=== PATIENT | female | born 1960 | race American Indian/Alaskan Native ===

== ENCOUNTER 2020-08-02 08:36 | Outpatient (REF) | payer OTHER, SELFPAY ==
[2020-08-02 09:37] LABS: MANUAL DIFF FLAG NO
[2020-08-02 09:45] LABS: Basophils Absolute Auto 0.1 X10*3/uL (0.0-0.2); Basophils Percent Auto 1.9 % (0-2); Eosinophils Absolute Auto 0.3 X10*3/uL (0.0-0.4); Eosinophils Percent Auto 4.9 % (0-4); Hematocrit 41.1 % (37-47); Hemoglobin 12.8 g/dl (12.0-16.0); Imm Gran Abs Auto 0.01 X10*3/uL (0.00-0.03); Imm Gran Pct Auto 0.2 % (0.0-0.4); Lymphocytes Absolute Auto 1.1 X10*3/uL (1.2-4.9); Lymphocytes Percent Auto 20.6 % (20-40); Mean Corpuscular HGB Conc 31.1 g/dl (31.0-35.0); Mean Corpuscular Volume 93.2 fL (80-98); Mean Platelet Volume 11.6 fL (9.4-12.3); Monocytes Absolute Auto 0.5 X10*3/uL (0.1-1.2); Monocytes Percent Auto 8.4 % (2-11); Neutrophils Absolute Auto 3.4 X10*3/uL (2.0-8.3); Platelet Count 248 X10*3/uL (160-400); Red Blood Count 4.41 X10*6/uL (4.20-5.50); Red Cell Distribution Width 12.5 % (11.0-16.0); White Blood Count 5.4 X10*3/uL (4.8-10.8)
[2020-08-02 10:13] LABS: Alanine Aminotransferase 10 U/L (0-31); Albumin Level 4.5 g/dL (3.5-5.0); Alkaline Phosphatase 83 U/L (39-117); Anion Gap 17 (12-20); Aspartate Amino Transferase 15 U/L (5-31); Bilirubin Total 0.4 mg/dL (0.0-1.0); Blood Urea Nitrogen 12 mg/dL (9-16); Calcium 10.1 mg/dL (8.4-10.2); Carbon Dioxide 27 mmol/L (22-29); Chloride 101 mmol/L (96-108); Cholesterol 203 mg/dL; Estimated Glomerular Filt Rate > 60; Glucose Fasting 94 mg/dL (60-99); HDL Cholesterol 70 mg/dL; LDL Cholesterol Calculated 119 mg/dl; Potassium 4.2 mmol/L (3.3-5.1); Sodium 141 mmol/L (135-145); Triglycerides 72 mg/dL
[2020-08-02 11:20] LABS: Folate > 20.0 ng/mL (> or = 4.0); Vitamin B12 773 pg/mL (200-900)
[2020-08-09 11:32] LABS: Vitamin D 25-OH, D2 <4 ng/mL; Vitamin D 25-OH, D3 21 ng/mL; Vitamin D 25-OH, Total 21 ng/mL (30-100)
== END 2020-08-02 08:37 | disposition home or self-care (01) ==
LOC: HO.LAB 08:36
PROVIDERS: PCP Internal Medicine; Visit Provider Internal Medicine
DX: D51.0 Vitamin B12 deficiency anemia due to intrinsic factor deficiency (principal); I10 Essential (primary) hypertension; E55.9 Vitamin D deficiency, unspecified; E78.5 Hyperlipidemia, unspecified
CPT/HCPCS: 36415; 80053; 80061; 82306; 82607; 82746; 85025

== ENCOUNTER 2020-10-25 08:38 | Outpatient (REF) | payer OTHER, SELFPAY ==
--- NOTE | ~2020-10-25 | MM_ITS ---
EXAMINATION: MM SCREENING DIGITAL BREAST TOMOSYNTHESIS, BILATERAL CLINICAL INFORMATION: Screening. Asymptomatic. The lifetime risk of breast cancer based on the Tyrer-Cuzick Model is 5%. COMPARISON: Mammography: 07/20/2019, 07/14/2018, 06/23/2017 TECHNIQUE: Digital breast tomosynthesis is performed in both the craniocaudal and mediolateral oblique views along with computer-aided detection (CAD). Synthesized 2D images are generated from the tomosynthesis. FINDINGS: There are scattered areas of fibroglandular density (ACR BI-RADS breast composition Category b). There are no significant masses, abnormal calcifications, or other abnormalities. Parenchymal pattern is similar to prior studies. No developing density. No significant changes. MM/MM tomosynthesis screening BI IMPRESSION: No mammographic evidence of malignancy. ASSESSMENT: BI-RADS 1: Negative RECOMMENDATION: Routine annual mammography screening. This patient's information was entered into a reminder system with a target due date for their next mammogram.
== END 2020-10-25 08:39 | disposition home or self-care (01) ==
LOC: HO.MAMMO 08:38
PROVIDERS: PCP Internal Medicine; Visit Provider Internal Medicine
DX: Z12.31 Encounter for screening mammogram for malignant neoplasm of breast (principal)
CPT/HCPCS: 77063; 77067

== ENCOUNTER 2020-12-14 10:27 | Outpatient (REF) | payer OTHER, SELFPAY ==
--- NOTE | ~2020-12-14 | XR_ITS ---
EXAMINATION: XR ABDOMEN KUB CLINICAL INDICATION: Abdominal pain. COMPARISON: None TECHNIQUE: AP view of the abdomen. FINDINGS: There is moderate stool seen in the colon without any significant distention. There is no radiopaque calculi. There is mild levoscoliosis dorsal spine. There is amorphous calcification pelvis likely uterine fibroid disease. There are small phlebolith in pelvis. No fracture seen. XR/XR KUB IMPRESSION: Mild constipation. Likely calcified uterine fibroid in the pelvis. Mild spondylosis.
== END 2020-12-14 10:28 | disposition home or self-care (01) ==
LOC: HO.XRAY 10:27
PROVIDERS: PCP Internal Medicine; Visit Provider Internal Medicine
DX: R10.9 Unspecified abdominal pain (principal)
CPT/HCPCS: 74018

== ENCOUNTER 2020-12-22 10:29 | Outpatient (REF) | payer OTHER, SELFPAY ==
[2020-12-22 11:52] LABS: Baso%MD 1.4 %; Eos%MD 2.8 %; Hematocrit 38.4 % (37-47); Hemoglobin 12.4 g/dl (12.0-16.0); IG%MD 0.5 %; Lymph%MD 23.1 %; Mean Corpuscular HGB Conc 32.3 g/dl (31.0-35.0); Mean Corpuscular Hemoglobin 29.3 pg (27.0-33.0); Mean Corpuscular Volume 90.8 fL (80-98); Mean Platelet Volume 9.9 fL (9.4-12.3); Mono%MD 8.8 %; Neut%MD 63.4 %; Platelet Count 311 X10*3/uL (160-400); Red Blood Count 4.23 X10*6/uL (4.20-5.50); White Blood Count 5.8 X10*3/uL (4.8-10.8)
[2020-12-22 12:06] LABS: Alanine Aminotransferase 17 U/L (0-31); Albumin Level 4.6 g/dL (3.5-5.0); Alkaline Phosphatase 90 U/L (39-117); Anion Gap 14 (12-20); Aspartate Amino Transferase 15 U/L (5-31); Bilirubin Total 0.5 mg/dL (0.0-1.0); Blood Urea Nitrogen 12 mg/dL (9-16); Calcium 10.2 mg/dL (8.4-10.2); Carbon Dioxide 26 mmol/L (22-29); Chloride 106 mmol/L (96-108); Cholesterol 200 mg/dL; Estimated Glomerular Filt Rate > 60; Glucose Fasting 102 mg/dL (60-99); HDL Cholesterol 65 mg/dL; LDL Cholesterol Calculated 124 mg/dl; Potassium 4.1 mmol/L (3.3-5.1); Sodium 142 mmol/L (135-145); Triglycerides 55 mg/dL
[2020-12-22 13:44] LABS: Band Neutrophils Percent 0 % (3-5); Basophils Abs Manual 0.1 X10*3/uL (0.0-0.3); Basophils Percent Manual 2 % (0-1); Eosinophils Absolute Manual 0.2 X10*3/UL (0.0-0.8); Eosinophils Percent Manual 4 % (0-4); Lymphocytes Absolute Manual 1.2 X10*3/uL (0.6-4.8); Lymphocytes Percent Manual 20 % (20-40); Monocytes Absolute Manual 0.5 X10*3/uL (0.0-1.2); Monocytes Percent Manual 8 % (2-11); Neutrophils Absolute Manual 3.8 X10*3/uL (2.2-7.9); Neutrophils Percent Manual 66 % (45-73)
[2020-12-22 13:45] LABS: Platelet Estimate NORMAL (NORMAL); Platelet Morphology Comment NORMAL
[2020-12-22 13:46] LABS: RBC Morphology NORMAL
[2020-12-23 15:52] LABS: Folate > 20.0 ng/mL (> or = 4.0); Vitamin B12 1004 pg/mL (200-900)
[2020-12-27 16:01] LABS: Vitamin D 25-OH, D2 <4 ng/mL; Vitamin D 25-OH, D3 31 ng/mL; Vitamin D 25-OH, Total 31 ng/mL (30-100)
== END 2020-12-22 10:30 | disposition home or self-care (01) ==
LOC: HO.LAB 10:29
PROVIDERS: PCP Internal Medicine; Visit Provider Internal Medicine
DX: D51.0 Vitamin B12 deficiency anemia due to intrinsic factor deficiency (principal); I10 Essential (primary) hypertension; E55.9 Vitamin D deficiency, unspecified
CPT/HCPCS: 36415; 80053; 80061; 82306; 82607; 82746; 85007; 85027

== ENCOUNTER 2021-05-03 09:54 | Outpatient (REF) | payer OTHER, SELFPAY ==
[2021-05-03 14:49] LABS: COVID-19 Test Negative (Negative)
== END 2021-05-03 09:55 | disposition home or self-care (01) ==
LOC: HO.LAB 09:54
PROVIDERS: Visit Provider Internal Medicine
DX: Z20.822 Contact with and (suspected) exposure to COVID-19 (principal)
CPT/HCPCS: 36415; 87635; C9803

== ENCOUNTER 2021-07-31 10:32 | Outpatient (REF) | payer OTHER, SELFPAY | END 2021-07-31 10:33 | disposition home or self-care (01) | LOC: HO.US 10:32 | PROVIDERS: PCP Internal Medicine; Visit Provider Internal Medicine | DX: Z13.89 Encounter for screening for other disorder (principal) ==

== ENCOUNTER 2021-08-06 09:55 | Outpatient (REF) | payer OTHER, SELFPAY ==
--- NOTE | ~2021-08-06 | US_ITS ---
EXAMINATION: US PELVIS, COMPLETE CLINICAL INFORMATION: Leiomyoma. COMPARISON: Ultrasound 10/29/2010. TECHNIQUE: Ultrasound of the pelvis is performed using both transabdominal and transvaginal transducers along with Doppler. Transvaginal imaging is performed due to inadequate visualization transabdominally. FINDINGS: UTERUS: The uterus is anteverted and measures 8.7 x 2.9 x 4.5 cm. The endometrium is not well visualized. The uterus is smooth in contour and has normal myometrial echogenicity. There are 2 hypoechoic lesions along the posterior body of uterus measuring 1.8 x 1.2 x 1.2 cm. Previously measured 1.2 x 1.2 x 1.5 cm and second larger lesion measuring 2.3 x 2.2 x 2.7 cm. Previously measured 2.2 x 2.1 x 1.7 cm. ADNEXA: There is a right adnexal solid lesion measuring 6.3 x 3.1 x 4.1 cm. Question solid ovarian mass or a paraovarian mass, pedunculated fibroid. Right ovary is not optimally visualized. Left ovary measures 2.1 x 1.6 x 1.4 and volume 2.5 mL. US/US pelvic complete IMPRESSION: Right adnexal solid mass, question ovary versus paraovarian mass/exophytic fibroid. Unremarkable left ovary. Two uterine fibroids.
== END 2021-08-06 09:56 | disposition home or self-care (01) ==
LOC: HO.US 09:55
PROVIDERS: PCP Internal Medicine; Visit Provider Internal Medicine
DX: D25.9 Leiomyoma of uterus, unspecified (principal)
CPT/HCPCS: 76856

== ENCOUNTER 2021-08-08 09:11 | Outpatient (REF) | payer OTHER, SELFPAY ==
[2021-08-08 10:39] LABS: Alanine Aminotransferase 18 U/L (0-31); Albumin Level 4.6 g/dL (3.5-5.0); Alkaline Phosphatase 73 U/L (39-117); Anion Gap 9 (12-20); Aspartate Amino Transferase 14 U/L (5-31); Bilirubin Total 0.4 mg/dL (0.0-1.0); Blood Urea Nitrogen 12 mg/dL (9-16); Calcium 10.5 mg/dL (8.4-10.2); Carbon Dioxide 31 mmol/L (22-29); Chloride 103 mmol/L (96-108); Cholesterol 210 mg/dL; Estimated Glomerular Filt Rate > 60; Glucose Fasting 102 mg/dL (60-99); HDL Cholesterol 69 mg/dL; LDL Cholesterol Calculated 126 mg/dl; Potassium 4.5 mmol/L (3.3-5.1); Sodium 138 mmol/L (135-145); Triglycerides 78 mg/dL
[2021-08-08 11:24] LABS: Folate 18.8 ng/mL (> or = 4.0); Vitamin B12 696 pg/mL (200-900)
[2021-08-12 13:41] LABS: Vitamin D 25-OH, D2 <4 ng/mL; Vitamin D 25-OH, D3 30 ng/mL; Vitamin D 25-OH, Total 30 ng/mL (30-100)
== END 2021-08-08 09:12 | disposition home or self-care (01) ==
LOC: HO.LAB 09:11
PROVIDERS: PCP Internal Medicine; Visit Provider Internal Medicine
DX: I10 Essential (primary) hypertension (principal); E55.9 Vitamin D deficiency, unspecified; D51.0 Vitamin B12 deficiency anemia due to intrinsic factor deficiency
CPT/HCPCS: 36415; 80053; 80061; 82306; 82607; 82746

== ENCOUNTER 2021-08-29 11:20 | Outpatient (REF) | payer OTHER, SELFPAY ==
[2021-08-31 23:42] LABS: HPV mRNA E6/E7 rflx Not Detected (Not Detected)
== END 2021-08-29 11:21 | disposition home or self-care (01) ==
LOC: HO.LAB 11:20
PROVIDERS: PCP Internal Medicine; Visit Provider Obstetrics & Gynecology
DX: Z12.4 Encounter for screening for malignant neoplasm of cervix (principal); Z11.51 Encounter for screening for human papillomavirus (HPV); D21.9 Benign neoplasm of connective and other soft tissue, unspecified; N90.89 Other specified noninflammatory disorders of vulva and perineum; N94.89 Other specified conditions associated with female genital organs and menstrual cycle
CPT/HCPCS: 87624; 88142; 99202

== ENCOUNTER 2021-09-20 08:34 | Outpatient (REF) | payer OTHER, SELFPAY | END 2021-09-20 08:35 | disposition home or self-care (01) | LOC: HO.LAB 08:34 | PROVIDERS: PCP Internal Medicine; Visit Provider Obstetrics & Gynecology | DX: N90.89 Other specified noninflammatory disorders of vulva and perineum (principal) | CPT/HCPCS: 56605; 88305 ==

== ENCOUNTER 2021-09-25 13:37 | Outpatient (REF) | payer OTHER, SELFPAY ==
--- NOTE | ~2021-09-25 | MR_ITS ---
EXAMINATION: MR PELVIS WITHOUT AND WITH CONTRAST CLINICAL INFORMATION: Evaluation of a right ovarian lesion noted on a prior ultrasound. COMPARISON: Pelvic ultrasound dated from 08/06/2021. CT abdomen dated from 02/10/2008. TECHNIQUE: Multiple routine MRI sequences through the pelvis were obtained before and after the uneventful administration of 8 mL Gadavist gadolinium-based IV contrast. FINDINGS: The uterus is anteverted and measures 7 cm cervix to fundus, 4 cm anteroposterior and 4.3 cm transverse. There are several T2 dark intramural fibroids, many of which are not significantly enhancing suggesting degeneration. Largest measuring 2 cm in the posterior uterus (3:14). The upper endometrium is thickened measuring up to 1.6 cm in thickness. The junctional zone is not entirely well delineated and difficult to evaluate. The cervix and vagina are within normal limits. The left ovary is identified on image 17 of series 7 with a 1.3 cm homogeneously T2 bright avascular dominant follicle for which no imaging follow up is required. The right ovary is not definitely identified. In the right adnexa, there is a large 9 x 4.7 x 8.2 cm mass demonstrating predominantly low T2 signal and mild hypoenhancement when compared to the myometrium. This lesion appears to be in direct connection with the uterus fundus (9:17) and in retrospect was present on a CT from 2007, which favors to represent a pedunculated fibroid. This fibroid is partially calcified (9:3) which is also evident on an abdominal radiograph from 12/14/2020. The sigmoid colon is in very close proximity to this fibroid, as visualized on coronal image 4 of series 8 of uncertain significance. The kidneys are normally positioned. No hydronephrosis. The urinary bladder is within normal limits. There is trace amount of free fluid layering in the pelvis. There is no lymphadenopathy by size criteria. Sigmoid diverticulosis but no evidence of acute diverticulitis. No aggressive osseous lesions are seen. MR/MR pelvis wo/w con IMPRESSION: Large pedunculated uterine fibroid in the region of the right adnexa. There are a few other smaller intramural uterine fibroids. The endometrium is thickened. [employer] consultation and tissue sampling is recommended to evaluate for neoplasia.
[2021-09-25 14:02] LABS: Blood Urea Nitrogen 15 mg/dL (9-16); Estimated Glomerular Filt Rate > 60
== END 2021-09-25 13:38 | disposition home or self-care (01) ==
LOC: HO.MRI 13:37
PROVIDERS: Visit Provider Obstetrics & Gynecology
DX: N83.299 Other ovarian cyst, unspecified side (principal); N94.89 Other specified conditions associated with female genital organs and menstrual cycle
CPT/HCPCS: 36415; 72197; 82565; 84520; A9585

== ENCOUNTER → 2021-10-04 08:25 | Outpatient (BNVA) | payer OTHER, SELFPAY | PROVIDERS: PCP Internal Medicine; Visit Provider Obstetrics & Gynecology | DX: N90.89 Other specified noninflammatory disorders of vulva and perineum (principal) | CPT/HCPCS: 99212 ==

== ENCOUNTER 2021-10-29 08:45 | Outpatient (REF) | payer OTHER, SELFPAY ==
--- NOTE | ~2021-10-29 | MM_ITS ---
EXAMINATION: MM SCREENING DIGITAL BREAST TOMOSYNTHESIS, BILATERAL CLINICAL INFORMATION: Screening. Asymptomatic. The lifetime risk of breast cancer based on the Tyrer-Cuzick Model is 5%. COMPARISON: Mammography: 10/25/2020, 07/20/2019, 07/14/2018 TECHNIQUE: Digital breast tomosynthesis is performed in both the craniocaudal and mediolateral oblique views along with computer-aided detection (CAD). Synthesized 2D images are generated from the tomosynthesis. FINDINGS: There are scattered areas of fibroglandular density (ACR BI-RADS breast composition Category b). There are no significant masses, abnormal calcifications, or other abnormalities. Parenchymal pattern is similar to prior studies. The axilla are unremarkable. The skin contours are smooth. There are some punctate densities overlying the skin bilateral axilla consistent with deodorant artifact. MM/MM tomosynthesis screening BI IMPRESSION: No mammographic evidence of malignancy. ASSESSMENT: BI-RADS 2: Benign RECOMMENDATION: Routine annual mammography screening. This patient's information was entered into a reminder system with a target due date for their next mammogram.
== END 2021-10-29 08:46 | disposition home or self-care (01) ==
LOC: HO.MAMMO 08:45
PROVIDERS: Visit Provider Internal Medicine
DX: Z12.31 Encounter for screening mammogram for malignant neoplasm of breast (principal)
CPT/HCPCS: 77063; 77067

== ENCOUNTER → 2021-11-07 13:12 | Outpatient (BNVA) | payer OTHER, SELFPAY | PROVIDERS: PCP Internal Medicine; Visit Provider Obstetrics & Gynecology | DX: D25.1 Intramural leiomyoma of uterus (principal); R93.89 Abnormal findings on diagnostic imaging of other specified body structures | CPT/HCPCS: 99212 ==

== ENCOUNTER 2022-04-17 08:55 | Outpatient (REF) | payer OTHER, SELFPAY ==
[2022-04-17 09:08] LABS: MANUAL DIFF FLAG NO
[2022-04-17 10:02] LABS: Basophils Absolute Auto 0.1 X10*3/uL (0.0-0.2); Basophils Percent Auto 1.1 % (0-2); Eosinophils Absolute Auto 0.4 X10*3/uL (0.0-0.4); Eosinophils Percent Auto 5.8 % (0-4); Hematocrit 38.5 % (37.0-47.0); Hemoglobin 12.2 g/dl (12.0-16.0); Imm Gran Abs Auto 0.01 X10*3/uL (0.00-0.03); Imm Gran Pct Auto 0.2 % (0.0-0.4); Lymphocytes Absolute Auto 1.2 X10*3/uL (1.2-4.9); Lymphocytes Percent Auto 17.7 % (20-40); Mean Corpuscular HGB Conc 31.7 g/dl (31.0-35.0); Mean Corpuscular Hemoglobin 28.7 pg (27.0-33.0); Mean Corpuscular Volume 90.6 fL (80.0-98.0); Mean Platelet Volume 10.5 fL (9.4-12.3); Monocytes Absolute Auto 0.5 X10*3/uL (0.1-1.2); Monocytes Percent Auto 7.8 % (2-11); Neutrophils Absolute Auto 4.4 x10*3/uL (2.0-8.3); Neutrophils Percent Auto 67.4 % (45-73); Platelet Count 318 X10*3/uL (160-400); Red Blood Count 4.25 X10*6/uL (4.20-5.50); Red Cell Distribution Width 12.8 % (11.0-16.0); White Blood Count 6.5 X10*3/uL (4.8-10.8)
[2022-04-17 10:38] LABS: Estimated Average Glucose 114 mg/dL; Hemoglobin A1c % 5.6 %
[2022-04-17 10:59] LABS: Alanine Aminotransferase 16 U/L (0-31); Albumin Level 4.4 g/dL (3.5-5.0); Alkaline Phosphatase 75 U/L (39-117); Anion Gap 12 (12-20); Aspartate Amino Transferase 16 U/L (5-31); Bilirubin Total 0.4 mg/dL (0.0-1.0); Blood Urea Nitrogen 11 mg/dL (9-16); Carbon Dioxide 28 mmol/L (22-29); Chloride 104 mmol/L (96-108); Cholesterol 199 mg/dL; Estimated Glomerular Filt Rate > 60; Glucose Random 92 mg/dL (60-115); HDL Cholesterol 61 mg/dL; LDL Cholesterol Calculated 119 mg/dl; Sodium 140 mmol/L (135-145); Thyroid Stimulating Hormone 1.05 uIU/mL (0.32-4.0); Total Protein 7.6 g/dL (6.5-8.0); Triglycerides 98 mg/dL
== END 2022-04-17 08:56 | disposition home or self-care (01) ==
LOC: HO.LAB 08:55
PROVIDERS: PCP Internal Medicine; Visit Provider Nurse Practitioner Psychiatric/Mental Health
DX: F41.1 Generalized anxiety disorder (principal)
CPT/HCPCS: 36415; 80053; 80061; 83036; 84443; 85025

== ENCOUNTER 2022-05-17 10:18 | Emergency (ER) | payer OTHER, SELFPAY ==
[2022-05-17 10:26] VITALS: BP 145/68; PULSE 62; RESP 20; TEMP 36.2; O2SAT 97; BMI 25.9
--- NOTE | 2022-05-17 12:10 | ED.EYEPROB ---
HPI - Eye Problem General Chief complaint: Eye Problems Stated complaint: eye issue Time Seen by Provider: 05/17/22 11:44 History of Present Illness HPI Narrative: patient complains of waking up this morning and noticing some redness in her eye, she does not recall any eye trauma or foreign body There is no vision loss there is no vision changes no vision blurriness there is no discharge from the eye there is no pain in the eye there is no sensitivity to light, there is no headache there is no fever Related Data Home Medications Medication Instructions Recorded Confirmed citalopram 40 mg tablet 40 mg PO DAILY 02/16/20 01/28/22 bupropion HCl 150 mg tablet,12 hr 150 mg PO DAILY 12/05/20 01/28/22 sustained-release Previous Rx's Medication Instructions Recorded Shower Chair #1 ea 03/14/21 folic acid 1 mg tablet 1 mg PO DAILY 90 days #90 tabs 05/30/21 calcium carbonate 600 mg-vitamin 1 tab PO DAILY 90 days #90 tabs 05/31/21 D3 10 mcg (400 unit) tablet cholecalciferol (vitamin D3) 50 50 mcg PO DAILY 90 days #90 caps 08/24/21 mcg (2,000 unit) capsule incontinence pad, liner, disp #30 ea 08/28/21 (Bladder Control Pads) lisinopril 10 mg tablet 10 mg PO DAILY 90 days #90 tabs 01/20/22 hydrochlorothiazide 25 mg tablet 25 mg PO QAM 90 days #90 tabs 01/28/22 amlodipine 10 mg tablet 10 mg PO DAILY #90 tabs 03/06/22 cyanocobalamin (vitamin B-12) 1,000 mcg PO .once a week 90 days 03/06/22 1,000 mcg tablet #12 tabs Allergies Allergy/AdvReac Type Severity Reaction Status Date / Time amoxicillin [AMOXICILLIN] Allergy Intermediate ? RASH Verified 01/28/22 09:02 clonazepam [From KLONOPIN] Allergy Intermediate ? RASH Verified 01/28/22 09:02 lorazepam [LORAZEPAM] Allergy Intermediate ? RASH Verified 01/28/22 09:02 mirtazapine [From REMERON] Allergy Intermediate RASH Verified 01/28/22 09:02 naproxen [From NAPROSYN] Allergy Intermediate ? RASH Verified 01/28/22 09:02 Sulfa (Sulfonamide Allergy Intermediate ? RASH Verified 01/28/22 09:02 Antibiotics) [SULFA(SULFONAMIDE ANTIBIOTICS)] fluoxetine [Prozac] Allergy Mild rash Verified 01/28/22 09:02 From TUSSIONEX PENNKINETIC ER Allergy Intermediate ? RASH Uncoded 01/28/22 09:02 [facility] Past Medical History Source: nursing notes reviewed Medical History Depression with anxiety Developmental delay, mild Essential hypertension STEPHAN (generalized anxiety disorder) Hypovitaminosis D Left flank pain Mild major depression, single episode Ovarian mass Pernicious anemia Skin lesion Urge urinary incontinence Uterine fibroid Surgical History H/O tubal ligation History of Family History Family History Father Heart attack Mother No problems noted. Other Mental and behavioral problem in adult Social History Social History Housing: Apartment Alcohol intake: never Patient Tobacco Use Status: Never used Tobacco e-Cigarette/Vaping Use: Never Used Second Hand Smoke Exposure: No Advance Directives: No service: No Current occupational status: disabled Cognitive needs: Yes Hearing needs: No Vision needs: No Physical Exam Vital Signs: Vital Signs: Last Vital Signs Temp 97.2 F 05/17/22 10:26 Pulse 62 05/17/22 10:26 Resp 20 05/17/22 10:26 BP 145/68 H 05/17/22 10:26 Pulse Ox 97 05/17/22 10:26 O2 Del Method 05/17/22 10:26 BMI result Body Mass Index 25.9 general appearance comfortable cooperative no acute distress Head is normocephalic atraumatic The eye exam pupils equal round reactive to light extraocular motions are intact The conjunctiva are normal there is no redness or discharge The sclera has an area of redness in the medial aspect of the right eye consistent with subconjunctival hemorrhage There is no photophobia The skin around the lids and orbit is normal there is no stye Visual acuity is 2025 bilateral The neck is supple No respiratory distress Extremities full range of motion x4 Skin no rashes Course Course Course Narrative: patient without any complaint except redness in the sclera consistent with subconjunctival hemorrhage, no vision changes no eye pain no discharge Patient is reassured and discharged Discharge Plan Discharge Clinical Impression: Subconjunctival hemorrhage of right eye, Subconjunctival hemorrhage Patient Disposition: Home, Self-Care Additional Instructions: a subconjunctival hemorrhage is simply a burst blood vessel in the white part of the eye and it resolves on its own in 1-2 weeks with the eye returning to its normal color Return any time for eye pain vision loss vision change discharge from eye any worse condition or any concerns Prescriptions: No Action (DME) Shower Chair Misc See Rx Instructions .Route Qty: 1 0RF Rx Instructions: As directed folic acid 1 mg tablet 1 mg PO DAILY 90 Days Qty: 90 3RF calcium carbonate-vitamin D3 600 mg-10 mcg (400 unit) tablet 1 tab PO DAILY 90 Days Qty: 90 3RF cholecalciferol (vitamin D3) 50 mcg (2,000 unit) capsule 50 mcg PO DAILY 90 Days Qty: 90 3RF lisinopril 10 mg tablet 10 mg PO DAILY 90 Days Qty: 90 1RF hydrochlorothiazide 25 mg tablet 25 mg PO QAM 90 Days Qty: 90 3RF amlodipine 10 mg tablet 10 mg PO DAILY Qty: 90 1RF cyanocobalamin (vitamin B-12) 1,000 mcg tablet 1,000 mcg PO .once a week 90 Days Qty: 12 3RF citalopram 40 mg tablet 40 mg PO DAILY bupropion HCl 150 mg tablet sustained-release 12 hr 150 mg PO DAILY (DME) Bladder Control Pads Pad See Rx Instructions .ROUTE .MEDSUPPLY Qty: 30 11RF Rx Instructions: Use 1 pad once a day prn
== END 2022-05-17 12:41 | disposition home or self-care (01) ==
PROVIDERS: Emergency Provider Emergency Medicine
DX: H11.31 Conjunctival hemorrhage, right eye (principal); Z79.899 Other long term (current) drug therapy
CPT/HCPCS: 99282

== ENCOUNTER 2022-08-22 13:19 | Outpatient (REF) | payer OTHER, SELFPAY ==
--- NOTE | ~2022-08-22 | US_ITS ---
EXAMINATION: US PELVIS CLINICAL INFORMATION: Thickened endometrium, fibroids and adnexal mass. COMPARISON: MR pelvis 09/25/2021 and pelvic ultrasound 08/06/2021. TECHNIQUE: Ultrasound of the pelvis is performed using both transabdominal and transvaginal transducers along with Doppler. Transvaginal imaging is performed due to inadequate visualization transabdominally. FINDINGS: UTERUS: The anteverted anteflexed uterus contains multiple fibroids and is enlarged measuring 7.4 x 3.5 x 3.6 cm. The endometrium appears markedly thickened measuring 3.1 cm. Multiple uterine fibroids are seen predominantly on the right with the largest pedunculated measuring 6.5 x 3.9 x 4.2 cm (previously 6.3 x 3.1 x 4.1 cm). Three other fibroids measured between 1.1 and 2.2 cm. ADNEXA: Both ovaries are visualized. There is normal color flow to the adnexa. There is no ovarian torsion. There is no pelvic ascites or fluid collection. Right ovary measures 1.9 x 1.0 x 1.3 cm for a volume 1.3 mL. Left ovary measures 2.4 x 1.6 x 2.1 cm for a volume of 4.2 mL, which includes a 1.4 x 1.5 x 1.7 cm cyst along with some calcifications. US/US pelvic and transvaginal IMPRESSION: 1. Multiple uterine fibroids one of which is large and pedunculated. 2. Markedly thickened endometrium measuring 3.1 cm. On the prior MRI the endometrium was thought to measure up to 1.6 cm in thickness. 3. Benign left ovarian cyst.
== END 2022-08-22 13:20 | disposition home or self-care (01) ==
LOC: HO.US 13:19
PROVIDERS: PCP Internal Medicine; Visit Provider Obstetrics & Gynecology
DX: D21.9 Benign neoplasm of connective and other soft tissue, unspecified (principal)
CPT/HCPCS: 76830; 76856

== ENCOUNTER → 2022-09-04 08:48 | Outpatient (BNVA) | payer OTHER, SELFPAY | PROVIDERS: PCP Internal Medicine; Visit Provider Obstetrics & Gynecology | DX: D21.9 Benign neoplasm of connective and other soft tissue, unspecified (principal) | CPT/HCPCS: 99212 ==

== ENCOUNTER → 2022-10-08 08:55 | Outpatient (BNVA) | payer OTHER, SELFPAY | PROVIDERS: PCP Internal Medicine; Visit Provider Obstetrics & Gynecology ==

== ENCOUNTER 2022-11-18 12:49 | Outpatient (REF) | payer OTHER, SELFPAY ==
--- NOTE | ~2022-11-18 | MM_ITS ---
EXAMINATION: MM SCREENING DIGITAL BREAST TOMOSYNTHESIS, BILATERAL CLINICAL INFORMATION: Screening. Asymptomatic. The lifetime risk of breast cancer based on the Tyrer-Cuzick Model is 5.2%. COMPARISON: Mammography: This study is compared with prior exams dating back to 2017. TECHNIQUE: Digital breast tomosynthesis is performed in both the craniocaudal and mediolateral oblique views along with computer-aided detection (CAD). Synthesized 2D images are generated from the tomosynthesis. FINDINGS: There are scattered areas of fibroglandular density (ACR BI-RADS breast composition Category b). There are no significant masses, abnormal calcifications, or other abnormalities. MM/MM tomosynthesis screening BI IMPRESSION: No mammographic evidence of malignancy. ASSESSMENT: BI-RADS BI-RADS 1 - Negative RECOMMENDATION: Routine annual mammography screening. 1 year F/U This examination should not preclude the clinical evaluation of a suspicious palpable abnormality. This patient's information was entered into a reminder system with a target due date for their next mammogram.
== END 2022-11-18 12:50 | disposition home or self-care (01) ==
LOC: HO.MAMMO 12:49
PROVIDERS: PCP Internal Medicine; Visit Provider Internal Medicine
DX: Z12.31 Encounter for screening mammogram for malignant neoplasm of breast (principal)
CPT/HCPCS: 77063; 77067

== ENCOUNTER → 2022-11-18 13:00 | Outpatient (BNV) | payer OTHER, SELFPAY | PROVIDERS: PCP Internal Medicine; Visit Provider Radiology Diagnostic Radiology | DX: Z12.31 Encounter for screening mammogram for malignant neoplasm of breast (principal) | CPT/HCPCS: 77063; 77067 ==

== ENCOUNTER 2022-12-01 13:51 | Emergency (ER) | payer OTHER, SELFPAY ==
--- NOTE | ~2022-12-01 | XR_ITS ---
EXAMINATION: XR CHEST CLINICAL INFORMATION: SOB. COMPARISON: None available. TECHNIQUE: Frontal view of the chest was obtained. FINDINGS: The lungs are well-expanded and clear of acute process. The heart size and pulmonary vascularity is normal. There is mild dextro scoliosis lower dorsal spine. Suspect small hiatal hernia. XR/XR chest 1V IMPRESSION: 1. No acute cardiopulmonary process seen. 2. Suspect small hiatal hernia. 3. Mild dextro scoliosis lower dorsal spine
--- NOTE | 2022-12-01 13:56 | ED_ITS ---
HPI - Eye Problem General Chief complaint: Eye Problems Stated complaint: Right eye problems Time Seen by Provider: 12/01/22 14:11 Related Data Home Medications Medication Instructions Recorded Confirmed citalopram 40 mg tablet 40 mg PO DAILY 02/16/20 01/28/22 bupropion HCl 150 mg tablet,12 hr 150 mg PO DAILY 12/05/20 01/28/22 sustained-release Previous Rx's Medication Instructions Recorded Shower Chair #1 ea 03/14/21 incontinence pad, liner, disp #30 ea 08/28/21 (Bladder Control Pads) hydrochlorothiazide 25 mg tablet 25 mg PO QAM 90 days #90 tabs 01/28/22 cyanocobalamin (vitamin B-12) 1,000 mcg PO .once a week 90 days 03/06/22 1,000 mcg tablet #12 tabs calcium carbonate 600 mg-vitamin 1 tab PO DAILY 90 days #90 tabs 06/10/22 D3 10 mcg (400 unit) tablet folic acid 1 mg tablet 1 mg PO DAILY 90 days #90 tabs 08/07/22 lisinopril 10 mg tablet 10 mg PO DAILY 90 days #90 tabs 08/07/22 cholecalciferol (vitamin D3) 50 50 mcg PO DAILY 90 days #90 caps 09/04/22 mcg (2,000 unit) capsule amlodipine 10 mg tablet 10 mg PO DAILY #90 tabs 10/08/22 Allergies Allergy/AdvReac Type Severity Reaction Status Date / Time amoxicillin [AMOXICILLIN] Allergy Intermediate ? RASH Verified 10/08/22 09:01 clonazepam [From KLONOPIN] Allergy Intermediate ? RASH Verified 10/08/22 09:01 lorazepam [LORAZEPAM] Allergy Intermediate ? RASH Verified 10/08/22 09:01 mirtazapine [From REMERON] Allergy Intermediate RASH Verified 10/08/22 09:01 naproxen [From NAPROSYN] Allergy Intermediate ? RASH Verified 10/08/22 09:01 Sulfa (Sulfonamide Allergy Intermediate ? RASH Verified 10/08/22 09:01 Antibiotics) [SULFA(SULFONAMIDE ANTIBIOTICS)] fluoxetine [Prozac] Allergy Mild rash Verified 10/08/22 09:01 From TUSSIONEX PENNKINETIC ER Allergy Intermediate ? RASH Uncoded 10/08/22 09:01 [facility] Past Medical History Medical History Depression with anxiety Developmental delay, mild Essential hypertension STEPHAN (generalized anxiety disorder) Hypovitaminosis D Left flank pain Mild major depression, single episode Ovarian mass Pernicious anemia Skin lesion Urge urinary incontinence Uterine fibroid Surgical History H/O tubal ligation History of Family History Family History Father Heart attack Mother No problems noted. Other Mental and behavioral problem in adult Social History Social History Housing: Apartment Alcohol intake: never Patient Tobacco Use Status: Never used Tobacco Smoked in Last 30 Days: No e-Cigarette/Vaping Use: Never Used Second Hand Smoke Exposure: No Use of substances other than those prescribed or required for medical reasons: No Advance Directives: No Advance Directives Information Provided: Yes service: No Current occupational status: disabled Cognitive needs: Yes Hearing needs: No Vision needs: No Physical Exam Vital Signs: Vital Signs: Last Vital Signs Temp 98.2 F 12/01/22 13:57 Pulse 62 12/01/22 14:23 Resp 10 L 12/01/22 14:23 BP 147/50 H 12/01/22 14:23 Pulse Ox 98 12/01/22 14:23 O2 Del Method Room Air 12/01/22 14:23 BMI result Body Mass Index 28.1 Course Course Course Narrative: This is an RME: Additional HPI, ROS, PE not included below will be deferred to primary provider. Patient is a 62-year-old female who presents emergency department for evaluation of bleeding to right eye, painless, atraumatic with associated blurred vision. Variable bradycardia during examination 30-50s. She is prescribed amlodipine, HCTZ, lisinopril, no reported BB. Denies chest pain, dizziness, lightheadedness, shortness of breath, difficulty breathing. Exam appears to have subconjunctival hemorrhage, no hyphema Plan: EKG, Medical Decision Making Lab Data 12/01/22 14:56 12/01/22 14:56 Labs: Lab Results 12/01/22 12/01/22 12/01/22 Range/Units 14:56 14:56 14:56 WBC 7.1 (4.8-10.8) X10*3/uL RBC 3.89 L (4.20-5.50) X10*6/uL Hgb 11.2 L (12.0-16.0) g/dl Hct 35.2 L (37.0-47.0) % MCV 90.5 (80.0-98.0) fL MCH 28.8 (27.0-33.0) pg MCHC 31.8 (31.0-35.0) g/dl RDW 13.2 (11.0-16.0) % Plt Count 308 (160-400) X10*3/uL MPV 9.5 (9.4-12.3) fL Immature Gran % (Auto) 0.4 (0.0-0.4) % Neut % (Auto) 65.9 (45-73) % Lymph % (Auto) 16.7 L (20-40) % [place] % (Auto) 10.9 (2-11) % Eos % (Auto) 4.7 H (0-4) % Baso % (Auto) 1.4 (0-2) % Lymph # (Auto) 1.2 (1.2-4.9) X10*3/uL [place] # (Auto) 0.8 (0.1-1.2) X10*3/uL Eos # (Auto) 0.3 (0.0-0.4) X10*3/uL Baso # (Auto) 0.1 (0.0-0.2) X10*3/uL Abs Immat Gran (auto) 0.03 (0.00-0.03) X10*3/uL Absolute Neuts (auto) 4.6 (2.0-8.3) x10*3/uL Absolute Nucleated RBC 0.000 (0.0-0.012) X10*3/uL Nucleated RBC % (auto) 0.0 (0.0-0.2) /100WBC Sodium 143 (135-145) mmol/L Potassium 4.3 (3.3-5.1) mmol/L Chloride 106 (96-108) mmol/L Carbon Dioxide 26 (22-29) mmol/L Anion Gap 15 (12-20) BUN 15 (9-16) mg/dL Creatinine 0.86 (0.5-1.4) mg/dL Estim Creat Clear Calc 62.0 Estimated GFR > 60 Random Glucose 101 (60-115) mg/dL Calcium 10.8 H D (8.4-10.2) mg/dL Magnesium 1.8 (1.6-2.6) mg/dL Troponin I High Sens 17.0 (<3.5-17.0) ng/L Discharge Plan Discharge Clinical Impression: Subconjunctival bleed Patient Disposition: Home, Self-Care Instructions: Subconjunctival Hemorrhage (ED) Prescriptions: No Action (DME) Shower Chair Misc See Rx Instructions .Route Qty: 1 0RF Rx Instructions: As directed hydrochlorothiazide 25 mg tablet 25 mg PO QAM 90 Days Qty: 90 3RF cyanocobalamin (vitamin B-12) 1,000 mcg tablet 1,000 mcg PO .once a week 90 Days Qty: 12 3RF calcium carbonate-vitamin D3 600 mg-10 mcg (400 unit) tablet 1 tab PO DAILY 90 Days Qty: 90 3RF folic acid 1 mg tablet 1 mg PO DAILY 90 Days Qty: 90 3RF lisinopril 10 mg tablet 10 mg PO DAILY 90 Days Qty: 90 1RF cholecalciferol (vitamin D3) 50 mcg (2,000 unit) capsule 50 mcg PO DAILY 90 Days Qty: 90 3RF amlodipine 10 mg tablet 10 mg PO DAILY Qty: 90 1RF citalopram 40 mg tablet 40 mg PO DAILY bupropion HCl 150 mg tablet sustained-release 12 hr 150 mg PO DAILY (DME) Bladder Control Pads Pad See Rx Instructions .ROUTE .MEDSUPPLY Qty: 30 11RF Rx Instructions: Use 1 pad once a day prn Referrals: Mikey Mora [Physician] - 12/03/22 Tr Barrett MD [Physician] - 12/03/22 Interventions: ED Discharge Assessment Last Done: 12/01/22 16:02 Discharge Date/Time: 12/01/22 16:03
[2022-12-01 13:57] VITALS: BP 129/53; PULSE 40; RESP 18; TEMP 36.8; O2SAT 98; BMI 28.1
--- NOTE | 2022-12-01 14:00 | ECG_ITS ---
Test Reason : BRADYCARDIA Blood Pressure : / mmHG Vent. Rate : 066 BPM Atrial Rate : 066 BPM P-R Int : 154 ms QRS Dur : 112 ms QT Int : 454 ms P-R-T Axes : 084 001 115 degrees QTc Int : 475 ms Sinus rhythm with frequent Premature ventricular complexes in a pattern of bigeminy Minimal voltage criteria for LVH, may be normal variant ( [place] product ) Anteroseptal infarct , age undetermined Abnormal ECG When compared with ECG of 21-MAR-2016 10:49, Premature ventricular complexes are now Present Premature atrial complexes are no longer Present QRS duration has increased Anteroseptal infarct is now Present Referred By: Jocelyne You Electronically Signed By:KY CHAMBERS MD
[2022-12-01 14:23] VITALS: BP 147/50; PULSE 62; RESP 10; O2SAT 98
--- NOTE | 2022-12-01 14:48 | ED.EYEPROB ---
HPI - Eye Problem General Chief complaint: Eye Problems Stated complaint: Right eye problems Time Seen by Provider: 12/01/22 14:11 History of Present Illness HPI Narrative: Patient is 62-year-old female presents today with having bloody right eye. Patient denies any specific trauma. Had noticed the bloody right eye for the last week. There is no chest pain or shortness breath no dizziness no nausea no vomiting. No systemic complaints. Patient from home. There has been no changes to patient's medications. Related Data Home Medications Medication Instructions Recorded Confirmed citalopram 40 mg tablet 40 mg PO DAILY 02/16/20 01/28/22 bupropion HCl 150 mg tablet,12 hr 150 mg PO DAILY 12/05/20 01/28/22 sustained-release Previous Rx's Medication Instructions Recorded Shower Chair #1 ea 03/14/21 incontinence pad, liner, disp #30 ea 08/28/21 (Bladder Control Pads) hydrochlorothiazide 25 mg tablet 25 mg PO QAM 90 days #90 tabs 01/28/22 cyanocobalamin (vitamin B-12) 1,000 mcg PO .once a week 90 days 03/06/22 1,000 mcg tablet #12 tabs calcium carbonate 600 mg-vitamin 1 tab PO DAILY 90 days #90 tabs 06/10/22 D3 10 mcg (400 unit) tablet folic acid 1 mg tablet 1 mg PO DAILY 90 days #90 tabs 08/07/22 lisinopril 10 mg tablet 10 mg PO DAILY 90 days #90 tabs 08/07/22 cholecalciferol (vitamin D3) 50 50 mcg PO DAILY 90 days #90 caps 09/04/22 mcg (2,000 unit) capsule amlodipine 10 mg tablet 10 mg PO DAILY #90 tabs 10/08/22 Allergies Allergy/AdvReac Type Severity Reaction Status Date / Time amoxicillin [AMOXICILLIN] Allergy Intermediate ? RASH Verified 10/08/22 09:01 clonazepam [From KLONOPIN] Allergy Intermediate ? RASH Verified 10/08/22 09:01 lorazepam [LORAZEPAM] Allergy Intermediate ? RASH Verified 10/08/22 09:01 mirtazapine [From REMERON] Allergy Intermediate RASH Verified 10/08/22 09:01 naproxen [From NAPROSYN] Allergy Intermediate ? RASH Verified 10/08/22 09:01 Sulfa (Sulfonamide Allergy Intermediate ? RASH Verified 10/08/22 09:01 Antibiotics) [SULFA(SULFONAMIDE ANTIBIOTICS)] fluoxetine [Prozac] Allergy Mild rash Verified 10/08/22 09:01 From TUSSIONEX PENNKINETIC ER Allergy Intermediate ? RASH Uncoded 10/08/22 09:01 Review of Systems Review of Systems: No fever no chills no chest pain or shortness of breath Yes all other systems are reviewed and are negative [facility] Past Medical History Attestation statement: The following information was validated with the patient. Medical History Depression with anxiety Developmental delay, mild Essential hypertension STEPHAN (generalized anxiety disorder) Hypovitaminosis D Left flank pain Mild major depression, single episode Ovarian mass Pernicious anemia Skin lesion Urge urinary incontinence Uterine fibroid Surgical History H/O tubal ligation History of Family History Family History Father Heart attack Mother No problems noted. Other Mental and behavioral problem in adult Social History Social History Housing: Apartment Alcohol intake: never Patient Tobacco Use Status: Never used Tobacco e-Cigarette/Vaping Use: Never Used Second Hand Smoke Exposure: No Advance Directives: No Advance Directives Information Provided: Yes service: No Current occupational status: disabled Cognitive needs: Yes Hearing needs: No Vision needs: No Physical Exam Vital Signs: Vital Signs: Last Vital Signs Temp 98.2 F 12/01/22 13:57 Pulse 62 12/01/22 14:23 Resp 10 L 12/01/22 14:23 BP 147/50 H 12/01/22 14:23 Pulse Ox 98 12/01/22 14:23 O2 Del Method Room Air 12/01/22 14:23 BMI result Body Mass Index 28.1 Appearance: Alert. Oriented X3. No acute distress. Eyes: Pupils equal, round and reactive to light. The right eye there is subchondral title hemorrhage covering the medial and inferior aspect of the eye. The anterior chambers intact. Pupils are equal reactive. Extraocular muscles intact. Gross finger counting is intact. Patient is intra-ocular pressure is 13 on the right, 14 on the left. No evidence for glaucoma. Patient unable to read eye chart well ENT: Pharynx normal. Neck: Normal inspection. Neck supple. No lymph nodes noted. No crepitus CVS: Normal heart rate and rhythm. Pulses normal. Normal S1 and S2 Respiratory: No respiratory distress. Breath sounds normal. No Wheezing. No rales Abdomen: Soft and nontender. No rigidity. No distention. good BS x4 Skin: Skin warm and dry. Normal skin color. Normal skin turgor. Extremities: No lower extremity edema. Neurovascular intact to all extremities. No Lacerations. No Rash Neuro: Oriented X 3. No motor deficit. No sensory deficit. Moving all extermities. No slurred speech Medical Decision Making Medical Decision Making MDM Narrative: Patient most likely have subconjunctival hemorrhage. Grossly vision is intact. Able to do finger count although patient cannot read minds. Claims visions is about the same. Patient pupils are equal reactive. There is no evidence for glaucoma as patient's intra-ocular pressure is normal. No fever no chills. Patient however had a slow heart rate. An EKG was done. My interpretation of that EKG showed a sinus pattern with bigeminy heart rate is approximately 60. There is no old EKG showing similar rhythm. However on reviewing patient's charts there is a report of bigeminy noted when patient was getting a hysterectomy at [facility] about a month ago. A cardiology consult was done at that time. Will try to obtain that EKG from [facility]. We will go ahead and get electrolytes recheck. Currently in stable condition. Patient not on blood thinners. Patient's EKG today showed a wide complex bigeminy this is new when compared to a previous EKG in 2016. However the patient is has a Cardiology consultation scanned into the computer system that shows she was in bigeminy at [facility]. Attempted to obtain the old record from [facility]. Cannot get an old EKG. The current EKG and the EKG from 2016 was discussed with the plant care worker on-call. Given patient has no symptoms no chest pain or shortness of breath she came in for an eye complaints. Most likely this is not related. Will have patient follow-up on an outpatient basis. Patient has subchondral title hemorrhage. Will have patient follow-up with eye doctor on an outpatient basis. In stable condition. Will discharge Differential Diagnosis Differential Diagnoses: The differential diagnosis associated with the presentation includes Subconjunctival hemorrhage Admission/Observation Consideration of admission/observation: Escalation of care including admission/observation considered Lab Data MDM Lab Attestation statement: I reviewed the patient's lab results. 12/01/22 14:56 12/01/22 14:56 Labs: Lab Results 12/01/22 12/01/22 12/01/22 Range/Units 14:56 14:56 14:56 WBC 7.1 (4.8-10.8) X10*3/uL RBC 3.89 L (4.20-5.50) X10*6/uL Hgb 11.2 L (12.0-16.0) g/dl Hct 35.2 L (37.0-47.0) % MCV 90.5 (80.0-98.0) fL MCH 28.8 (27.0-33.0) pg MCHC 31.8 (31.0-35.0) g/dl RDW 13.2 (11.0-16.0) % Plt Count 308 (160-400) X10*3/uL MPV 9.5 (9.4-12.3) fL Immature Gran % (Auto) 0.4 (0.0-0.4) % Neut % (Auto) 65.9 (45-73) % Lymph % (Auto) 16.7 L (20-40) % Williamson % (Auto) 10.9 (2-11) % Eos % (Auto) 4.7 H (0-4) % Baso % (Auto) 1.4 (0-2) % Lymph # (Auto) 1.2 (1.2-4.9) X10*3/uL Williamson # (Auto) 0.8 (0.1-1.2) X10*3/uL Eos # (Auto) 0.3 (0.0-0.4) X10*3/uL Baso # (Auto) 0.1 (0.0-0.2) X10*3/uL Abs Immat Gran (auto) 0.03 (0.00-0.03) X10*3/uL Absolute Neuts (auto) 4.6 (2.0-8.3) x10*3/uL Absolute Nucleated RBC 0.000 (0.0-0.012) X10*3/uL Nucleated RBC % (auto) 0.0 (0.0-0.2) /100WBC Sodium 143 (135-145) mmol/L Potassium 4.3 (3.3-5.1) mmol/L Chloride 106 (96-108) mmol/L Carbon Dioxide 26 (22-29) mmol/L Anion Gap 15 (12-20) BUN 15 (9-16) mg/dL Creatinine 0.86 (0.5-1.4) mg/dL Estim Creat Clear Calc 62.0 Estimated GFR > 60 Random Glucose 101 (60-115) mg/dL Calcium 10.8 H D (8.4-10.2) mg/dL Magnesium 1.8 (1.6-2.6) mg/dL Troponin I High Sens 17.0 (<3.5-17.0) ng/L Independent Interpretation I performed an independent interpretation of an: EKG Interpretation: Sinus bigeminy heart rate is 60 there is wide complex ventricular complex noted. Radiology Impression Discussion of test interpretation with radiology: I have reviewed the radiologist's reading. Radiologist Impression: Chest x-ray grossly negative External Record Review External record reviewed: Outpatient record From [facility] Discharge Plan Discharge Clinical Impression: Subconjunctival bleed Patient Disposition: Home, Self-Care Instructions: Subconjunctival Hemorrhage (ED) Prescriptions: No Action (DME) Shower Chair Misc See Rx Instructions .Route Qty: 1 0RF Rx Instructions: As directed hydrochlorothiazide 25 mg tablet 25 mg PO QAM 90 Days Qty: 90 3RF cyanocobalamin (vitamin B-12) 1,000 mcg tablet 1,000 mcg PO .once a week 90 Days Qty: 12 3RF calcium carbonate-vitamin D3 600 mg-10 mcg (400 unit) tablet 1 tab PO DAILY 90 Days Qty: 90 3RF folic acid 1 mg tablet 1 mg PO DAILY 90 Days Qty: 90 3RF lisinopril 10 mg tablet 10 mg PO DAILY 90 Days Qty: 90 1RF cholecalciferol (vitamin D3) 50 mcg (2,000 unit) capsule 50 mcg PO DAILY 90 Days Qty: 90 3RF amlodipine 10 mg tablet 10 mg PO DAILY Qty: 90 1RF citalopram 40 mg tablet 40 mg PO DAILY bupropion HCl 150 mg tablet sustained-release 12 hr 150 mg PO DAILY (DME) Bladder Control Pads Pad See Rx Instructions .ROUTE .MEDSUPPLY Qty: 30 11RF Rx Instructions: Use 1 pad once a day prn Referrals: Mikey Mora [Physician] - 12/03/22 Tr Barrett MD [Physician] - 12/03/22
[2022-12-01 15:00] LABS: MANUAL DIFF FLAG NO
[2022-12-01 15:03] LABS: Basophils Absolute Auto 0.1 X10*3/uL (0.0-0.2); Basophils Percent Auto 1.4 % (0-2); Eosinophils Absolute Auto 0.3 X10*3/uL (0.0-0.4); Eosinophils Percent Auto 4.7 % (0-4); Hematocrit 35.2 % (37.0-47.0); Hemoglobin 11.2 g/dl (12.0-16.0); Imm Gran Abs Auto 0.03 X10*3/uL (0.00-0.03); Imm Gran Pct Auto 0.4 % (0.0-0.4); Lymphocytes Absolute Auto 1.2 X10*3/uL (1.2-4.9); Lymphocytes Percent Auto 16.7 % (20-40); Mean Corpuscular HGB Conc 31.8 g/dl (31.0-35.0); Mean Corpuscular Hemoglobin 28.8 pg (27.0-33.0); Mean Corpuscular Volume 90.5 fL (80.0-98.0); Mean Platelet Volume 9.5 fL (9.4-12.3); Monocytes Absolute Auto 0.8 X10*3/uL (0.1-1.2); Monocytes Percent Auto 10.9 % (2-11); Neutrophils Absolute Auto 4.6 x10*3/uL (2.0-8.3); Neutrophils Percent Auto 65.9 % (45-73); Platelet Count 308 X10*3/uL (160-400); Red Blood Count 3.89 X10*6/uL (4.20-5.50); Red Cell Distribution Width 13.2 % (11.0-16.0); White Blood Count 7.1 X10*3/uL (4.8-10.8)
[2022-12-01 15:18] LABS: Anion Gap 15 (12-20); Blood Urea Nitrogen 15 mg/dL (9-16); Calcium 10.8 mg/dL (8.4-10.2); Carbon Dioxide 26 mmol/L (22-29); Chloride 106 mmol/L (96-108); Estimated Glomerular Filt Rate > 60; Glucose Random 101 mg/dL (60-115); Magnesium 1.8 mg/dL (1.6-2.6); Potassium 4.3 mmol/L (3.3-5.1); Sodium 143 mmol/L (135-145)
== END 2022-12-01 16:03 | disposition home or self-care (01) ==
PROVIDERS: Emergency Provider Emergency Medicine Emergency Medical Services; PCP Internal Medicine
DX: H11.31 Conjunctival hemorrhage, right eye (principal)
CPT/HCPCS: 36415; 71045; 80048; 83735; 84484; 85025; 93005; 99283; 99284

== ENCOUNTER → 2022-12-01 14:00 | Outpatient (BNV) | payer OTHER, SELFPAY | PROVIDERS: Emergency Provider Emergency Medicine Emergency Medical Services; PCP Internal Medicine; Visit Provider Internal Medicine Cardiovascular Disease | DX: R00.1 Bradycardia, unspecified (principal) | CPT/HCPCS: 93010 ==

== ENCOUNTER 2022-12-29 19:55 | Emergency (ER) | payer OTHER, SELFPAY ==
[2022-12-29 20:06] VITALS: BP 133/47; PULSE 61; RESP 18; TEMP 37.4; O2SAT 98; BMI 26.8
--- NOTE | 2022-12-29 22:01 | ED_ITS ---
HPI - Wound/Laceration General Chief Complaint: Wound/Laceration Stated Complaint: Laceration right pinky finger cut with can Time Seen by Provider: 12/29/22 21:07 Source: patient Mode of arrival: ambulatory Limitations: no limitations History of Present Illness HPI narrative: patient is a 62-year-old female who presents emergency department for evaluation of a laceration to the right 5th digit [employer]. Prior to arrival she was opening a can of soup when she accidentally sustained a laceration to the finger. She could not get the bleeding under control at home therefore she presented to the emergency department evaluation. She denies any use of anticoagulants are known coagulation disorders. She has full range of motions of the digit. Unaware of the date of last tetanus vaccination Related Data Home Medications Medication Instructions Recorded Confirmed citalopram 40 mg tablet 40 mg PO DAILY 02/16/20 01/28/22 bupropion HCl 150 mg tablet,12 hr 150 mg PO DAILY 12/05/20 01/28/22 sustained-release Previous Rx's Medication Instructions Recorded Shower Chair #1 ea 03/14/21 incontinence pad, liner, disp #30 ea 08/28/21 (Bladder Control Pads) hydrochlorothiazide 25 mg tablet 25 mg PO QAM 90 days #90 tabs 01/28/22 cyanocobalamin (vitamin B-12) 1,000 mcg PO .once a week 90 days 03/06/22 1,000 mcg tablet #12 tabs calcium carbonate 600 mg-vitamin 1 tab PO DAILY 90 days #90 tabs 06/10/22 D3 10 mcg (400 unit) tablet folic acid 1 mg tablet 1 mg PO DAILY 90 days #90 tabs 08/07/22 lisinopril 10 mg tablet 10 mg PO DAILY 90 days #90 tabs 08/07/22 cholecalciferol (vitamin D3) 50 50 mcg PO DAILY 90 days #90 caps 09/04/22 mcg (2,000 unit) capsule amlodipine 10 mg tablet 10 mg PO DAILY #90 tabs 10/08/22 Allergies Allergy/AdvReac Type Severity Reaction Status Date / Time amoxicillin [AMOXICILLIN] Allergy Intermediate ? RASH Verified 10/08/22 09:01 clonazepam [From KLONOPIN] Allergy Intermediate ? RASH Verified 10/08/22 09:01 lorazepam [LORAZEPAM] Allergy Intermediate ? RASH Verified 10/08/22 09:01 mirtazapine [From REMERON] Allergy Intermediate RASH Verified 10/08/22 09:01 naproxen [From NAPROSYN] Allergy Intermediate ? RASH Verified 10/08/22 09:01 Sulfa (Sulfonamide Allergy Intermediate ? RASH Verified 10/08/22 09:01 Antibiotics) [SULFA(SULFONAMIDE ANTIBIOTICS)] fluoxetine [Prozac] Allergy Mild rash Verified 10/08/22 09:01 From TUSSIONEX PENNKINETIC ER Allergy Intermediate ? RASH Uncoded 10/08/22 09:01 Review of Systems Review of Systems: Yes all other systems are reviewed and are negative [facility] Past Medical History Attestation statement: The following information was validated with the patient. Source: old records reviewed Medical History Depression with anxiety Developmental delay, mild Essential hypertension STEPHAN (generalized anxiety disorder) Hypovitaminosis D Left flank pain Mild major depression, single episode Ovarian mass Pernicious anemia Skin lesion Urge urinary incontinence Uterine fibroid Surgical History H/O tubal ligation History of Family History Family History Father Heart attack Mother No problems noted. Other Mental and behavioral problem in adult Social History Social History Housing: Apartment Alcohol intake: never Patient Tobacco Use Status: Never used Tobacco e-Cigarette/Vaping Use: Never Used Second Hand Smoke Exposure: No Advance Directives: No Advance Directives Information Provided: No service: No Current occupational status: disabled Cognitive needs: Yes Hearing needs: No Vision needs: No Physical Exam Vital Signs: Vital Signs: Last Vital Signs Temp 99.4 F 12/29/22 20:06 Pulse 61 12/29/22 20:06 Resp 18 12/29/22 20:06 BP 133/47 L 12/29/22 20:06 Pulse Ox 98 12/29/22 20:06 O2 Del Method Room Air 12/29/22 20:06 BMI result Body Mass Index 26.8 Appearance: Alert.?Oriented to person, place and time. No acute distress.?Normal affect. Neck: Normal inspection.? Neck supple.?? CVS: Heart sounds normal. Normal heart rate and rhythm.? Pulses normal.?? Respiratory: No respiratory distress.? Lung sounds clear to auscultation bilaterally?? Skin: Skin warm and dry.? Normal skin color.? 2 superficial linear laceration, 1 cm to the ulnar aspect of the 5th digit on the right hand. No active bleeding. Edges well-approximated. Extremities: full AROM to the right digit. Neuro: Moves all extremities spontaneously. Sensation intact bilaterally. Medical Decision Making Medical Decision Making MDM Narrative: Patient is a 62-year-old female presents emergency department for evaluation of a laceration to the right 5th digit that she sustained prior to arrival. Laceration is superficial in nature, not amenable to repair with suture, cleansed with normal saline and Betadine. Repair with skin glue. Discussed worrisome signs and symptoms that would warrant re-evaluation in the emergency department, including signs of infection. Advised outpatient follow-up with her primary care provider as needed. Tdap was updated today. Low suspicion for any osseous abnormality/ fracture given full AROM, would defer XR imaging at this time. Differential Diagnosis Differential Diagnoses: The differential diagnosis associated with the presentation includes ( laceration, fracture, tendon/ligament involvement, neurovascular compromise) External Record Review External record reviewed: Outpatient record Tests considered The following testing was considered but not selected: I considered XR imaging as noted above, deferred Prescription Management I considered prescription management with: Pain Medication ( acetaminophen/ ibuprofen are appropriate for management) Discharge Plan Discharge Clinical Impression: Laceration of finger Patient Disposition: Home, Self-Care Instructions: Laceration (ED), Finger Laceration (ED), Skin Adhesive Care (ED) Prescriptions: No Action (DME) Shower Chair Misc See Rx Instructions .Route Qty: 1 0RF Rx Instructions: As directed hydrochlorothiazide 25 mg tablet 25 mg PO QAM 90 Days Qty: 90 3RF cyanocobalamin (vitamin B-12) 1,000 mcg tablet 1,000 mcg PO .once a week 90 Days Qty: 12 3RF calcium carbonate-vitamin D3 600 mg-10 mcg (400 unit) tablet 1 tab PO DAILY 90 Days Qty: 90 3RF folic acid 1 mg tablet 1 mg PO DAILY 90 Days Qty: 90 3RF lisinopril 10 mg tablet 10 mg PO DAILY 90 Days Qty: 90 1RF cholecalciferol (vitamin D3) 50 mcg (2,000 unit) capsule 50 mcg PO DAILY 90 Days Qty: 90 3RF amlodipine 10 mg tablet 10 mg PO DAILY Qty: 90 1RF citalopram 40 mg tablet 40 mg PO DAILY bupropion HCl 150 mg tablet sustained-release 12 hr 150 mg PO DAILY (DME) Bladder Control Pads Pad See Rx Instructions .ROUTE .MEDSUPPLY Qty: 30 11RF Rx Instructions: Use 1 pad once a day prn
[2022-12-29 22:26] VITALS: BP 143/83; PULSE 56; RESP 17; TEMP 36.7; O2SAT 98
[2022-12-29] MEDS: Diphth,Pertus(ACell),Tet Adult 0.5 ML SYRINGE IM (22:50)
== END 2022-12-29 22:55 | disposition home or self-care (01) ==
PROVIDERS: Emergency Provider Internal Medicine; PCP Internal Medicine
DX: S61.216A Laceration without foreign body of right little finger without damage to nail, initial encounter (principal); S60.511A Abrasion of right hand, initial encounter; W26.8XXA Contact with other sharp object(s), not elsewhere classified, initial encounter; Y93.9 Activity, unspecified; Y92.9 Unspecified place or not applicable; Y99.9 Unspecified external cause status; Z79.899 Other long term (current) drug therapy; Z23 Encounter for immunization
CPT/HCPCS: 12001; 90471; 90715; 99284

== ENCOUNTER 2023-01-12 19:38 | Emergency (ER) | payer OTHER, SELFPAY ==
--- NOTE | 2023-01-12 | ECG_ITS ---
Test Reason : bradycardia Blood Pressure : / mmHG Vent. Rate : 063 BPM Atrial Rate : 063 BPM P-R Int : 170 ms QRS Dur : 132 ms QT Int : 462 ms P-R-T Axes : 089 006 095 degrees QTc Int : 472 ms Sinus rhythm with occasional Premature ventricular complexes Left bundle branch block Abnormal ECG When compared with ECG of 01-DEC-2022 14:07, Left bundle branch block is now Present Referred By: Generic ED Physician Electronically Signed By:MAIRA GÓMEZ
[2023-01-12 19:50] VITALS: BP 146/90; PULSE 34; RESP 16; TEMP 36.8; O2SAT 98; BMI 25.8
--- NOTE | 2023-01-12 20:01 | ED.GENADULT ---
HPI - General Adult General Chief complaint: General Medical Stated complaint: L foot infection? Time Seen by Provider: 01/12/23 20:01 Source: patient Mode of arrival: ambulatory Limitations: no limitations History of Present Illness HPI narrative: Patient with chronic eczema of left ankle as frequent PVCs was seen by armored car driver at [facility] last week and had a Holter monitor placed which was returned comes here for eczematous rash on left ankle triage nurse noticed pulse rate of 30 which was checked by pulse ox machine was not ever infect patient heart rate was 60s when she came to the ER Related Data Home Medications Medication Instructions Recorded Confirmed citalopram 40 mg tablet 40 mg PO DAILY 02/16/20 01/28/22 bupropion HCl 150 mg tablet,12 hr 150 mg PO DAILY 12/05/20 01/28/22 sustained-release Previous Rx's Medication Instructions Recorded Shower Chair #1 ea 03/14/21 incontinence pad, liner, disp #30 ea 08/28/21 (Bladder Control Pads) hydrochlorothiazide 25 mg tablet 25 mg PO QAM 90 days #90 tabs 01/28/22 cyanocobalamin (vitamin B-12) 1,000 mcg PO .once a week 90 days 03/06/22 1,000 mcg tablet #12 tabs calcium carbonate 600 mg-vitamin 1 tab PO DAILY 90 days #90 tabs 06/10/22 D3 10 mcg (400 unit) tablet folic acid 1 mg tablet 1 mg PO DAILY 90 days #90 tabs 08/07/22 lisinopril 10 mg tablet 10 mg PO DAILY 90 days #90 tabs 08/07/22 cholecalciferol (vitamin D3) 50 50 mcg PO DAILY 90 days #90 caps 09/04/22 mcg (2,000 unit) capsule amlodipine 10 mg tablet 10 mg PO DAILY #90 tabs 10/08/22 clobetasol 0.05 % topical ointment 1 appl topical BID #45 grams 01/12/23 (Temovate) Allergies Allergy/AdvReac Type Severity Reaction Status Date / Time amoxicillin [AMOXICILLIN] Allergy Intermediate ? RASH Verified 10/08/22 09:01 clonazepam [From KLONOPIN] Allergy Intermediate ? RASH Verified 10/08/22 09:01 lorazepam [LORAZEPAM] Allergy Intermediate ? RASH Verified 10/08/22 09:01 mirtazapine [From REMERON] Allergy Intermediate RASH Verified 10/08/22 09:01 naproxen [From NAPROSYN] Allergy Intermediate ? RASH Verified 10/08/22 09:01 Sulfa (Sulfonamide Allergy Intermediate ? RASH Verified 10/08/22 09:01 Antibiotics) [SULFA(SULFONAMIDE ANTIBIOTICS)] fluoxetine [Prozac] Allergy Mild rash Verified 10/08/22 09:01 From TUSSIONEX PENNKINETIC ER Allergy Intermediate ? RASH Uncoded 10/08/22 09:01 Review of Systems Review of Systems: Yes all other systems are reviewed and are negative [facility] Past Medical History Medical History Depression with anxiety Developmental delay, mild Essential hypertension STEPHAN (generalized anxiety disorder) Hypovitaminosis D Left flank pain Mild major depression, single episode Ovarian mass Pernicious anemia Skin lesion Urge urinary incontinence Uterine fibroid Surgical History H/O tubal ligation History of Family History Family History Father Heart attack Mother No problems noted. Other Mental and behavioral problem in adult Social History Social History Housing: Apartment Alcohol intake: never Patient Tobacco Use Status: Never used Tobacco Smoked in Last 30 Days: No e-Cigarette/Vaping Use: Never Used Second Hand Smoke Exposure: No Use of substances other than those prescribed or required for medical reasons: No Advance Directives: No Advance Directives Information Provided: No service: No Current occupational status: disabled Cognitive needs: Yes Hearing needs: No Vision needs: No Physical Exam ED Vital Signs: Vital Signs - 24 hr 01/12/23 19:50 01/12/23 20:36 Temperature 98.2 F 98.3 F Pulse Rate 34 L 59 Respiratory Rate 16 16 Blood Pressure 146/90 H 139/50 L Pulse Oximetry 98 97 Oxygen Delivery Method Room Air BMI result Body Mass Index 25.8 Appearance: Alert. Oriented X3. No acute distress. Eyes: PERRLA, No Nystagmus ENT: Pharynx normal. Oral Mucosa moist Neck: Normal inspection. Neck supple. CVS: Normal heart rate premature beats++ Pulses normal. Respiratory: No respiratory distress. Equal air entry bilateral, no wheezing/rales/rhonchi Abdomen: Soft and nontender. Bowel sounds are present, no mass palpable, no CVA tenderness Skin: Skin warm and dry. Chronic eczematous lesion left ankle area no open wound Extremities: No lower extremity edema. No calf tenderness Neuro: Oriented X 3. No motor deficit. No sensory deficit.No cerebellar signs , cranial nerves II-XII intact Medical Decision Making Medical Decision Making [facility] Narrative: Patient eczematous rash on the left ankle noticed to have multiple PVCs patient already been evaluated by armored car driver at [facility] and will be following next week. Patient asymptomatic otherwise discharged pressure home on steroid cream Differential Diagnosis Differential Diagnoses: The differential diagnosis associated with the presentation includes PVCs/PACs/cardiac arrhythmias Lab Data [facility] Lab Attestation statement: I reviewed the patient's lab results. 01/12/23 20:12 01/12/23 20:12 Labs: Lab Results 01/12/23 01/12/23 01/12/23 Range/Units 20:12 20:12 20:12 WBC 7.4 (4.8-10.8) X10*3/uL RBC 4.04 L (4.20-5.50) X10*6/uL Hgb 11.8 L (12.0-16.0) g/dl Hct 36.1 L (37.0-47.0) % MCV 89.4 (80.0-98.0) fL MCH 29.2 (27.0-33.0) pg MCHC 32.7 (31.0-35.0) g/dl RDW 12.7 (11.0-16.0) % Plt Count 311 (160-400) X10*3/uL MPV 9.7 (9.4-12.3) fL Immature Gran % (Auto) 0.3 (0.0-0.4) % Neut % (Auto) 61.5 (45-73) % Lymph % (Auto) 21.6 (20-40) % [place] % (Auto) 11.6 H (2-11) % Eos % (Auto) 3.5 (0-4) % Baso % (Auto) 1.5 (0-2) % Lymph # (Auto) 1.6 (1.2-4.9) X10*3/uL [place] # (Auto) 0.9 (0.1-1.2) X10*3/uL Eos # (Auto) 0.3 (0.0-0.4) X10*3/uL Baso # (Auto) 0.1 (0.0-0.2) X10*3/uL Abs Immat Gran (auto) 0.02 (0.00-0.03) X10*3/uL Absolute Neuts (auto) 4.6 (2.0-8.3) x10*3/uL Absolute Nucleated RBC 0.000 (0.0-0.012) X10*3/uL Nucleated RBC % (auto) 0.0 (0.0-0.2) /100WBC Sodium 140 (135-145) mmol/L Potassium 3.8 (3.3-5.1) mmol/L Chloride 106 (96-108) mmol/L Carbon Dioxide 25 (22-29) mmol/L Anion Gap 13 (12-20) BUN 16 (9-16) mg/dL Creatinine 0.86 (0.5-1.4) mg/dL Estim Creat Clear Calc 64.3 Estimated GFR > 60 Random Glucose 106 (60-115) mg/dL Calcium 10.5 H (8.4-10.2) mg/dL Magnesium 1.9 (1.6-2.6) mg/dL Total Bilirubin 0.3 (0.0-1.0) mg/dL AST 17 (5-31) U/L ALT 17 (0-31) U/L Alkaline Phosphatase 88 (39-117) U/L Troponin I High Sens 12.9 (<3.5-17.0) ng/L Total Protein 8.1 H (6.5-8.0) g/dL Albumin 4.4 (3.5-5.0) g/dL Independent Interpretation I performed an independent interpretation of an: EKG Interpretation: Sinus rhythm with premature ventricular complexes heart rate of 63 beats per minute blood blood branch block no acute ischemia Discharge Plan Discharge Clinical Impression: Eczema, Multiple premature ventricular complexes Patient Disposition: Home, Self-Care Instructions: Premature Ventricular Contractions (ED), Dermatitis (ED) Additional Instructions: Apply steroid cream twice daily as prescribed for rash at the ankle Follow-up with armored car driver next week regarding or Holter report for premature beats Report to ER if passing out episode Prescriptions: New clobetasol [Temovate] 0.05 % ointment 1 appl topical BID Qty: 45 0RF No Action (DME) Shower Chair Misc See Rx Instructions .Route Qty: 1 0RF Rx Instructions: As directed hydrochlorothiazide 25 mg tablet 25 mg PO QAM 90 Days Qty: 90 3RF cyanocobalamin (vitamin B-12) 1,000 mcg tablet 1,000 mcg PO .once a week 90 Days Qty: 12 3RF calcium carbonate-vitamin D3 600 mg-10 mcg (400 unit) tablet 1 tab PO DAILY 90 Days Qty: 90 3RF folic acid 1 mg tablet 1 mg PO DAILY 90 Days Qty: 90 3RF lisinopril 10 mg tablet 10 mg PO DAILY 90 Days Qty: 90 1RF cholecalciferol (vitamin D3) 50 mcg (2,000 unit) capsule 50 mcg PO DAILY 90 Days Qty: 90 3RF amlodipine 10 mg tablet 10 mg PO DAILY Qty: 90 1RF citalopram 40 mg tablet 40 mg PO DAILY bupropion HCl 150 mg tablet sustained-release 12 hr 150 mg PO DAILY (DME) Bladder Control Pads Pad See Rx Instructions .ROUTE .MEDSUPPLY Qty: 30 11RF Rx Instructions: Use 1 pad once a day prn
[2023-01-12 20:16] LABS: MANUAL DIFF FLAG NO
[2023-01-12 20:19] LABS: Basophils Absolute Auto 0.1 X10*3/uL (0.0-0.2); Basophils Percent Auto 1.5 % (0-2); Eosinophils Absolute Auto 0.3 X10*3/uL (0.0-0.4); Eosinophils Percent Auto 3.5 % (0-4); Hematocrit 36.1 % (37.0-47.0); Hemoglobin 11.8 g/dl (12.0-16.0); Imm Gran Abs Auto 0.02 X10*3/uL (0.00-0.03); Imm Gran Pct Auto 0.3 % (0.0-0.4); Lymphocytes Absolute Auto 1.6 X10*3/uL (1.2-4.9); Lymphocytes Percent Auto 21.6 % (20-40); Mean Corpuscular HGB Conc 32.7 g/dl (31.0-35.0); Mean Corpuscular Hemoglobin 29.2 pg (27.0-33.0); Mean Corpuscular Volume 89.4 fL (80.0-98.0); Mean Platelet Volume 9.7 fL (9.4-12.3); Monocytes Absolute Auto 0.9 X10*3/uL (0.1-1.2); Monocytes Percent Auto 11.6 % (2-11); Neutrophils Absolute Auto 4.6 x10*3/uL (2.0-8.3); Neutrophils Percent Auto 61.5 % (45-73); Platelet Count 311 X10*3/uL (160-400); Red Blood Count 4.04 X10*6/uL (4.20-5.50); Red Cell Distribution Width 12.7 % (11.0-16.0); White Blood Count 7.4 X10*3/uL (4.8-10.8)
--- NOTE | 2023-01-12 20:21 | PC.NURSE ---
Patient is alert and oriented to self, person, and place, patient could not state her date of or current date. Patient arrived to ED to be evaluated for left ankle infection. HR in 30's in triage. HR in 60's at ED, EKG completed, labs drawn and sent to lab for processing. lunchroom monitor in place. ED provider at bedside.
[2023-01-12 20:36] VITALS: BP 139/50; PULSE 59; RESP 16; TEMP 36.8; O2SAT 97
[2023-01-12 20:37] LABS: Alanine Aminotransferase 17 U/L (0-31); Albumin Level 4.4 g/dL (3.5-5.0); Alkaline Phosphatase 88 U/L (39-117); Anion Gap 13 (12-20); Aspartate Amino Transferase 17 U/L (5-31); Bilirubin Total 0.3 mg/dL (0.0-1.0); Blood Urea Nitrogen 16 mg/dL (9-16); Calcium 10.5 mg/dL (8.4-10.2); Carbon Dioxide 25 mmol/L (22-29); Chloride 106 mmol/L (96-108); Creatinine Clr Calc Pharmacy 64.3; Estimated Glomerular Filt Rate > 60; Glucose Random 106 mg/dL (60-115); Potassium 3.8 mmol/L (3.3-5.1); Sodium 140 mmol/L (135-145); Total Protein 8.1 g/dL (6.5-8.0)
[2023-01-12 20:47] LABS: Troponin-I High Sensitivity 12.9 ng/L (<3.5-17.0)
[2023-01-12 20:51] LABS: Magnesium 1.9 mg/dL (1.6-2.6)
== END 2023-01-12 22:27 | disposition home or self-care (01) ==
PROVIDERS: Emergency Provider Internal Medicine; PCP Internal Medicine
DX: L30.9 Dermatitis, unspecified (principal); R00.1 Bradycardia, unspecified; Z79.899 Other long term (current) drug therapy
CPT/HCPCS: 36415; 80053; 83735; 84484; 85025; 93005; 99284

== ENCOUNTER 2023-02-13 12:16 | Emergency (ER) | payer OTHER, SELFPAY ==
--- NOTE | 2023-02-13 12:18 | ED.GENADULT ---
HPI - General Adult General Chief complaint: Dizziness Stated complaint: fall at home back pain Time Seen by Provider: 02/13/23 20:38 Related Data Home Medications Medication Instructions Recorded Confirmed citalopram 40 mg tablet 40 mg PO DAILY 02/16/20 01/28/22 bupropion HCl 150 mg tablet,12 hr 150 mg PO DAILY 12/05/20 01/28/22 sustained-release Previous Rx's Medication Instructions Recorded Shower Chair #1 ea 03/14/21 incontinence pad, liner, disp #30 ea 08/28/21 (Bladder Control Pads) hydrochlorothiazide 25 mg tablet 25 mg PO QAM 90 days #90 tabs 01/28/22 cyanocobalamin (vitamin B-12) 1,000 mcg PO .once a week 90 days 03/06/22 1,000 mcg tablet #12 tabs calcium carbonate 600 mg-vitamin 1 tab PO DAILY 90 days #90 tabs 06/10/22 D3 10 mcg (400 unit) tablet folic acid 1 mg tablet 1 mg PO DAILY 90 days #90 tabs 08/07/22 lisinopril 10 mg tablet 10 mg PO DAILY 90 days #90 tabs 08/07/22 cholecalciferol (vitamin D3) 50 50 mcg PO DAILY 90 days #90 caps 09/04/22 mcg (2,000 unit) capsule amlodipine 10 mg tablet 10 mg PO DAILY #90 tabs 10/08/22 clobetasol 0.05 % topical ointment 1 appl topical BID #45 grams 01/12/23 (Temovate) cephalexin 500 mg capsule 500 mg PO TID 7 days #21 caps 02/13/23 Allergies Allergy/AdvReac Type Severity Reaction Status Date / Time amoxicillin [AMOXICILLIN] Allergy Intermediate ? RASH Verified 02/13/23 12:23 clonazepam [From KLONOPIN] Allergy Intermediate ? RASH Verified 02/13/23 12:23 lorazepam [LORAZEPAM] Allergy Intermediate ? RASH Verified 02/13/23 12:23 mirtazapine [From REMERON] Allergy Intermediate RASH Verified 02/13/23 12:23 naproxen [From NAPROSYN] Allergy Intermediate ? RASH Verified 02/13/23 12:23 Sulfa (Sulfonamide Allergy Intermediate ? RASH Verified 02/13/23 12:23 Antibiotics) [SULFA(SULFONAMIDE ANTIBIOTICS)] fluoxetine [Prozac] Allergy Mild rash Verified 02/13/23 12:23 From TUSSIONEX PENNKINETIC ER Allergy Intermediate ? RASH Uncoded 10/08/22 09:01 [facility] Past Medical History Medical History Ovarian mass Uterine fibroid Left flank pain Skin lesion Mild major depression, single episode Urge urinary incontinence STEPHAN (generalized anxiety disorder) Hypovitaminosis D Developmental delay, mild Depression with anxiety Essential hypertension Pernicious anemia Surgical History History of H/O tubal ligation Family History Family History Father Heart attack Mother No problems noted. Other Mental and behavioral problem in adult Social History Social History Housing: Apartment Alcohol intake: never Patient Tobacco Use Status: Never used Tobacco e-Cigarette/Vaping Use: Never Used Second Hand Smoke Exposure: No Advance Directives: No Advance Directives Information Provided: No service: No Current occupational status: disabled Cognitive needs: Yes Hearing needs: No Vision needs: No Physical Exam ED Vital Signs: BMI result Body Mass Index 31.9 Course Course Course Narrative: This is a rapid medical exam: Additional HPI, ROS, PE not included below will be deferred to primary provider. Patient is a 62-year-old female presenting to the emergency department with complaint of right flank pain radiating to lower abdomen after a fall from standing on Friday. Patient reports she was walking to get her medications when she became dizzy and fell backwards, landing on her back. She denies head strike or loss of consciousness, daughter was home at the time and saw patient immediately after fall. Patient has midline lumbar tenderness and well as right lower rib pain on exam. She denies any urinary symptoms. States she is still having intermittent dizziness. Plan: EKG, labs, UA, x-rays Medications Administered Discontinued Medications Generic Name Dose Route Start Last Admin Trade Name Freq PRN Reason Stop Dose Admin Cephalexin HCl 500 mg 02/13/23 21:07 02/13/23 21:39 Cephalexin 500 Mg Capsule PO 02/13/23 21:08 500 mg ONCE ONE Administration Medical Decision Making Lab Data 02/13/23 13:02 02/13/23 13:02 Labs: Lab Results 02/13/23 02/13/23 02/13/23 Range/Units 13:02 15:05 18:44 WBC 7.6 (4.8-10.8) X10*3/uL RBC 4.32 (4.20-5.50) X10*6/uL Hgb 12.5 (12.0-16.0) g/dl Hct 39.5 (37.0-47.0) % MCV 91.4 (80.0-98.0) fL MCH 28.9 (27.0-33.0) pg MCHC 31.6 (31.0-35.0) g/dl RDW 12.8 (11.0-16.0) % Plt Count 307 (160-400) X10*3/uL MPV 9.9 (9.4-12.3) fL Immature Gran % (Auto) 0.4 (0.0-0.4) % Neut % (Auto) 77.2 H (45-73) % Lymph % (Auto) 9.1 L (20-40) % [place] % (Auto) 9.7 (2-11) % Eos % (Auto) 2.4 (0-4) % Baso % (Auto) 1.2 (0-2) % Lymph # (Auto) 0.7 L (1.2-4.9) X10*3/uL [place] # (Auto) 0.7 (0.1-1.2) X10*3/uL Eos # (Auto) 0.2 (0.0-0.4) X10*3/uL Baso # (Auto) 0.1 (0.0-0.2) X10*3/uL Abs Immat Gran (auto) 0.03 (0.00-0.03) X10*3/uL Absolute Neuts (auto) 5.9 (2.0-8.3) x10*3/uL Absolute Nucleated RBC 0.000 (0.0-0.012) X10*3/uL Nucleated RBC % (auto) 0.0 (0.0-0.2) /100WBC Sodium 142 (135-145) mmol/L Potassium 3.1 L (3.3-5.1) mmol/L Chloride 101 (96-108) mmol/L Carbon Dioxide 26 (22-29) mmol/L Anion Gap 18 (12-20) BUN 25 H (9-16) mg/dL Creatinine 0.99 (0.5-1.4) mg/dL Estim Creat Clear Calc 59.6 Estimated GFR 57 Random Glucose 111 (60-115) mg/dL Calcium 10.6 H (8.4-10.2) mg/dL Total Bilirubin 0.5 (0.0-1.0) mg/dL AST 13 (5-31) U/L ALT 12 (0-31) U/L Alkaline Phosphatase 89 (39-117) U/L Troponin I High Sens 21.2 H D 23.9 H (<3.5-17.0) ng/L Total Protein 8.2 H (6.5-8.0) g/dL Albumin 4.4 (3.5-5.0) g/dL Urine Color Dark Yellow Urine Appearance Cloudy Urine pH 5.5 (5.0-9.0) Ur Specific [place] >= 1.030 H (1.005-1.025) Urine Protein Trace (Neg-Trace) mg/dL Urine Glucose (UA) Negative (Negative) mg/dL Urine Ketones Trace (Negative) mg/dL Urine Blood Negative (Negative) Urine Nitrite Negative (Negative) Ur Leukocyte Esterase Small (1+) H (Negative) Urine RBC 3-5 H (0-2) /HPF Urine WBC 21-50 H (0-5) /HPF Ur Squamous Epith Cells 11-20 (0-2) /HPF Urine Bacteria 4+ (None Seen) Hyaline Casts 0-2 (0-2) /LPF Discharge Plan Discharge Clinical Impression: Contusion, UTI (urinary tract infection) Patient Disposition: Home, Self-Care Instructions: Urinary Tract Infection in Women (DC) Prescriptions: New cephalexin 500 mg capsule 500 mg PO TID 7 Days Qty: 21 0RF No Action (DME) Shower Chair Misc See Rx Instructions .Route Qty: 1 0RF Rx Instructions: As directed hydrochlorothiazide 25 mg tablet 25 mg PO QAM 90 Days Qty: 90 3RF cyanocobalamin (vitamin B-12) 1,000 mcg tablet 1,000 mcg PO .once a week 90 Days Qty: 12 3RF calcium carbonate-vitamin D3 600 mg-10 mcg (400 unit) tablet 1 tab PO DAILY 90 Days Qty: 90 3RF folic acid 1 mg tablet 1 mg PO DAILY 90 Days Qty: 90 3RF lisinopril 10 mg tablet 10 mg PO DAILY 90 Days Qty: 90 1RF cholecalciferol (vitamin D3) 50 mcg (2,000 unit) capsule 50 mcg PO DAILY 90 Days Qty: 90 3RF amlodipine 10 mg tablet 10 mg PO DAILY Qty: 90 1RF clobetasol [Temovate] 0.05 % ointment 1 appl topical BID Qty: 45 0RF citalopram 40 mg tablet 40 mg PO DAILY bupropion HCl 150 mg tablet sustained-release 12 hr 150 mg PO DAILY (DME) Bladder Control Pads Pad See Rx Instructions .ROUTE .MEDSUPPLY Qty: 30 11RF Rx Instructions: Use 1 pad once a day prn Referrals: Marium Conley MD [Primary Care Provider] - 02/17/23 Interventions: ED Discharge Assessment Last Done: 02/13/23 21:40 Discharge Date/Time: 02/13/23 21:42
[2023-02-13 12:19] VITALS: BP 106/43; PULSE 50; RESP 18; TEMP 36.8; O2SAT 98; BMI 31.9
[2023-02-13 13:49] LABS: Troponin-I High Sensitivity 21.2 ng/L (<3.5-17.0)
[2023-02-13 18:39] VITALS: BP 119/60; PULSE 61; RESP 18; TEMP 37.1; O2SAT 97
--- NOTE | 2023-02-13 21:01 | ED.FALL ---
HPI - Fall General Chief Complaint: Dizziness Stated Complaint: fall at home back pain Time Seen by Provider: 02/13/23 20:38 History of Present Illness HPI Narrative: Patient was bending over on Friday trying to bulk picker something from the ground subsequently fell. Hit her right lower rib area. There is no chest pain no shortness of breath no diaphoresis. Denies any low loss of consciousness. No head injury. Has a history of hypertension. Baseline is on amlodipine. No history of being on any blood thinners. No focal weakness. No head injury. Patient from home. Related Data Home Medications Medication Instructions Recorded Confirmed citalopram 40 mg tablet 40 mg PO DAILY 02/16/20 01/28/22 bupropion HCl 150 mg tablet,12 hr 150 mg PO DAILY 12/05/20 01/28/22 sustained-release Previous Rx's Medication Instructions Recorded Shower Chair #1 ea 03/14/21 incontinence pad, liner, disp #30 ea 08/28/21 (Bladder Control Pads) hydrochlorothiazide 25 mg tablet 25 mg PO QAM 90 days #90 tabs 01/28/22 cyanocobalamin (vitamin B-12) 1,000 mcg PO .once a week 90 days 03/06/22 1,000 mcg tablet #12 tabs calcium carbonate 600 mg-vitamin 1 tab PO DAILY 90 days #90 tabs 06/10/22 D3 10 mcg (400 unit) tablet folic acid 1 mg tablet 1 mg PO DAILY 90 days #90 tabs 08/07/22 lisinopril 10 mg tablet 10 mg PO DAILY 90 days #90 tabs 08/07/22 cholecalciferol (vitamin D3) 50 50 mcg PO DAILY 90 days #90 caps 09/04/22 mcg (2,000 unit) capsule amlodipine 10 mg tablet 10 mg PO DAILY #90 tabs 10/08/22 clobetasol 0.05 % topical ointment 1 appl topical BID #45 grams 01/12/23 (Temovate) cephalexin 500 mg capsule 500 mg PO TID 7 days #21 caps 02/13/23 Allergies Allergy/AdvReac Type Severity Reaction Status Date / Time amoxicillin [AMOXICILLIN] Allergy Intermediate ? RASH Verified 02/13/23 12:23 clonazepam [From KLONOPIN] Allergy Intermediate ? RASH Verified 02/13/23 12:23 lorazepam [LORAZEPAM] Allergy Intermediate ? RASH Verified 02/13/23 12:23 mirtazapine [From REMERON] Allergy Intermediate RASH Verified 02/13/23 12:23 naproxen [From NAPROSYN] Allergy Intermediate ? RASH Verified 02/13/23 12:23 Sulfa (Sulfonamide Allergy Intermediate ? RASH Verified 02/13/23 12:23 Antibiotics) [SULFA(SULFONAMIDE ANTIBIOTICS)] fluoxetine [Prozac] Allergy Mild rash Verified 02/13/23 12:23 From TUSSIONEX PENNKINETIC ER Allergy Intermediate ? RASH Uncoded 10/08/22 09:01 Review of Systems Review of Systems: Positive fall hitting the right lower ribs Yes all other systems are reviewed and are negative [facility] Past Medical History Attestation statement: The following information was validated with the patient. Medical History Ovarian mass Uterine fibroid Left flank pain Skin lesion Mild major depression, single episode Urge urinary incontinence STEPHAN (generalized anxiety disorder) Hypovitaminosis D Developmental delay, mild Depression with anxiety Essential hypertension Pernicious anemia Surgical History History of H/O tubal ligation Family History Family History Father Heart attack Mother No problems noted. Other Mental and behavioral problem in adult Social History Social History Housing: Apartment Alcohol intake: never Patient Tobacco Use Status: Never used Tobacco e-Cigarette/Vaping Use: Never Used Second Hand Smoke Exposure: No Advance Directives: No Advance Directives Information Provided: No service: No Current occupational status: disabled Cognitive needs: Yes Hearing needs: No Vision needs: No Physical Exam Vital Signs: Vital Signs: Last Vital Signs Temp 98.3 F 02/13/23 21:38 Pulse 55 02/13/23 21:38 Resp 18 02/13/23 21:38 BP 128/43 L 02/13/23 21:38 Pulse Ox 97 02/13/23 21:38 O2 Del Method Room Air 02/13/23 21:38 BMI result Body Mass Index 31.9 Appearance: Alert. Oriented X3. No acute distress. Eyes: Pupils equal, round and reactive to light. ENT: Pharynx normal. Neck: Normal inspection. Neck supple. No lymph nodes noted. No crepitus CVS: Normal heart rate and rhythm. Pulses normal. Normal S1 and S2 Respiratory: No respiratory distress. Breath sounds normal. No Wheezing. No rales. No lower rib crepitus elicited on palpation. Abdomen: Soft and nontender. No rigidity. No distention. good BS x4 Skin: Skin warm and dry. Normal skin color. Normal skin turgor. Extremities: No lower extremity edema. Neurovascular intact to all extremities. No Lacerations. No Rash Neuro: Oriented X 3. No motor deficit. No sensory deficit. Moving all extermities. No slurred speech Medications Administered Discontinued Medications Generic Name Dose Route Start Last Admin Trade Name Freq PRN Reason Stop Dose Admin Cephalexin HCl 500 mg 02/13/23 21:07 02/13/23 21:39 Cephalexin 500 Mg Capsule PO 02/13/23 21:08 500 mg ONCE ONE Administration Medical Decision Making Medical Decision Making [facility] Narrative: Aware of with the triage note stated. Patient has stated to this provider that her fall was mechanical. My interpretation of patient's x-ray of the lumbar spine was grossly negative. My interpretation of patient's x-ray of the ribs were negative for any acute evidence of fracture my interpretation patient's EKG showed a sinus rhythm heart rate is 60 DC QRS QTC within normal ranges no acute ST segment elevation. Patient's troponin 2 sets approximately the same. There is no evidence for ACS. Patient's electrolytes unremarkable hemoglobin is 12.5 there is no evidence for anemia. Urine however showed a potential UTI. Will go ahead and give patient antibiotics. Close follow-up on an outpatient basis. Differential Diagnosis Differential Diagnoses: The differential diagnosis associated with the presentation includes Lab Data [facility] Lab Attestation statement: I reviewed the patient's lab results. 02/13/23 13:02 02/13/23 13:02 Labs: Lab Results 02/13/23 02/13/23 02/13/23 Range/Units 13:02 15:05 18:44 WBC 7.6 (4.8-10.8) X10*3/uL RBC 4.32 (4.20-5.50) X10*6/uL Hgb 12.5 (12.0-16.0) g/dl Hct 39.5 (37.0-47.0) % MCV 91.4 (80.0-98.0) fL MCH 28.9 (27.0-33.0) pg MCHC 31.6 (31.0-35.0) g/dl RDW 12.8 (11.0-16.0) % Plt Count 307 (160-400) X10*3/uL MPV 9.9 (9.4-12.3) fL Immature Gran % (Auto) 0.4 (0.0-0.4) % Neut % (Auto) 77.2 H (45-73) % Lymph % (Auto) 9.1 L (20-40) % Sampson % (Auto) 9.7 (2-11) % Eos % (Auto) 2.4 (0-4) % Baso % (Auto) 1.2 (0-2) % Lymph # (Auto) 0.7 L (1.2-4.9) X10*3/uL Sampson # (Auto) 0.7 (0.1-1.2) X10*3/uL Eos # (Auto) 0.2 (0.0-0.4) X10*3/uL Baso # (Auto) 0.1 (0.0-0.2) X10*3/uL Abs Immat Gran (auto) 0.03 (0.00-0.03) X10*3/uL Absolute Neuts (auto) 5.9 (2.0-8.3) x10*3/uL Absolute Nucleated RBC 0.000 (0.0-0.012) X10*3/uL Nucleated RBC % (auto) 0.0 (0.0-0.2) /100WBC Sodium 142 (135-145) mmol/L Potassium 3.1 L (3.3-5.1) mmol/L Chloride 101 (96-108) mmol/L Carbon Dioxide 26 (22-29) mmol/L Anion Gap 18 (12-20) BUN 25 H (9-16) mg/dL Creatinine 0.99 (0.5-1.4) mg/dL Estim Creat Clear Calc 59.6 Estimated GFR 57 Random Glucose 111 (60-115) mg/dL Calcium 10.6 H (8.4-10.2) mg/dL Total Bilirubin 0.5 (0.0-1.0) mg/dL AST 13 (5-31) U/L ALT 12 (0-31) U/L Alkaline Phosphatase 89 (39-117) U/L Troponin I High Sens 21.2 H D 23.9 H (<3.5-17.0) ng/L Total Protein 8.2 H (6.5-8.0) g/dL Albumin 4.4 (3.5-5.0) g/dL Urine Color Dark Yellow Urine Appearance Cloudy Urine pH 5.5 (5.0-9.0) Ur Specific Golden >= 1.030 H (1.005-1.025) Urine Protein Trace (Neg-Trace) mg/dL Urine Glucose (UA) Negative (Negative) mg/dL Urine Ketones Trace (Negative) mg/dL Urine Blood Negative (Negative) Urine Nitrite Negative (Negative) Ur Leukocyte Esterase Small (1+) H (Negative) Urine RBC 3-5 H (0-2) /HPF Urine WBC 21-50 H (0-5) /HPF Ur Squamous Epith Cells 11-20 (0-2) /HPF Urine Bacteria 4+ (None Seen) Hyaline Casts 0-2 (0-2) /LPF Independent Interpretation I performed an independent interpretation of an: EKG (Sinus heart rate is 60 DC QRS QTC within normal limits is no acute ST segment elevation) and Plain X-Ray (Of the ribs and lower back so all negative.) Radiology Impression Discussion of test interpretation with radiology: I have reviewed the radiologist's reading. Discharge Plan Discharge Clinical Impression: Contusion, UTI (urinary tract infection) Patient Disposition: Home, Self-Care Instructions: Urinary Tract Infection in Women (DC) Prescriptions: New cephalexin 500 mg capsule 500 mg PO TID 7 Days Qty: 21 0RF No Action (DME) Shower Chair Misc See Rx Instructions .Route Qty: 1 0RF Rx Instructions: As directed hydrochlorothiazide 25 mg tablet 25 mg PO QAM 90 Days Qty: 90 3RF cyanocobalamin (vitamin B-12) 1,000 mcg tablet 1,000 mcg PO .once a week 90 Days Qty: 12 3RF calcium carbonate-vitamin D3 600 mg-10 mcg (400 unit) tablet 1 tab PO DAILY 90 Days Qty: 90 3RF folic acid 1 mg tablet 1 mg PO DAILY 90 Days Qty: 90 3RF lisinopril 10 mg tablet 10 mg PO DAILY 90 Days Qty: 90 1RF cholecalciferol (vitamin D3) 50 mcg (2,000 unit) capsule 50 mcg PO DAILY 90 Days Qty: 90 3RF amlodipine 10 mg tablet 10 mg PO DAILY Qty: 90 1RF clobetasol [Temovate] 0.05 % ointment 1 appl topical BID Qty: 45 0RF citalopram 40 mg tablet 40 mg PO DAILY bupropion HCl 150 mg tablet sustained-release 12 hr 150 mg PO DAILY (DME) Bladder Control Pads Pad See Rx Instructions .ROUTE .MEDSUPPLY Qty: 30 11RF Rx Instructions: Use 1 pad once a day prn Referrals: Marium Conley MD [Primary Care Provider] - 02/17/23 Interventions: ED Discharge Assessment Last Done: 02/13/23 21:40 Discharge Date/Time: 02/13/23 21:42
--- NOTE | 2023-02-13 21:32 | PC.NURSE ---
This RN assumed care when patient was walked into room. Patient AOx4, able to make needs known.
[2023-02-13 21:38] VITALS: BP 128/43; PULSE 55; RESP 18; TEMP 36.8; O2SAT 97
== END 2023-02-13 21:42 | disposition home or self-care (01) ==
PROVIDERS: Registered Nurse Emergency; Emergency Provider Emergency Medicine Emergency Medical Services; PCP Internal Medicine
DX: S20.211A Contusion of right front wall of thorax, initial encounter (principal); W19.XXXA Unspecified fall, initial encounter; N39.0 Urinary tract infection, site not specified; Y93.9 Activity, unspecified; Y92.009 Unspecified place in unspecified non-institutional (private) residence as the place of occurrence of the external cause; Y99.9 Unspecified external cause status
CPT/HCPCS: 36415; 71101; 72100; 80053; 81001; 81003; 84484; 85025; 87086; 93005; 99283; 99284

== ENCOUNTER 2023-09-09 15:26 | Emergency (ER) | payer OTHER, SELFPAY ==
[2023-09-09 16:05] VITALS: BP 148/71; PULSE 61; RESP 18; TEMP 37.1; O2SAT 96; BMI 28.0
--- NOTE | 2023-09-09 16:08 | ED_ITS ---
HPI - Skin/Abscess/Foreign Bdy General Chief complaint: Extremity Problem Stated complaint: lft foot hurts to walk on it Time Seen by Provider: 09/09/23 22:35 Source: patient Mode of arrival: ambulatory Limitations: no limitations History of Present Illness HPI narrative: Patient comes to the emergency room complaining of erythema and pain to the dorsum of the left foot. Patient denies fever chills. Patient states that when she put her shoe on, it hurts. The patient's knowledge, she has not had any fever chills, no history of CHF or DVTs. Related Data Home Medications ?Medication ?Instructions ?Recorded ?Confirmed citalopram 40 mg tablet 40 mg PO DAILY 02/16/20 09/09/23 bupropion HCl 150 mg tablet,12 hr 150 mg PO DAILY 12/05/20 09/09/23 sustained-release Previous Rx's ?Medication ?Instructions ?Recorded Shower Chair #1 ea 03/14/21 amlodipine 10 mg tablet 10 mg PO DAILY #90 tabs 03/14/23 cyanocobalamin (vitamin B-12) 1,000 mcg PO .once a week 90 days 05/22/23 1,000 mcg tablet #12 tabs calcium carbonate 600 mg-vitamin 1 tab PO DAILY 90 days #90 tabs 06/16/23 D3 10 mcg (400 unit) tablet incontinence pad, liner, disp #30 ea 08/07/23 cholecalciferol (vitamin D3) 50 50 mcg PO DAILY 90 days #90 caps 08/24/23 mcg (2,000 unit) capsule folic acid 1 mg tablet 1 mg PO DAILY 90 days #90 tabs 08/24/23 cephalexin 500 mg capsule 500 mg PO BID #19 caps 09/09/23 doxycycline hyclate 100 mg tablet 100 mg PO BID #19 tabs 09/09/23 Allergies Allergy/AdvReac Type Severity Reaction Status Date / Time amoxicillin [AMOXICILLIN] Allergy Intermediate ? RASH Verified 09/09/23 16:10 clonazepam [From KLONOPIN] Allergy Intermediate ? RASH Verified 09/09/23 16:10 lorazepam [LORAZEPAM] Allergy Intermediate ? RASH Verified 09/09/23 16:10 mirtazapine [From REMERON] Allergy Intermediate RASH Verified 09/09/23 16:10 naproxen [From NAPROSYN] Allergy Intermediate ? RASH Verified 09/09/23 16:10 Sulfa (Sulfonamide Allergy Intermediate ? RASH Verified 09/09/23 16:10 Antibiotics) [SULFA(SULFONAMIDE ANTIBIOTICS)] fluoxetine [Prozac] Allergy Mild rash Verified 09/09/23 16:10 From TUSSIONEX PENNKINETIC ER Allergy Intermediate ? RASH Uncoded 10/08/22 09:01 Review of Systems 2 Review of Systems: Constitutional : No Weight loss, No Fever, No Chills, No Night Sweats, No Fatigue, No Malaise ENT/Mouth : No Hearing loss, No Ear Pain, No Nasal Congestion, No Sinus Pain, No Hoarseness, No sore throat, No Rhinorrhea, No Swallowing Difficulty Eyes: No Eye Pain, No Swelling, No Redness, No Foreign Body, No Discharge, No Vision Changes Cardiovascular : No Chest Pain, No SOB, No Dyspnea on Exertion, No Orthopnea, No Edema, No Palpitations Respiratory : No Cough, No Sputum, No Wheezing, No Smoke Exposure, No Dyspnea Gastrointestinal : No Nausea, No Vomiting, No Diarrhea, No Constipation, No abdominal Pain, No Hematochezia, No Melena Genitourinary : no irregular bleeding, No Dysuria, No Urinary Frequency, No Hematuria, No Urinary Incontinence, No Urgency, No Flank Pain, No Urinary Flow Changes, No Hesitancy Musculoskeletal : No joint pain, No Myalgias, No Joint Swelling Skin : Erythema on the dorsum of the foot with abrasions. Neuro : No Weakness, No Numbness, No Paresthesias, No Loss of Consciousness, No Dizziness, No Headache Psych : No Anxiety/Panic, No Depression, No SI/HI/AH/VH, No Social Issues, Heme/Lymph: No Bruising, No Bleeding,No Lymphadenopathy Endocrine : No Polyuria, No Polydipsia, No Temperature Intolerance PMFSH Past Medical History Medical History Ovarian mass Uterine fibroid Left flank pain Skin lesion Mild major depression, single episode Urge urinary incontinence STEPHAN (generalized anxiety disorder) Hypovitaminosis D Developmental delay, mild Depression with anxiety Essential hypertension Pernicious anemia Surgical History History of H/O tubal ligation Family History Family History Father Heart attack Mother No problems noted. Other Mental and behavioral problem in adult Social History Social History Housing: Apartment Alcohol intake: never Patient Tobacco Use Status: Never used Tobacco Smoked in Last 30 Days: No e-Cigarette/Vaping Use: Never Used Second Hand Smoke Exposure: No Advance Directives: No Advance Directives Information Provided: No Do you have a plan to hurt others: No Plan Patient : No service: No Current occupational status: disabled Cognitive needs: Yes Hearing needs: No Vision needs: No Physical Exam 2 Vital Signs: Vital Signs: Last Vital Signs Temp 98.2 F 09/09/23 21:20 Pulse 65 09/09/23 21:20 Resp 15 09/09/23 21:20 BP 118/66 09/09/23 21:20 Pulse Ox 98 09/09/23 21:20 O2 Del Method Room Air 09/09/23 21:20 BMI result Body Mass Index 28.0 Const: Other: Appearance: Alert. Oriented X3. No acute distress. Eyes: Pupils equal, round and reactive to light. ENT: Pharynx normal. Neck: Normal inspection. Neck supple. No lymph nodes noted. No crepitus CVS: Normal heart rate and rhythm. Pulses normal. Normal S1 and S2 Respiratory: No respiratory distress. Breath sounds normal. No Wheezing. No rales Abdomen: Soft and nontender. No rigidity. No distention. Skin: Skin warm and dry. Normal skin color. Normal skin turgor. Extremities: Patient has +1 pitting edema bilaterally. Patient has erythema on the dorsum of the foot with some abrasions from shoe wear Neuro: Oriented X 3. No motor deficit. No sensory deficit. Moving all extremities. No slurred speech. CN 2 through 12 grossly intact Psych: calm, cooperative, normal affect Course Course Course Narrative: This is a rapid medical exam completed by Elina VALVERDEN: Additional HPI, ROS, PE not included below will be deferred to primary provider. Concerns for redness and swelling or left foot with pain during ambulation for an unknown period of time. Pain since yesterday Medical Decision Making Medical Decision Making MDM Narrative: -my interpretation of labs: Normal hematology, no standing chemistry values. Patient was given a dose of cephalexin and doxycycline in the ED. Discussed with the patient to stored Lasix tomorrow morning, which will be prescribed for a few days. No signs of pulmonary edema Differential Diagnosis Differential Diagnoses: The differential diagnosis associated with the presentation includes (Cellulitis, abrasions) Lab Data 09/09/23 16:24 09/09/23 16:24 Labs: Lab Results 09/09/23 Range/Units 16:24 WBC 5.6 (4.8-10.8) X10*3/uL RBC 4.05 L (4.20-5.50) X10*6/uL Hgb 11.9 L (12.0-16.0) g/dl Hct 36.2 L (37.0-47.0) % MCV 89.4 (80.0-98.0) fL MCH 29.4 (27.0-33.0) pg MCHC 32.9 (31.0-35.0) g/dl RDW 13.4 (11.0-16.0) % Plt Count 301 (160-400) X10*3/uL MPV 10.0 (9.4-12.3) fL Immature Gran % (Auto) 0.2 (0.0-0.4) % Neut % (Auto) 60.4 (45-73) % Lymph % (Auto) 21.3 (20-40) % Blanco % (Auto) 10.6 (2-11) % Eos % (Auto) 6.1 H (0-4) % Baso % (Auto) 1.4 (0-2) % Lymph # (Auto) 1.2 (1.2-4.9) X10*3/uL Blanco # (Auto) 0.6 (0.1-1.2) X10*3/uL Eos # (Auto) 0.3 (0.0-0.4) X10*3/uL Baso # (Auto) 0.1 (0.0-0.2) X10*3/uL Abs Immat Gran (auto) 0.01 (0.00-0.03) X10*3/uL Absolute Neuts (auto) 3.4 (2.0-8.3) x10*3/uL Absolute Nucleated RBC 0.000 (0.0-0.012) X10*3/uL Nucleated RBC % (auto) 0.0 (0.0-0.2) /100WBC ESR 30 H (0-20) MM/HR Sodium 139 (135-145) mmol/L Potassium 3.8 (3.3-5.1) mmol/L Chloride 105 (96-108) mmol/L Carbon Dioxide 25 (22-29) mmol/L Anion Gap 13 (12-20) BUN 18 H (9-16) mg/dL Creatinine 0.77 (0.5-1.4) mg/dL Estim Creat Clear Calc 63.8 Estimated GFR > 60 Random Glucose 102 (60-115) mg/dL Calcium 10.2 (8.4-10.2) mg/dL Total Bilirubin 0.2 (0.0-1.0) mg/dL AST 14 (5-31) U/L ALT 13 (0-31) U/L Alkaline Phosphatase 97 (39-117) U/L C-Reactive Protein 0.16 (< or = 0.50) mg/dL Total Protein 7.9 (6.5-8.0) g/dL Albumin 4.2 (3.5-5.0) g/dL Discharge Plan Discharge Clinical Impression: Cellulitis, Bilateral edema of lower extremity Patient Disposition: Home, Self-Care Instructions: Cellulitis (ED), Leg Edema (ED) Additional Instructions: Please follow-up with your primary care physician tomorrow. If you have any worsening or new symptoms, please return to the emergency room or call 911 Prescriptions: New cephalexin 500 mg capsule 500 mg PO BID Qty: 19 0RF doxycycline hyclate 100 mg tablet 100 mg PO BID Qty: 19 0RF No Action (DME) Shower Chair Misc See Rx Instructions .Route Qty: 1 0RF Rx Instructions: As directed amlodipine 10 mg tablet 10 mg PO DAILY Qty: 90 1RF cyanocobalamin (vitamin B-12) 1,000 mcg tablet 1,000 mcg PO .once a week 90 Days Qty: 12 3RF calcium carbonate-vitamin D3 600 mg-10 mcg (400 unit) tablet 1 tab PO DAILY 90 Days Qty: 90 3RF (DME) Bladder Control Pads Pad See Rx Instructions .ROUTE .MEDSUPPLY Qty: 30 11RF Rx Instructions: Use 1 pad once a day prn folic acid 1 mg tablet 1 mg PO DAILY 90 Days Qty: 90 3RF cholecalciferol (vitamin D3) 50 mcg (2,000 unit) capsule 50 mcg PO DAILY 90 Days Qty: 90 3RF citalopram 40 mg tablet 40 mg PO DAILY bupropion HCl 150 mg tablet sustained-release 12 hr 150 mg PO DAILY Print Language: Irish
[2023-09-09 16:31] LABS: MANUAL DIFF FLAG NO
[2023-09-09 16:33] LABS: Basophils Absolute Auto 0.1 X10*3/uL (0.0-0.2); Basophils Percent Auto 1.4 % (0-2); Eosinophils Absolute Auto 0.3 X10*3/uL (0.0-0.4); Eosinophils Percent Auto 6.1 % (0-4); Hematocrit 36.2 % (37.0-47.0); Hemoglobin 11.9 g/dl (12.0-16.0); Imm Gran Abs Auto 0.01 X10*3/uL (0.00-0.03); Imm Gran Pct Auto 0.2 % (0.0-0.4); Lymphocytes Absolute Auto 1.2 X10*3/uL (1.2-4.9); Lymphocytes Percent Auto 21.3 % (20-40); Mean Corpuscular HGB Conc 32.9 g/dl (31.0-35.0); Mean Corpuscular Hemoglobin 29.4 pg (27.0-33.0); Mean Corpuscular Volume 89.4 fL (80.0-98.0); Monocytes Absolute Auto 0.6 X10*3/uL (0.1-1.2); Monocytes Percent Auto 10.6 % (2-11); Neutrophils Absolute Auto 3.4 x10*3/uL (2.0-8.3); Neutrophils Percent Auto 60.4 % (45-73); Platelet Count 301 X10*3/uL (160-400); Red Blood Count 4.05 X10*6/uL (4.20-5.50); Red Cell Distribution Width 13.4 % (11.0-16.0); White Blood Count 5.6 X10*3/uL (4.8-10.8)
[2023-09-09 16:48] LABS: Alanine Aminotransferase 13 U/L (0-31); Albumin Level 4.2 g/dL (3.5-5.0); Alkaline Phosphatase 97 U/L (39-117); Anion Gap 13 (12-20); Aspartate Amino Transferase 14 U/L (5-31); Bilirubin Total 0.2 mg/dL (0.0-1.0); Blood Urea Nitrogen 18 mg/dL (9-16); C Reactive Protein 0.16 mg/dL (< or = 0.50); Calcium 10.2 mg/dL (8.4-10.2); Carbon Dioxide 25 mmol/L (22-29); Chloride 105 mmol/L (96-108); Creatinine Clr Calc Pharmacy 63.8; Estimated Glomerular Filt Rate > 60; Glucose Random 102 mg/dL (60-115); Potassium 3.8 mmol/L (3.3-5.1); Sodium 139 mmol/L (135-145); Total Protein 7.9 g/dL (6.5-8.0)
[2023-09-09 17:15] LABS: Erythrocyte Sedimentation Rate 30 MM/HR (0-20)
[2023-09-09 21:20] VITALS: BP 118/66; PULSE 65; RESP 15; TEMP 36.8; O2SAT 98
--- NOTE | 2023-09-09 22:30 | PC.NURSE ---
pt presents from home with 2 days of left lower extremity swelling and pain. pt sts pain is 10/10 and burning in nature. sts that this pain has been keeping her up at night preventing her from sleeping. pt denies any injury/trauma to area. denies any new use of soaps/lotions/detergent. pt left ankle and foot appear edematous, with multiple small open areas along dorsum of foot. no active bleeding, no drainage. (+) pulse, motion and sensation in tact. denies N/V/D, fevers, recent illness. Pt awaiting provide eval, call [facility] within reach
[2023-09-09] MEDS: cephALEXin 500 MG CAPSULE PO (22:48)
[2023-09-09] MEDS: Doxycycline Monohydrate 100 MG CAPSULE PO (22:49)
[2023-09-09 22:56] VITALS: BP 118/66; PULSE 65; RESP 15; TEMP 36.9; O2SAT 98
== END 2023-09-09 23:01 | disposition home or self-care (01) ==
PROVIDERS: Nurse Practitioner Family; Emergency Provider Emergency Medicine; PCP Internal Medicine
DX: L03.116 Cellulitis of left lower limb (principal); R60.0 Localized edema; I10 Essential (primary) hypertension
CPT/HCPCS: 36415; 80053; 85025; 85652; 86140; 99283; 99284

== ENCOUNTER 2023-09-30 15:00 | Outpatient (AMB) | payer OTHER, SELFPAY ==
[2023-09-30 15:03] VITALS: BP 142/76; BMI 26.4
--- NOTE | 2023-09-30 15:03 | A.OFFPC_ITS ---
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 RASH clonazepam [From KLONOPIN] Allergy (Intermediate, Verified 09/30/23 15:17) ? RASH lorazepam [LORAZEPAM] Allergy (Intermediate, Verified 09/30/23 15:17) ? RASH mirtazapine [From REMERON] Allergy (Intermediate, Verified 09/30/23 15:17) RASH naproxen [From NAPROSYN] Allergy (Intermediate, Verified 09/30/23 15:17) ? RASH Sulfa (Sulfonamide Antibiotics) [SULFA(SULFONAMIDE ANTIBIOTICS)] Allergy (Intermediate, Verified 09/30/23 15:17) ? RASH fluoxetine [Prozac] Allergy (Mild, Verified 09/30/23 15:17) rash From TUSSIONEX PENNKINETIC ER Allergy (Intermediate, Uncoded 09/30/23 15:17) ? RASH Medication List - Last Reconciled 09/30/23 by Marium Rodriguez MD amlodipine 10 mg PO DAILY bupropion HCl SR 150 mg PO DAILY calcium carbonate-vitamin D3 600 mg-10 mcg (400 unit) 1 tab PO DAILY 90 days cholecalciferol (vitamin D3) 50 mcg PO DAILY 90 days citalopram 40 mg PO DAILY cyanocobalamin (vitamin B-12) 1,000 mcg PO .once a week 90 days folic acid 1 mg PO DAILY 90 days incontinence pad, liner, disp Use 1 pad once a day prn Shower Chair As directed Tobacco use date assessed: 09/30/23 Dental Screening Dental Screen Date: 09/30/23 Did you have a dental visit in the last 12 months?: Yes Did you have a dental problem in the last 6 months where you did not have access to dental care?: No Was dental information given to patient?: Patient has dentist HPI HPI Comments History of Present Illness Details This is a 63-year-old female with hypertension, mild major depression, anxiety and low vitamin-D that comes today for follow-up on her conditions. Blood pressure borderline normal to elevated and will be recheck in 3 weeks by nurse navigator. Depression and anxiety well control with medications. On vitamin-D supplements for her low vitamin-D. [facility] Medical History (Updated 09/30/23 @ 16:05 by Marium Rodriguez MD) Endometrioid adenocarcinoma of uterus Ovarian mass Uterine fibroid Left flank pain Skin lesion Mild major depression, single episode Urge urinary incontinence STEPHAN (generalized anxiety disorder) Hypovitaminosis D Developmental delay, mild Depression with anxiety Essential hypertension Pernicious anemia Surgical History (Updated 09/30/23 @ 15:08 by JAMIE Ahmadi) History of tooth extraction History of H/O tubal ligation Family History Father Heart attack Mother No problems noted. Other Mental and behavioral problem in adult Social History Housing: Apartment Alcohol intake: never Patient Tobacco Use Status: Never used Tobacco e-Cigarette/Vaping Use: Never Used Second Hand Smoke Exposure: No service: No Current occupational status: disabled Cognitive needs: Yes Hearing needs: No Vision needs: No Female Reproductive History Menstrual Age of Menarche: 14 Questionnaire PHQ-9 Over the last 2 weeks, how often have you been bothered by any of the following problems? 1. Little interest or pleasure in doing things: not at all 2. Feeling down, depressed, or hopeless: not at all 3. Trouble falling or staying asleep, or sleeping too much: not at all 4. Feeling tired or having little energy: not at all 5. Poor appetite or overeating: not at all 6. Feeling bad about yourself - or that you are a failure or have let yourself or your family down: not at all 7. Trouble concentrating on things, such as reading the newspaper or watching television: not at all 8. Moving or speaking so slowly that other people could have noticed. Or the opposite - being so fidgety or restless that you have been moving around a lot more than usual: several days 9. Thoughts that you would be better off or of hurting yourself in some way: not at all Total score: 1 Depression Screening Interpretation: Negative Depression Screening Done: Yes 65791 - PHQ-9 Billing: Yes Source: Developed by Drs. Boyd Mcguire, Carrie Dow, Blu Powell and colleagues, with an educational aretha from [employer]. Thrive Questionnaire Date Thrive assessed: 09/30/23 I am a: Patient What is your living situation today?: I have a steady place to live Within the past 12 months, did the food you bought not last and you didn't have the money to get more?: Never true Within the past 12 months, did you worry whether your food would run out before you got money to buy more?: Never true Do you have trouble paying for medicines?: No Do you have trouble getting transportation to medical appointments?: No Do you have trouble paying your heating and electricity bill?: No Do you have trouble taking care of your child, family member or friend?: No Do you have trouble with day-to-day activities such as bathing, preparing meals, shopping, managing finances, etc.?: Yes Are you currently unemployed and looking for a job?: No Are you interested in more education?: No Please select the resources that you would like help with: None Currently or been in a relationship where the following occur: no concerns reported THRIVE Score: 0 AUDIT C Alcohol Use Questionnaire (AUDIT-C) 1. How often do you have a drink containing alcohol?: Never Total Score: 0 Score Reviewed/Action Taken: No STEPHAN-7 AMB Questionnaire STEPHAN-7 Date STEPHAN - 7 assessed: 09/30/23 Feeling nervous, anxious, or on edge: 0 = Not at all Not being able to stop or control worryin = Not at all Worrying too much about different things: 0 = Not at all Trouble relaxin = Not at all Being so restless that it is hard to sit still: 0 = Not at all Becoming easily annoyed or irritable: 0 = Not at all Feeling afraid as if something awful might happen: 0 = Not at all Total SETPHAN-7 score (0-4 normal; 5-9 mild; 10-14 moderate; 15-21 severe): 0 Source: Developed by Drs. Boyd Mcguire, Blu Caldwell and colleagues, with an educational aretha from [employer]. STEPHAN-7 Assessment Billing STEPHAN-7 Assessment Tool: STEPHAN-7 Assessment 26136 Review of Systems Const All systems reviewed & are unremarkable except as noted in HPI and below Card Denies chest pain at rest, Denies chest pain with activity, Denies edema, Denies irregular heart rhythm, Denies claudication, Denies dyspnea, Denies dyspnea on exertion, Denies orthopnea, Denies paroxysmal nocturnal dyspnea and Denies slow heart rate Resp Denies cough, Denies dyspnea and Denies dyspnea on exertion Physical exam (Primary Care) Vital Signs: Last Vital Signs BP 142/76 H 09/30/23 15:03 BMI result Body Mass Index 26.4 Tobacco/Smoking Status: Tobacco use Status Tobacco use date assessed 09/30/23 09/30/23 15:12 Patient Tobacco Use Status Never used Tobacco 09/30/23 15:12 Tobacco use type 11/05/21 15:02 e-Cigarette/Vaping Use Never Used 09/30/23 15:12 PHQ-9: PHQ-9 Score PHQ-9: Total score 1 09/30/23 15:21 Depression Screening Interpretation: Negative Thrive Assessment: Date of Thrive Assessment Date Thrive assessed 09/30/23 09/30/23 15:12 Currently or been in a relationship where the following occur: no concerns reported Resp Effort & Inspection: normal respiratory effort Auscultation: clear to auscultation bilaterally Cardio Jugular venous distension: no JVD Rate: regular rate Rhythm: regular rhythm Heart sounds: S1 normal heart sound present and S2 normal heart sound present Extrem General: Yes full ROM Assessment and Plan Assessment & Plan (1) Mild major depression, single episode: Code(s): F32.0 - Major depressive disorder, single episode, mild Plan: Continue bupropion and citalopram. (2) STEPHAN (generalized anxiety disorder): Code(s): F41.1 - Generalized anxiety disorder Plan: Continue citalopram. (3) Essential hypertension: Code(s): I10 - Essential (primary) hypertension Plan: Continue amlodipine. Recheck blood pressure with nurse navigator in 3 weeks. Blood pressure goal is equal or less than 130/80. (4) Hypovitaminosis D: Code(s): E55.9 - Vitamin D deficiency, unspecified Plan: Continue vitamin-D supplements. Coding Level of Care Code Est Pt Level 4 (62595) Diagnoses Mild major depression, single episode F32.0 STEPHAN (generalized anxiety disorder) F41.1 Essential hypertension I10 Hypovitaminosis D E55.9 Additional Codes STEPHAN-7 Assessment Billing - STEPHAN-7 Assessment Tool: STEPHAN-7 Assessment 06178 ([id number]) Time Spent (min) 24
== END 2023-09-30 15:25 | disposition home or self-care (01) ==
PROVIDERS: PCP Internal Medicine; Visit Provider Internal Medicine
DX: I10 Essential (primary) hypertension (principal); E55.9 Vitamin D deficiency, unspecified; F33.0 Major depressive disorder, recurrent, mild; F41.1 Generalized anxiety disorder
CPT/HCPCS: 99214

== ENCOUNTER 2023-12-02 10:34 | Outpatient (REF) | payer OTHER, SELFPAY | END 2023-12-02 10:35 | disposition home or self-care (01) | LOC: HO.MAMMO 10:34 | PROVIDERS: PCP Internal Medicine; Visit Provider Internal Medicine | DX: Z12.31 Encounter for screening mammogram for malignant neoplasm of breast (principal) | CPT/HCPCS: 77063; 77067 ==

== ENCOUNTER → 2023-12-02 10:45 | Outpatient (BNV) | payer OTHER, SELFPAY | PROVIDERS: PCP Internal Medicine; Visit Provider Radiology Diagnostic Radiology | DX: Z12.31 Encounter for screening mammogram for malignant neoplasm of breast (principal) | CPT/HCPCS: 77063; 77067 ==

== ENCOUNTER 2023-12-06 17:36 | Emergency (ER) | payer OTHER, SELFPAY ==
--- NOTE | ~2023-12-06 | US_ITS ---
EXAMINATION: US VENOUS ULTRASOUND WITH DOPPLER LOWER EXTREMITY, LEFT CLINICAL INFORMATION: Swelling. Edema. Left lower extremity. COMPARISON: None available. TECHNIQUE: Ultrasound of the deep veins is performed from the hip to the calf with compression sonography and color and pulse Doppler assessment. Spectral analysis with color-flow imaging is performed. FINDINGS: There is normal venous compression and respiratory variation and augmented flow. The visualized common femoral vein, superficial femoral vein, profunda femoral vein, popliteal vein, and the trifurcation region shows no evidence of deep venous thrombosis. There is no significant popliteal fossa cyst. Subcutaneous edema is noted in the region of the popliteal fossa. Several prominent left inguinal lymph nodes are noted with maximum short axis diameters of up to 1.0 cm. Lymph nodes demonstrate normal hilar architecture. A 2.9 cm x 1.07 x 2.0 cm inguinal lymph node is noted. If the patient's symptoms persist, followup ultrasound in 5 days 7 days might be of value to exclude proximal propagation from a non-visualized calf vein. US/US venous duplex LE LT IMPRESSION: No DVT demonstrated in the left lower extremity. Partial visualization of subcutaneous edema within the popliteal fossa. Left inguinal lymph nodes at the upper limits of normal size which may represent reactive lymphadenopathy.
--- NOTE | ~2023-12-06 | XR_ITS ---
EXAMINATION: XR TIBIA AND FIBULA, LEFT CLINICAL INFORMATION: Pain COMPARISON: None available. TECHNIQUE: AP and lateral views of the left tibia and fibula were obtained. FINDINGS: No acute fractures or dislocations. No radiopaque foreign bodies. Soft tissue swelling. XR/XR tibia fibula LT 2V IMPRESSION: Normal left tibia and fibula. Soft tissue swelling.
[2023-12-06 18:20] VITALS: BP 175/85; PULSE 52; RESP 18; TEMP 36.9; O2SAT 96; BMI 27.2
--- NOTE | 2023-12-06 18:21 | ED_ITS ---
HPI - Extremity Injury (Lower) General Chief Complaint: Wound/Laceration Stated Complaint: left ft pain Time Seen by Provider: 12/06/23 19:24 Source: patient, RN notes reviewed and old records reviewed Mode of arrival: ambulatory Limitations: no limitations History of Present Illness ED Provider: Milli HPI Narrative: 63-year-old female presents for evaluation of left leg pain and swelling. Patient reports 4 days of increased pain, swelling and redness to the left lower extremity. She states that she tripped and struck her left leg against furniture 4 days ago prior to the onset of her symptoms. She denies having had any deep wounds but there is a scabbed area Denies any history of DVT or PE. She denies any fevers, chills She reports that she is not diabetic Related Data Home Medications ?Medication ?Instructions ?Recorded ?Confirmed citalopram 40 mg tablet 40 mg PO DAILY 02/16/20 09/30/23 bupropion HCl 150 mg tablet,12 hr 150 mg PO DAILY 12/05/20 09/30/23 sustained-release Previous Rx's ?Medication ?Instructions ?Recorded Shower Chair #1 ea 03/14/21 cyanocobalamin (vitamin B-12) 1,000 mcg PO .once a week 90 days 05/22/23 1,000 mcg tablet #12 tabs calcium carbonate 600 mg-vitamin 1 tab PO DAILY 90 days #90 tabs 06/16/23 D3 10 mcg (400 unit) tablet incontinence pad, liner, disp #30 ea 08/07/23 cholecalciferol (vitamin D3) 50 50 mcg PO DAILY 90 days #90 caps 08/24/23 mcg (2,000 unit) capsule folic acid 1 mg tablet 1 mg PO DAILY 90 days #90 tabs 08/24/23 blood pressure monitor #1 ea 10/20/23 amlodipine 10 mg tablet 10 mg PO DAILY #90 tabs 11/28/23 cefuroxime axetil 500 mg tablet 500 mg PO Q12H #14 tabs 12/06/23 furosemide 20 mg tablet (Lasix) 20 mg PO DAILY #3 tabs 12/06/23 Allergies Allergy/AdvReac Type Severity Reaction Status Date / Time amoxicillin [AMOXICILLIN] Allergy Intermediate ? RASH Verified 12/06/23 18:24 clonazepam [From KLONOPIN] Allergy Intermediate ? RASH Verified 12/06/23 18:24 lorazepam [LORAZEPAM] Allergy Intermediate ? RASH Verified 12/06/23 18:24 mirtazapine [From REMERON] Allergy Intermediate RASH Verified 12/06/23 18:24 naproxen [From NAPROSYN] Allergy Intermediate ? RASH Verified 12/06/23 18:24 Sulfa (Sulfonamide Allergy Intermediate ? RASH Verified 12/06/23 18:24 Antibiotics) [SULFA(SULFONAMIDE ANTIBIOTICS)] fluoxetine [Prozac] Allergy Mild rash Verified 12/06/23 18:24 From TUSSIONEX PENNKINETIC ER Allergy Intermediate ? RASH Uncoded 09/30/23 15:17 Review of Systems 2 Constitutional: Constitutional: Denies body ache(s), Denies chills, Denies fever(s) and Denies frequent falls ENT: Denies vertigo and Denies dizziness Cardiovascular: Cardiovascular: Denies chest pain and Denies dyspnea Respiratory: Respiratory: Denies cough and Denies dyspnea Gastrointestinal: Gastrointestinal: Denies abdominal pain, Denies nausea and Denies vomiting Musculoskeletal: Musculoskeletal: Denies back pain, Reports arthralgias and Reports joint swelling Integumentary/Breasts: Skin/Breast: Reports erythema and Reports wounds Neurologic: Denies vertigo, Denies dizziness and Denies frequent falls PMFSH Past Medical History Medical History (Updated 12/06/23 @ 22:45 by Shady Morley) Endometrioid adenocarcinoma of uterus Ovarian mass Uterine fibroid Left flank pain Skin lesion Mild major depression, single episode Urge urinary incontinence STEPHAN (generalized anxiety disorder) Hypovitaminosis D Developmental delay, mild Depression with anxiety Essential hypertension Pernicious anemia Surgical History (Updated 09/30/23 @ 15:08 by JAMIE Ahmadi) History of tooth extraction History of H/O tubal ligation Family History Family History Father Heart attack Mother No problems noted. Other Mental and behavioral problem in adult Social History Social History Housing: Apartment Alcohol intake: never Patient Tobacco Use Status: Never used Tobacco Smoked in Last 30 Days: No e-Cigarette/Vaping Use: Never Used Second Hand Smoke Exposure: No Use of substances other than those prescribed or required for medical reasons: No Advance Directives: No Advance Directives Information Provided: No Patient : No service: No Current occupational status: disabled Cognitive needs: Yes Hearing needs: No Vision needs: No Physical Exam 2 Vital Signs: Vital Signs: Last Vital Signs Temp 97.7 F 12/06/23 21:35 Pulse 55 12/06/23 21:35 Resp 18 12/06/23 21:35 BP 153/61 H 12/06/23 21:35 Pulse Ox 96 12/06/23 21:35 O2 Del Method Room Air 12/06/23 21:35 BMI result Body Mass Index 27.2 Const: General: healthy appearing, comfortable, no acute distress, alert and awake Nutritional Appearance: well nourished Orientation/consciousness: p atient oriented x3 HEENT: Head: Yes normocephalic and Yes atraumatic Eyes: Eyelids: Yes eyelids normal Conjunctivae: conjunctivae normal S clerae: sclerae normal Corneas: corneas normal Pupils: Equal, round and reactive pupils present EOM: EOMs intact bilaterally Neck: Neck: Yes full ROM Resp: Effort & Inspection: normal respiratory effort, able to speak in complete sentences and not labored Cardio: Rate: regular rate Rhythm: regular rhythm Skin: General skin exam: elasticity normal Neuro: General: patient oriented x3 Cranial nerves: Yes Equal, round and reactive pupils present and Yes Bilaterally intact EOM present Cognition (Neuro): normal cognition Extrem: Other: Patient has 1+ pitting edema to left lower extremity my about the mid calf down to the ankle. There are multiple superficial open wounds. There is a larger, 2 cm scabbed over area to the medial tibia region just above the ankle. There is scattered, blotchy erythema. The patient does have calf tenderness on the left. Course Course Course Narrative: This is a Rapid Medical Exam performed in triage by Anna Sharp PA-C. Full HPI, ROS and PE to be performed by primary ED provider. 63 year-old F w/ PMHx STEPHAN, HTN, Anemia, presenting to the ED c/o LLE pain, redness and swelling x yesterday. denies fever or injury PE: +LLE with erythema and wound, +pitting edema Plan: Labs Reevaluation(s) Reevaluation #1: Patient's ultrasound shows soft tissue edema with reactive lymphadenopathy, no DVT. X-ray shows no fracture. We will treat the patient with cefuroxime for cellulitis related to her wounds sustained from the fall. Will also give her a short course of Lasix given the significant swelling with elevated BNP Medical Decision Making Medical Decision Making [facility] Narrative: 63-year-old female presents for evaluation of left leg pain and swelling. She did have a wound from a fall 4 days ago. There was no acute wound requiring closure. This wound is closed, scabbed over and there is no drainage or bleeding. There is 2+ pitting edema. This is unilateral, due to this will get an ultrasound to evaluate for DVT. An x-ray was ordered as the patient's symptoms started after a fall. Patient did have some labs performed with no leukocytosis or left shift. The patient does have an elevated BNP to 393, no previous for comparison. She has no respiratory symptoms. She will likely require a few doses of furosemide Differential Diagnosis Differential Diagnoses: The differential diagnosis associated with the presentation includes Contusion Cellulitis Laceration DVT Fracture CHF Dependent edema Lab Data [facility] Lab Attestation statement: I reviewed the patient's lab results. No leukocytosis. The patient does have a chronic normocytic anemia consistent with a baseline. There was no left shift. Chemistries are significant for normal renal function, elevated BNP as documented above, 12/06/23 18:31 12/06/23 18:31 Labs: Lab Results 12/06/23 Range/Units 18:31 WBC 6.4 (4.8-10.8) X10*3/uL RBC 3.97 L (4.20-5.50) X10*6/uL Hgb 11.6 L (12.0-16.0) g/dl Hct 35.5 L (37.0-47.0) % MCV 89.4 (80.0-98.0) fL MCH 29.2 (27.0-33.0) pg MCHC 32.7 (31.0-35.0) g/dl RDW 12.9 (11.0-16.0) % Plt Count 300 (160-400) X10*3/uL MPV 9.9 (9.4-12.3) fL Immature Gran % (Auto) 0.2 (0.0-0.4) % Neut % (Auto) 60.2 (45-73) % Lymph % (Auto) 21.9 (20-40) % [place] % (Auto) 10.5 (2-11) % Eos % (Auto) 5.3 H (0-4) % Baso % (Auto) 1.9 (0-2) % Lymph # (Auto) 1.4 (1.2-4.9) X10*3/uL [place] # (Auto) 0.7 (0.1-1.2) X10*3/uL Eos # (Auto) 0.3 (0.0-0.4) X10*3/uL Baso # (Auto) 0.1 (0.0-0.2) X10*3/uL Abs Immat Gran (auto) 0.01 (0.00-0.03) X10*3/uL Absolute Neuts (auto) 3.9 (2.0-8.3) x10*3/uL Absolute Nucleated RBC 0.000 (0.0-0.012) X10*3/uL Nucleated RBC % (auto) 0.0 (0.0-0.2) /100WBC Sodium 140 (135-145) mmol/L Potassium 3.8 (3.3-5.1) mmol/L Chloride 106 (96-108) mmol/L Carbon Dioxide 23 (22-29) mmol/L Anion Gap 15 (12-20) BUN 17 H (9-16) mg/dL Creatinine 0.85 (0.5-1.4) mg/dL Estim Creat Clear Calc 58.5 Estimated GFR > 60 Random Glucose 101 (60-115) mg/dL Calcium 10.7 H (8.4-10.2) mg/dL Total Bilirubin 0.2 (0.0-1.0) mg/dL Direct Bilirubin < 0.2 (0.0-0.5) mg/dL AST 18 (5-31) U/L ALT 14 (0-31) U/L Alkaline Phosphatase 107 (39-117) U/L B-Natriuretic Peptide 393 H (<100) pg/mL Total Protein 8.2 H (6.5-8.0) g/dL Albumin 4.5 (3.5-5.0) g/dL Independent Interpretation I performed an independent interpretation of an: Plain X-Ray Interpretation: Agree with Radiology interpretation, no fracture of the left tib-fib Radiology Impression Discussion of test interpretation with radiology: I have reviewed the radiologist's reading. Radiologist Impression: XR/XR tibia fibula LT 2V IMPRESSION: Normal left tibia and fibula. Soft tissue swelling. US/US venous duplex LE LT IMPRESSION: No DVT demonstrated in the left lower extremity. Partial visualization of subcutaneous edema within the popliteal fossa. Left inguinal lymph nodes at the upper limits of normal size which may represent reactive lymphadenopathy. Discharge Plan Discharge Clinical Impression: Cellulitis of left leg Patient Disposition: Home, Self-Care Instructions: Cellulitis (ED) Additional Instructions: Take cefuroxime twice daily for the next 7 days but Take Lasix 20 mg daily for the next 3 days Follow-up your primary doctor Return for new or worsening symptoms Prescriptions: New cefuroxime axetil 500 mg tablet 500 mg PO Q12H Qty: 14 0RF furosemide [Lasix] 20 mg tablet 20 mg PO DAILY Qty: 3 0RF No Action (DME) Shower Chair Misc See Rx Instructions .Route Qty: 1 0RF Rx Instructions: As directed cyanocobalamin (vitamin B-12) 1,000 mcg tablet 1,000 mcg PO .once a week 90 Days Qty: 12 3RF calcium carbonate-vitamin D3 600 mg-10 mcg (400 unit) tablet 1 tab PO DAILY 90 Days Qty: 90 3RF (DME) Bladder Control Pads Pad See Rx Instructions .ROUTE .MEDSUPPLY Qty: 30 11RF Rx Instructions: Use 1 pad once a day prn folic acid 1 mg tablet 1 mg PO DAILY 90 Days Qty: 90 3RF cholecalciferol (vitamin D3) 50 mcg (2,000 unit) capsule 50 mcg PO DAILY 90 Days Qty: 90 3RF (DME) blood pressure monitor Kit See Rx Instructions .Route Qty: 1 0RF Rx Instructions: As directed amlodipine 10 mg tablet 10 mg PO DAILY Qty: 90 1RF citalopram 40 mg tablet 40 mg PO DAILY bupropion HCl 150 mg tablet sustained-release 12 hr 150 mg PO DAILY Print Language: Yakut
[2023-12-06 18:35] LABS: MANUAL DIFF FLAG NO
[2023-12-06 18:38] LABS: Basophils Absolute Auto 0.1 X10*3/uL (0.0-0.2); Basophils Percent Auto 1.9 % (0-2); Eosinophils Absolute Auto 0.3 X10*3/uL (0.0-0.4); Eosinophils Percent Auto 5.3 % (0-4); Hematocrit 35.5 % (37.0-47.0); Hemoglobin 11.6 g/dl (12.0-16.0); Imm Gran Abs Auto 0.01 X10*3/uL (0.00-0.03); Imm Gran Pct Auto 0.2 % (0.0-0.4); Lymphocytes Absolute Auto 1.4 X10*3/uL (1.2-4.9); Lymphocytes Percent Auto 21.9 % (20-40); Mean Corpuscular HGB Conc 32.7 g/dl (31.0-35.0); Mean Corpuscular Hemoglobin 29.2 pg (27.0-33.0); Mean Corpuscular Volume 89.4 fL (80.0-98.0); Mean Platelet Volume 9.9 fL (9.4-12.3); Monocytes Absolute Auto 0.7 X10*3/uL (0.1-1.2); Monocytes Percent Auto 10.5 % (2-11); Neutrophils Absolute Auto 3.9 x10*3/uL (2.0-8.3); Neutrophils Percent Auto 60.2 % (45-73); Platelet Count 300 X10*3/uL (160-400); Red Blood Count 3.97 X10*6/uL (4.20-5.50); Red Cell Distribution Width 12.9 % (11.0-16.0); White Blood Count 6.4 X10*3/uL (4.8-10.8)
[2023-12-06 18:50] LABS: Alanine Aminotransferase 14 U/L (0-31); Albumin Level 4.5 g/dL (3.5-5.0); Alkaline Phosphatase 107 U/L (39-117); Anion Gap 15 (12-20); Aspartate Amino Transferase 18 U/L (5-31); Bilirubin Direct < 0.2 mg/dL (0.0-0.5); Bilirubin Total 0.2 mg/dL (0.0-1.0); Blood Urea Nitrogen 17 mg/dL (9-16); Calcium 10.7 mg/dL (8.4-10.2); Carbon Dioxide 23 mmol/L (22-29); Chloride 106 mmol/L (96-108); Creatinine Clr Calc Pharmacy 58.5; Estimated Glomerular Filt Rate > 60; Glucose Random 101 mg/dL (60-115); Potassium 3.8 mmol/L (3.3-5.1); Sodium 140 mmol/L (135-145); Total Protein 8.2 g/dL (6.5-8.0)
[2023-12-06 18:59] LABS: B Type Natriuretic Peptide 393 pg/mL (<100)
[2023-12-06 21:35] VITALS: BP 153/61; PULSE 55; RESP 18; TEMP 36.5; O2SAT 96
[2023-12-06 23:00] VITALS: BP 132/64
[2023-12-06] MEDS: cefuroxime axetiL 500 MG TABLET PO (23:00)
[2023-12-06] MEDS: Furosemide 20 MG TABLET PO (23:00)
[2023-12-06 23:08] VITALS: BP 132/64; PULSE 59; RESP 16; TEMP 36.8; O2SAT 97
[2023-12-06 23:09] VITALS: BP 132/64; PULSE 59; RESP 16; TEMP 36.8; O2SAT 97
== END 2023-12-06 23:10 | disposition home or self-care (01) ==
PROVIDERS: Physician Assistant; Emergency Provider Emergency Medicine; PCP Internal Medicine
DX: L03.116 Cellulitis of left lower limb (principal); M79.605 Pain in left leg
CPT/HCPCS: 36415; 73590; 80048; 80076; 83880; 85025; 93971; 99284

== ENCOUNTER 2023-12-22 07:41 | Outpatient (AMB) | payer OTHER, SELFPAY ==
[2023-12-22 07:48] VITALS: BP 140/82; BMI 26.8
--- NOTE | 2023-12-22 07:48 | A.OFFPC_ITS ---
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 RASH clonazepam [From KLONOPIN] Allergy (Intermediate, Verified 12/22/23 08:06) ? RASH lorazepam [LORAZEPAM] Allergy (Intermediate, Verified 12/22/23 08:06) ? RASH mirtazapine [From REMERON] Allergy (Intermediate, Verified 12/22/23 08:06) RASH naproxen [From NAPROSYN] Allergy (Intermediate, Verified 12/22/23 08:06) ? RASH Sulfa (Sulfonamide Antibiotics) [SULFA(SULFONAMIDE ANTIBIOTICS)] Allergy (Intermediate, Verified 12/22/23 08:06) ? RASH fluoxetine [Prozac] Allergy (Mild, Verified 12/22/23 08:06) rash From TUSSIONEX PENNKINETIC ER Allergy (Intermediate, Uncoded 12/22/23 08:06) ? RASH Medication List - Last Reconciled 12/22/23 by Marium Rodriguez MD amlodipine 10 mg PO DAILY blood pressure monitor As directed bupropion HCl SR 150 mg PO DAILY calcium carbonate-vitamin D3 600 mg-10 mcg (400 unit) 1 tab PO DAILY 90 days cholecalciferol (vitamin D3) 50 mcg PO DAILY 90 days citalopram 40 mg PO DAILY cyanocobalamin (vitamin B-12) 1,000 mcg PO .once a week 90 days folic acid 1 mg PO DAILY 90 days furosemide (Lasix) 20 mg PO DAILY incontinence pad, liner, disp Use 1 pad once a day prn Shower Chair As directed Tobacco use date assessed: 09/30/23 Dental Screening Dental Screen Date: 09/30/23 HPI HPI Comments History of Present Illness Details This is a 63-year-old female with hypertension, mild major depression and anxiety that complains of pruritus that started few weeks ago in the left leg. X-ray was negative. Ultrasound negative for DVT. I will give her hydroxyzine for her pruritus. Patient is aware can cause her sleepiness. Blood pressure stable. Depression with anxiety well control with citalopram. Accompanied by staff member. PENDING SALE TO [facility] Medical History (Updated 12/22/23 @ 08:26 by Marium Rodriguez MD) Endometrioid adenocarcinoma of uterus Ovarian mass Uterine fibroid Left flank pain Skin lesion Mild major depression, single episode Urge urinary incontinence STEPHAN (generalized anxiety disorder) Hypovitaminosis D Developmental delay, mild Depression with anxiety Essential hypertension Pernicious anemia Surgical History History of tooth extraction History of H/O tubal ligation Family History Father Heart attack Mother No problems noted. Other Mental and behavioral problem in adult Social History Housing: Apartment Alcohol intake: never Patient Tobacco Use Status: Never used Tobacco e-Cigarette/Vaping Use: Never Used Second Hand Smoke Exposure: No service: No Current occupational status: disabled Cognitive needs: Yes Hearing needs: No Vision needs: No Female Reproductive History Menstrual Age of Menarche: 14 Questionnaire Thrive Questionnaire Date Thrive assessed: 09/30/23 STEPHAN-7 AMB Questionnaire STEPHAN-7 Date STEPHAN - 7 assessed: 09/30/23 Source: Developed by Drs. Boyd Mcguire, Carrie Dow, Blu Powell and colleagues, with an educational aretha from [employer]. Review of Systems Const All systems reviewed & are unremarkable except as noted in HPI and below Card Denies chest pain at rest, Denies chest pain with activity, Denies edema, Denies irregular heart rhythm, Denies claudication, Denies dyspnea, Denies dyspnea on exertion, Denies orthopnea, Denies paroxysmal nocturnal dyspnea and Denies slow heart rate Resp Denies cough, Denies dyspnea and Denies dyspnea on exertion Physical exam (Primary Care) Vital Signs: Last Vital Signs BP 140/82 H 12/22/23 07:48 BMI result Body Mass Index 26.8 Tobacco/Smoking Status: Tobacco use Status Tobacco use date assessed 09/30/23 12/22/23 07:54 Patient Tobacco Use Status Never used Tobacco 12/22/23 07:54 Tobacco use type 12/17/23 14:42 e-Cigarette/Vaping Use Never Used 12/22/23 07:54 Thrive Assessment: Date of Thrive Assessment Date Thrive assessed 09/30/23 12/22/23 07:54 Resp Effort & Inspection: normal respiratory effort Auscultation: clear to auscultation bilaterally Cardio Jugular venous distension: no JVD Rate: regular rate Rhythm: regular rhythm Heart sounds: S1 normal heart sound present and S2 normal heart sound present Extrem General: Yes full ROM Assessment and Plan Assessment & Plan (1) Essential hypertension: Code(s): I10 - Essential (primary) hypertension Plan: Continue clonidine. Blood pressure goal is equal or less than 130/80. (2) Mild major depression, single episode: Code(s): F32.0 - Major depressive disorder, single episode, mild Plan: Continue citalopram. (3) STEPHAN (generalized anxiety disorder): Code(s): F41.1 - Generalized anxiety disorder Plan: Continue citalopram. (4) Pruritus: Code(s): L29.9 - Pruritus, unspecified Plan: Continue hydroxyzine. Medications: New hydroxyzine HCl 25 mg PO BID PRN 60 tabs 0RF itching 30 days Coding Level of Care Code Est Pt Level 4 (67109) Complex EM visit Add On G2211 Diagnoses Essential hypertension I10 Mild major depression, single episode F32.0 STEPHAN (generalized anxiety disorder) F41.1 Pruritus L29.9 Time Spent (min) 22
[2023-12-22 08:27] VITALS: BP 138/80
== END 2023-12-22 08:16 | disposition home or self-care (01) ==
PROVIDERS: PCP Internal Medicine; Visit Provider Internal Medicine
DX: I10 Essential (primary) hypertension (principal); F32.0 Major depressive disorder, single episode, mild; F41.1 Generalized anxiety disorder; L29.9 Pruritus, unspecified
CPT/HCPCS: 99214; G2211

== ENCOUNTER 2024-01-27 18:47 | Emergency (ER) | payer OTHER, SELFPAY ==
--- NOTE | ~2024-01-27 | CT_ITS ---
EXAMINATION: CT ABDOMEN AND PELVIS WITHOUT CONTRAST CLINICAL INFORMATION: Left flank pain COMPARISON: CT scan of abdomen February 10, 2008. Lumbar spine February 13, 2023. TECHNIQUE: Multidetector volumetric imaging was performed from the superior aspect of the liver through the pubic symphysis. Sagittal and coronal reformatted images were obtained on the technologist's workstation. This CT examination was performed using dose optimization techniques as appropriate, variously including the following: *Automated exposure control *Adjustment of mA and/or kV according to patient size (this includes techniques or standardized protocols for targeted exams where dose is matched to indication/reason for exam; i.e. extremities or head) *Use of iterative reconstruction technique DLP: 401 mGy-cm FINDINGS: LUNG BASES: Lung bases normally aerated. Large hiatal hernia. Heart size enlarged. LIVER, GALLBLADDER, AND BILIARY TREE: The liver is normal in size, shape, and attenuation. No focal hepatic lesion or biliary ductal dilatation is present. The gallbladder is unremarkable with no evidence of radiopaque gallstones, gallbladder wall thickening, or obvious pericholecystic inflammatory changes. PANCREAS: Unremarkable. SPLEEN: Unremarkable. ADRENAL GLANDS: Unremarkable. KIDNEYS AND URETERS: The kidneys are normal in size, shape, and attenuation. No hydronephrosis, hydroureter, or calculi seen. No perinephric stranding. BLADDER: Unremarkable. GASTROINTESTINAL TRACT: There are a few scattered diverticula of the colon. There is no diverticulitis. There is no bowel wall thickening /edema. There is no bowel obstruction. There is a moderate volume of stool in the colon. The appendix is normal . The small bowel loops are unremarkable. The stomach is normal. There is no hiatal hernia. ABDOMINAL WALL: No significant hernia is appreciated. LYMPH NODES: Normal. VASCULAR: Scattered vascular calcifications of the abdomen and pelvis. There is no aneurysm of the aorta. PELVIC VISCERA: Unremarkable. OSSEOUS STRUCTURES: Multilevel degenerative spondylosis. Levoscoliosis of the thoracolumbar spine. Chronic compression deformity of L1 vertebra, 50% loss of height of the vertebral body. CT/CT abdomen pelvis wo IV con IMPRESSION: 1. No acute abnormality CT scan abdomen pelvis. 2. Large hiatal hernia. 3. Chronic compression deformity of L1 vertebra. Fleischner guidelines were followed. Electronically signed by: Giovanny Mijares MD 01/27/2024 09:40 PM EDT RP
[2024-01-27 19:52] VITALS: BP 142/84; PULSE 63; RESP 18; TEMP 36.9; O2SAT 96; BMI 27.6
--- NOTE | 2024-01-27 19:53 | ED.BACK ---
HPI - Back Pain/Injury General Chief Complaint: Back Pain/Injury Stated Complaint: Back pain Time Seen by Provider: 01/27/24 23:28 Source: patient Mode of arrival: ambulatory Limitations: no limitations History of Present Illness ED Provider: Dr. Lujan HPI Narrative: patient presents with left flank pain after walking [place] today. She denies trauma, fever, dysuria states that the pain goes away after she sits down. MD elicited complaint: back pain Onset (ago): hour(s) Timing: constant Severity: mild Related Data Home Medications ?Medication ?Instructions ?Recorded ?Confirmed citalopram 40 mg tablet 40 mg PO DAILY 02/16/20 12/22/23 bupropion HCl 150 mg tablet,12 hr 150 mg PO DAILY 12/05/20 12/22/23 sustained-release Previous Rx's ?Medication ?Instructions ?Recorded Shower Chair #1 ea 03/14/21 cyanocobalamin (vitamin B-12) 1,000 mcg PO .once a week 90 days 05/22/23 1,000 mcg tablet #12 tabs calcium carbonate 600 mg-vitamin 1 tab PO DAILY 90 days #90 tabs 06/16/23 D3 10 mcg (400 unit) tablet incontinence pad, liner, disp #30 ea 08/07/23 cholecalciferol (vitamin D3) 50 50 mcg PO DAILY 90 days #90 caps 08/24/23 mcg (2,000 unit) capsule folic acid 1 mg tablet 1 mg PO DAILY 90 days #90 tabs 08/24/23 blood pressure monitor #1 ea 10/20/23 amlodipine 10 mg tablet 10 mg PO DAILY #90 tabs 11/28/23 furosemide 20 mg tablet (Lasix) 20 mg PO DAILY #3 tabs 12/06/23 hydroxyzine HCl 25 mg tablet 25 mg PO BID PRN itching 30 days 12/22/23 #60 tabs acetaminophen 500 mg tablet 1,000 mg (2 x 500 mg) PO Q6H PRN 01/27/24 (Tylenol Extra Strength) pain #30 tabs Allergies Allergy/AdvReac Type Severity Reaction Status Date / Time amoxicillin [AMOXICILLIN] Allergy Intermediate ? RASH Verified 01/27/24 19:53 clonazepam [From KLONOPIN] Allergy Intermediate ? RASH Verified 01/27/24 19:53 lorazepam [LORAZEPAM] Allergy Intermediate ? RASH Verified 01/27/24 19:53 mirtazapine [From REMERON] Allergy Intermediate RASH Verified 01/27/24 19:53 naproxen [From NAPROSYN] Allergy Intermediate ? RASH Verified 01/27/24 19:53 Sulfa (Sulfonamide Allergy Intermediate ? RASH Verified 01/27/24 19:53 Antibiotics) [SULFA(SULFONAMIDE ANTIBIOTICS)] fluoxetine [Prozac] Allergy Mild rash Verified 01/27/24 19:53 From TUSSIONEX PENNKINETIC ER Allergy Intermediate ? RASH Uncoded 01/27/24 19:53 Review of Systems Review of Systems: Yes all other systems are reviewed and are negative Neurologic: Denies Sensory deficit (Neuro) [facility] Past Medical History Medical History Endometrioid adenocarcinoma of uterus Ovarian mass Uterine fibroid Left flank pain Skin lesion Mild major depression, single episode Urge urinary incontinence STEPHAN (generalized anxiety disorder) Hypovitaminosis D Developmental delay, mild Depression with anxiety Essential hypertension Pernicious anemia Surgical History History of tooth extraction History of H/O tubal ligation Family History Family History Father Heart attack Mother No problems noted. Other Mental and behavioral problem in adult Social History Social History Housing: Apartment Unable to assess alcohol history related to: Unknown Alcohol intake: never Patient Tobacco Use Status: Never used Tobacco e-Cigarette/Vaping Use: Never Used Second Hand Smoke Exposure: No Use of substances other than those prescribed or required for medical reasons: Unknown Advance Directives: No Advance Directives Information Provided: No Do you have a plan to hurt others: No Plan Patient : No service: No Current occupational status: disabled Cognitive needs: Yes Hearing needs: No Vision needs: No Physical Exam Vital Signs: Vital Signs: Last Vital Signs Temp 97.5 F 01/27/24 21:56 Pulse 74 01/27/24 21:56 Resp 16 01/27/24 21:56 BP 144/80 H 01/27/24 21:56 Pulse Ox 99 01/27/24 21:56 O2 Del Method Room Air 01/27/24 21:56 BMI result Body Mass Index 27.6 Const: Other: female looking older than stated age Nutritional Appearance: average body habitus Orientation/consciousness: oriented to person and patient oriented x3 Limitations: no limitations HEENT: Head: Yes normal to inspection Ears: external ears normal General nose exam: Normal external nose present Mouth: Normal oral and palatal mucosa present and oropharynx normal Throat: Yes posterior oropharynx normal Eyes: General: appearance normal, both eyes and all related structures Neck: Other: supple Neck: Yes normal visual inspection Chest: Chest palpation & inspection: normal inspection of the chest Resp: Auscultation: clear to auscultation bilaterally Cardio: Jugular venous distension: no JVD Rate: regular rate Rhythm: regular rhythm Heart sounds: S1 normal heart sound present and S2 normal heart sound present GI: Inspection: Yes normal to inspection Palpation (GI): Soft to palpation, nontender and No hepatosplenomegaly present Auscultation: normal bowel sounds : General: Yes no CVA tenderness Back/Spine/Pelvis: Back: no CVA tenderness Skin: General skin exam: no rashes or lesions noted Neuro: General: oriented to person and patient oriented x3 Cranial nerves: Yes CN's II-XII intact bilaterally Motor exam (neuro): 5/5 motor strength present throughout Sensory Exam: No Sensory deficit (Neuro) Extrem: General: Yes normal to inspection Psych: Appearance: grossly normal Course Course Course Narrative: This is a Rapid Medical Examination (RME) performed by Marizol Hernandez PA-C in triage. Full HPI, ROS, assessment and treatment plan per primary provider in the Main ED. 63-year-old female with a history developmental delay, anxiety, HTN, pernicious anemia, uterine fibroids who presents to the ER for evaluation of left-sided back pain, in the middle of the back that started today when [place] It is worse with ambulation and walking. She denies any urinary symptoms. On examination she has tenderness on the left flank, CVA tenderness is present. Plan: Urinalysis, lab workup Reevaluation(s) Reevaluation #1: Patient with normal labs, normal UA and CT that shows no renal stone or hydro. Will treat with NSAIDs for muscular back pain Time: 23:37 Medical Decision Making Differential Diagnosis Differential Diagnoses: The differential diagnosis associated with the presentation includes (renal colic, hydronephrosis, pyelonephritis, muscular back pain) Admission/Observation Consideration of admission/observation: Escalation of care including admission/observation considered (upon arrival patient was considered for admission) Lab Data 01/27/24 19:59 01/27/24 19:59 Labs: Lab Results 01/27/24 01/27/24 Range/Units 19:59 21:59 WBC 6.3 (4.8-10.8) X10*3/uL RBC 4.11 L (4.20-5.50) X10*6/uL Hgb 11.9 L (12.0-16.0) g/dl Hct 36.9 L (37.0-47.0) % MCV 89.8 (80.0-98.0) fL MCH 29.0 (27.0-33.0) pg MCHC 32.2 (31.0-35.0) g/dl RDW 13.2 (11.0-16.0) % Plt Count 360 (160-400) X10*3/uL MPV 9.4 (9.4-12.3) fL Immature Gran % (Auto) 0.3 (0.0-0.4) % Neut % (Auto) 69.2 (45-73) % Lymph % (Auto) 15.8 L (20-40) % [place] % (Auto) 9.6 (2-11) % Eos % (Auto) 3.5 (0-4) % Baso % (Auto) 1.6 (0-2) % Lymph # (Auto) 1.0 L (1.2-4.9) X10*3/uL [place] # (Auto) 0.6 (0.1-1.2) X10*3/uL Eos # (Auto) 0.2 (0.0-0.4) X10*3/uL Baso # (Auto) 0.1 (0.0-0.2) X10*3/uL Abs Immat Gran (auto) 0.02 (0.00-0.03) X10*3/uL Absolute Neuts (auto) 4.4 (2.0-8.3) x10*3/uL Absolute Nucleated RBC 0.000 (0.0-0.012) X10*3/uL Nucleated RBC % (auto) 0.0 (0.0-0.2) /100WBC Sodium 143 (135-145) mmol/L Potassium 4.3 (3.3-5.1) mmol/L Chloride 108 (96-108) mmol/L Carbon Dioxide 27 (22-29) mmol/L Anion Gap 12 (12-20) BUN 17 H (9-16) mg/dL Creatinine 0.95 (0.5-1.4) mg/dL Estim Creat Clear Calc 50.6 Estimated GFR 59 Random Glucose 101 (60-115) mg/dL Calcium 10.7 H (8.4-10.2) mg/dL Magnesium 1.9 (1.6-2.6) mg/dL Total Bilirubin 0.2 (0.0-1.0) mg/dL Direct Bilirubin < 0.2 (0.0-0.5) mg/dL AST 17 (5-31) U/L ALT 15 (0-31) U/L Alkaline Phosphatase 113 (39-117) U/L Total Protein 8.3 H (6.5-8.0) g/dL Albumin 4.3 (3.5-5.0) g/dL Urine Color Dark Yellow Urine Appearance Cloudy Urine pH 5.5 (5.0-9.0) Ur Specific [place] >= 1.030 H (1.005-1.025) Urine Protein Trace (Neg-Trace) mg/dL Urine Glucose (UA) Negative (Negative) mg/dL Urine Ketones Negative (Negative) mg/dL Urine Blood Negative (Negative) Urine Nitrite Negative (Negative) Ur Leukocyte Esterase Trace H (Negative) Urine RBC 3-5 H (0-2) /HPF Urine WBC 0-5 (0-5) /HPF Ur Squamous Epith Cells 6-10 (0-2) /HPF Calcium Oxalate Crystal Present Urine Bacteria None Seen (None Seen) Hyaline Casts 11-20 (0-2) /LPF Independent Interpretation I performed an independent interpretation of an: CT Scan (no stone or hydronephrosis) Radiology Impression Discussion of test interpretation with radiology: I have reviewed the radiologist's reading. Prescription Management I considered prescription management with: Antibiotic (no evidence of UTI will not give abx) Chronic Conditions Patient?s care impacted by: Other (psychiatric illness) Social Determinants Patient?s care significantly limited by Social Determinants of Health including: Low income Discharge Plan Discharge Clinical Impression: Strain of lumbar region Patient Disposition: Home, Self-Care Instructions: Acute Low Back Pain (ED) Prescriptions: New acetaminophen [Tylenol Extra Strength] 500 mg tablet 1,000 mg PO Q6H PRN (Reason: pain) Qty: 30 0RF No Action (DME) Shower Chair Misc See Rx Instructions .Route Qty: 1 0RF Rx Instructions: As directed cyanocobalamin (vitamin B-12) 1,000 mcg tablet 1,000 mcg PO .once a week 90 Days Qty: 12 3RF calcium carbonate-vitamin D3 600 mg-10 mcg (400 unit) tablet 1 tab PO DAILY 90 Days Qty: 90 3RF (DME) Bladder Control Pads Pad See Rx Instructions .ROUTE .MEDSUPPLY Qty: 30 11RF Rx Instructions: Use 1 pad once a day prn folic acid 1 mg tablet 1 mg PO DAILY 90 Days Qty: 90 3RF cholecalciferol (vitamin D3) 50 mcg (2,000 unit) capsule 50 mcg PO DAILY 90 Days Qty: 90 3RF (DME) blood pressure monitor Kit See Rx Instructions .Route Qty: 1 0RF Rx Instructions: As directed amlodipine 10 mg tablet 10 mg PO DAILY Qty: 90 1RF furosemide [Lasix] 20 mg tablet 20 mg PO DAILY Qty: 3 0RF citalopram 40 mg tablet 40 mg PO DAILY bupropion HCl 150 mg tablet sustained-release 12 hr 150 mg PO DAILY hydroxyzine HCl 25 mg tablet 25 mg PO BID PRN (Reason: itching) 30 Days Qty: 60 0RF Referrals: Marium Conley MD [Primary Care Provider] - 1 week Print Language: Gambian
[2024-01-27 20:03] LABS: MANUAL DIFF FLAG NO
[2024-01-27 20:08] LABS: Basophils Absolute Auto 0.1 X10*3/uL (0.0-0.2); Basophils Percent Auto 1.6 % (0-2); Eosinophils Absolute Auto 0.2 X10*3/uL (0.0-0.4); Eosinophils Percent Auto 3.5 % (0-4); Hematocrit 36.9 % (37.0-47.0); Hemoglobin 11.9 g/dl (12.0-16.0); Imm Gran Abs Auto 0.02 X10*3/uL (0.00-0.03); Imm Gran Pct Auto 0.3 % (0.0-0.4); Lymphocytes Percent Auto 15.8 % (20-40); Mean Corpuscular HGB Conc 32.2 g/dl (31.0-35.0); Mean Corpuscular Volume 89.8 fL (80.0-98.0); Mean Platelet Volume 9.4 fL (9.4-12.3); Monocytes Absolute Auto 0.6 X10*3/uL (0.1-1.2); Monocytes Percent Auto 9.6 % (2-11); Neutrophils Absolute Auto 4.4 x10*3/uL (2.0-8.3); Neutrophils Percent Auto 69.2 % (45-73); Platelet Count 360 X10*3/uL (160-400); Red Blood Count 4.11 X10*6/uL (4.20-5.50); Red Cell Distribution Width 13.2 % (11.0-16.0); White Blood Count 6.3 X10*3/uL (4.8-10.8)
[2024-01-27 20:19] LABS: Alanine Aminotransferase 15 U/L (0-31); Albumin Level 4.3 g/dL (3.5-5.0); Alkaline Phosphatase 113 U/L (39-117); Anion Gap 12 (12-20); Aspartate Amino Transferase 17 U/L (5-31); Bilirubin Direct < 0.2 mg/dL (0.0-0.5); Bilirubin Total 0.2 mg/dL (0.0-1.0); Blood Urea Nitrogen 17 mg/dL (9-16); Calcium 10.7 mg/dL (8.4-10.2); Carbon Dioxide 27 mmol/L (22-29); Chloride 108 mmol/L (96-108); Creatinine Clr Calc Pharmacy 50.6; Estimated Glomerular Filt Rate 59; Glucose Random 101 mg/dL (60-115); Magnesium 1.9 mg/dL (1.6-2.6); Potassium 4.3 mmol/L (3.3-5.1); Sodium 143 mmol/L (135-145); Total Protein 8.3 g/dL (6.5-8.0)
--- NOTE | 2024-01-27 21:53 | MHC.EDTECH ---
Patient did not want to change
[2024-01-27 21:56] VITALS: BP 144/80; PULSE 74; RESP 16; TEMP 36.4; O2SAT 99
[2024-01-27 22:09] LABS: Appearance Urine Cloudy; Color Urine Dark Yellow; Glucose Urine UA Negative (Negative); Leukocyte Esterase Urine Trace (Negative); Nitrite Urine Negative (Negative); PH 5.5 (5.0-9.0); Specific Gravity - Urine >= 1.030 (1.005-1.025); UMIC TRIGGER UACC YES; Urine Blood Negative (Negative); Urine Ketones Negative (Negative); Urine Protein Trace mg/dL (Neg-Trace)
[2024-01-27 22:41] LABS: Bacteria Urine None Seen (None Seen); Calcium Oxalate Crystals Urine Present; WBC Urine 0-5 /HPF (0-5)
[2024-01-27] MEDS: Acetaminophen 325 MG TABLET 975 MG PO (23:45)
[2024-01-27 23:49] VITALS: BP 144/80; PULSE 74; RESP 16; TEMP 36.4; O2SAT 99
== END 2024-01-27 23:57 | disposition home or self-care (01) ==
PROVIDERS: Physician Assistant; Emergency Provider Emergency Medicine; PCP Internal Medicine
DX: S39.012A Strain of muscle, fascia and tendon of lower back, initial encounter (principal); R10.2 Pelvic and perineal pain; X58.XXXA Exposure to other specified factors, initial encounter; Y93.89 Activity, other specified; Y92.89 Other specified places as the place of occurrence of the external cause; Y99.8 Other external cause status; Z79.899 Other long term (current) drug therapy
CPT/HCPCS: 36415; 74176; 80048; 80076; 81001; 83735; 85025; 99284

== ENCOUNTER 2024-02-12 08:59 | Outpatient (AMB) | payer OTHER, SELFPAY ==
[2024-02-12 09:00] VITALS: BP 120/78; BMI 27.6
--- NOTE | 2024-02-12 09:00 | MHC.OFFVIS ---
Vital Signs 02/12/24 09:00 Height 5 ft Weight 141 lb 1.533 oz BMI 27.6 BP 120/78 Intake Visit Reasons: ENG[employer]IGN annual exam Allergies amoxicillin [AMOXICILLIN] Allergy (Intermediate, Verified 01/27/24 19:53) ? RASH clonazepam [From KLONOPIN] Allergy (Intermediate, Verified 01/27/24 19:53) ? RASH lorazepam [LORAZEPAM] Allergy (Intermediate, Verified 01/27/24 19:53) ? RASH mirtazapine [From REMERON] Allergy (Intermediate, Verified 01/27/24 19:53) RASH naproxen [From NAPROSYN] Allergy (Intermediate, Verified 01/27/24 19:53) ? RASH Sulfa (Sulfonamide Antibiotics) [SULFA(SULFONAMIDE ANTIBIOTICS)] Allergy (Intermediate, Verified 01/27/24 19:53) ? RASH fluoxetine [Prozac] Allergy (Mild, Verified 01/27/24 19:53) rash From TUSSIONEX PENNKINETIC ER Allergy (Intermediate, Uncoded 01/27/24 19:53) ? RASH HPI Comments Details: Presenting for annual exam. No complaints. Last Pap/HPV was negative in 08/31, the patient is status post hysterectomy BSO for endometrial adenocarcinoma Last Mammogram was BI-RADS 1 in 12/02 Last Colonoscopy [facility] Medical History Endometrioid adenocarcinoma of uterus Ovarian mass Uterine fibroid Left flank pain Skin lesion Mild major depression, single episode Urge urinary incontinence STEPHAN (generalized anxiety disorder) Hypovitaminosis D Developmental delay, mild Depression with anxiety Essential hypertension Pernicious anemia Surgical History Status post total hysterectomy and bilateral salpingo-oophorectomy History of tooth extraction History of H/O tubal ligation Family History Father Heart attack Mother No problems noted. Other Mental and behavioral problem in adult Social History Housing: Apartment Unable to assess alcohol history related to: Unknown Alcohol intake: never Patient Tobacco Use Status: Never used Tobacco e-Cigarette/Vaping Use: Never Used Second Hand Smoke Exposure: No service: No Current occupational status: disabled Cognitive needs: Yes Hearing needs: No Vision needs: No Female Reproductive History Menstrual Age of Menarche: 14 control method: permanent sterilization Menopause type: natural Date of last pap smear: 08/30/21 Date of Mammogram: 12/02/23 Review of Systems Const All systems reviewed & are unremarkable except as noted in HPI and below Card Reports as per HPI and Reports no additional complaints Resp Reports as per HPI and Reports no additional complaints GI Reports as per HPI and Reports no additional complaints Reports as per HPI Physical Exam Vital Signs: Last Vital Signs BP 120/78 02/12/24 09:00 BMI result Body Mass Index 27.6 Const General: cooperative, healthy appearing and comfortable General: Yes bladder normal to palpation External Female Exam: No lesion Speculum Exam - Vagina: normal appearance of the vagina, normal vaginal discharge and not erythematous Speculum Exam - Cervix: Cervix absent Bimanual exam- vagina & uterus: bladder normal to palpation and uterus absent Bimanual Exam- Adnexa, other: Other (No masses detected) Assessment & Plan Assessment & Plan (1) Well woman exam: Code(s): Z01.419 - Encounter for gynecological examination (general) (routine) without abnormal findings Category: Medical Plan: Recommended to the patient her therapeutic case manager to follow-up with [facility] 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 Instructions given the patient to schedule next screening Mammogram in 12/03. The patient was referred to GI for screening colonoscopy . The patient was instructed to perform monthly self-breast exams and schedule annual exam in a year. All questions answered and the patient verbalized understanding. Orders: Referrals Gastroenterology Referral Z12.11 - Encounter for screening for malignant neoplasm of colon Coding Level of Care Code Est Pt Prev Care 40-64y(28841) Diagnoses Well woman exam Z01.419
== END 2024-02-12 10:05 | disposition home or self-care (01) ==
LOC: HO.HWS 08:59
PROVIDERS: PCP Internal Medicine; Visit Provider Obstetrics & Gynecology
DX: Z01.419 Encounter for gynecological examination (general) (routine) without abnormal findings (principal)
CPT/HCPCS: 99396

== ENCOUNTER → 2024-02-12 08:59 | Outpatient (BNVA) | payer OTHER, SELFPAY | PROVIDERS: PCP Internal Medicine; Visit Provider Obstetrics & Gynecology | DX: Z01.419 Encounter for gynecological examination (general) (routine) without abnormal findings (principal) | CPT/HCPCS: 99396 ==

== ENCOUNTER 2024-03-04 10:53 | Outpatient (AMB) | payer OTHER, SELFPAY ==
--- NOTE | 2024-03-04 10:56 | A.OFFPC_ITS ---
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 RASH clonazepam [From KLONOPIN] Allergy (Intermediate, Verified 03/04/24 11:07) ? RASH lorazepam [LORAZEPAM] Allergy (Intermediate, Verified 03/04/24 11:07) ? RASH mirtazapine [From REMERON] Allergy (Intermediate, Verified 03/04/24 11:07) RASH naproxen [From NAPROSYN] Allergy (Intermediate, Verified 03/04/24 11:07) ? RASH Sulfa (Sulfonamide Antibiotics) [SULFA(SULFONAMIDE ANTIBIOTICS)] Allergy (Intermediate, Verified 03/04/24 11:07) ? RASH fluoxetine [Prozac] Allergy (Mild, Verified 03/04/24 11:07) rash From TUSSIONEX PENNKINETIC ER Allergy (Intermediate, Uncoded 03/04/24 11:07) ? RASH Medication List - Last Reconciled 03/04/24 by Marium Rodriguez MD acetaminophen (Tylenol Extra Strength) 1,000 mg (2 x 500 mg) PO Q6H PRN amlodipine 10 mg PO DAILY blood pressure monitor As directed bupropion HCl SR 150 mg PO DAILY calcium carbonate-vitamin D3 600 mg-10 mcg (400 unit) 1 tab PO DAILY 90 days cholecalciferol (vitamin D3) 50 mcg PO DAILY 90 days citalopram 40 mg PO DAILY cyanocobalamin (vitamin B-12) 1,000 mcg PO .once a week 90 days folic acid 1 mg PO DAILY 90 days furosemide (Lasix) 20 mg PO DAILY hydroxyzine HCl 25 mg PO BID PRN 30 days incontinence pad, liner, disp Use 1 pad once a day prn Shower Chair As directed Tobacco use date assessed: 09/30/23 Dental Screening Dental Screen Date: 03/04/24 Did you have a dental visit in the last 12 months?: Yes Did you have a dental problem in the last 6 months where you did not have access to dental care?: No Was dental information given to patient?: Patient has dentist HPI HPI Comments History of Present Illness Details This is a 63-year-old female with mild major depression that comes for her physical exam. Depression is follow by Psychiatry and has been stable with medications. Mammogram done 2023 was normal. She had hysterectomy due to cancer and Pap smear are up-to-date with OBGYN. Will be refer through open access for colonoscopy. DEXA scan will be ordered. [facility] Medical History (Updated 03/04/24 @ 11:31 by Marium Rodriguez MD) Endometrioid adenocarcinoma of uterus Ovarian mass Uterine fibroid Left flank pain Skin lesion Mild major depression, single episode Urge urinary incontinence STEPHAN (generalized anxiety disorder) Hypovitaminosis D Developmental delay, mild Depression with anxiety Essential hypertension Pernicious anemia Surgical History Status post total hysterectomy and bilateral salpingo-oophorectomy History of tooth extraction History of H/O tubal ligation Family History (Updated 03/04/24 @ 11:14 by Marium Rodriguez MD) Father Heart attack Mother Dementia Other Mental and behavioral problem in adult Social History Housing: Apartment Unable to assess alcohol history related to: Unknown Alcohol intake: never Patient Tobacco Use Status: Never used Tobacco e-Cigarette/Vaping Use: Never Used Second Hand Smoke Exposure: No service: No Current occupational status: disabled Cognitive needs: Yes Hearing needs: No Vision needs: No Female Reproductive History Menstrual Age of Menarche: 14 Questionnaire PHQ-9 Over the last 2 weeks, how often have you been bothered by any of the following problems? 1. Little interest or pleasure in doing things: not at all 2. Feeling down, depressed, or hopeless: not at all 3. Trouble falling or staying asleep, or sleeping too much: not at all 4. Feeling tired or having little energy: not at all 5. Poor appetite or overeating: not at all 6. Feeling bad about yourself - or that you are a failure or have let yourself or your family down: not at all 7. Trouble concentrating on things, such as reading the newspaper or watching television: not at all 8. Moving or speaking so slowly that other people could have noticed. Or the opposite - being so fidgety or restless that you have been moving around a lot more than usual: not at all 9. Thoughts that you would be better off or of hurting yourself in some way: not at all Total score: 0 Depression Screening Interpretation: Negative Depression Screening Done: Yes 54724 - PHQ-9 Billing: Yes Source: Developed by Drs. Boyd Mcguire, Carrie Dow, Blu Powell and colleagues, with an educational aertha from [employer]. Thrive Questionnaire Date Thrive assessed: 03/04/24 I am a: Patient What is your living situation today?: I choose not to answer this question Within the past 12 months, did the food you bought not last and you didn't have the money to get more?: Never true Within the past 12 months, did you worry whether your food would run out before you got money to buy more?: Never true Do you have trouble paying for medicines?: No Do you have trouble getting transportation to medical appointments?: No Do you have trouble paying your heating and electricity bill?: No Do you have trouble taking care of your child, family member or friend?: No Do you have trouble with day-to-day activities such as bathing, preparing meals, shopping, managing finances, etc.?: No Are you currently unemployed and looking for a job?: No Are you interested in more education?: No Please select the resources that you would like help with: None Currently or been in a relationship where the following occur: No concerns reported THRIVE Score: 0 AUDIT C Alcohol Use Questionnaire (AUDIT-C) 1. How often do you have a drink containing alcohol?: Never Total Score: 0 Score Reviewed/Action Taken: No STEPHAN-7 AMB Questionnaire STEPHAN-7 Date STEPHAN - 7 assessed: 03/04/24 Feeling nervous, anxious, or on edge: 1 = Several days Not being able to stop or control worryin = Not at all Worrying too much about different things: 0 = Not at all Trouble relaxin = Not at all Being so restless that it is hard to sit still: 0 = Not at all Becoming easily annoyed or irritable: 0 = Not at all Feeling afraid as if something awful might happen: 0 = Not at all Total STEPHAN-7 score (0-4 normal; 5-9 mild; 10-14 moderate; 15-21 severe): 1 Source: Developed by Drs. Boyd Mcguire, Carrie Dow, Blu Powell and colleagues, with an educational aretha from [employer]. STEPHAN-7 Assessment Billing STEPHAN-7 Assessment Tool: STEPHAN-7 Assessment 37972 Review of Systems Const All systems reviewed & are unremarkable except as noted in HPI and below Eyes Reports no additional complaints, Denies change in vision and Denies other visual disturbances Card Denies chest pain at rest, Denies chest pain with activity, Denies edema, Denies irregular heart rhythm, Denies claudication, Denies dyspnea, Denies dyspnea on exertion, Denies orthopnea, Denies paroxysmal nocturnal dyspnea and Denies slow heart rate Resp Denies cough, Denies dyspnea and Denies dyspnea on exertion GI Denies abdominal pain, Denies change in bowel habits, Denies excessive flatus, Denies nausea and Denies vomiting Denies urinary incontinence, Denies urinary hesitancy and Denies urinary urgency Musc Denies abnormal gait, Denies atrophy, Denies deformity and Denies limited range of motion Skin/Breast Denies bleeding lesions, Denies changing lesions and Denies rash Neuro Denies abnormal gait, Denies behavioral changes and Denies lack of coordination Psych Denies behavioral changes Physical exam (Primary Care) Vital Signs: Last Vital Signs BP 120/72 03/04/24 10:58 BMI result Body Mass Index 28.1 Tobacco/Smoking Status: Tobacco use Status Tobacco use date assessed 09/30/23 03/04/24 11:01 Patient Tobacco Use Status Never used Tobacco 03/04/24 11:01 Tobacco use type 02/12/24 10:06 e-Cigarette/Vaping Use Never Used 03/04/24 11:01 PHQ-9: PHQ-9 Score PHQ-9: Total score 0 03/04/24 11:11 Depression Screening Interpretation: Negative Thrive Assessment: Date of Thrive Assessment Date Thrive assessed 03/04/24 03/04/24 11:01 Currently or been in a relationship where the following occur: No concerns reported [facility] Head: Yes normal to inspection, Yes normocephalic and Yes atraumatic Ears: external ears normal Eyes General: appearance normal, both eyes and all related structures Eyelids: Yes eyelids normal Conjunctivae: conjunctivae normal Neck Neck: Yes normal visual inspection and Yes supple Resp Effort & Inspection: normal respiratory effort Auscultation: clear to auscultation bilaterally Cardio Jugular venous distension: no JVD Rate: regular rate Rhythm: regular rhythm Heart sounds: S1 normal heart sound present and S2 normal heart sound present GI Inspection: Yes normal to inspection Palpation (GI): Soft to palpation and nontender Auscultation: normal bowel sounds Skin General skin exam: no rashes or lesions noted Neuro General: no focal motor deficits Extrem General: Yes full ROM Psych Appearance: grossly normal Office Procedures Flu Questionnaire Does the patient have a severe egg allergy?: No Does the patient have severe life threatening allergies?: No Does the patient have a fever or illness today?: No Has the patient ever had Guillain-[place] Syndrome?: No Has the patient ever had any past reaction to a flu shot?: No Immunizations Fluarix Triv [id number] (PF) 45 mcg (15 mcg x 3)/0.5 mL IM syringe Performing Provider: Marium Rodriguez MD [facility] [place] [facility] Administered by: JAMIE Ahmadi on 03/04/24 11:17 Dose Route Admin Location Dispensed Lot Number Expiration Date NDC Operational Meteorologist 0.5 mL IM Left Deltoid 0.5 mL [id number] 11/08/24 [id number] [employer] VIS Given Date VIS Provided VIS Publication Date 03/04/24 Single Vaccine 20 Eligibility Eligibility Date Funding Source Not [facility] Eligible 03/04/24 Private Coding Level of Care Code Est Pt Prev Care 40-64y(36227) Diagnoses Physical exam Z00.00 Mild major depression, single episode F32.0 Additional Codes STEPHAN-7 Assessment Billing - STEPHAN-7 Assessment Tool: STEPHAN-7 Assessment 83451 ([id number]) Time Spent (min) 30 Assessment & Plan Assessment & Plan (1) Physical exam: Code(s): Z00.00 - Encounter for general adult medical examination without abnormal findings Category: Medical Plan: Repeat in a year. (2) Mild major depression, single episode: Code(s): F32.0 - Major depressive disorder, single episode, mild Category: Medical Plan: Continue bupropion. Follow-up with psychiatry. Orders: Orders Influenza [id number] Immunization Today Z23 - Encounter for immunization Vitamin B12 and Folate Today E53.8 - Deficiency of other specified B group vitamins Vitamin D 25-OH Total Today E55.9 - Vitamin D deficiency, unspecified Comprehensive [place]. Panel Fast Today Z00.00 - Encounter for general adult medical examination without abnormal findings Parathyroid Hormone Intact Today E83.52 - Hypercalcemia XR DEXA axial skeleton Today Z78.0 - Asymptomatic menopausal state Lipid Panel Today E78.5 - Hyperlipidemia, unspecified Calcium, Ionized Today E83.52 - Hypercalcemia Referrals Open Access Screening Colonoscopy Referral Z12.12 - Encounter for screening for malignant neoplasm of rectum
[2024-03-04 10:58] VITALS: BP 120/72; BMI 28.1
== END 2024-03-04 11:22 | disposition home or self-care (01) ==
PROVIDERS: PCP Internal Medicine; Visit Provider Internal Medicine
DX: Z00.00 Encounter for general adult medical examination without abnormal findings (principal); F32.0 Major depressive disorder, single episode, mild; Z23 Encounter for immunization

== ENCOUNTER → 2024-03-04 10:53 | Outpatient (BNVA) | payer OTHER, SELFPAY | PROVIDERS: PCP Internal Medicine; Visit Provider Internal Medicine | DX: Z00.01 Encounter for general adult medical examination with abnormal findings (principal); Z23 Encounter for immunization; F32.9 Major depressive disorder, single episode, unspecified; E53.8 Deficiency of other specified B group vitamins; E55.9 Vitamin D deficiency, unspecified; E78.5 Hyperlipidemia, unspecified | CPT/HCPCS: 90471; 90656; 96127; 99396 ==

== ENCOUNTER 2024-03-11 09:08 | Outpatient (REF) | payer OTHER, SELFPAY ==
[2024-03-11 10:30] LABS: Parathyroid Hormone Intact 84.1 pg/mL (8.7-77.1)
[2024-03-11 10:54] LABS: Alanine Aminotransferase 18 U/L (0-31); Albumin Level 4.2 g/dL (3.5-5.0); Alkaline Phosphatase 93 U/L (39-117); Anion Gap 11 (12-20); Aspartate Amino Transferase 22 U/L (5-31); Bilirubin Total 0.4 mg/dL (0.0-1.0); Blood Urea Nitrogen 15 mg/dL (9-16); Calcium 10.1 mg/dL (8.4-10.2); Carbon Dioxide 28 mmol/L (22-29); Chloride 107 mmol/L (96-108); Cholesterol 180 mg/dL (<200); Estimated Glomerular Filt Rate > 60; Glucose Fasting 113 mg/dL (60-99); HDL Cholesterol 67 mg/dL (>40); LDL Cholesterol Calculated 104 mg/dL (<100); Sodium 142 mmol/L (135-145); Total Protein 7.5 g/dL (6.5-8.0); Triglycerides 49 mg/dL (<150); Vitamin D 25-OH Total 41.7 ng/mL (>30)
[2024-03-11 11:07] LABS: Folate 14.4 ng/mL (> or = 4.0); Vitamin B12 289 pg/mL (200-900)
[2024-03-12 13:23] LABS: Calcium, Ionized 5.4 mg/dL (4.7-5.5)
== END 2024-03-11 09:09 | disposition home or self-care (01) ==
LOC: HO.LAB 09:08
PROVIDERS: PCP Internal Medicine; Visit Provider Internal Medicine
DX: Z00.00 Encounter for general adult medical examination without abnormal findings (principal); E83.52 Hypercalcemia; E53.8 Deficiency of other specified B group vitamins; E78.5 Hyperlipidemia, unspecified
CPT/HCPCS: 36415; 80053; 80061; 82306; 82330; 82607; 82746; 83970

== ENCOUNTER 2024-04-01 07:54 | Outpatient (AMB) | payer OTHER, SELFPAY ==
[2024-04-01 07:55] VITALS: BP 148/84; PULSE 56; BMI 28.6
--- NOTE | 2024-04-01 07:55 | MHC.OFFVIS ---
Vital Signs 04/01/24 07:55 Height 5 ft Weight 146 lb 9.718 oz BMI 28.6 BP 148/84 H Blood Pressure Location Lt brachial Position Sitting Pulse 56 Pulse Source Pulse Oximeter Intake Visit Reasons: Hyperparathyroidism-confirmed Intake Note: New patient present today for Hyperparathyroidism, unspecified office visit. Brokerage Clerk Required: No Accompanied by: Other Relationship Allergies amoxicillin [AMOXICILLIN] Allergy (Intermediate, Verified 04/01/24 07:59) ? RASH clonazepam [From KLONOPIN] Allergy (Intermediate, Verified 04/01/24 07:59) ? RASH lorazepam [LORAZEPAM] Allergy (Intermediate, Verified 04/01/24 07:59) ? RASH mirtazapine [From REMERON] Allergy (Intermediate, Verified 04/01/24 07:59) RASH naproxen [From NAPROSYN] Allergy (Intermediate, Verified 04/01/24 07:59) ? RASH Sulfa (Sulfonamide Antibiotics) [SULFA(SULFONAMIDE ANTIBIOTICS)] Allergy (Intermediate, Verified 04/01/24 07:59) ? RASH fluoxetine [Prozac] Allergy (Mild, Verified 04/01/24 07:59) rash From TUSSIONEX PENNKINETIC ER Allergy (Intermediate, Uncoded 04/01/24 07:59) ? RASH Medication List - Last Reconciled 04/01/24 by Genie Holbrook MD acetaminophen (Tylenol Extra Strength) 1,000 mg (2 x 500 mg) PO Q6H PRN amlodipine 10 mg PO DAILY blood pressure monitor As directed bupropion HCl SR 150 mg PO DAILY calcium carbonate-vitamin D3 600 mg-10 mcg (400 unit) 1 tab PO DAILY 90 days cholecalciferol (vitamin D3) 50 mcg PO DAILY 90 days citalopram 40 mg PO DAILY cyanocobalamin (vitamin B-12) 1,000 mcg PO .once a week 90 days folic acid 1 mg PO DAILY 90 days furosemide (Lasix) 20 mg PO DAILY hydroxyzine HCl 25 mg PO BID PRN 30 days incontinence pad, liner, disp Use 1 pad once a day prn Shower Chair As directed HPI Comments Details: 63-year-old female here today for initial evaluation of hyperparathyroidism. 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 Chart shows borderline high calicium levels since 2020 ranging any where from 10.2 to 10.8 with higher albumin of 4.5, corrected calcium would be borderline high normal Most recently labs done 03/11/24 showed calcium of 10.1, albumin 4.1, ionized calcium 5.4, PTH 84.1 , vitamin D 41.4, GFR >60 No kidney stones No blood in urine No fractures, scheduled for DEXA today 04/01/24 No kidney stones or calcium problems in the family No abd pain, no nausea or vomiting. Reports polyuria No excessive thirst No constipation vitamin D 2000 units daily plus 400 units in calcium supplement Calcium 600 mg daily in supplement No milk , no yogurt Cheese rarely Green leafy vegetables sometimes Never smoker No drug use No alcohol use Review of systems Constitutional: no fevers, chills or weight loss HEENT: no changes in vision Cardiac: No chest pain, discomfort or palpitations. Pulmonary: No SOB GI:No abdominal pain, no nausea or vomiting, no anorexia, no blood in stool : no burning micturition, dysuria or increase in urinary frequency Physical exam General: sitting comfortably in no acute distress HEENT: normocephalic/atraumatic,moist oral mucosa Neck: supple, symmetrical, no thyromegaly , Cardiac: normal heart sounds Pulm: normal breath sounds B/L, no added breath sounds Abd: not distended, no tenderness Extremities: no edema, no signs of myxedema Neuro: AAO x3, Speech: normal, no facial droop, moving all 4 extremities Laboratory Tests 06/30/19 08/02/20 12/22/20 10:40 08:45 10:50 Creatinine Estimated GFR Calcium 9.9 10.1 10.2 Ionized Calcium Magnesium Albumin 4.5 4.5 4.6 25-OH Vitamin D Total 21.4 21 L 31 PTH Intact 08/08/21 04/17/22 12/01/22 09:43 09:05 14:56 Creatinine Estimated GFR Calcium 10.5 H 10.0 10.8 H D Ionized Calcium Magnesium Albumin 4.6 4.4 25-OH Vitamin D Total 30 PTH Intact 01/12/23 02/13/23 09/09/23 20:12 13:02 16:24 Creatinine Estimated GFR Calcium 10.5 H 10.6 H 10.2 Ionized Calcium Magnesium Albumin 4.4 4.4 4.2 25-OH Vitamin D Total PTH Intact 07/27/24 09/17/24 10/31/24 18:31 19:59 09:20 Creatinine 0.95 0.84 Estimated GFR > 60 59 > 60 Calcium 10.7 H 10.7 H 10.1 Ionized Calcium 5.4 Magnesium 1.9 Albumin 4.5 4.3 4.2 25-OH Vitamin D Total 41.[address] ABDOMEN AND PELVIS WITHOUT CONTRAST 01/27/24 CLINICAL INFORMATION: Left flank pain COMPARISON: CT scan of abdomen February 10, 2008. Lumbar spine February 13, 2023. TECHNIQUE: Multidetector volumetric imaging was performed from the superior aspect of the liver through the pubic symphysis. Sagittal and coronal reformatted images were obtained on the technologist's workstation. This CT examination was performed using dose optimization techniques as appropriate, variously including the following: *Automated exposure control *Adjustment of mA and/or kV according to patient size (this includes techniques or standardized protocols for targeted exams where dose is matched to indication/reason for exam; i.e. extremities or head) *Use of iterative reconstruction technique DLP: 401 mGy-cm FINDINGS: LUNG BASES: Lung bases normally aerated. Large hiatal hernia. Heart size enlarged. LIVER, GALLBLADDER, AND BILIARY TREE: The liver is normal in size, shape, and attenuation. No focal hepatic lesion or biliary ductal dilatation is present. The gallbladder is unremarkable with no evidence of radiopaque gallstones, gallbladder wall thickening, or obvious pericholecystic inflammatory changes. PANCREAS: Unremarkable. SPLEEN: Unremarkable. ADRENAL GLANDS: Unremarkable. KIDNEYS AND URETERS: The kidneys are normal in size, shape, and attenuation. No hydronephrosis, hydroureter, or calculi seen. No perinephric stranding. BLADDER: Unremarkable. GASTROINTESTINAL TRACT: There are a few scattered diverticula of the colon. There is no diverticulitis. There is no bowel wall thickening /edema. There is no bowel obstruction. There is a moderate volume of stool in the colon. The appendix is normal . The small bowel loops are unremarkable. The stomach is normal. There is no hiatal hernia. ABDOMINAL WALL: No significant hernia is appreciated. LYMPH NODES: Normal. VASCULAR: Scattered vascular calcifications of the abdomen and pelvis. There is no aneurysm of the aorta. PELVIC VISCERA: Unremarkable. OSSEOUS STRUCTURES: Multilevel degenerative spondylosis. Levoscoliosis of the thoracolumbar spine. Chronic compression deformity of L1 vertebra, 50% loss of height of the vertebral body. CT/CT abdomen pelvis wo IV con IMPRESSION: 1. No acute abnormality CT scan abdomen pelvis. 2. Large hiatal hernia. 3. Chronic compression deformity of L1 vertebra. [facility] Medical History Endometrioid adenocarcinoma of uterus Ovarian mass Uterine fibroid Left flank pain Skin lesion Mild major depression, single episode Urge urinary incontinence STEPHAN (generalized anxiety disorder) Hypovitaminosis D Developmental delay, mild Depression with anxiety Essential hypertension Pernicious anemia Surgical History Status post total hysterectomy and bilateral salpingo-oophorectomy History of tooth extraction History of H/O tubal ligation Family History Father Heart attack Mother Dementia Other Mental and behavioral problem in adult Social History Housing: Apartment Unable to assess alcohol history related to: Unknown Alcohol intake: never Patient Tobacco Use Status: Never used Tobacco e-Cigarette/Vaping Use: Never Used Second Hand Smoke Exposure: No service: No Current occupational status: disabled Cognitive needs: Yes Hearing needs: No Vision needs: No Female Reproductive History Menstrual Age of Menarche: 14 Physical Exam Vital Signs: Last Vital Signs Pulse 56 04/01/24 07:55 BP 148/84 H 04/01/24 07:55 BMI result Body Mass Index 28.6 Assessment & Plan Assessment & Plan (1) Hypercalcemia: Code(s): E83.52 - Hypercalcemia Category: Medical Plan: see below (2) Hyperparathyroidism: Code(s): E21.3 - Hyperparathyroidism, unspecified Category: Medical Plan: 63-year-old female with past medical history significant for hypertension, depression coming in today for initial evaluation of hyperparathyroidism. Labs reviewed which showed that she has had borderline high calcium levels at least since 2020. Had a normal calcium level in 2019 around 9.9. Most recent blood work from 03/11/24 showed calcium of 10.1, albumin 4.1, ionized calcium 5.4, PTH 84.1 , vitamin D 41.4, GFR >60. Vitamin-D sufficient, kidney function is normal hence this is likely primary hyperparathyroidism. Given that she has actually never had a truly elevated calcium in most of the emerge is borderline high normal, she could have normocalcemic hyperparathyrodiism , but 1st we need to evaluated 24 hour urine calcium level to rule out idiopathic hypercalciuria. Unlikely FH AH, given calcium levels have been normal in the past. Plus no family history that is significant. We will also check a bone density scan, she is scheduled for 1 today, I added the wrist to the order. Important to assess forearm and hyperparathyroidism as patients lose more cortical bone then trabecular bone. She is taking vitamin-D 2400 units daily, calcium intake through nutrition is minimal, however she is on a 600 mg supplement daily. We will do labs to further evaluate the reason for her hyperparathyroidism. Plan: -ordered 24 hour urine collection for calcium, creatinine, sodium -bone density axial and appendicular ordered -blood work to be done the same day that 24 hour urine collection is given in with serum calcium, albumin, phosphorus, magnesium, creatinine, ionized calcium and PTH -follow up in 5 weeks to discuss results Plan I spent 45 minutes in reviewing the record, seeing the patient and documenting in the medical record. Orders: Orders Albumin Level Today E21.3 - Hyperparathyroidism, unspecified, E83.52 - Hypercalcemia Calcium, Ionized Today E21.3 - Hyperparathyroidism, unspecified, E83.52 - Hypercalcemia Phosphorus Today E21.3 - Hyperparathyroidism, unspecified, E83.52 - Hypercalcemia Creatinine, 24 Hr Group Today E21.3 - Hyperparathyroidism, unspecified, E83.52 - Hypercalcemia XR DEXA appendicular skeleton Today E21.3 - Hyperparathyroidism, unspecified, E83.52 - Hypercalcemia Sodium, 24Hr Urine Group Today E21.3 - Hyperparathyroidism, unspecified, E83.52 - Hypercalcemia Calcium Today E21.3 - Hyperparathyroidism, unspecified, E83.52 - Hypercalcemia Calcium, 24 Hr Ur Today E21.3 - Hyperparathyroidism, unspecified, E83.52 - Hypercalcemia Parathyroid Hormone Intact Today E21.3 - Hyperparathyroidism, unspecified, E83.52 - Hypercalcemia Magnesium Today E21.3 - Hyperparathyroidism, unspecified, E83.52 - Hypercalcemia Basic Metabolic Panel Today E21.3 - Hyperparathyroidism, unspecified Patient Instructions: Do bone density, make sure they assess your wrist as well Do 24 hr urine collection plus blood work same day as you give in the urine 24 hr urine collection instructions You have been asked to collect your urine for 24 hours to assess for calcium excretion. You must choose a 24 hour period of time when you will be home. The morning of the first day, DISCARD the FIRST morning void and then note the time. You will collect every single void from then on for 24 hours. For example, if you wake up at 6am and urinate, flush down that void. You will then collect every drop of urine all day and all night through 6am the following day. You will urinate one last time at 6am for the collection. The jug of urine must be kept in the refrigerator until you bring it to the lab.You have been asked to collect your urine for 24 hours to assess for calcium excretion. You must choose a 24 hour period of time when you will be home. The morning of the first day, DISCARD the FIRST morning void and then note the time. You will collect every single void from then on for 24 hours. For example, if you wake up at 6am and urinate, flush down that void. You will then collect every drop of urine all day and all night through 6am the following day. You will urinate one last time at 6am for the collection. The jug of urine must be kept in the refrigerator until you bring it to the lab. I will see you back in 5 weeks to dicuss all the results in person Coding Level of Care Code New Pt Level 4 (50644) Diagnoses Hypercalcemia E83.52 Hyperparathyroidism E21.3 Time Spent (min) 45
== END 2024-04-01 08:30 | disposition home or self-care (01) ==
PROVIDERS: PCP Internal Medicine; Visit Provider Student in an Organized Health Care Education/Training Program
DX: E21.3 Hyperparathyroidism, unspecified (principal)
CPT/HCPCS: 99204

== ENCOUNTER 2024-04-01 09:11 | Outpatient (REF) | payer OTHER, SELFPAY ==
--- NOTE | ~2024-04-01 | MM_ITS ---
EXAMINATION: BONE DENSITOMETRY CLINICAL INDICATION: Hyperparathyroidism, unspecified.. COMPARISON: This is the patient's baseline examination. TECHNIQUE: Using a [employer] DXA System (software version: 13.1) manufactured by [employer], dual-energy x-ray absorptiometry was performed of the lumbar spine, left hip and left forearm radius 33%. The images are of good technical quality. Summary results are attached. FINDINGS: AP SPINE L1-L4: BMD 1.008 g/cm2, Z-score 0.0, T-score -1.4, osteopenia. LEFT FEMUR, NECK: BMD 0.770 g/cm2, Z-score -0.6, T-score -1.9, osteopenia. LEFT FEMUR, TOTAL: BMD 0.740 g/cm2, Z-score -1.0, T-score -2.1, osteopenia. LEFT FOREARM RADIUS 33%: BMD 0.830 g/cm2, Z-score 0.7, T-score -0.5, normal. IDENTIFIED RISK FACTORS: Hyperparathyroidism. Menopause. Left oophorectomy. HISTORY OF FRACTURE: None listed. MEDICATIONS: Calcium supplement and/or multivitamin. Vitamin D. MM/XR DEXA appendicular skeleton IMPRESSION: 1. DIAGNOSIS: Osteopenia based on the lowest T-score value of -2.1 in the total femur applying World Health Organization criteria. 2. 10-YEAR FRACTURE RISK PREDICTION, FRAX: Major osteoporotic fracture (clinical spine, forearm, hip or shoulder) 10.3%. Hip fracture 1.4%. 3. Treatment Recommendations: NOF guidelines recommend consideration for treatment in postmenopausal women and men age 50 and older presenting with the following: -A hip or vertebral (clinical or morphometric) fracture. -T-score less than or equal to -2.5 at the femoral neck or spine after appropriate evaluation to exclude secondary causes. -Low bone mass at the hip or spine and a 10-year fracture probability by FRAX of greater than or equal to 3% for hip fracture or greater than or equal to 20% for major osteoporotic fracture based on the [place] adapted WHO algorithm. 4. Other Recommendations: All treatment decisions require clinical judgment and consideration of individual patient factors, including patient preferences, comorbidities, previous drug use, risk factors not captured in the FRAX model (e.g. frailty, falls, vitamin D deficiency, increased bone turnover, interval significant decline in bone density) and possible under or overestimation of fracture risk by FRAX. Additional medical evaluation for secondary cause of low bone mineral density may be appropriate. 5. Levoscoliosis. FUTURE SCAN RECOMMENDATION: People with diagnosed cases of osteoporosis or at high risk for fracture should have regular bone mineral density tests. For patients eligible for Medicare, routine testing is allowed once every 2 years. The testing frequency can be increased to one year for patients who have rapidly progressing disease, those who are receiving or discontinuing medical therapy to restore bone mass, or have additional risk factors. Electronically signed by: Chao Randolph MD 04/01/2024 04:56 PM JOSUE HERNANDEZ
== END 2024-04-01 09:12 | disposition home or self-care (01) ==
LOC: HO.MAMMO 09:11
PROVIDERS: PCP Internal Medicine; Visit Provider Internal Medicine
DX: E21.3 Hyperparathyroidism, unspecified (principal); E83.52 Hypercalcemia; Z13.820 Encounter for screening for osteoporosis; Z78.0 Asymptomatic menopausal state; Z90.721 Acquired absence of ovaries, unilateral; M85.89 Other specified disorders of bone density and structure, multiple sites
CPT/HCPCS: 77081; 99202

== ENCOUNTER 2024-04-12 08:57 | Outpatient (REF) | payer OTHER, SELFPAY ==
[2024-04-12 11:23] LABS: Albumin Level 4.4 g/dL (3.5-5.0); Anion Gap 14 (12-20); Blood Urea Nitrogen 10 mg/dL (9-16); Calcium 9.9 mg/dL (8.4-10.2); Carbon Dioxide 26 mmol/L (22-29); Chloride 105 mmol/L (96-108); Estimated Glomerular Filt Rate > 60; Glucose Random 102 mg/dL (60-115); Magnesium 1.8 mg/dL (1.6-2.6); Phosphorus 3.5 mg/dL (2.7-4.5); Potassium 4.2 mmol/L (3.3-5.1); Sodium 141 mmol/L (135-145)
[2024-04-12 11:26] LABS: Parathyroid Hormone Intact 86.1 pg/mL (8.7-77.1)
[2024-04-12 13:17] LABS: Creatinine, mg/dL 53.63
[2024-04-12 13:51] LABS: Creatinine, 24Hr Urine 0.3 G/Day (1.0-2.0); Total Volume 24 Hour Urine 575 mL
[2024-04-13 12:39] LABS: Calcium, Ionized 5.3 mg/dL (4.7-5.5)
[2024-04-14 17:18] LABS: Calcium, 24 Hr Urine 52 mg/24 h; Calcium/Creatinine Ratio 184 mg/g creat (30-275); Creatinine 24Hr Urine 0.28 g/24 h (0.50-2.15)
== END 2024-04-12 08:58 | disposition home or self-care (01) ==
LOC: HO.LAB 08:57
PROVIDERS: PCP Internal Medicine; Visit Provider Student in an Organized Health Care Education/Training Program
DX: E21.3 Hyperparathyroidism, unspecified (principal)
CPT/HCPCS: 36415; 80048; 82040; 82330; 82340; 83735; 83970; 84100; 84300

== ENCOUNTER 2024-05-04 12:41 | Emergency (ER) | payer OTHER, SELFPAY ==
[2024-05-04 12:43] VITALS: BP 106/61; PULSE 87; RESP 18; TEMP 36.1; O2SAT 97; BMI 22.9
--- NOTE | 2024-05-04 12:45 | ED.GENADULT ---
HPI - General Adult General Chief complaint: Nausea/Vomiting/Diarrhea Stated complaint: R leg pain, vomiting Time Seen by Provider: 05/04/24 13:41 Source: patient Mode of arrival: ambulatory Limitations: no limitations History of Present Illness ED Provider: Marti Bethea PA-C HPI narrative: Patient is a 63 year old assigned female at with a history of HTN, STEPHAN, anemia, MDD, LBBB, CAD, bigeminy with high PVC burden, and hyperparathyroidism presenting to the emergency department today with nausea, vomiting, and right leg pain. Patient states that over the last few days she has had nausea and vomiting with right upper leg pain. Patient states that the pain goes from her lateral right hip to her lateral right knee. Patient denies any dizziness, lightheadedness, abdominal pain, fever, chills, blurry vision, double vision, loss of vision, chest pain, difficulty breathing, shortness of breath, back pain, night sweats, pain with urination, increased urinary frequency, increased urinary urgency, blood in her urine or stool, syncope or a near syncopal episode, recent trauma or falls, bowel incontinence, bladder incontinence, or any other complaints at this time. Relieving factors: none Exacerbating factors: none Associated symptoms: nausea/vomiting Treatments prior to arrival: none Related Data Home Medications ?Medication ?Instructions ?Recorded ?Confirmed citalopram 40 mg tablet 40 mg PO DAILY 02/16/20 04/01/24 bupropion HCl 150 mg tablet,12 hr 150 mg PO DAILY 12/05/20 04/01/24 sustained-release Previous Rx's ?Medication ?Instructions ?Recorded Shower Chair #1 ea 03/14/21 cyanocobalamin (vitamin B-12) 1,000 mcg PO .once a week 90 days 05/22/23 1,000 mcg tablet #12 tabs calcium 600 mg (as 1 tab PO DAILY 90 days #90 tabs 06/16/23 carbonate)-vitamin D3 10 mcg (400 unit) tablet incontinence pad, liner, disp #30 ea 08/07/23 cholecalciferol (vitamin D3) 50 50 mcg PO DAILY 90 days #90 caps 08/24/23 mcg (2,000 unit) capsule folic acid 1 mg tablet 1 mg PO DAILY 90 days #90 tabs 08/24/23 blood pressure monitor #1 ea 10/20/23 amlodipine 10 mg tablet 10 mg PO DAILY #90 tabs 11/28/23 furosemide 20 mg tablet (Lasix) 20 mg PO DAILY #3 tabs 12/06/23 acetaminophen 500 mg tablet 1,000 mg (2 x 500 mg) PO Q6H PRN 01/27/24 (Tylenol Extra Strength) pain #30 tabs hydroxyzine HCl 25 mg tablet 25 mg PO BID PRN itching 30 days 02/11/24 #60 tabs apixaban 5 mg tablet (Eliquis) 5 mg PO BID #60 tabs 05/04/24 ondansetron 4 mg disintegrating 4 mg PO Q8H 3 days #9 tabs 05/04/24 tablet Allergies Allergy/AdvReac Type Severity Reaction Status Date / Time amoxicillin [AMOXICILLIN] Allergy Intermediate ? RASH Verified 05/04/24 12:48 clonazepam [From KLONOPIN] Allergy Intermediate ? RASH Verified 05/04/24 12:48 lorazepam [LORAZEPAM] Allergy Intermediate ? RASH Verified 05/04/24 12:48 mirtazapine [From REMERON] Allergy Intermediate RASH Verified 05/04/24 12:48 naproxen [From NAPROSYN] Allergy Intermediate ? RASH Verified 05/04/24 12:48 Sulfa (Sulfonamide Allergy Intermediate ? RASH Verified 05/04/24 12:48 Antibiotics) [SULFA(SULFONAMIDE ANTIBIOTICS)] fluoxetine [Prozac] Allergy Mild rash Verified 05/04/24 12:48 From TUSSIONEX PENNKINETIC ER Allergy Intermediate ? RASH Uncoded 05/04/24 12:48 Review of Systems Constitutional: Constitutional: Reports no additional constitutional complaints, Denies chills, Denies fever(s) and Denies night sweats Eyes: Eyes: Reports no additional eye complaints, Denies blurry vision, Denies change in vision, Denies diplopia, Denies eye discharge, Denies loss of vision and Denies eye pain ENT: Denies dizziness Cardiovascular: Cardiovascular: Reports no additional cardiovascular complaints, Denies chest pain, Denies lightheadedness, Denies Loss of Consciousness and Denies dyspnea Respiratory: Respiratory: Reports no additional respiratory complaints and Denies dyspnea Gastrointestinal: Gastrointestinal: Reports no additional gastrointestinal complaints, Denies abdominal pain, Denies melena, Denies hematochezia, Denies change in bowel habits, Denies change in stool character and Reports nausea Genitourinary: Genitourinary: Denies hematuria, Denies urinary frequency, Denies dysuria, Denies urinary incontinence, Denies urinary hesitancy and Denies urinary urgency Musculoskeletal: Musculoskeletal: Reports no additional musculoskeletal complaints, Denies numbness and Denies tingling Comments: right leg pain Neurologic: Denies dizziness, Denies loss of vision, Denies numbness and Denies tingling Psychiatric: Psychiatric: Reports no additional psychiatric complaints Endocrine: Endocrine: Reports no additional endocrine complaints Hematologic/Lymphatic: Hematologic/Lymphatic: Reports no additional hematologic/lymphatic complaints Allergic/Immunologic: Allergic/Immunologic: Reports no additional allergic/immunologic complaints [facility] Past Medical History Attestation statement: The following information was validated with the patient. Source: old records reviewed and nursing notes reviewed Medical History Endometrioid adenocarcinoma of uterus Ovarian mass Uterine fibroid Left flank pain Skin lesion Mild major depression, single episode Urge urinary incontinence STEPHAN (generalized anxiety disorder) Hypovitaminosis D Developmental delay, mild Depression with anxiety Essential hypertension Pernicious anemia Surgical History Status post total hysterectomy and bilateral salpingo-oophorectomy History of tooth extraction History of H/O tubal ligation Family History Family History Father Heart attack Mother Dementia Other Mental and behavioral problem in adult Social History Social History Housing: Apartment Unable to assess alcohol history related to: Unknown Alcohol intake: never Patient Tobacco Use Status: Never used Tobacco e-Cigarette/Vaping Use: Never Used Second Hand Smoke Exposure: No Advance Directives: Yes Advance Directives Information Provided: Yes Advance Directives on File: No service: No Current occupational status: disabled Cognitive needs: Yes Hearing needs: No Vision needs: No Physical Exam ED Vital Signs: Vital Signs - 24 hr 05/04/24 12:43 05/04/24 14:00 05/04/24 14:32 Temperature 96.9 F 99.2 F 99.2 F Pulse Rate 87 74 74 Respiratory Rate 18 16 16 Blood Pressure 106/61 121/72 121/72 Pulse Oximetry 97 98 98 Oxygen Delivery Method Room Air Room Air Room Air BMI result Body Mass Index 22.9 Const General: cooperative, no acute distress, alert and awake Nutritional Appearance: well nourished Orientation/consciousness: patient oriented x3 Limitations: no limitations HENMT Head: Yes normal to inspection and Yes atraumatic Ears: hearing grossly normal bilaterally and external ears normal General nose exam: Normal external nose present, no nasal discharge noted and no epistaxis Face and sinus: Yes normal facial exam, No abrasion and No laceration Mouth: Normal oral and palatal mucosa present, no drooling and no muffled voice Eyes General: appearance normal, both eyes and all related structures Periorbital: periorbital findings normal Eyelids: Yes eyelids normal Conjunctivae: conjunctivae normal Pupils: Equal, round and reactive pupils present EOM: EOMs intact bilaterally Neck Neck: Yes normal visual inspection, Yes full ROM and Yes no lymphadenopathy Chest Chest palpation & inspection: normal inspection of the chest Resp Effort & Inspection: normal respiratory effort and able to speak in complete sentences GI Inspection: Yes normal to inspection Palpation (GI): Soft to palpation, not firm, nontender and no guarding Neuro General: patient oriented x3 and moves all extremities Cranial nerves: Yes Equal, round and reactive pupils present Cognition (Neuro): normal cognition Extrem General: Yes normal to inspection, Yes full ROM and Yes capillary refill normal Psych Appearance: grossly normal Mental Status: mental status grossly normal Affect: normal affect Attitude: cooperative Thought process: Normal thought process present Thought content: Normal thought content present Insight: Good insight present (Psych) Course Course Course Narrative: This is an RME: Additional HPI, ROS, PE not included below will be deferred to primary provider. RME assessment and note performed by: Mariia Otto PA-C This is a [id number], with a hx of HTN, anemia, STEPHAN, endometrioid adenocarcinoma of uterus with hysterectomy and bilateral salpingo-oophorectomy, who presents to the ER with complaints of left leg pain and vomiting. Reports that the symptoms started at the same time and has been constant x 3 days. Report epigastric pain. No diarrhea. No sick contacts. Plan: Labs, EKG, further ER eval needed Medications Administered Discontinued Medications Generic Name Dose Route Start Last Admin Trade Name Freq PRN Reason Stop Dose Admin Ketorolac Tromethamine 15 mg 05/04/24 14:15 05/04/24 14:23 Ketorolac Tromethamine 15 Mg/Ml Vial IM 05/04/24 14:16 15 mg ONCE ONE Administration Ondansetron HCl 4 mg 05/04/24 14:15 05/04/24 14:23 Ondansetron Odt 4 Mg Tab.Joie AGUILARINGU 05/04/24 14:16 4 mg ONCE ONE Administration Medical Decision Making Medical Decision Making MDM Narrative: Patient is a 63 year old assigned female at with a history of HTN, STEPHAN, anemia, MDD, and hyperparathyroidism presenting to the emergency department today with nausea, vomiting, and right leg pain. Patient's physical exam was unremarkable. Patient's blood work was unremarkable. Patient's EKG showed a new atrial fibrillation. I spoke to the planer operator / grader who recommended starting the patient on anti coagulation. Patient's clinical presentation is most consistent with nausea + vomiting, and acute right leg pain likely IT band. I explained my physical exam findings as well as all test results to the patient and the patient's daughter. I answered all questions asked by the patient. I stressed the importance of the patient taking her medication as directed (either prescribed or as the over the counter packaging recommends). I stressed the importance of the patient following up with her primary care provider. I stressed the importance of the patient returning to the emergency department immediately if her symptoms were to worsen or if she were to develop any dizziness, shortness of breath, difficulty breathing, chest pain, blurry vision, loss of vision, nausea, vomiting, abdominal pain, fever, chills, back pain, or any other complaints. Patient and the patient's daughter verbalized agreement and understanding with this treatment plan and discharge. Differential Diagnosis Differential Diagnoses: The differential diagnosis associated with the presentation includes Gastroenteritis Nausea Vomiting IT band syndrome Right upper leg pain Sciatica Admission/Observation Consideration of admission/observation: Escalation of care including admission/observation considered Patient would have been admitted to the hospital had her work up had any findings where hospital admission was appropriate and her clinical presentation warranted hospital admission. Consult Healthcare Provider Management of the patient was discussed with: Field Aide (spoke to the planer operator / grader as noted in the MDM Rationale portion of this note.) Lab Data [facility] Lab Attestation statement: I reviewed the patient's lab results. My interpretation of these results are in the MDM Rationale portion of this note. 05/04/24 12:56 05/04/24 12:56 Labs: Lab Results 05/04/24 Range/Units 12:56 WBC 8.0 (4.8-10.8) X10*3/uL RBC 4.94 D (4.20-5.50) X10*6/uL Hgb 14.1 (12.0-16.0) g/dl Hct 42.2 (37.0-47.0) % MCV 85.4 (80.0-98.0) fL MCH 28.5 (27.0-33.0) pg MCHC 33.4 (31.0-35.0) g/dl RDW 13.0 (11.0-16.0) % Plt Count 337 (160-400) X10*3/uL MPV 9.4 (9.4-12.3) fL Immature Gran % (Auto) 0.3 (0.0-0.4) % Neut % (Auto) 80.6 H (45-73) % Lymph % (Auto) 11.1 L (20-40) % [place] % (Auto) 6.9 (2-11) % Eos % (Auto) 0.1 (0-4) % Baso % (Auto) 1.0 (0-2) % Lymph # (Auto) 0.9 L (1.2-4.9) X10*3/uL [place] # (Auto) 0.6 (0.1-1.2) X10*3/uL Eos # (Auto) 0.0 (0.0-0.4) X10*3/uL Baso # (Auto) 0.1 (0.0-0.2) X10*3/uL Abs Immat Gran (auto) 0.02 (0.00-0.03) X10*3/uL Absolute Neuts (auto) 6.4 (2.0-8.3) x10*3/uL Absolute Nucleated RBC 0.000 (0.0-0.012) X10*3/uL Nucleated RBC % (auto) 0.0 (0.0-0.2) /100WBC Sodium 140 (135-145) mmol/L Potassium 3.3 D (3.3-5.1) mmol/L Chloride 103 (96-108) mmol/L Carbon Dioxide 27 (22-29) mmol/L Anion Gap 13 (12-20) BUN 13 (9-16) mg/dL Creatinine 1.03 (0.5-1.4) mg/dL Estim Creat Clear Calc 48.2 Estimated GFR 54 Random Glucose 142 H (60-115) mg/dL Calcium 10.3 H (8.4-10.2) mg/dL Magnesium 1.8 (1.6-2.6) mg/dL Total Bilirubin 0.5 (0.0-1.0) mg/dL Direct Bilirubin 0.2 (0.0-0.5) mg/dL AST 20 (5-31) U/L ALT 16 (0-31) U/L Alkaline Phosphatase 83 (39-117) U/L Troponin I High Sens 11.9 D (<3.5-17.0) ng/L Total Protein 8.6 H (6.5-8.0) g/dL Albumin 4.6 (3.5-5.0) g/dL Lipase 23 (8-78) U/L Influenza Type A (PCR) NEGATIVE (Negative) Influenza Type B (PCR) NEGATIVE (Negative) RSV RNA Qual (PCR) NEGATIVE (Negative) SARS-CoV-2 RNA (RT-PCR) NEGATIVE (Negative) Independent Interpretation I performed an independent interpretation of an: EKG Interpretation: Vent. Rate: 090 BPM Atrial Rate: 000 BPM P-R Int: 000 ms QRS Dur: 126 ms QT Int: 408 ms P-R-T Axes: 000 -03 132 degrees QTc Int: 499 ms Atrial fibrillation Left bundle branch block When compared with ECG of 13-FEB-2023 12:55, Atrial fibrillation has replaced Sinus rhythm Vent. rate has increased BY 37 BPM Left bundle branch block is now Present DD/ 1313 Radiology Impression Discussion of test interpretation with radiology: I have reviewed the radiologist's reading. Independent Historian Clinical information obtained from an independent historian. History obtained from or confirmed by: Other (patient's daughter provided additional history and confirmed the history provided by the patient.) Critical Care Time Critical Care Time Critical Care Time: Yes Total Critical Care Time: 38 Attestation: I spent 38 minutes of Critical Care Time with this patient. This does not include time spent on separately reported billable procedures. Discharge Plan Discharge Clinical Impression: Nausea & vomiting, Acute leg pain, Atrial fibrillation Patient Disposition: Home, Self-Care Instructions: A-fib (Atrial Fibrillation) (DC), Acute Nausea and Vomiting (ED), Leg Pain (ED) Additional Instructions: Your heart rhythm has changed to atrial fibrillation which is an irregular heart rhythm and requires anti coagulation to avoid stroke. Follow up with your primary care provider and your planer operator / grader. Return to the emergency department immediately if your symptoms worsen or if you develop any dizziness, shortness of breath, difficulty breathing, chest pain, blurry vision, loss of vision, nausea, vomiting, abdominal pain, fever, chills, back pain, or any other complaints. Prescriptions: New ondansetron 4 mg tablet,disintegrating 4 mg PO Q8H 3 Days Qty: 9 0RF Eliquis 5 mg tablet 5 mg PO BID Qty: 60 0RF No Action (DME) Shower Chair Misc See Rx Instructions .Route Qty: 1 0RF Rx Instructions: As directed cyanocobalamin (vitamin B-12) 1,000 mcg tablet 1,000 mcg PO .once a week 90 Days Qty: 12 3RF calcium carbonate-vitamin D3 600 mg-10 mcg (400 unit) tablet 1 tab PO DAILY 90 Days Qty: 90 3RF (DME) Bladder Control Pads Pad See Rx Instructions .ROUTE .MEDSUPPLY Qty: 30 11RF Rx Instructions: Use 1 pad once a day prn folic acid 1 mg tablet 1 mg PO DAILY 90 Days Qty: 90 3RF cholecalciferol (vitamin D3) 50 mcg (2,000 unit) capsule 50 mcg PO DAILY 90 Days Qty: 90 3RF (DME) blood pressure monitor Kit See Rx Instructions .Route Qty: 1 0RF Rx Instructions: As directed amlodipine 10 mg tablet 10 mg PO DAILY Qty: 90 1RF hydroxyzine HCl 25 mg tablet 25 mg PO BID PRN (Reason: itching) 30 Days Qty: 60 0RF furosemide [Lasix] 20 mg tablet 20 mg PO DAILY Qty: 3 0RF acetaminophen [Tylenol Extra Strength] 500 mg tablet 1,000 mg PO Q6H PRN (Reason: pain) Qty: 30 0RF citalopram 40 mg tablet 40 mg PO DAILY bupropion HCl 150 mg tablet sustained-release 12 hr 150 mg PO DAILY Referrals: Marium Conley MD [Primary Care Provider] - Interventions: ED Discharge Assessment Last Done: 05/04/24 14:32 Discharge Date/Time: 05/04/24 14:32 Print Language: [place]
--- NOTE | 2024-05-04 12:49 | ECG_ITS ---
Test Reason : abd pain Blood Pressure : / mmHG Vent. Rate : 090 BPM Atrial Rate : 000 BPM P-R Int : 000 ms QRS Dur : 126 ms QT Int : 408 ms P-R-T Axes : 000 -03 132 degrees QTc Int : 499 ms Atrial fibrillation Left bundle branch block Abnormal ECG When compared with ECG of 13-FEB-2023 12:55, Atrial fibrillation has replaced Sinus rhythm Vent. rate has increased BY 37 BPM Left bundle branch block is now Present Referred By: Mariia Otto Electronically Signed By:Ambrose Downing
[2024-05-04 13:02] LABS: MANUAL DIFF FLAG NO
[2024-05-04 13:08] LABS: Basophils Absolute Auto 0.1 X10*3/uL (0.0-0.2); Eosinophils Percent Auto 0.1 % (0-4); Hematocrit 42.2 % (37.0-47.0); Hemoglobin 14.1 g/dl (12.0-16.0); Imm Gran Abs Auto 0.02 X10*3/uL (0.00-0.03); Imm Gran Pct Auto 0.3 % (0.0-0.4); Lymphocytes Absolute Auto 0.9 X10*3/uL (1.2-4.9); Lymphocytes Percent Auto 11.1 % (20-40); Mean Corpuscular HGB Conc 33.4 g/dl (31.0-35.0); Mean Corpuscular Hemoglobin 28.5 pg (27.0-33.0); Mean Corpuscular Volume 85.4 fL (80.0-98.0); Mean Platelet Volume 9.4 fL (9.4-12.3); Monocytes Absolute Auto 0.6 X10*3/uL (0.1-1.2); Monocytes Percent Auto 6.9 % (2-11); Neutrophils Absolute Auto 6.4 x10*3/uL (2.0-8.3); Neutrophils Percent Auto 80.6 % (45-73); Platelet Count 337 X10*3/uL (160-400); Red Blood Count 4.94 X10*6/uL (4.20-5.50)
[2024-05-04 13:24] LABS: Alanine Aminotransferase 16 U/L (0-31); Albumin Level 4.6 g/dL (3.5-5.0); Alkaline Phosphatase 83 U/L (39-117); Anion Gap 13 (12-20); Aspartate Amino Transferase 20 U/L (5-31); Bilirubin Direct 0.2 mg/dL (0.0-0.5); Bilirubin Total 0.5 mg/dL (0.0-1.0); Blood Urea Nitrogen 13 mg/dL (9-16); Calcium 10.3 mg/dL (8.4-10.2); Carbon Dioxide 27 mmol/L (22-29); Chloride 103 mmol/L (96-108); Creatinine Clr Calc Pharmacy 48.2; Estimated Glomerular Filt Rate 54; Glucose Random 142 mg/dL (60-115); Lipase 23 U/L (8-78); Magnesium 1.8 mg/dL (1.6-2.6); Potassium 3.3 mmol/L (3.3-5.1); Sodium 140 mmol/L (135-145); Total Protein 8.6 g/dL (6.5-8.0)
[2024-05-04 13:43] LABS: Influenza A PCR NEGATIVE (Negative); Influenza B PCR NEGATIVE (Negative); Resp Syncy Virus RNA Qual PCR NEGATIVE (Negative); SARS COV2 PCR INHOUSE NEGATIVE (Negative)
[2024-05-04 13:47] LABS: Troponin-I High Sensitivity 11.9 ng/L (<3.5-17.0)
[2024-05-04 14:00] VITALS: BP 121/72; PULSE 74; RESP 16; TEMP 37.3; O2SAT 98
[2024-05-04] MEDS: Ondansetron ODT 4 MG TAB.RAPDIS TRANSLINGU (14:23)
[2024-05-04] MEDS: Ketorolac Tromethamine 15 MG/ML VIAL IM (14:23)
[2024-05-04 14:32] VITALS: BP 121/72; PULSE 74; RESP 16; TEMP 37.3; O2SAT 98
== END 2024-05-04 14:32 | disposition home or self-care (01) ==
PROVIDERS: Physician Assistant Medical; Emergency Provider Student in an Organized Health Care Education/Training Program; PCP Internal Medicine
DX: I48.91 Unspecified atrial fibrillation (principal); R11.2 Nausea with vomiting, unspecified; M79.604 Pain in right leg; R94.31 Abnormal electrocardiogram [ECG] [EKG]; Z79.899 Other long term (current) drug therapy; Z03.818 Encounter for observation for suspected exposure to other biological agents ruled out
CPT/HCPCS: 0241U; 36415; 80048; 80076; 83690; 83735; 84484; 85025; 93005; 96372; 99284; J1885

== ENCOUNTER → 2024-05-04 12:49 | Outpatient (BNV) | payer OTHER, SELFPAY | PROVIDERS: Emergency Provider Student in an Organized Health Care Education/Training Program; PCP Internal Medicine; Visit Provider Internal Medicine Cardiovascular Disease | DX: I48.91 Unspecified atrial fibrillation (principal) | CPT/HCPCS: 93010 ==

== ENCOUNTER 2024-05-10 14:26 | Outpatient (AMB) | payer OTHER, SELFPAY ==
--- NOTE | 2024-05-10 15:01 | MHC.PC.OV ---
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 RASH clonazepam [From KLONOPIN] Allergy (Intermediate, Verified 05/10/24 15:43) ? RASH lorazepam [LORAZEPAM] Allergy (Intermediate, Verified 05/10/24 15:43) ? RASH mirtazapine [From REMERON] Allergy (Intermediate, Verified 05/10/24 15:43) RASH naproxen [From NAPROSYN] Allergy (Intermediate, Verified 05/10/24 15:43) ? RASH Sulfa (Sulfonamide Antibiotics) [SULFA(SULFONAMIDE ANTIBIOTICS)] Allergy (Intermediate, Verified 05/10/24 15:43) ? RASH fluoxetine [Prozac] Allergy (Mild, Verified 05/10/24 15:43) rash From TUSSIONEX PENNKINETIC ER Allergy (Intermediate, Uncoded 05/10/24 15:43) ? RASH Medication List - Last Reconciled 05/10/24 by Paty Lee PA-C acetaminophen (Tylenol Extra Strength) 1,000 mg (2 x 500 mg) PO Q6H PRN amlodipine 10 mg PO DAILY apixaban (Eliquis) 5 mg PO BID blood pressure monitor As directed bupropion HCl SR 150 mg PO DAILY calcium carbonate-vitamin D3 600 mg-10 mcg (400 unit) 1 tab PO DAILY 90 days cholecalciferol (vitamin D3) 50 mcg PO DAILY 90 days citalopram 40 mg PO DAILY cyanocobalamin (vitamin B-12) 1,000 mcg PO .once a week 90 days folic acid 1 mg PO DAILY 90 days furosemide (Lasix) 20 mg PO DAILY hydroxyzine HCl 25 mg PO BID PRN 30 days incontinence pad, liner, disp Use 1 pad once a day prn lidocaine 5% (Lidoderm) 1 patch topical DAILY ondansetron 4 mg PO Q8H 3 days Shower Chair As directed Tobacco use date assessed: 05/10/24 Dental Screening Dental Screen Date: 03/04/24 [facility] Medical History Endometrioid adenocarcinoma of uterus Ovarian mass Uterine fibroid Left flank pain Skin lesion Mild major depression, single episode Urge urinary incontinence STEPHAN (generalized anxiety disorder) Hypovitaminosis D Developmental delay, mild Depression with anxiety Essential hypertension Pernicious anemia Surgical History Status post total hysterectomy and bilateral salpingo-oophorectomy History of tooth extraction History of H/O tubal ligation Family History Father Heart attack Mother Dementia Other Mental and behavioral problem in adult Social History Housing: Apartment Unable to assess alcohol history related to: Unknown Alcohol intake: never Patient Tobacco Use Status: Never used Tobacco e-Cigarette/Vaping Use: Never Used Second Hand Smoke Exposure: No service: No Current occupational status: disabled Cognitive needs: Yes Hearing needs: No Vision needs: No Female Reproductive History Menstrual Age of Menarche: 14 Questionnaire Thrive Questionnaire Date Thrive assessed: 03/04/24 I am a: Patient What is your living situation today?: I choose not to answer this question Within the past 12 months, did the food you bought not last and you didn't have the money to get more?: Never true Within the past 12 months, did you worry whether your food would run out before you got money to buy more?: Never true Do you have trouble paying for medicines?: No Do you have trouble getting transportation to medical appointments?: No Do you have trouble paying your heating and electricity bill?: No Do you have trouble taking care of your child, family member or friend?: No Do you have trouble with day-to-day activities such as bathing, preparing meals, shopping, managing finances, etc.?: No Are you currently unemployed and looking for a job?: No Are you interested in more education?: No Please select the resources that you would like help with: None Currently or been in a relationship where the following occur: No concerns reported THRIVE Score: 0 STEPHAN-7 AMB Questionnaire STEPHAN-7 Date STEPHAN - 7 assessed: 03/04/24 Source: Developed by Drs. Boyd Mcguire, Carrie Dow, Blu Powell and colleagues, with an educational aretha from [employer]. Physical exam (Primary Care) Vital Signs: Last Vital Signs Pulse 88 05/10/24 15:02 BP 130/70 05/10/24 15:02 Pulse Ox 95 05/10/24 15:02 Oxygen Delivery Method Room Air 05/10/24 15:02 BMI result Body Mass Index 25.1 Tobacco/Smoking Status: Tobacco use Status Tobacco use date assessed 05/10/24 05/10/24 15:04 Patient Tobacco Use Status Never used Tobacco 05/10/24 15:04 Tobacco use type 02/12/24 10:06 e-Cigarette/Vaping Use Never Used 05/10/24 15:04 Thrive Assessment: Date of Thrive Assessment Date Thrive assessed 03/04/24 05/10/24 15:04 Currently or been in a relationship where the following occur: No concerns reported Coding Level of Care Code Est Pt Level 4 (72292) Complex EM visit Add On G2211 Diagnoses Right leg pain M79.604 Atrial fibrillation I48.91 Assessment & Plan Assessment & Plan (1) Right leg pain: Code(s): M79.604 - Pain in right leg Category: Medical (2) Atrial fibrillation: Code(s): I48.91 - Unspecified atrial fibrillation Category: Medical Plan Plan - Consider initiating acetaminophen therapy for pain management. - Apply a lidocaine patch to numb affected leg area and manage localized pain. - Continue Eliquis apixaban) as prescribed for atrial fibrillation management. - continue amlodipine for rate control as prescribed - Confirm follow-up appointment with cardiology for further evaluation of heart condition. Orders: Referrals Cardiology Referral I48.91 - Unspecified atrial fibrillation Medications: New lidocaine 5% (Lidoderm) leave on most painful area for up to 12 hrs, then remove for 12 hours and replace after you have left off for 12 hours 1 patch topical DAILY 15 ea 0RF Patient Instructions: Patient Instructions - Take acetaminophen as needed for pain management. - Apply lidocaine patch to the affected area of the leg to alleviate pain. - Continue taking Eliquis as prescribed for atrial fibrillation. - Expect a call from the infrastructure architect for a follow-up appointment within two weeks. - Return for medical evaluation if pain worsens or any new symptoms develop. Scribe Plan - Not visible on output: History of Present Illness The patient is a 63-year-old female presenting with Right thigh leg pain. She initially visited the ER on 05/04/2024 due to pain in this area, which was assessed without imaging and thought to be IT band syndrome. The pain is described as burning and intense, particularly on the right side, and persists on the lateral aspect of the leg. Initially thought to be musculoskeletal, the pain has persisted since the hospital visit a week ago. The patient received Eliquis for atrial fibrillation for her heart condition but not specifically for the pain, which remains problematic at night. During her ER visit, the patient was also diagnosed with atrial fibrillation, and she was started on Eliquis (apixaban) to mitigate stroke and cardiac risks. She reports no chest pain or shortness of breath. Her current medications include amlodipine and additional antihypertensive agents to maintain cardiac function. Chronic leg swelling has been noted, primarily non-painful and possibly linked to chronic conditions, but it excludes noticeable rashes or acute dermatological issues. Social History - Functional Status: Experiences pain impacting nighttime rest. - Family: DDS caregiver at bedside Est[place]. Review of Systems - Cardiovascular: Denies chest pain, denies shortness of breath, calf tenderness, dyspnea on exertion, orthopnea. - Musculoskeletal: Reports right leg hip pain, describes burning sensation in leg. - Dermatologic: Denies rash. Physical Exam Appearance: Alert. Oriented X3. No acute distress. Head: Normal external exam. Normocephalic. Atraumatic. Eyes: Pupils are equal, round, and reactive to light. Extraocular movements intact. Conjunctiva and sclera normal. Eyelids normal. Ears: External auditory canal normal. Tympanic membranes normal. Throat: Pharynx normal. Uvula midline. Moist mucous membranes. Neck: Normal inspection. Neck supple. Full range of motion. No meningeal signs. No neck mass noted. Cardiovascular: Heart rate off rhythm. Heart sound normal. No murmurs noted. Pulses normal throughout. Respiratory: No respiratory distress. Painless inspiration. Breath sounds normal. No wheezes/rales/rhonchi noted. Chest nontender. No accessory muscle usage noted or decreased air movement noted. Back: Full range of motion noted. Skin: Skin warm and dry. Normal skin color. Normal skin turgor. No rashes/lesions/lacerations noted. Extremities: Right lateral thigh TTP although there are no fluctuance, induration, rashes, signs of infection or abnormalities noted. She does have mild +1 pitting edema to bilateral lower extremities. There is no calf tenderness noted bilaterally. Otherwise all other extremities exhibit normal range of motion nontender. Neuro: Oriented X 3. No motor deficit. No sensory deficit. Reflexes normal. Results - Tests and Diagnostics: Diagnosis of atrial fibrillation confirmed during ER visit. Discussion Notes During the visit, we thoroughly discussed the management of the patient's atrial fibrillation, emphasizing the necessity of continued anticoagulation therapy with Eliquis to prevent strokes. I explained that the patient's atrial fibrillation involves uncoordinated heart electrical activity, which poses a stroke risk due to potential clot formation. We also reviewed pain management options for her leg pain, recommending a combination of acetaminophen and lidocaine patches, which are compatible with her current medication regime. Follow-up with cardiology is anticipated to evaluate her current cardiac care plan and adjust management as needed. The patient consented to this approach understanding the benefits and necessity of each component. Patient was informed and verbally consented to the use of an ambient scribe for clinic note documentation during this visit.
[2024-05-10 15:02] VITALS: BP 130/70; PULSE 88; O2SAT 95; BMI 25.1
== END 2024-05-10 15:55 | disposition home or self-care (01) ==
PROVIDERS: PCP Internal Medicine; Visit Provider Internal Medicine
DX: M79.604 Pain in right leg (principal); I48.91 Unspecified atrial fibrillation

== ENCOUNTER → 2024-05-10 14:26 | Outpatient (BNVA) | payer OTHER, SELFPAY | PROVIDERS: PCP Internal Medicine; Visit Provider Internal Medicine | DX: M79.604 Pain in right leg (principal); I48.91 Unspecified atrial fibrillation | CPT/HCPCS: 99212 ==

== ENCOUNTER → 2024-06-18 09:23 | Outpatient (AMB) | END | disposition home or self-care (01) ==

== ENCOUNTER → 2024-06-18 09:23 | Outpatient (BNVA) | DX: M79.651 Pain in right thigh (principal) | CPT/HCPCS: 99212 ==

== ENCOUNTER 2024-06-21 08:11 | Inpatient (IN) | payer OTHER, SELFPAY ==
--- NOTE | 2024-06-21 | ECG_ITS ---
Test Reason : cp/diff breathing Blood Pressure : */* mmHG Vent. Rate : 92 BPM Atrial Rate : * BPM P-R Int : * ms QRS Dur : 126 ms QT Int : 394 ms P-R-T Axes : * 4 144 degrees QTcB Int : 487 ms Poor data quality Atrial fibrillation Left bundle branch block Abnormal ECG When compared with ECG of 04-May-2024 13:13, No significant change was found Referred By: Generic ED Physician Electronically Signed By: KY CHAMBERS MD
--- NOTE | ~2024-06-21 | CT_ITS ---
EXAMINATION: CT CHEST WITHOUT IV CONTRAST INDICATION: right sided chest pain, MULLIGAN COMPARISON: Correlation is made with the lateral views of the chest performed earlier in the day. TECHNIQUE: Helical CT scan of the chest was performed without intravenous contrast. Coronal and sagittal reformatted images were generated and reviewed. This CT exam was performed with one or more of the following dose reduction techniques: automated exposure control, adjustment of the mA and/or kV according to patient size, use of iterative reconstruction technique. DLP: 220 mGy-cm CHEST: THYROID: The thyroid is unremarkable. LUNGS: There is mild respiratory motion artifact. There are no focal airspace opacities. MEDIASTINUM: There is no mediastinal lymphadenopathy. JOSE: Evaluation of the hilar regions is limited by lack of intravenous contrast material. CARDIOVASCULATURE: The heart is markedly enlarged. There is no pericardial effusion. The thoracic aorta is normal in caliber. DEGREE OF CORONARY CALCIFICATION: none PLEURA: There are moderate bilateral pleural effusions. No pneumothorax. MAIN AIRWAYS: The mainstem bronchi and proximal branches are patent. AXILLA: There is no axillary lymphadenopathy. BONES AND SOFT TISSUES: There is a large hiatal hernia. UPPER ABDOMEN: The visualized portions of the liver, spleen, and adrenals have an unremarkable unenhanced appearance. CT/CT chest wo IV con IMPRESSION: Cardiomegaly and moderate bilateral pleural effusions. Large hiatal hernia. Electronically signed by: Boyd Barton MD 06/21/2024 12:28 PM [facility]
--- NOTE | ~2024-06-21 | XR_ITS ---
EXAMINATION: XR CHEST CLINICAL INFORMATION: SOB COMPARISON: February 13, 2023. TECHNIQUE: 2 views of the chest were obtained. FINDINGS: Opacities with meniscal shaped in both lower hemithoraces more conspicuous on the left side. Prominence of the interstitial lung markings with indistinct margins in the pulmonary hilum and cardiomediastinal silhouette. No pneumothorax. S-shaped curvature of the thoracolumbar spine. Multilevel lumbar spondylosis. Vertebral plana, probable L1 versus T12. XR/XR chest 2V IMPRESSION: Pulmonary edema and bilateral pleural effusions, (right with cardiomegaly versus pericardial effusion. Scoliosis, thoracolumbar spine and multilevel spondylosis. Old compression fracture deformity probable L1 versus T12 vertebra. Electronically signed by: Antoni Cobb MD 06/21/2024 09:28 AM [facility]
[2024-06-21 08:14] VITALS: BP 161/87; PULSE 93; RESP 18; TEMP 36.3; O2SAT 95; BMI 29.9
[2024-06-21 09:06] LABS: MANUAL DIFF FLAG NO
[2024-06-21 09:07] LABS: Basophils Absolute Auto 0.1 X10*3/uL (0.0-0.2); Basophils Percent Auto 1.4 % (0-2); Eosinophils Absolute Auto 0.1 X10*3/uL (0.0-0.4); Eosinophils Percent Auto 1.1 % (0-4); Hematocrit 36.7 % (37.0-47.0); Hemoglobin 11.7 g/dl (12.0-16.0); Imm Gran Abs Auto 0.03 X10*3/uL (0.00-0.03); Imm Gran Pct Auto 0.4 % (0.0-0.4); Lymphocytes Absolute Auto 0.5 X10*3/uL (1.2-4.9); Lymphocytes Percent Auto 7.5 % (20-40); Mean Corpuscular HGB Conc 31.9 g/dl (31.0-35.0); Mean Corpuscular Hemoglobin 28.5 pg (27.0-33.0); Mean Corpuscular Volume 89.5 fL (80.0-98.0); Mean Platelet Volume 9.8 fL (9.4-12.3); Monocytes Absolute Auto 0.3 X10*3/uL (0.1-1.2); Monocytes Percent Auto 4.7 % (2-11); Neutrophils Percent Auto 84.9 % (45-73); Platelet Count 312 X10*3/uL (160-400); Red Cell Distribution Width 13.6 % (11.0-16.0); White Blood Count 7.1 X10*3/uL (4.8-10.8)
[2024-06-21 09:13] LABS: INTERNATIONAL NORM RATIO 1.2 (0.9-1.1); Prothrombin Time 13.5 SEC (10.9-12.4)
[2024-06-21 09:19] LABS: Anion Gap 13 (12-20); Blood Urea Nitrogen 11 mg/dL (9-16); Calcium 9.3 mg/dL (8.4-10.2); Carbon Dioxide 24 mmol/L (22-29); Chloride 111 mmol/L (96-108); Estimated Glomerular Filt Rate > 60; Glucose Random 130 mg/dL (60-115); Potassium 3.7 mmol/L (3.3-5.1); Sodium 144 mmol/L (135-145)
--- OUTSIDE RECORDS SUMMARY | 2024-06-21 09:25 | XMS_ITS | Clinical Summary ---
Author Organization [facility] ity Address [address] [place] [address] Care Team Providers Care Roll Clamp Operator Name Role Phone Janeth Ferguson MD Primary Care Provider [phone] Social History Tobacco Use Types Packs/Day Years Used Date Smoking Tobacco: Never Assessed Comments Unknown Sex and Gender Information Value Date Recorded Sex Assigned at Not on file Legal Sex Female 3:43 AM EST Gender Identity Not on file Sexual Orientation Not on file Plan of Treatment Health Maintenance Due Date Last Done Comments Breast Cancer Screening 1960 DTaP,Tdap,and Td Vaccines (1 - Tdap) 09/14/1967 Cervical Cancer Screening: P ap Smear 1981 Pneumococcal Vaccine: 50+ Ye ars (1 of 1 - PCV) 2010 Zoster Vaccines (1 of 2) 2010 COVID-19 Vaccine ( - 2023-2 5 season) 2024 Influenza Vaccine (#1) 2024 RSV Immunization Patients 60 + Years Old (1 - 1-dose 75+ series) 09/14/2035 HIB Vaccines Aged Out No longer eligi ble based on patient's age to complete this topic HPV Vaccines Aged Out No longer eligi ble based on patient's age to complete this topic Hepatitis A Vaccines Aged Out No long er eligible based on patient's age to complete this topic Hepatitis B Vaccines Aged Out No long er eligible based on patient's age to complete this topic IPV Vaccines Aged Out No longer eligi ble based on patient's age to complete this topic MMR Vaccines Aged Out No longer eligi ble based on patient's age to complete this topic Meningococcal ACWY Vaccine Aged Out N o longer eligible based on patient's age to complete this topic Meningococcal B Vacine Aged Out No lo nger eligible based on patient's age to complete this topic Pneumococcal Vaccine: Pediat rics (0 to 5 Years) and At-Risk Patients (6 to 64 Years) Aged Out No longer eligible b ased on patient's age to complete this topic RSV Immunization Patients Un kely 20 months Aged Out No longer eligible b ased on patient's age to complete this topic Varicella Vaccines Aged Out No longer eligible based on patient's age to complete this topic Care Teams Roll Clamp Operator Relationship Specialty Start Date End Date Janeth Ferguson MD [address] [place] [address] Dr [address] [facility] [place] [address] PCP - General Internal Medicine 03/31/17
[2024-06-21 09:28] LABS: Troponin-I High Sensitivity 13.4 ng/L (<3.5-17.0)
[2024-06-21 10:00] LABS: Influenza A PCR NEGATIVE (Negative); Influenza B PCR NEGATIVE (Negative); Resp Syncy Virus RNA Qual PCR NEGATIVE (Negative); SARS COV2 PCR INHOUSE NEGATIVE (Negative)
--- NOTE | 2024-06-21 11:22 | ED_ITS ---
HPI - Chest Pain General Chief Complaint: Chest Pain Stated Complaint: Diff Breathing Time Seen by Provider: 06/21/24 11:00 Source: patient Mode of arrival: ambulatory Limitations: no limitations History of Present Illness ED Provider: YESENIA EATON PA-C HPI narrative: 63 year old female with pmhx significant for HTN, CAD, LBBB, atrial fibrillation on eliquis, anemia, STEPHAN, developmental delay presents to the ED today for evaluation of chest pain and dyspnea on exertion since last night. Chest pain is localized to right lower chest and does not radiate. Sharp in character. Denies palpitations. She also endorses dyspnea on exertion since yesterday. States she had to ambulate to the bus stop today and had to stop multiple times prior to reaching the bus stop to catch her breath. She does not feel short of breath of while at rest, including at present while seated in bed. Denies any increase in chest pain on exertion. Admits to intermittent dry cough over the last few days. No sputum production. Denies fever, chills, wheezing, palpitations, LE pain/swelling. No other concerns at this time. On chart review, patient was recently diagnosed with new onset rate controlled afib on 05/04/24. After consultation with Cardiology, she was started on Eliquis b.i.d. with plan for outpatient cardiology. She has since seen her PCP who advised her to continue eliquis however her prescription was never refilled. She has also not followed up with cardiology. On questioning patient, she states that she was unaware of diagnosis. She does recall picking up a prescription with her daughter after her visit and believes she has completed this prescription. Related Data Home Medications ?Medication ?Instructions ?Recorded ?Confirmed citalopram 40 mg tablet 40 mg PO DAILY 02/16/20 05/10/24 bupropion HCl 150 mg tablet,12 hr 150 mg PO DAILY 12/05/20 05/10/24 sustained-release aspirin 81 mg chewable tablet 1 tab PO DAILY 06/21/24 carvedilol 6.25 mg tablet 6.25 mg PO BID 06/21/24 lisinopril 10 mg tablet 10 mg PO DAILY 06/21/24 Previous Rx's ?Medication ?Instructions ?Recorded Shower Chair #1 ea 03/14/21 calcium 600 mg (as 1 tab PO DAILY 90 days #90 tabs 06/16/23 carbonate)-vitamin D3 10 mcg (400 unit) tablet incontinence pad, liner, disp #30 ea 08/07/23 cholecalciferol (vitamin D3) 50 50 mcg PO DAILY 90 days #90 caps 08/24/23 mcg (2,000 unit) capsule folic acid 1 mg tablet 1 mg PO DAILY 90 days #90 tabs 08/24/23 blood pressure monitor #1 ea 10/20/23 furosemide 20 mg tablet (Lasix) 20 mg PO DAILY #3 tabs 12/06/23 acetaminophen 500 mg tablet 1,000 mg (2 x 500 mg) PO Q6H PRN 01/27/24 (Tylenol Extra Strength) pain #30 tabs hydroxyzine HCl 25 mg tablet 25 mg PO BID PRN itching 30 days 02/11/24 #60 tabs apixaban 5 mg tablet (Eliquis) 5 mg PO BID #60 tabs 05/04/24 ondansetron 4 mg disintegrating 4 mg PO Q8H 3 days #9 tabs 05/04/24 tablet cyanocobalamin (vitamin B-12) 1,000 mcg PO .once a week 90 days 05/08/24 1,000 mcg tablet #12 tabs lidocaine 5 % topical patch 1 patch topical DAILY #15 ea 05/10/24 (Lidoderm) amlodipine 10 mg tablet 10 mg PO DAILY #90 tabs 05/26/24 Allergies Allergy/AdvReac Type Severity Reaction Status Date / Time amoxicillin [AMOXICILLIN] Allergy Intermediate ? RASH Verified 06/21/24 08:28 clonazepam [From KLONOPIN] Allergy Intermediate ? RASH Verified 06/21/24 08:28 lorazepam [LORAZEPAM] Allergy Intermediate ? RASH Verified 06/21/24 08:28 mirtazapine [From REMERON] Allergy Intermediate RASH Verified 06/21/24 08:28 naproxen [From NAPROSYN] Allergy Intermediate ? RASH Verified 06/21/24 08:28 Sulfa (Sulfonamide Allergy Intermediate ? RASH Verified 06/21/24 08:28 Antibiotics) [SULFA(SULFONAMIDE ANTIBIOTICS)] fluoxetine [Prozac] Allergy Mild rash Verified 06/21/24 08:28 From TUSSIONEX PENNKINETIC ER Allergy Intermediate ? RASH Uncoded 06/21/24 08:28 Review of Systems 2 Review of Systems: Constitutional: No fever, chills, fatigue, night sweats, weight changes ENT/Mouth: No ear pain, hearing loss, nasal congestion, sinus pain, rhinorrhea, sore throat Eyes: No eye pain, swelling, redness, vision changes, discharge Cardio: No palpitations, orthopnea, peripheral edema, +chest pain, +MULLIGAN Pulm: No SOB, cough, sputum, wheezing, dyspnea, hemoptysis GI: No nausea, vomiting, hematemesis, abdominal pain, diarrhea, constipation, hematochezia, melena : No irregular bleeding, dysuria, frequency, urgency, hesitancy, hematuria, flank pain, urinary flow changes, urinary incontinence or retention MSK: No back pain, neck pain, joint pain, myalgias Skin: No lesions, rashes Neuro: No weakness, numbness, paresthesias, LOC, dizziness, headache Psych: No anxiety/panic, depression, SI/HI, AH/VH All other systems reviewed and are negative. FOR[facility]LY [facility] Past Medical History Attestation statement: The following information was validated with the patient. Source: old records reviewed and nursing notes reviewed Medical History Endometrioid adenocarcinoma of uterus Ovarian mass Uterine fibroid Left flank pain Skin lesion Mild major depression, single episode Urge urinary incontinence STEPHAN (generalized anxiety disorder) Hypovitaminosis D Developmental delay, mild Depression with anxiety Essential hypertension Pernicious anemia Surgical History Status post total hysterectomy and bilateral salpingo-oophorectomy History of tooth extraction History of H/O tubal ligation Family History Family History Father Heart attack Mother Dementia Other Mental and behavioral problem in adult Social History Social History Housing: Apartment Unable to assess alcohol history related to: Unknown Alcohol intake: never Patient Tobacco Use Status: Never used Tobacco e-Cigarette/Vaping Use: Never Used Second Hand Smoke Exposure: No Advance Directives: No Advance Directives Information Provided: Yes service: No Current occupational status: disabled Cognitive needs: Yes Hearing needs: No Vision needs: No Physical Exam 2 Vital Signs: Vital Signs: Last Vital Signs Temp 97.3 F 06/21/24 08:14 Pulse 93 06/21/24 08:14 Resp 18 06/21/24 08:14 BP 161/87 H 06/21/24 08:14 Pulse Ox 95 06/21/24 08:14 O2 Del Method Room Air 06/21/24 08:14 BMI result Body Mass Index 29.9 hypertensive General: Well appearing, in no acute distress. Skin: Warm, dry, intact. No rashes or lesions. Head: Normocephalic, atraumatic. EENT: Hearing is intact b/l. Conjunctiva clear. PERRLA. EOM intact. Moist mucous membranes.? Neck: Supple without LAD Cardiac: Irregularly irregular rate and rhythm. No JVD. Lungs: No increased effort of breathing. No tripoding. No audible wheezes. Lungs diminished at bases, no adventitious breath sounds. Abdomen: Soft, non-tender, non-distended. No rebound tenderness or guarding Ext: Upper and lower extremities atraumatic, without tenderness, deformity, swelling or erythema. no pitting edema. Neuro: AOx3. Normal speech. Ambulating with steady gait. Psych: Appropriate mood and affect. Responds appropriately to questions. Course Course Course Narrative: 1227 -- No concern for infection. > CBC without leukocytosis or left shift. Chronic normocytic anemia, H&H stable and above transfusion threshold. chemistry without acute electrolyte abnormality requiring intervention. Initial troponin 13.4, likely demand. Delta troponin pending. Negative for COVID, flu, RSV. BNP 1034. Previous BNP in the 300s. Chest x-ray showing pulmonary edema and bilateral pleural effusions (right with cardiomegaly versus pericardial effusion. CT chest ordered to further characterize findings. Read is pending however I did have my attending Dr. Hussein review imaging. Appreciates small pericardial effusion. Peroformed bedside US which confirms. Concern for acute exacerbation of CHF in the setting of atrial fibrillation. 40 mg IV Lasix ordered. 5 mg Eliquis ordered. I reached out to general utility worker, Dr. Barragan, he was in agreement with management. Agrees for admission for echo. Will reach out to hospitalist. 1251 -- delta troponin 15. CT chest showing cardiomegaly and moderate bilateral pleural effusions without notable pericardial effusion. Dr. alvarez has accepted admission to medicine. Medical Decision Making Medical Decision Making [facility] Narrative: 63 year old female with pmhx significant for HTN, CAD, LBBB, atrial fibrillation on eliquis, anemia, STEPHAN, developmental delay presents to the ED today for evaluation of chest pain and dyspnea on exertion since last night. vital signs notable for hypertension. satting 95% on RA while lying on exam bed. Plan to obtain ambulatory pulse ox. she is overal well appearing and in NAD. on exam, there is no increased effort of breathing. No tripoding. No audible wheezes. Lungs diminished at bases, no adventitious breath sounds. no pitting or peripheral edema. no JVD. cardiac exam showing irregularly irregular rate and rhythm. Differential diagnosis includes ACS, arrhythmia, CHF, atrial fibrilation, pleural effusion, pericardial effusion Presentation not consistent with acute PE, pneumothorax, thoracic aortic dissection, cardiac tamponade. Plan: labs, troponin, viral swabs, EKG, CXR, reassessment Differential Diagnosis Differential Diagnoses: The differential diagnosis associated with the presentation includes As above Admission/Observation Consideration of admission/observation: Escalation of care including admission/observation considered Patient to be admitted for acute exacerbation of congestive heart failure in the setting of atrial fibrillation Consult Healthcare Provider Management of the patient was discussed with: Hospitalist (Dr. Alvarez) and Manager Technical Services (Dr. Barragan) Lab Data [facility] Lab Attestation statement: I reviewed the patient's lab results. As above. 06/21/24 09:00 06/21/24 09:00 Labs: Lab Results 06/21/24 06/21/24 Range/Units 09:00 12:07 WBC 7.1 (4.8-10.8) X10*3/uL RBC 4.10 L (4.20-5.50) X10*6/uL Hgb 11.7 L (12.0-16.0) g/dl Hct 36.7 L (37.0-47.0) % MCV 89.5 (80.0-98.0) fL MCH 28.5 (27.0-33.0) pg MCHC 31.9 (31.0-35.0) g/dl RDW 13.6 (11.0-16.0) % Plt Count 312 (160-400) X10*3/uL MPV 9.8 (9.4-12.3) fL Immature Gran % (Auto) 0.4 (0.0-0.4) % Neut % (Auto) 84.9 H (45-73) % Lymph % (Auto) 7.5 L (20-40) % [place] % (Auto) 4.7 (2-11) % Eos % (Auto) 1.1 (0-4) % Baso % (Auto) 1.4 (0-2) % Lymph # (Auto) 0.5 L (1.2-4.9) X10*3/uL [place] # (Auto) 0.3 (0.1-1.2) X10*3/uL Eos # (Auto) 0.1 (0.0-0.4) X10*3/uL Baso # (Auto) 0.1 (0.0-0.2) X10*3/uL Abs Immat Gran (auto) 0.03 (0.00-0.03) X10*3/uL Absolute Neuts (auto) 6.0 (2.0-8.3) x10*3/uL Absolute Nucleated RBC 0.000 (0.0-0.012) X10*3/uL Nucleated RBC % (auto) 0.0 (0.0-0.2) /100WBC PT 13.5 H (10.9-12.4) SEC INR 1.2 H (0.9-1.1) Sodium 144 (135-145) mmol/L Potassium 3.7 (3.3-5.1) mmol/L Chloride 111 H (96-108) mmol/L Carbon Dioxide 24 (22-29) mmol/L Anion Gap 13 (12-20) BUN 11 (9-16) mg/dL Creatinine 0.82 (0.5-1.4) mg/dL Estim Creat Clear Calc 56.0 Estimated GFR > 60 Random Glucose 130 H (60-115) mg/dL Calcium 9.3 D (8.4-10.2) mg/dL Troponin I High Sens 13.4 15.0 (<3.5-17.0) ng/L B-Natriuretic Peptide 1034 H (<100) pg/mL Influenza Type A (PCR) NEGATIVE (Negative) Influenza Type B (PCR) NEGATIVE (Negative) RSV RNA Qual (PCR) NEGATIVE (Negative) SARS-CoV-2 RNA (RT-PCR) NEGATIVE (Negative) Independent Interpretation I performed an independent interpretation of an: EKG, Plain X-Ray and CT Scan Interpretation: CXR with b/l pleural effusions CT chest showing b/l pleural effusions EKG showing atrial fibrillation with a rate of 92 beats per minute, QT 394, QTC 487, no acute ischemic changes or ST elevations. Radiology Impression Discussion of test interpretation with radiology: I have reviewed the radiologist's reading. Radiologist Impression: Procedure(s): XR chest 2V Accession Number(s): [id number] cc: Violeta Hussein MD; Physician,Unknown ~ EXAMINATION: XR CHEST CLINICAL INFORMATION: SOB COMPARISON: February 13, 2023. TECHNIQUE: 2 views of the chest were obtained. FINDINGS: Opacities with meniscal shaped in both lower hemithoraces more conspicuous on the left side. Prominence of the interstitial lung markings with indistinct margins in the pulmonary hilum and cardiomediastinal silhouette. No pneumothorax. S-shaped curvature of the thoracolumbar spine. Multilevel lumbar spondylosis. Vertebral plana, probable L1 versus T12. XR/XR chest 2V IMPRESSION: Pulmonary edema and bilateral pleural effusions, (right with cardiomegaly versus pericardial effusion. Scoliosis, thoracolumbar spine and multilevel spondylosis. Old compression fracture deformity probable L1 versus T12 vertebra. Electronically signed by: Antoni Cobb MD 06/21/2024 09:28 AM [facility] Procedure(s): CT chest wo IV con Accession Number(s): [id number] cc: Physician,Unknown ; Yesenia Eaton~ Report Number: [id number]: Total DLP = 220.00 mGy-cm EXAMINATION: CT CHEST WITHOUT IV CONTRAST INDICATION: right sided chest pain, MULLIGAN COMPARISON: Correlation is made with the lateral views of the chest performed earlier in the day. TECHNIQUE: Helical CT scan of the chest was performed without intravenous contrast. Coronal and sagittal reformatted images were generated and reviewed. This CT exam was performed with one or more of the following dose reduction techniques: automated exposure control, adjustment of the mA and/or kV according to patient size, use of iterative reconstruction technique. DLP: 220 mGy-cm CHEST: THYROID: The thyroid is unremarkable. LUNGS: There is mild respiratory motion artifact. There are no focal airspace opacities. MEDIASTINUM: There is no mediastinal lymphadenopathy. JOSE: Evaluation of the hilar regions is limited by lack of intravenous contrast material. CARDIOVASCULATURE: The heart is markedly enlarged. There is no pericardial effusion. The thoracic aorta is normal in caliber. DEGREE OF CORONARY CALCIFICATION: none PLEURA: There are moderate bilateral pleural effusions. No pneumothorax. MAIN AIRWAYS: The mainstem bronchi and proximal branches are patent. AXILLA: There is no axillary lymphadenopathy. BONES AND SOFT TISSUES: There is a large hiatal hernia. UPPER ABDOMEN: The visualized portions of the liver, spleen, and adrenals have an unremarkable unenhanced appearance. CT/CT chest wo IV con IMPRESSION: Cardiomegaly and moderate bilateral pleural effusions. Large hiatal hernia. Electronically signed by: Boyd Barton MD 06/21/2024 12:28 PM [facility] External Record Review External record reviewed: Inpatient record Prescription Management I considered prescription management with: Other (lasix, eliquis) Chronic Conditions Patient?s care impacted by: Hypertension and Other (CAD, afib) Social Determinants Patient?s care significantly limited by Social Determinants of Health including: Other Social Determinant of Health Critical Care Time Critical Care Time Critical Care Time: Yes Total Critical Care Time: 35 Attestation: Critical care time in the amount of 35 minutes has been provided to the patient in terms of direct patient care, frequent reevaluation, consultation with hospitalist and Cardiology, review and interpretation of medical data and results, and management of potentially life-threatening conditions. This is all outside of any medical procedures. Discharge Plan Discharge Clinical Impression: Atrial fibrillation, CHF (congestive heart failure) Patient Disposition: Admitted As Inpatient Print Language: Citizen Of [place]
[2024-06-21 11:47] LABS: B Type Natriuretic Peptide 1034 pg/mL (<100)
--- NOTE | 2024-06-21 13:35 | P.HPHOSP_ITS ---
History of Present Illness Date of Service: 06/21/24 Chief Complaint: chest pain and shortness of breath A 63-year-old female with a history of hypertension, suspected coronary artery disease (CAD) based on echocardiogram and EKG findings (transient ST depressions post-surgery and inferolateral wall akinesis on echo dated 10/22/2022), left bundle branch block (LBBB), and a recent diagnosis of atrial fibrillation (05/04/2024), presents to the ED with chest pain and shortness of breath. She was started on Eliquis for atrial fibrillation, which she has been taking for one month, and has a scheduled cardiology follow-up. The patient reports intermittent chest pain and shortness of breath. On the day of presentation, she experienced significant breathlessness while trying to catch a bus, requiring frequent pauses to catch her breath. She describes the chest pain as right-sided and denies associated symptoms such as nausea, vomiting, or diaphoresis. She also reports paroxysmal nocturnal dyspnea (PND) and orthopnea. In the ED, her ECG showed atrial fibrillation with a controlled ventricular rate. Troponin I was normal, BNP was elevated at 1034, and chest imaging (CXR and CT) revealed pulmonary edema. She was treated with 40 mg of IV Lasix. Review of Systems 2 Review of Systems: Gen: no fever Resp: + sob, no cough CV: + chest, + MULLIGAN, no leg edema GI: No n/v, no abd pain Neuro: No confusion Yes all other systems are reviewed and are negative [facility] Medical History Endometrioid adenocarcinoma of uterus Ovarian mass Uterine fibroid Left flank pain Skin lesion Mild major depression, single episode Urge urinary incontinence STEPHAN (generalized anxiety disorder) Hypovitaminosis D Developmental delay, mild Depression with anxiety Essential hypertension Pernicious anemia Family History Father Heart attack Mother Dementia Other Mental and behavioral problem in adult Surgical History Status post total hysterectomy and bilateral salpingo-oophorectomy History of tooth extraction History of H/O tubal ligation Social History Household Members: Children Housing: House Do you presently have visiting nurse or other home services: 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 If so, by whom?: No Do you feel safe in your current relationship?: Yes Is there a partner from a previous relationship who is making you feel unsafe now?: No Are you made to feel afraid or neglected: No Advance Directives: No Advance Directives Information Provided: Yes Do you have a plan to hurt others: No Plan Recently lost weight without trying: No Nutrition Risks: No Nutritional Risk Patient : No : No Poor oral hygiene: No service: No Current occupational status: disabled Cognitive needs: Yes Hearing needs: No Vision needs: No Meds Allergies Allergy/AdvReac Type Severity Reaction Status Date / Time amoxicillin [AMOXICILLIN] Allergy Intermediate ? RASH Verified 06/21/24 08:28 clonazepam [From KLONOPIN] Allergy Intermediate ? RASH Verified 06/21/24 08:28 lorazepam [LORAZEPAM] Allergy Intermediate ? RASH Verified 06/21/24 08:28 mirtazapine [From REMERON] Allergy Intermediate RASH Verified 06/21/24 08:28 naproxen [From NAPROSYN] Allergy Intermediate ? RASH Verified 06/21/24 08:28 Sulfa (Sulfonamide Allergy Intermediate ? RASH Verified 06/21/24 08:28 Antibiotics) [SULFA(SULFONAMIDE ANTIBIOTICS)] fluoxetine [Prozac] Allergy Mild rash Verified 06/21/24 08:28 From TUSSIONEX PENNKINETIC ER Allergy Intermediate ? RASH Uncoded 06/21/24 08:28 Home Medications ?Medication ?Instructions ?Recorded ?Confirmed ?Last Taken ?Type citalopram 40 mg tablet 40 mg PO DAILY 02/16/20 06/21/24 06/21/24 History bupropion HCl 150 mg tablet,12 hr 150 mg PO DAILY 12/05/20 06/21/24 06/21/24 History sustained-release aspirin 81 mg chewable tablet 1 tab PO DAILY 06/21/24 06/21/24 06/21/24 History carvedilol 6.25 mg tablet 6.25 mg PO BID 06/21/24 06/21/24 06/21/24 History cyanocobalamin (vitamin B-12) 1,000 mcg PO DAILY 06/21/24 06/21/24 06/21/24 History 1,000 mcg tablet lisinopril 10 mg tablet 10 mg PO DAILY 06/21/24 06/21/24 06/21/24 History Physical Exam 2 Vital Signs and Narrative: Vital Signs: Last Vital Signs Temp 97.3 F 06/21/24 08:14 Pulse 93 06/21/24 08:14 Resp 18 06/21/24 08:14 BP 161/87 H 06/21/24 08:14 Pulse Ox 95 06/21/24 08:14 O2 Del Method Room Air 06/21/24 08:14 BMI result Body Mass Index 29.9 Const: Other: General: AO X 3, no acute distress HEENT; normal sclera and normal eye movement Resp: CTA bilateral CVS: S1,S2, iregular iregular, systolic murmr, no JVD, trace pedal edema GI: +BS, NT, no distention Skin: No rash Neuro: motor grossly intact Psych: appropriate affect Results Labs 06/21/24 09:00 06/22/24 05:26 Labs: Laboratory Results - last 24 hr 06/21/24 06/21/24 09:00 12:07 MCV 89.5 MCH 28.5 MCHC 31.9 RDW 13.6 Plt Count 312 MPV 9.8 Immature Gran % (Auto) 0.4 Neut % (Auto) 84.9 H Lymph % (Auto) 7.5 L [place] % (Auto) 4.7 Eos % (Auto) 1.1 Baso % (Auto) 1.4 Lymph # (Auto) 0.5 L [place] # (Auto) 0.3 Eos # (Auto) 0.1 Baso # (Auto) 0.1 Abs Immat Gran (auto) 0.03 Absolute Neuts (auto) 6.0 Absolute Nucleated RBC 0.000 Nucleated RBC % (auto) 0.0 PT 13.5 H INR 1.2 H Anion Gap 13 Estim Creat Clear Calc 56.0 Estimated GFR > 60 Random Glucose 130 H Calcium 9.3 D Troponin I High Sens 13.4 15.0 B-Natriuretic Peptide 1034 H Influenza Type A (PCR) NEGATIVE Influenza Type B (PCR) NEGATIVE RSV RNA Qual (PCR) NEGATIVE SARS-CoV-2 RNA (RT-PCR) NEGATIVE Imaging Radiologist's Impressions: Impressions Chest X-Ray 06/21/24 08:25 IMPRESSION: Pulmonary edema and bilateral pleural effusions, (right with cardiomegaly versus pericardial effusion. Scoliosis, thoracolumbar spine and multilevel spondylosis. Old compression fracture deformity probable L1 versus T12 vertebra. Electronically signed by: Antoni Cobb MD 06/21/2024 09:28 AM EST RP Chest CT 06/21/24 11:55 IMPRESSION: Cardiomegaly and moderate bilateral pleural effusions. Large hiatal hernia. Electronically signed by: Boyd Barton MD 06/21/2024 12:28 PM EST RP Assessment and Plan (1) Acute heart failure: Status: Acute (2) Chronic a-fib: Status: Acute Plan 63 year old female with CAD, HTN, chronic afib here with chest pain and CHF exacerbation, suspce HFpEF Acute, EF unspecified at this time IV Lasix 40 bid echocardiogram tomorrow cardiology consult low sodium diet monitor I/o, daily weight monitor electrolytes chronic AFIB, rate controlled restart rate control agents (coreg) restart Eliquis HTN restart meds once med rec completed mood disorder, continue home meds dvt prophylaxis--Eliquis, Full code regular diet at least 2 midnights admit for new heart failure, needing iv diuretics and close monitoring of electrolytes, expert consultation Quality Stroke Does the patient have a stroke diagnosis?: No VTE Prior VTE?: No VTE Risk Level:: Medical - moderate - high VTE Device Contraindication: Treatment Not Indicated VTE Drug Contraindication: N/A - Med Ordered
[2024-06-21 14:50] VITALS: BP 138/86; PULSE 71; RESP 26; TEMP 36.7; O2SAT 95
[2024-06-21] MEDS: Apixaban 5 MG TABLET PO ×2 (14:52→22:00)
[2024-06-21] MEDS: Furosemide 40 MG/4 ML VIAL IVPUSH ×2 (14:52→18:30)
--- NOTE | 2024-06-21 16:23 | PHA.MEDREC ---
Addendum entered by Natividad Alicea RPh 06/21/24 17:39: [facility] REVIEWED Original Note: Pharmacy Consult ? Medication Reconciliation Pharmacy has completed the medication reconciliation. Spoke with patient and she had a list on hand that she was able to confirm with me. She states she is not taking the Eliquis 5mg anymore and has not in at least a month. She states she is taking the Vitamin B-12 tablet daily even tho it is written that she takes it once a week but doesn't remember taking a medication once a week. She states she still has Amlodipine 10mg and Citalopram 40mg tablets at home and is still taking them once daily. She states she took her morning medications this morning.
--- NOTE | 2024-06-21 17:00 | CA_ITS ---
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 Severely reduced LV ejection fraction of 25-30% with restrictive filling pattern 2. At least moderately dilated left atrium 3. Moderate eccentric mitral regurgitation with moderate mitral annular calcification 4. Mildly to moderately elevated right ventricular systolic pressure was significantly elevated right atrial pressures 5. Upper limits of normal ascending aortic size 6. No gross pericardial effusion Findings Left Ventricle Normal left ventricular cavity size. There is normal left ventricular wall thickness. The left ventricular systolic function is severely decreased. The visually estimated ejection fraction is between 25-30%. There is severe global hypokinesis. Spectral Doppler is indicative of a restrictive filling pattern. Right Ventricle Normal right ventricular cavity size and systolic function. Atria The left atrium is moderately dilated. There is no evidence of interatrial shunt. The right atrium is mildly dilated. Aortic Valve Normal aortic valve structure and function. There is no aortic valve stenosis. There is no aortic valve regurgitation. Mitral Valve There is mild anterior and moderate posterior mitral leaflet thickening. There is moderate mitral annular calcification. There is moderate mitral valve regurgitation. There is no mitral valve stenosis. Pulmonic Valve The pulmonic valve is likely normal. Tricuspid Valve Likely normal tricuspid valve structure and function. There is mild tricuspid valve regurgitation. Significantly elevated right atrial pressure. Mild to moderate pulmonary hypertension is present. Great Vessels All visible segments of the aorta are normal in size. The pulmonary artery was not well visualized. There is no dilatation of the ascending aorta measuring 3.50 cm. Venous The inferior vena cava is moderately dilated and does not collapse with inspiration. Pericardium/Pleural There is no evidence of pericardial effusion. Prior Study Comparison no previous study in the last 5 years for comparison Measurements 2D Linear Measurements IVSd: 1.01 0.6-0.9/0.6-1.0 cm LVIDd: 5.32 3.9-5.3/4.2-5.9 cm LVIDd Index: 3.37 2.4-3.2/2.2-3.1 cm/m2 LVIDs: 4.70 2.0-3.6 cm LVPWd: 1.06 0.7-1.1 cm LA Diam: 4.80 2.7-3.8/3.0-4.0 cm LAIDs Index: 3.04 1.5-2.3 cm/m2 LV Mass: 255.35 67-162/88-224 g LV Mass Index: 161.61 43-95/49-115 g/m2 LVOT Diam: 2.00 3.0+(-)1.3 cm 2D Systolic Function EF 4C: 27.80 >55% EF 2C: 28.60 >55% EF BiP: 27.50 >55% Mitral Valve MV Pk E: 1.24 Aortic Valve AoV Pk Juan Manuel: 1.07 AoV Pk Grad: 5.00 KARINA: 2.79 LVOT LVOT Pk Juan Manuel: 0.95 LVOT Mn Juan Manuel: 0.73 LVOT VTI: 0.16 LVOT Pk Grad: 4.00 LVOT Mn Grad: 3.00 LVOT Diam: 2.00 LVOT Area: 3.14 Diastolic Function MV Pk E: 1.24 Right Ventricle TAPSE (mm): 15.50 TVS' Juan Manuel: 9.80 Tricuspid Valve TR Pk Juan Manuel: 2.88 TR Pk Grad: 33.00 RA Press: 15.00 RVSP: 48.00 Great Vessels Aorta Sinus of Valsalva: 3.00 2.0-3.5 cm Ao Asc: 3.50 2.1-3.4 cm Pulmonary Valve PV Pk Juan Manuel: 0.95 Peak PV Grad: 4.00 Updated in Other Vendor System with Status of Final Stephen Barragan MD electronically signed on 06/21/2024 3:56:43 PM with status of Final
[2024-06-21 18:30] VITALS: BP 138/77; PULSE 87; RESP 20; TEMP 36.6; O2SAT 93
--- NOTE | 2024-06-21 19:23 | PC.NURSE ---
assumed care of pt at 191 report received from Juliette GARCIA
[2024-06-21 19:51] VITALS: BP 133/89; PULSE 82; RESP 18; TEMP 36.6; O2SAT 95
--- NOTE | 2024-06-21 19:53 | PC.NURSE ---
pt resting comfortably on stretcher in no apparent distress, on cardiac sonographer, no rapid AFIB, vital signs updated, call [facility] within reach. pt denies pain, only reporting discomfort when coughing. noted. MD following up on pending admission status. plan of care continues
[2024-06-21 22:05] VITALS: BP 160/80; PULSE 81; RESP 16; TEMP 36.8; O2SAT 93
--- NOTE | 2024-06-21 22:07 | PC.NURSE ---
pt gets self to and from bathroom without issues. steady on feet. given eliquis po per jul. offers no current complaints, call [facility] within reach
[2024-06-21 23:57] VITALS: BP 146/85; PULSE 76; RESP 16; O2SAT 96
[2024-06-22] VITALS (9 sets, daily range): BP systolic 131–157; BP diastolic 77–98; PULSE 71–91; RESP 15–18; TEMP 36.2–37; O2SAT 93–96; BMI 29.3
[2024-06-22 06:23] LABS: Anion Gap 14 (12-20); Blood Urea Nitrogen 13 mg/dL (9-16); Calcium 9.9 mg/dL (8.4-10.2); Carbon Dioxide 28 mmol/L (22-29); Chloride 104 mmol/L (96-108); Creatinine Clr Calc Pharmacy 56.7; Estimated Glomerular Filt Rate > 60; Glucose Random 110 mg/dL (60-115); Potassium 3.3 mmol/L (3.3-5.1); Sodium 143 mmol/L (135-145)
[2024-06-22 06:24] LABS: B Type Natriuretic Peptide 1252 pg/mL (<100)
[2024-06-22] MEDS: Acetaminophen 325 MG TABLET 650 MG PO (06:24)
[2024-06-22] MEDS: Apixaban 5 MG TABLET PO ×2 (08:11→20:41)
--- NOTE | 2024-06-22 08:25 | PC.NURSE ---
vss and up to date. pt remains in afib on the radiation monitor - HR between 70s-80sbpm. medication administered per provider order. no sob/wob noted. respirations even/unlabored. report given to [employer]. pt pending transfer to floor at this time. plan of care ongoing. call [facility] placed within reach.
--- NOTE | 2024-06-22 09:38 | MHC.CM.PN ---
CM ATTEMPTED TO MEET W/PT HOWEVER PT W/CARDIOLOGY, CM TO REVISIT.
--- NOTE | 2024-06-22 10:46 | MHC.CM.PN ---
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 PT VERIFIES PCP ON FILE IS CORRECT, PT EDUCATED ON AND DECLINES TO COMPLETE A HCP AT THIS TIME, PT AWARE SHE CAN ASK FOR CM IF SHE CHANGES HER MIND.
--- NOTE | 2024-06-22 11:44 | P.CONCA_ITS ---
History of Present Illness History of Present Illness Date of Service: 06/22/24 [facility] reason: atrial fibrillation and congestive heart failure Chief complaint: CHF Narrative: I was consulted to see Gloria in cardiology consultation today for new onset congestive heart failure and atrial fibrillation. She is a 63-year-old female, poor historian and does not know much about her past medical history. 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 It seems from the chart that she was diagnose with atrial fibrillation April and she was started on oral anticoagulation but took it only for a month and then stopped taking Eliquis, thought that she was only supposed to take it for a month. She had a follow-up set up and has been being worked up by Cardiology at [facility] although detailed information is not available. She was no history of heart failure. Who with the recent past she says she has been getting some short of breath. Yesterday she was trying to catch her [place] trying to persaud she got severely short of breath and was having chest pressure. She then made it to the bus who dropped her off near the hospital she came to the emergency room. In the emergency room she was noted to be in atrial fibrillation with controlled ventricular response with elevated BNP in the 1000 range with chest x-ray consistent with pulmonary edema with underlying left bundle-branch block. She was therefore admitted for new onset congestive heart failure. She is not able to provide further history. She does not complain of significant leg edema or abdominal distension. She says she has never had any prior cardiac issues as per her. Echocardiogram done yesterday shows severely reduced LV ejection fraction of 25-30% with at least moderately dilated left atrium with moderate eccentric mitral regurgitation with significantly elevated right atrial pressures and [id number] elevated right ventricular systolic pressure. She came to the floor this morning and there was no intake and output chart recorded. Blood pressure is elevated. She says she is breathing better although and has no complains of chest pain. Troponins are flat and negative. BNP yesterday was 1034 this morning is 1252 Review of Systems 2 Constitutional: Constitutional: Reports no additional constitutional complaints Eyes: Eyes: Reports no additional eye complaints Cardiovascular: Cardiovascular: Reports chest pain, Denies lightheadedness, Denies Loss of Consciousness, Denies palpitations, Reports dyspnea on exertion and Reports orthopnea Respiratory: Respiratory: Reports no additional respiratory complaints and Reports dyspnea on exertion Gastrointestinal: Gastrointestinal: Reports no additional gastrointestinal complaints Musculoskeletal: Musculoskeletal: Reports no additional musculoskeletal complaints Neurologic: Reports system reviewed and no additional complaints, except as documented Psychiatric: Psychiatric: Reports no additional psychiatric complaints Endocrine: Endocrine: Reports no additional endocrine complaints and Denies palpitations PMFSH Past Medical History Medical History Endometrioid adenocarcinoma of uterus Ovarian mass Uterine fibroid Left flank pain Skin lesion Mild major depression, single episode Urge urinary incontinence STEPHAN (generalized anxiety disorder) Hypovitaminosis D Developmental delay, mild Depression with anxiety Essential hypertension Pernicious anemia Family History Family History Father Heart attack Mother Dementia Other Mental and behavioral problem in adult Surgical History Surgical History Status post total hysterectomy and bilateral salpingo-oophorectomy History of tooth extraction History of H/O tubal ligation Social History Social History Household Members: Children Housing: House Do you presently have visiting nurse or other home services: No (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 If so, by whom?: No Do you feel safe in your current relationship?: Yes Is there a partner from a previous relationship who is making you feel unsafe now?: No Are you made to feel afraid or neglected: No Advance Directives: No Advance Directives Information Provided: Yes Do you have a plan to hurt others: No Plan Recently lost weight without trying: No Nutrition Risks: No Nutritional Risk Patient : No : No Poor oral hygiene: No service: No Current occupational status: disabled Cognitive needs: Yes Hearing needs: No Vision needs: No Meds Allergies Allergy/AdvReac Type Severity Reaction Status Date / Time amoxicillin [AMOXICILLIN] Allergy Intermediate ? RASH Verified 06/21/24 08:28 clonazepam [From KLONOPIN] Allergy Intermediate ? RASH Verified 06/21/24 08:28 lorazepam [LORAZEPAM] Allergy Intermediate ? RASH Verified 06/21/24 08:28 mirtazapine [From REMERON] Allergy Intermediate RASH Verified 06/21/24 08:28 naproxen [From NAPROSYN] Allergy Intermediate ? RASH Verified 06/21/24 08:28 Sulfa (Sulfonamide Allergy Intermediate ? RASH Verified 06/21/24 08:28 Antibiotics) [SULFA(SULFONAMIDE ANTIBIOTICS)] fluoxetine [Prozac] Allergy Mild rash Verified 06/21/24 08:28 From TUSSIONEX PENNKINETIC ER Allergy Intermediate ? RASH Uncoded 06/21/24 08:28 Active Medications: Current Medications Acetaminophen (Acetaminophen 325 Mg Tablet) 650 mg PO Q6H PRN PRN Reason: Pain, Mild (Pain Scale 1-3) Last Admin: 06/22/24 06:24 Dose: 650 mg Apixaban (Apixaban 5 Mg Tablet) 5 mg PO BID [facility] Last Admin: 06/22/24 08:11 Dose: 5 mg Furosemide (Furosemide 40 Mg/4 Ml Vial) 40 mg IVPUSH BIDWM [facility]; Protocol Last Admin: 06/22/24 08:11 Dose: 40 mg Home Medications ?Medication ?Instructions ?Recorded ?Confirmed ?Last Taken ?Type citalopram 40 mg tablet 40 mg PO DAILY 02/16/20 06/21/24 06/21/24 History bupropion HCl 150 mg tablet,12 hr 150 mg PO DAILY 12/05/20 06/21/24 06/21/24 History sustained-release aspirin 81 mg chewable tablet 1 tab PO DAILY 06/21/24 06/21/24 06/21/24 History carvedilol 6.25 mg tablet 6.25 mg PO BID 06/21/24 06/21/24 06/21/24 History cyanocobalamin (vitamin B-12) 1,000 mcg PO DAILY 06/21/24 06/21/24 06/21/24 History 1,000 mcg tablet lisinopril 10 mg tablet 10 mg PO DAILY 06/21/24 06/21/24 06/21/24 History Physical Exam 2 Vital Signs: Vital Signs: Last Vital Signs Temp 98.0 F 06/22/24 11:09 Pulse 80 06/22/24 11:09 Resp 18 06/22/24 11:09 BP 157/96 H 06/22/24 11:09 Pulse Ox 95 06/22/24 11:09 O2 Del Method Room Air 06/22/24 11:09 BMI result Body Mass Index 29.3 Const: General: cooperative, comfortable, alert and awake Nutritional Appearance: average body habitus Orientation/consciousness: patient oriented x3 HEENT: Head: Yes normocephalic and Yes atraumatic Neck: Neck: Yes trachea midline, Yes supple and Yes JVD Resp: Effort & Inspection: normal respiratory effort Auscultation: crackles bilateral Cardio: Rhythm: abnormal rhythm irregularly irregular Heart sounds: S1 normal heart sound present, S2 normal heart sound present, no click, no gallops and no murmurs GI: Auscultation: normal bowel sounds Skin: General skin exam: no rashes or lesions noted Neuro: General: patient oriented x3 and no focal motor deficits Extrem: General: No clubbing, No cyanosis and Yes edema Psych: Appearance: grossly normal Objective Labs and Meds 06/21/24 09:00 06/22/24 05:26 Lab results: Laboratory Results - last 24 hr 06/21/24 06/21/24 06/22/24 09:00 12:07 05:26 Sodium 143 Potassium 3.3 Chloride 104 Carbon Dioxide 28 Anion Gap 14 BUN 13 Creatinine 0.81 Estim Creat Clear Calc 56.7 Estimated GFR > 60 Random Glucose 110 Calcium 9.9 D Troponin I High Sens 15.0 B-Natriuretic Peptide 1034 H 1252 H Imaging Radiologist's impression: Impressions Chest CT 06/21/24 11:55 IMPRESSION: Cardiomegaly and moderate bilateral pleural effusions. Large hiatal hernia. Electronically signed by: Boyd Barton MD 06/21/2024 12:28 PM [facility] Assessment and Plan (1) Acute heart failure: Status: Acute Acute systolic congestive heart failure with decompensation of unclear etiology. Echocardiogram shows severe LV systolic dysfunction question ischemic. Will need further workup. Clinically appears to be in heart failure at this point time. Continue IV diuresis with Lasix 40 mg b.i.d.. Strict intake and output chart needs to be pursued. Start neurohormonal modulation with Entresto 24/26 mg b.i.d.. She is on carvedilol therapy as outpatient and that can be continued if she has been getting it otherwise hold it till she is more euvolemic prior to starting it again. Will need further additional therapy as we go along. Strict intake output chart needs to be pursued. Follow renal function as well as electrolytes. Please trend BNP tomorrow. Will continue to monitor and follow-up. (2) Atrial fibrillation: Status: Acute Atrial fibrillation appears to be recent onset since April of 2024. Rate is controlled. If continued on carvedilol as outpatient should continue for now. Agree with oral anticoagulation with Eliquis for now and will eventually consider rhythm control approach. Overall management is difficult due to patient's lack of understanding of overall her clinical condition. CHF education to be provided. Will follow Procedures Date of Service Date of Service: 06/22/24
--- NOTE | 2024-06-22 13:12 | P.PNIM_ITS ---
Subjective Subjective Date of Service: 06/22/24 Interval History: Follow-up on acute heart failure exacerbation. Patient is feeling better following diuresis. She no longer has chest pain and reporting no shortness of breath Physical Exam 2 Vital Signs: Vital Signs: Last Vital Signs Temp 98.0 F 06/22/24 11:09 Pulse 80 06/22/24 11:09 Resp 18 06/22/24 11:09 BP 157/96 H 06/22/24 11:09 Pulse Ox 95 06/22/24 11:09 O2 Del Method Room Air 06/22/24 11:09 BMI result Body Mass Index 29.3 Const: Other: General: AO X 3, no acute distress HEENT; normal sclera and normal eye movement Resp: CTA bilateral CVS: S1,S2, iregular iregular, systolic murmr, no JVD, trace pedal edema GI: +BS, NT, no distention Skin: No rash Neuro: motor grossly intact Psych: appropriate affect General: cooperative, comfortable, alert and awake Nutritional Appearance: average body habitus Orientation/consciousness: patient oriented x3 HEENT: Head: Yes normocephalic and Yes atraumatic Neck: Neck: Yes trachea midline, Yes supple and Yes JVD Resp: Effort & Inspection: normal respiratory effort Auscultation: crackles bilateral Cardio: Rhythm: abnormal rhythm irregularly irregular Heart sounds: S1 normal heart sound present, S2 normal heart sound present, no click, no gallops and no murmurs GI: Auscultation: normal bowel sounds Skin: General skin exam: no rashes or lesions noted Neuro: General: patient oriented x3 and no focal motor deficits Extrem: General: No clubbing, No cyanosis and Yes edema Psych: Appearance: grossly normal Objective Data Active Medications Acetaminophen (Acetaminophen 325 Mg Tablet) 650 mg PO Q6H PRN PRN Reason: Pain, Mild (Pain Scale 1-3) Last Admin: 06/22/24 06:24 Dose: 650 mg Documented By: ANANTH Apixaban (Apixaban 5 Mg Tablet) 5 mg PO BID [facility] Last Admin: 06/22/24 08:11 Dose: 5 mg Documented By: SHAINA Aspirin (Aspirin 81 Mg Tab.Chew) 81 mg PO DAILY [facility] Bupropion HCl (Bupropion Hcl Xl 150 Mg Tab.Er.24h) 150 mg PO DAILY [facility] Carvedilol (Carvedilol 6.25 Mg Tablet) 6.25 mg PO BID [facility]; Protocol Cyanocobalamin (Cyanocobalamin (Vitamin B-12) 1,000 Mcg Tablet) 1,000 mcg PO DAILY [facility] Folic Acid (Folic Acid 1 Mg Tablet) 1 mg PO DAILY [facility] Furosemide (Furosemide 40 Mg/4 Ml Vial) 40 mg IVPUSH BIDWM [facility]; Protocol Last Admin: 06/22/24 08:11 Dose: 40 mg Documented By: SHAINA Non-Formulary Medication (Citalopram) 40 mg PO DAILY [facility] Sacubitril/Valsartan (Sacubitril/Valsartan 1 Tab Tablet) 1 tab PO BID [facility]; Protocol Vitamin D (Cholecalciferol (Vitamin D3) 25 Mcg Tablet) 50 mcg PO DAILY [facility] Labs 06/21/24 09:00 06/22/24 05:26 Labs: Laboratory Results - last 24 hr 06/22/24 05:26 Anion Gap 14 Estim Creat Clear Calc 56.7 Estimated GFR > 60 Random Glucose 110 Calcium 9.9 D B-Natriuretic Peptide 1252 H Assessment and Plan (1) Chronic a-fib: Status: Acute (2) CHF (congestive heart failure): Status: Acute (3) Essential hypertension: Status: Acute Plan 63 year old female with CAD, HTN, chronic afib here with chest pain and CHF exacerbation, suspce HFpEF Acute HFrEF, EF 25-30%, clinically better continue IV Lasix 40 bid cardiology recommends entresto continue Coreg, may need aldactone later low sodium diet monitor I/o, daily weight monitor electrolytes chronic AFIB, rate controlled restarting coreg restart Eliquis HTN coreg as above stop mood disorder, continue home meds dvt prophylaxis--Eliquis, Full code regular diet at least 2 midnights admit for new heart failure, needing iv diuretics and close monitoring of electrolytes, expert consultation Quality Stroke Does the patient have a stroke diagnosis?: No VTE Prior VTE?: No VTE Risk Level:: Medical - moderate - high VTE Device Contraindication: Treatment Not Indicated VTE Drug Contraindication: N/A - Med Ordered
[2024-06-22] MEDS: Furosemide 40 MG/4 ML VIAL IVPUSH ×2 (14:06→20:41)
[2024-06-22] MEDS: Folic Acid 1 MG TABLET PO (14:09)
[2024-06-22] MEDS: Cholecalciferol (Vitamin D3) 25 MCG TABLET 50 MCG PO (14:09)
[2024-06-22] MEDS: buPROPion HCl XL 150 MG TAB.ER.24H PO (14:09)
[2024-06-22] MEDS: Aspirin 81 MG TAB.CHEW PO (14:10)
[2024-06-22] MEDS: Cyanocobalamin (Vitamin B-12) 1,000 MCG TABLET 1000 MCG PO (14:10)
[2024-06-22] MEDS: Escitalopram Oxalate 20 MG TABLET PO (14:10)
[2024-06-22] MEDS: carvediloL 6.25 MG TABLET PO ×2 (14:10→20:41)
[2024-06-22] MEDS: Sacubitril/Valsartan 24/26 1 TAB TABLET PO (20:41)
[2024-06-23 04:00] VITALS: BP 104/67; PULSE 62; RESP 16; TEMP 36.2; O2SAT 94
[2024-06-23 06:41] LABS: Anion Gap 12 (12-20); Blood Urea Nitrogen 14 mg/dL (9-16); Calcium 9.7 mg/dL (8.4-10.2); Carbon Dioxide 32 mmol/L (22-29); Chloride 100 mmol/L (96-108); Creatinine Clr Calc Pharmacy 59.7; Estimated Glomerular Filt Rate > 60; Glucose Random 119 mg/dL (60-115); Potassium 3.1 mmol/L (3.3-5.1); Sodium 141 mmol/L (135-145)
[2024-06-23 06:47] LABS: B Type Natriuretic Peptide 850 pg/mL (<100)
[2024-06-23 07:10] VITALS: BP 150/79; PULSE 78; RESP 18; TEMP 36; O2SAT 94
[2024-06-23] MEDS: carvediloL 6.25 MG TABLET PO ×2 (09:05→20:24)
[2024-06-23] MEDS: Folic Acid 1 MG TABLET PO (09:05)
[2024-06-23] MEDS: Potassium Chloride Packet 20 MEQ PACKET 40 MEQ PO (09:05)
[2024-06-23] MEDS: Furosemide 40 MG/4 ML VIAL IVPUSH ×2 (09:05→18:11)
[2024-06-23] MEDS: buPROPion HCl XL 150 MG TAB.ER.24H PO (09:05)
[2024-06-23] MEDS: Apixaban 5 MG TABLET PO ×2 (09:06→20:24)
[2024-06-23] MEDS: Cholecalciferol (Vitamin D3) 25 MCG TABLET 50 MCG PO (09:06)
[2024-06-23] MEDS: Sacubitril/Valsartan 24/26 1 TAB TABLET PO (09:07)
[2024-06-23] MEDS: Aspirin 81 MG TAB.CHEW PO (09:07)
[2024-06-23] MEDS: Escitalopram Oxalate 20 MG TABLET PO (09:07)
[2024-06-23] MEDS: Cyanocobalamin (Vitamin B-12) 1,000 MCG TABLET 1000 MCG PO (09:07)
--- NOTE | 2024-06-23 10:29 | PM.PNCARD ---
Subjective Subjective Date of Service: 06/23/24 Principal diagnosis: CHF, atrial fibrillation. Interval history: Patient says she is breathing better although no output has been recorded for unclear reasons. She is on IV Lasix. She was received Entresto yesterday and tolerated well. Kidney functions are stable. BNP is downtrending. She denies any palpitations. No lightheadedness, syncope. Review of Systems Constitutional: Reports no additional constitutional complaints Cardiovascular: Denies chest pain, Denies lightheadedness, Denies Loss of Consciousness, Denies palpitations and Reports dyspnea on exertion Respiratory: Reports dyspnea on exertion Gastrointestinal: Reports no additional gastrointestinal complaints Musculoskeletal: Reports no additional musculoskeletal complaints Reports system reviewed and no additional complaints, except as documented Endocrine: Denies palpitations Physical Exam Vital Signs: Last Vital Signs Temp 96.8 F 06/23/24 07:10 Pulse 78 06/23/24 07:10 Resp 18 06/23/24 07:10 BP 150/79 H 06/23/24 07:10 Pulse Ox 94 06/23/24 07:10 O2 Del Method Room Air 06/23/24 07:10 BMI result Body Mass Index 29.3 Const General: cooperative, comfortable, alert and awake Nutritional Appearance: average body habitus Orientation/consciousness: patient oriented x3 HEENT Head: Yes normocephalic and Yes atraumatic Neck Neck: Yes trachea midline, Yes supple and Yes JVD Resp Effort & Inspection: normal respiratory effort Auscultation: crackles bilateral Cardio Rhythm: abnormal rhythm irregularly irregular Heart sounds: S1 normal heart sound present, S2 normal heart sound present, no click, no gallops and no murmurs GI Auscultation: normal bowel sounds Skin General skin exam: no rashes or lesions noted Neuro General: patient oriented x3 and no focal motor deficits Extrem General: No clubbing, No cyanosis and Yes edema Psych Appearance: grossly normal Objective Labs and Meds 06/21/24 09:00 06/23/24 05:52 Lab results: Laboratory Results - last 24 hr 06/23/24 05:52 Sodium 141 Potassium 3.1 L Chloride 100 Carbon Dioxide 32 H Anion Gap 12 BUN 14 Creatinine 0.76 Estim Creat Clear Calc 59.7 Estimated GFR > 60 Random Glucose 119 H Calcium 9.7 B-Natriuretic Peptide 850 H Progress Note: A&P Assessment and plan (1) Acute heart failure: Status: Acute Assessment and Plan: Acute systolic heart failure improving although difficult to assess clinically as her output chart is not been well recorded. Discussed with nursing staff about pursuing more accurate output chart. Continue maximize Entresto to 49-51 mg b.i.d. and add spironolactone 12.5 mg to regimen. Continue IV diuresis. Continue monitor renal function electrolytes and check BNP tomorrow. Continue carvedilol therapy which has been present from before. Patient will need an ischemic workup. Out of bed to chair and ambulate as tolerated. (2) Atrial fibrillation: Status: Acute Assessment and Plan: Atrial fibrillation with adequate rate control, persistent since April. Continue carvedilol for rate control. Continue full oral anticoagulation with apixaban. Will follow with you Time Spent With Patient Time: Total time managing care of this patient today ____ minutes. Progress Note: Quality Stroke Does the patient have a stroke diagnosis?: No Procedures Date of Service Date of Service: 06/23/24
[2024-06-23 11:12] VITALS: BP 130/95; PULSE 86; RESP 18; TEMP 36.6; O2SAT 95
--- NOTE | 2024-06-23 12:05 | MHC.CM.PN ---
Addendum entered by Maggie Hendricks RN 06/23/24 12:14: CLARIFICATION PT WILL REMAIN INPT FOR IV DIURETICS, PT CURRENTLY ON IV LASIX BID. Original Note: EMR REVIEWED, PER HOSPITALIST PT WILL REMAIN ONE MORE NIGHT FOR CONTINUED IV ABX, CM WILL CONT TO FOLLOW DC NEEDS.
[2024-06-23] MEDS: Spironolactone 25 MG TABLET 12.5 MG PO (12:27)
--- NOTE | 2024-06-23 14:23 | P.PNIM_ITS ---
Subjective Subjective Date of Service: 06/23/24 Interval History: Follow-up on acute heart failure exacerbation. responding to treatment, no sob Physical Exam 2 Vital Signs: Vital Signs: vitals reviewed and stable. Const: Other: General: AO X 3, no acute distress Resp: CTA bilateral CVS: S1,S2, iregular iregular GI: +BS, NT, no distention Skin: No rash Neuro: motor grossly intact Psych: appropriate affect Objective Data Active Medications Acetaminophen (Acetaminophen 325 Mg Tablet) 650 mg PO Q6H PRN PRN Reason: Pain, Mild (Pain Scale 1-3) Last Admin: 06/22/24 06:24 Dose: 650 mg Documented By: ANANTH Apixaban (Apixaban 5 Mg Tablet) 5 mg PO BID [facility] Last Admin: 06/24/24 09:14 Dose: 5 mg Documented By: MALISSA Bupropion HCl (Bupropion Hcl Xl 150 Mg Tab.Er.24h) 150 mg PO DAILY [facility] Last Admin: 06/24/24 09:14 Dose: 150 mg Documented By: MALISSA Carvedilol (Carvedilol 6.25 Mg Tablet) 6.25 mg PO BID [facility]; Protocol Last Admin: 06/24/24 09:14 Dose: 6.25 mg Documented By: MALISSA Cyanocobalamin (Cyanocobalamin (Vitamin B-12) 1,000 Mcg Tablet) 1,000 mcg PO DAILY [facility] Last Admin: 06/24/24 09:15 Dose: 1,000 mcg Documented By: MALISSA Escitalopram Oxalate (Escitalopram Oxalate 20 Mg Tablet) 20 mg PO DAILY [facility] Last Admin: 06/24/24 09:14 Dose: 20 mg Documented By: MALISSA Folic Acid (Folic Acid 1 Mg Tablet) 1 mg PO DAILY [facility] Last Admin: 06/24/24 09:14 Dose: 1 mg Documented By: MALISSA Furosemide (Furosemide 40 Mg Tablet) 40 mg PO DAILY [facility]; Protocol Last Admin: 06/24/24 09:15 Dose: 40 mg Documented By: MALISSA Sacubitril/Valsartan (Sacubitril/Valsartan 49/51 1 Tab Tablet) 1 tab PO BID [facility]; Protocol Last Admin: 06/24/24 09:14 Dose: 1 tab Documented By: MALISSA Spironolactone (Spironolactone 25 Mg Tablet) 12.5 mg PO DAILY [facility]; Protocol Last Admin: 06/24/24 09:14 Dose: 12.5 mg Documented By: MALISSA Vitamin D (Cholecalciferol (Vitamin D3) 25 Mcg Tablet) 50 mcg PO DAILY [facility] Last Admin: 06/24/24 09:14 Dose: 50 mcg Documented By: MALISSA Labs 06/21/24 09:00 06/24/24 06:54 Labs: Laboratory Results - last 24 hr 06/24/24 06:54 Anion Gap 12 Estim Creat Clear Calc 61.3 Estimated GFR > 60 Random Glucose 116 H Calcium 9.6 B-Natriuretic Peptide 331 H Assessment and Plan (1) Chronic a-fib: Status: Acute (2) CHF (congestive heart failure): Status: Acute (3) Essential hypertension: Status: Acute Plan 63 year old female with CAD, HTN, chronic afib here with chest pain and CHF exacerbation, suspce HFpEF Acute HFrEF, EF 25-30%, improving, BNP down continue IV Lasix 40 bid, change to Po tomorrow cardiology recommends increasing entresto continue Coreg,adding aldactone low sodium diet monitor I/o, daily weight monitor electrolytes chronic AFIB, rate controlled restarting coreg continue Eliquis HTN coreg as above mood disorder, continue home meds dvt prophylaxis--Eliquis, Full code regular diet need for inpt: IV Lasix for heart failure late entry for 06/23 Quality Stroke Does the patient have a stroke diagnosis?: No VTE Prior VTE?: No VTE Risk Level:: Medical - moderate - high VTE Device Contraindication: Treatment Not Indicated VTE Drug Contraindication: N/A - Med Ordered
[2024-06-23 15:44] VITALS: BP 140/81; PULSE 77; RESP 18; TEMP 36.7; O2SAT 95
[2024-06-23 20:00] VITALS: BP 147/93; PULSE 80; TEMP 36; O2SAT 96
[2024-06-23] MEDS: Sacubitril/Valsartan 49/51 1 TAB TABLET PO (20:24)
[2024-06-23 23:49] VITALS: BP 111/70; PULSE 65; RESP 16; TEMP 36; O2SAT 96
[2024-06-24] VITALS (7 sets, daily range): BP systolic 91–126; BP diastolic 62–79; PULSE 53–88; RESP 16–19; TEMP 36.1–36.5; O2SAT 93–96
[2024-06-24 07:27] LABS: Anion Gap 12 (12-20); Blood Urea Nitrogen 18 mg/dL (9-16); Calcium 9.6 mg/dL (8.4-10.2); Carbon Dioxide 28 mmol/L (22-29); Chloride 102 mmol/L (96-108); Creatinine Clr Calc Pharmacy 61.3; Estimated Glomerular Filt Rate > 60; Glucose Random 116 mg/dL (60-115); Potassium 3.3 mmol/L (3.3-5.1); Sodium 139 mmol/L (135-145)
[2024-06-24 07:33] LABS: B Type Natriuretic Peptide 331 pg/mL (<100)
[2024-06-24] MEDS: Folic Acid 1 MG TABLET PO (09:14)
[2024-06-24] MEDS: Apixaban 5 MG TABLET PO ×2 (09:14→22:25)
[2024-06-24] MEDS: carvediloL 6.25 MG TABLET PO (09:14)
[2024-06-24] MEDS: Aspirin 81 MG TAB.CHEW PO (09:14)
[2024-06-24] MEDS: buPROPion HCl XL 150 MG TAB.ER.24H PO (09:14)
[2024-06-24] MEDS: Cholecalciferol (Vitamin D3) 25 MCG TABLET 50 MCG PO (09:14)
[2024-06-24] MEDS: Spironolactone 25 MG TABLET 12.5 MG PO (09:14)
[2024-06-24] MEDS: Sacubitril/Valsartan 49/51 1 TAB TABLET PO ×2 (09:14→22:26)
[2024-06-24] MEDS: Escitalopram Oxalate 20 MG TABLET PO (09:14)
[2024-06-24] MEDS: Cyanocobalamin (Vitamin B-12) 1,000 MCG TABLET 1000 MCG PO (09:15)
[2024-06-24] MEDS: Furosemide 40 MG TABLET PO (09:15)
--- NOTE | 2024-06-24 11:38 | P.PNCA_ITS ---
Subjective Subjective Date of Service: 06/24/24 Principal diagnosis: CHF, atrial fibrillation. Interval history: Patient is feeling better although she says she wants to stay another day in the hospital. Remains in atrial fibrillation controlled rate. Blood pressure is better controlled. Tolerating medications. 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 BNP is down trended substantially Review of Systems Constitutional: Reports no additional constitutional complaints Eyes: Reports no additional eye complaints Cardiovascular: Denies chest pain, Denies lightheadedness, Denies palpitations and Denies orthopnea Respiratory: Reports no additional respiratory complaints Gastrointestinal: Reports no additional gastrointestinal complaints Reports system reviewed and no additional complaints, except as documented Psychiatric: Reports no additional psychiatric complaints Endocrine: Denies palpitations Hematologic/Lymphatic: Reports no additional hematologic/lymphatic complaints Physical Exam Vital Signs: Last Vital Signs Temp 97.7 F 06/24/24 08:00 Pulse 79 06/24/24 09:14 Resp 19 06/24/24 08:00 BP 116/78 06/24/24 09:15 Pulse Ox 95 06/24/24 08:00 O2 Del Method Room Air 06/24/24 08:00 BMI result Body Mass Index 29.3 Const General: cooperative, comfortable, alert and awake Nutritional Appearance: average body habitus Orientation/consciousness: patient oriented x3 HEENT Head: Yes normocephalic and Yes atraumatic Neck Neck: Yes trachea midline, Yes supple and Yes no JVD Resp Effort & Inspection: normal respiratory effort Auscultation: clear to auscultation bilaterally Cardio Jugular venous distension: no JVD Rhythm: abnormal rhythm irregularly irregular Heart sounds: S1 normal heart sound present, S2 normal heart sound present, no click, no gallops and no murmurs GI Auscultation: normal bowel sounds Skin General skin exam: no rashes or lesions noted Neuro General: patient oriented x3 and no focal motor deficits Extrem General: No clubbing, No cyanosis and Yes edema Psych Appearance: grossly normal Objective Labs and Meds 06/21/24 09:00 06/24/24 06:54 Lab results: Laboratory Results - last 24 hr 06/24/24 06:54 Sodium 139 Potassium 3.3 Chloride 102 Carbon Dioxide 28 Anion Gap 12 BUN 18 H Creatinine 0.74 Estim Creat Clear Calc 61.3 Estimated GFR > 60 Random Glucose 116 H Calcium 9.6 B-Natriuretic Peptide 331 H Progress Note: A&P Assessment and plan (1) Acute heart failure: Status: Acute Assessment and Plan: Acute decompensated congestive heart failure systolic dysfunction of unclear etiology. Will need ischemic workup. Continue current neurohormonal modulation with Entresto, spironolactone, carvedilol. Switch to oral Lasix. Heart failure management discussed. Please provide her with education. Add Jardiance 10 mg to her regimen. Will set up for outpatient testing and follow-up. (2) Atrial fibrillation: Status: Acute Assessment and Plan: Atrial fibrillation persistent for the last 2 months. Not sure if this is causing heart failure or cardiomyopathy as her rate has been very well controlled at this point time. Continue carvedilol therapy. Continue full oral anticoagulation with Eliquis. Will follow up in the clinic in 2 weeks time, sooner p.r.n.. Thank you for allowing me to partake in his care Time Spent With Patient Time: Total time managing care of this patient today ____ minutes. Progress Note: Quality Stroke Does the patient have a stroke diagnosis?: No Procedures Date of Service Date of Service: 06/24/24
--- NOTE | 2024-06-24 14:30 | HO.PM.IMPN ---
Subjective Subjective Date of Service: 06/24/24 Interval History: Doing well, no sob Physical Exam Vital Signs: Vital Signs: Last Vital Signs Temp 96.9 F 06/24/24 11:38 Pulse 88 06/24/24 11:38 Resp 18 06/24/24 11:38 BP 126/71 06/24/24 11:38 Pulse Ox 96 06/24/24 11:38 O2 Del Method Room Air 06/24/24 11:38 BMI result Body Mass Index 29.3 Const: Other: General: AO X 3, no acute distress Resp: CTA bilateral CVS: S1,S2, iregular iregular GI: +BS, NT, no distention Skin: No rash Neuro: motor grossly intact Psych: appropriate affect Objective Data Active Medications Acetaminophen (Acetaminophen 325 Mg Tablet) 650 mg PO Q6H PRN PRN Reason: Pain, Mild (Pain Scale 1-3) Last Admin: 06/22/24 06:24 Dose: 650 mg Documented By: ANANTH Apixaban (Apixaban 5 Mg Tablet) 5 mg PO BID [facility] Last Admin: 06/24/24 09:14 Dose: 5 mg Documented By: MALISSA Bupropion HCl (Bupropion Hcl Xl 150 Mg Tab.Er.24h) 150 mg PO DAILY [facility] Last Admin: 06/24/24 09:14 Dose: 150 mg Documented By: MALISSA Carvedilol (Carvedilol 6.25 Mg Tablet) 6.25 mg PO BID [facility]; Protocol Last Admin: 06/24/24 09:14 Dose: 6.25 mg Documented By: MALISSA Cyanocobalamin (Cyanocobalamin (Vitamin B-12) 1,000 Mcg Tablet) 1,000 mcg PO DAILY [facility] Last Admin: 06/24/24 09:15 Dose: 1,000 mcg Documented By: MALISSA Escitalopram Oxalate (Escitalopram Oxalate 20 Mg Tablet) 20 mg PO DAILY [facility] Last Admin: 06/24/24 09:14 Dose: 20 mg Documented By: MALISSA Folic Acid (Folic Acid 1 Mg Tablet) 1 mg PO DAILY [facility] Last Admin: 06/24/24 09:14 Dose: 1 mg Documented By: MALISSA Furosemide (Furosemide 40 Mg Tablet) 40 mg PO DAILY [facility]; Protocol Last Admin: 06/24/24 09:15 Dose: 40 mg Documented By: MALISSA Sacubitril/Valsartan (Sacubitril/Valsartan 49/51 1 Tab Tablet) 1 tab PO BID [facility]; Protocol Last Admin: 06/24/24 09:14 Dose: 1 tab Documented By: MALISSA Spironolactone (Spironolactone 25 Mg Tablet) 12.5 mg PO DAILY [facility]; Protocol Last Admin: 06/24/24 09:14 Dose: 12.5 mg Documented By: MALISSA Vitamin D (Cholecalciferol (Vitamin D3) 25 Mcg Tablet) 50 mcg PO DAILY [facility] Last Admin: 06/24/24 09:14 Dose: 50 mcg Documented By: MALISSA Labs 06/21/24 09:00 06/24/24 06:54 Labs: Laboratory Results - last 24 hr 06/24/24 06:54 Anion Gap 12 Estim Creat Clear Calc 61.3 Estimated GFR > 60 Random Glucose 116 H Calcium 9.6 B-Natriuretic Peptide 331 H Assessment and Plan (1) Chronic a-fib: Status: Acute (2) CHF (congestive heart failure): Status: Acute (3) Essential hypertension: Status: Acute Plan 63 year old female with CAD, HTN, chronic afib here with chest pain and CHF exacerbation, suspce HFpEF Acute HFrEF, EF 25-30%, much improved, BNP signficantly down [place] to PO lasix today continue entresto, aldactone, coreg add Jardiance low sodium diet monitor I/o, daily weight monitor electrolytes chronic AFIB, rate controlled continue coreg continue Eliquis HTN coreg as above mood disorder, continue home meds dvt prophylaxis--Eliquis, Full code regular diet need for inpt: IV Lasix for heart failure Quality Stroke Does the patient have a stroke diagnosis?: No VTE Prior VTE?: No VTE Risk Level:: Medical - moderate - high VTE Device Contraindication: Treatment Not Indicated VTE Drug Contraindication: N/A - Med Ordered
[2024-06-24] MEDS: Empagliflozin 10 MG TABLET PO (17:02)
[2024-06-25] VITALS: BP 128/74; PULSE 71; RESP 16; TEMP 36.3; O2SAT 98
[2024-06-25 04:00] VITALS: BP 134/84; PULSE 85; RESP 16; TEMP 36.8; O2SAT 95
[2024-06-25] MEDS: Milk of Magnesia 30 ML ORAL.SUSP PO (06:09)
[2024-06-25 07:25] VITALS: BP 114/66; PULSE 83; RESP 20; TEMP 36.4; O2SAT 96
[2024-06-25] MEDS: buPROPion HCl XL 150 MG TAB.ER.24H PO (08:28)
[2024-06-25] MEDS: Apixaban 5 MG TABLET PO (08:29)
[2024-06-25] MEDS: Cyanocobalamin (Vitamin B-12) 1,000 MCG TABLET 1000 MCG PO (08:29)
[2024-06-25] MEDS: Spironolactone 25 MG TABLET 12.5 MG PO ×2 (08:29→12:40)
[2024-06-25] MEDS: Empagliflozin 10 MG TABLET PO (08:29)
[2024-06-25] MEDS: Escitalopram Oxalate 20 MG TABLET PO (08:29)
[2024-06-25] MEDS: Cholecalciferol (Vitamin D3) 25 MCG TABLET 50 MCG PO (08:29)
[2024-06-25] MEDS: Sacubitril/Valsartan 49/51 1 TAB TABLET PO (08:29)
[2024-06-25] MEDS: Folic Acid 1 MG TABLET PO (08:29)
[2024-06-25] MEDS: carvediloL 6.25 MG TABLET PO (08:29)
[2024-06-25] MEDS: Furosemide 40 MG TABLET PO (08:35)
[2024-06-25 11:06] VITALS: BP 109/68; PULSE 75; RESP 20; TEMP 36.2; O2SAT 97
--- NOTE | 2024-06-25 11:49 | PM.DS ---
DS: Providers Provider Date of Service: 06/25/24 Date of admission: 06/21/24 19:58 Date of discharge: 06/25/24 Primary care physician: Marium Rodriguez MD Consults: 06/21/24 13:32 Consult to Cardiology Routine Consulting Provider: [facility] [place] [facility] Reason for consultation: acute heart failure Has provider been notified: Yes DS: Diagnosis Discharge Diagnosis (1) Chronic a-fib: Status: Acute (2) CHF (congestive heart failure): Status: Inactive (3) Essential hypertension: Status: Inactive DS: Summary Hospital Course Hospital Course: admission hpi Chief Complaint: chest pain and shortness of breath A 63-year-old female with a history of hypertension, suspected coronary artery disease (CAD) based on echocardiogram and EKG findings (transient ST depressions post-surgery and inferolateral wall akinesis on echo dated 10/22/2022), left bundle branch block (LBBB), and a recent diagnosis of atrial fibrillation (05/04/2024), presents to the ED with chest pain and shortness of breath. She was started on Eliquis for atrial fibrillation, which she has been taking for one month, and has a scheduled cardiology follow-up. The patient reports intermittent chest pain and shortness of breath. On the day of presentation, she experienced significant breathlessness while trying to catch a bus, requiring frequent pauses to catch her breath. She describes the chest pain as right-sided and denies associated symptoms such as nausea, vomiting, or diaphoresis. She also reports paroxysmal nocturnal dyspnea (PND) and orthopnea. In the ED, her ECG showed atrial fibrillation with a controlled ventricular rate. Troponin I was normal, BNP was elevated at 1034, and chest imaging (CXR and CT) revealed pulmonary edema. She was treated with 40 mg of IV Lasix. hospital course: Patient with known history of coronary artery disease and previously preserved ejection fraction she presented with chest pain and shortness, orthopnea and PND. Checks x-ray show evidence of pulmonary edema, BNP level was 1034, troponin I level was normal, EKG showed chronic atrial fibrillation. Patient was given intravenous Lasix in the emergency room and subsequently admitted, an echocardiogram was obtained and showed ejection fraction of 25-30%. In cardiology will consultation was requested patient was continued on IV diuretic and showed a clinical sign of improvement on a daily basis, and BNP level coming down to 331 from a peak level of 1252. Her symptoms have significantly improved. Her medication management including continuation of a home Coreg, lisinopril was changed to Entresto, Aldactone has been added and titrated up to 25 mg daily. Jardiance 10 mg daily has also been added. She is also initiated on Eliquis for chronic atrial fibrillation, she was previously prescribed a 1 month supply but never followed up. Her electrolyte have been unremarkable thus far. She will be discharged home to follow up with Cardiology and also will have visiting nurse FOR HEART FAILURE EDUCATION. chronic AFIB, rate controlled continue coreg continue Eliquis HTN coreg as above. Lisinopril and Norvasc stopp. Entresto and Aldactone added mood disorder, continue home meds (Lexaproand Bupropion) home with VNA Time Attestation Discharge Coordination Time (in mins): 40 Quality: Safe Use of Opioids Does Pt have an Active Cancer Diagnosis on the Problem List?: No Quality: Stroke Does the patient have a stroke diagnosis?: No Physical Exam Vital Signs: Vital Signs: Last Vital Signs Temp 97.2 F 06/25/24 11:06 Pulse 75 06/25/24 11:06 Resp 20 06/25/24 11:06 BP 109/68 06/25/24 11:06 Pulse Ox 97 06/25/24 11:06 O2 Del Method Room Air 06/25/24 11:06 BMI result Body Mass Index 29.3 Const: Other: General: AO X 3, no acute distress Resp: CTA bilateral CVS: S1,S2, iregular iregular GI: +BS, NT, no distention Skin: No rash Neuro: motor grossly intact Psych: appropriate affect Discharge Plan Discharge Anticipated Discharge Date/Time: 06/25/24 11:41 Patient Disposition: Home Health Service Discharge Diagnosis: Acute heart failure Referrals: Marium Conley MD [Primary Care Provider] - 1 Week Discharge Medications: New Eliquis 5 mg Tablet 5 mg PO BID Qty: 180 0RF sacubitril-valsartan [Entresto] 49-51 mg Tablet 1 tab PO BID Qty: 180 0RF Protocol: Hold for SBP< HOLD for SBP < : 90 furosemide 40 mg Tablet 40 mg PO DAILY Qty: 90 0RF Protocol: Hold for SBP< HOLD for SBP < : 90 Jardiance 10 mg Tablet 10 mg PO DAILY Qty: 90 0RF spironolactone [Aldactone] 25 mg tablet 25 mg PO DAILY Qty: 90 0RF Continued (DME) Shower Chair Misc See Rx Instructions .Route Qty: 1 0RF Rx Instructions: As directed calcium carbonate-vitamin D3 600 mg-10 mcg (400 unit) tablet 1 tab PO DAILY 90 Days Qty: 90 3RF (DME) incontinence pad, liner, disp Pad See Rx Instructions .ROUTE .MEDSUPPLY Qty: 30 11RF Rx Instructions: Use 1 pad once a day prn folic acid 1 mg tablet 1 mg PO DAILY 90 Days Qty: 90 3RF cholecalciferol (vitamin D3) 50 mcg (2,000 unit) capsule 50 mcg PO DAILY 90 Days Qty: 90 3RF (DME) blood pressure monitor Kit See Rx Instructions .Route Qty: 1 0RF Rx Instructions: As directed acetaminophen [Tylenol Extra Strength] 500 mg tablet 1,000 mg PO Q6H PRN (Reason: pain) Qty: 30 0RF carvedilol 6.25 mg tablet 6.25 mg PO BID aspirin 81 mg tablet,chewable 1 tab PO DAILY cyanocobalamin (vitamin B-12) 1,000 mcg tablet 1,000 mcg PO DAILY citalopram 40 mg tablet 40 mg PO DAILY bupropion HCl 150 mg tablet sustained-release 12 hr 150 mg PO DAILY Discontinued amlodipine 10 mg tablet 10 mg PO DAILY Qty: 90 1RF lisinopril 10 mg tablet 10 mg PO DAILY Discharge Orders: Discharge Order (Routine); Ordered 06/25/24 Ordered By: Panfilo Galo Diet: Advance to usual diet Activity on Discharge: As tolerated Stand Alone Forms: Patient Portal Discharge page Print Language: Slovak Care Plan Goals: recovery from decompensated heart failure Health Concerns: Acute systolic heart failure Chronic atrial fibrillation Cardiomyopathy Plan of Treatment: Take Lasix 40 mg daily for heart failure Take Entresto, Jardiance, Aldactone, and Coreg as recommended for heart failure Take Eliquis (apixaban) for blood thinning to prevent stroke Follow-up with the heart doctor Dr. Barragan Please note that Norvasc and lisinopril have been discontinued Assessment: see above Discharge Date/Time: 06/25/24 16:12
--- NOTE | 2024-06-25 12:01 | P.F2F_ITS ---
Service Date Service Date: 06/25/24 Encounter Date of encounter: 06/25/24 Reasons for Services Signs and symptoms assessed: Shortness of breath with minimal effort and at rest Reason for halfway: medication management, medication treatment and teach disease management Homebound: Leaving the home is medically contraindicated at this time without the asist of a device and/or another person due th the listed conditions above and below. Reason homebound: shortness of breath with minimal effort and weakness related to hospital stay Homebound supporting statement: Homebound due to heart failure causes shortness of breath with minimal effort and arrest, cognitive impairment and therefore need the assistance of another person Certification: Based on the above findings, I certify that this patient is confined to the home and needs intermittent halfway care, physical therapy and/or speech therapy, or continues to need occupational therapy. The patient is under my care, and I have initiated the establishment of the plan of care. The patient will be followed by a physician who will periodically review the plan of care. Time Spent With Patient Time: Total time managing care of this patient today ____ minutes.
--- NOTE | 2024-06-25 12:14 | MHC.CM.PN ---
Second IMM 06/25/24, Pt has been medically cleared for DC, she will go home via family transport and have home health services from [facility].
[2024-06-25 12:40] VITALS: BP 110/68
[2024-06-25 12:55] LABS: Anion Gap 13 (12-20); Blood Urea Nitrogen 18 mg/dL (9-16); Calcium 9.7 mg/dL (8.4-10.2); Carbon Dioxide 30 mmol/L (22-29); Chloride 100 mmol/L (96-108); Creatinine Clr Calc Pharmacy 49.8; Estimated Glomerular Filt Rate > 60; Glucose Random 94 mg/dL (60-115); Potassium 3.9 mmol/L (3.3-5.1); Sodium 139 mmol/L (135-145)
--- NOTE | 2024-06-25 13:10 | PM.PNCARD ---
Subjective Subjective Date of Service: 06/25/24 Principal diagnosis: CHF, atrial fibrillation. Interval history: Patient doing a lot better. Denies any symptoms of chest pain or shortness of breath. No palpitations. Heart rate has remained stable. Blood pressure is better controlled. Review of Systems Review of Systems Yes all other systems are reviewed and are negative Physical Exam Vital Signs: Last Vital Signs Temp 97.2 F 06/25/24 11:06 Pulse 75 06/25/24 11:06 Resp 20 06/25/24 11:06 BP 110/68 06/25/24 12:40 Pulse Ox 97 06/25/24 11:06 O2 Del Method Room Air 06/25/24 11:06 BMI result Body Mass Index 29.3 Const General: cooperative, comfortable, alert and awake Nutritional Appearance: average body habitus Orientation/consciousness: patient oriented x3 HEENT Head: Yes normocephalic and Yes atraumatic Neck Neck: Yes trachea midline, Yes supple and Yes no JVD Resp Effort & Inspection: normal respiratory effort Auscultation: clear to auscultation bilaterally Cardio Jugular venous distension: no JVD Rhythm: abnormal rhythm irregularly irregular Heart sounds: S1 normal heart sound present, S2 normal heart sound present, no click, no gallops and no murmurs GI Auscultation: normal bowel sounds Skin General skin exam: no rashes or lesions noted Neuro General: patient oriented x3 and no focal motor deficits Extrem General: No clubbing, No cyanosis and Yes edema Psych Appearance: grossly normal Objective Labs and Meds 06/21/24 09:00 06/25/24 12:19 Lab results: Laboratory Results - last 24 hr 06/25/24 12:19 Sodium 139 Potassium 3.9 Chloride 100 Carbon Dioxide 30 H Anion Gap 13 BUN 18 H Creatinine 0.91 Estim Creat Clear Calc 49.8 Estimated GFR > 60 Random Glucose 94 Calcium 9.7 Progress Note: A&P Assessment and plan (1) Acute heart failure: Status: Acute Assessment and Plan: Acute heart failure significantly improved with severe LV systolic dysfunction of unclear etiology. Will need ischemic workup as outpatient. Continue current therapy with carvedilol, Entresto, Jardiance as well as spironolactone for neurohormonal modulation. Continue current diuretic regimen. Heart failure management was discussed with her and including her daughter. Please provide her with CHF education. Daily weight monitoring avoidance salt loading was discussed. Will set up for follow-up in 2 weeks in the office. (2) Atrial fibrillation: Status: Acute Assessment and Plan: Atrial fibrillation rate controlled on carvedilol therapy. Continue the same. Will most likely require rhythm control approach as an outpatient. Continue full oral anticoagulation with Eliquis. Importance of compliance with medication was discussed. Patient may be discharged from cardiac perspective. Time Spent With Patient Time: Total time managing care of this patient today ____ minutes. Progress Note: Quality Stroke Does the patient have a stroke diagnosis?: No Procedures Date of Service Date of Service: 06/25/24
[2024-06-25 15:24] VITALS: BP 109/80; PULSE 83; RESP 16; TEMP 36; O2SAT 99
--- NOTE | 2024-06-26 10:24 | P.CDIM_ITS ---
PROVIDER RESPONSE TEXT: To clarify, the appropriate diagnosis supported by the clinical indicators: Hypokalemia: resolved QUERY TEXT: PHYSICIAN'S DOCUMENTATION REQUEST Date of Query: 06/25/2024 07:40 AM EST Patient Name: Gloria Garrett Admit Date: 06/22/2024 Dear Panfilo Galo MD, A review of the medical record indicates additional documentation may be needed. Please review below and update the documentation accordingly. Clinical Indicators: LABS: potassium 3.1 3.3 Klor-Con Based on the above, is there a diagnosis that correlates with these lab findings: Hypokalemia resolved, possible, suspected etc. Labs indicate a diagnosis of (please specify) Other (explain) Clinically unable to determine (explain) Thank you, Gardenia Preciado, CCS, CDIS Use of terms such as suspected, likely, concern for, or probable (associated with a specific diagnosi s that is being evaluated, monitored, or treated as if it exists) are acceptable and can be coded in the inpatient se tting, when documented at the time of discharge. Please use your independent medical judgment in providing your response. THIS QUERY IS PART OF THE PERMANENT MEDICAL RECORD
--- NOTE | 2024-06-26 10:24 | P.CDIM_ITS ---
PROVIDER RESPONSE TEXT: To clarify, the appropriate diagnosis supported by the clinical indicators: Paroxysmal atrial fibrillation QUERY TEXT: PHYSICIAN'S DOCUMENTATION REQUEST Date of Query: 06/24/2024 09:46 AM EST Patient Name: Gloria Garrett Admit Date: 06/22/2024 Dear Panfilo Galo MD, A review of the medical record indicates additional documentation may be needed. Please review below and update the documentation accordingly. Clinical Indicators: Progress notes 06/22 - Chronic AFIB Rate controlled Restarting Coreg Restart Eliquis If possible, please provide further specificity regarding atrial fibrillation, such as: Paroxysmal atrial fibrillation Persistent atrial fibrillation Long lasting persistent atrial fibrillation Permanent atrial fibrillation Other (explain) Clinically unable to determine (explain) Thank you, Gardenia Preciado, CCS, CDIS Use of terms such as suspected, likely, concern for, or probable (associated with a specific diagnosi s that is being evaluated, monitored, or treated as if it exists) are acceptable and can be coded in the inpatient se tting, when documented at the time of discharge. Please use your independent medical judgment in providing your response. THIS QUERY IS PART OF THE PERMANENT MEDICAL RECORD
== END 2024-06-25 16:12 | disposition home health service (06) | DRG 291 ==
LOC: HO.ED 15:32 → HO.EDOVER 20:00 → HO.IMC 06-22 07:41
PROVIDERS: Physician Assistant Medical; Admitting Provider Student in an Organized Health Care Education/Training Program; Emergency Provider Emergency Medicine; PCP Internal Medicine; Visit Provider Internal Medicine
DX: I11.0 Hypertensive heart disease with heart failure (principal); I50.21 Acute systolic (congestive) heart failure; I48.0 Paroxysmal atrial fibrillation; I25.10 Atherosclerotic heart disease of native coronary artery without angina pectoris; F39 Unspecified mood [affective] disorder; E87.6 Hypokalemia; Z20.822 Contact with and (suspected) exposure to COVID-19; Z79.82 Long term (current) use of aspirin; Z79.899 Other long term (current) drug therapy
CPT/HCPCS: 0241U; 36415; 71046; 71250; 80048; 83880; 84484; 85025; 85610; 93005; 93306; 99285; J1940; Q9957

== ENCOUNTER → 2024-06-21 08:21 | Outpatient (BNV) | payer OTHER, SELFPAY | PROVIDERS: Emergency Provider Emergency Medicine; Visit Provider Internal Medicine Cardiovascular Disease | DX: I50.20 Unspecified systolic (congestive) heart failure (principal); I34.81 Nonrheumatic mitral (valve) annulus calcification; I27.20 Pulmonary hypertension, unspecified; I34.0 Nonrheumatic mitral (valve) insufficiency; I44.7 Left bundle-branch block, unspecified; I48.91 Unspecified atrial fibrillation | CPT/HCPCS: 93010; 93306 ==

== ENCOUNTER → 2024-06-21 08:25 | Outpatient (BNV) | payer OTHER, SELFPAY | PROVIDERS: Visit Provider Radiology Diagnostic Radiology | DX: J90 Pleural effusion, not elsewhere classified (principal); J81.0 Acute pulmonary edema; I51.7 Cardiomegaly | CPT/HCPCS: 71046; 71250 ==

== ENCOUNTER → 2024-06-21 19:58 | Outpatient (BNV) | payer OTHER, SELFPAY | PROVIDERS: Admitting Provider Student in an Organized Health Care Education/Training Program; Emergency Provider Emergency Medicine; PCP Internal Medicine; Visit Provider Internal Medicine Cardiovascular Disease | DX: I50.9 Heart failure, unspecified (principal); I48.91 Unspecified atrial fibrillation | CPT/HCPCS: 99222 ==

== ENCOUNTER → 2024-06-21 19:58 | Outpatient (BNV) | payer OTHER, SELFPAY | PROVIDERS: Admitting Provider Student in an Organized Health Care Education/Training Program; Emergency Provider Emergency Medicine; PCP Internal Medicine; Visit Provider Internal Medicine | DX: I48.20 Chronic atrial fibrillation, unspecified (principal); I50.9 Heart failure, unspecified; I10 Essential (primary) hypertension | CPT/HCPCS: 99223; 99232; 99233; 99239; G0180 ==

== ENCOUNTER 2024-07-02 12:54 | Outpatient (AMB) | payer OTHER, SELFPAY ==
--- NOTE | 2024-07-02 13:00 | A.OFFPC_ITS ---
Vital Signs 07/02/24 13:02 Height 4 ft 10 in Weight 140 lb 2 oz BMI 29.3 BP 132/84 Blood Pressure Location Lt brachial Position Sitting Pulse 84 Pulse Source Pulse Oximeter Pulse Oximetry (%) 98 Oxygen Delivery Method Room Air Intake Visit Reasons: TCM 06/29 CHF Transportation Consultant Required: No Accompanied by: Self / Same As Patient Allergies amoxicillin [AMOXICILLIN] Allergy (Intermediate, Verified 07/02/24 13:03) ? RASH clonazepam [From KLONOPIN] Allergy (Intermediate, Verified 07/02/24 13:03) ? RASH lorazepam [LORAZEPAM] Allergy (Intermediate, Verified 07/02/24 13:03) ? RASH mirtazapine [From REMERON] Allergy (Intermediate, Verified 07/02/24 13:03) RASH naproxen [From NAPROSYN] Allergy (Intermediate, Verified 07/02/24 13:03) ? RASH Sulfa (Sulfonamide Antibiotics) [SULFA(SULFONAMIDE ANTIBIOTICS)] Allergy (Intermediate, Verified 07/02/24 13:03) ? RASH fluoxetine [Prozac] Allergy (Mild, Verified 07/02/24 13:03) rash From TUSSIONEX PENNKINETIC ER Allergy (Intermediate, Uncoded 07/02/24 13:03) ? RASH Tobacco use date assessed: 07/02/24 Dental Screening Dental Screen Date: 07/02/24 Did you have a dental visit in the last 12 months?: Yes Did you have a dental problem in the last 6 months where you did not have access to dental care?: No Was dental information given to patient?: Patient has dentist HPI TCM TCM Information Date of Discharge 06/25/24 Discharged From [facility] Interactive Contact Date (Reference documentation from this date) 06/29/24 HPI Comments History of Present Illness Details 63 y/o female patient who presents to [facility] for TCM. Pmhx significant for hypertension, suspected coronary artery disease (CAD) based on echocardiogram and EKG findings (transient ST depressions post-surgery and inferolateral wall akinesis on echo dated 10/22/2022), left bundle branch block (LBBB), and a recent diagnosis of atrial fibrillation (05/04/2024),presented to the [facility] with chest pain and shortness of breath. She was admitted on 06/21/24 and discharged home on 06/25/24 due to Acute Heartfailure. Medications discontinued in the hospital: Amlodipine 10 mg tablet and Lisinopril 10 mg. New medications Added: Eliquis 5 mg Tablet, sacubitril-valsartan [Entresto] 49- 51 mg Tablet, furosemide 40 mg Tablet, Jardiance 10 mg Tablet and Spironolactone [Aldactone] 25 mg tablet. [facility] Medical History Endometrioid adenocarcinoma of uterus Ovarian mass Uterine fibroid Left flank pain Skin lesion Mild major depression, single episode Urge urinary incontinence STEPHAN (generalized anxiety disorder) Hypovitaminosis D Developmental delay, mild Depression with anxiety Essential hypertension Pernicious anemia Surgical History Status post total hysterectomy and bilateral salpingo-oophorectomy History of tooth extraction History of H/O tubal ligation Family History Father Heart attack Mother Dementia Other Mental and behavioral problem in adult Social History Household Members: Children Housing: House Do you presently have visiting nurse or other home services: No (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 1. Little interest or pleasure in doing things: not at all 2. Feeling down, depressed, or hopeless: not at all 3. Trouble falling or staying asleep, or sleeping too much: not at all 4. Feeling tired or having little energy: not at all 5. Poor appetite or overeating: not at all 6. Feeling bad about yourself - or that you are a failure or have let yourself or your family down: not at all 7. Trouble concentrating on things, such as reading the newspaper or watching television: not at all 8. Moving or speaking so slowly that other people could have noticed. Or the opposite - being so fidgety or restless that you have been moving around a lot more than usual: not at all 9. Thoughts that you would be better off or of hurting yourself in some way: not at all Total score: 0 Depression Screening Interpretation: Negative Depression Screening Done: Yes 47282 - PHQ-9 Billing: Yes Source: Developed by Drs. Boyd Mcguire, Carrie Dow, Blu Powell and colleagues, with an educational aretha from [email or web address]. Thrive Questionnaire Date Thrive assessed: 07/02/24 I am a: Patient What is your living situation today?: I have a steady place to live Within the past 12 months, did the food you bought not last and you didn't have the money to get more?: Never true Within the past 12 months, did you worry whether your food would run out before you got money to buy more?: Never true Do you have trouble paying for medicines?: No Do you have trouble getting transportation to medical appointments?: No Do you have trouble paying your heating and electricity bill?: No Do you have trouble taking care of your child, family member or friend?: No Do you have trouble with day-to-day activities such as bathing, preparing meals, shopping, managing finances, etc.?: No Are you currently unemployed and looking for a job?: No Are you interested in more education?: No Please select the resources that you would like help with: None Currently or been in a relationship where the following occur: No concerns reported THRIVE Score: 0 AUDIT C Alcohol Use Questionnaire (AUDIT-C) 1. How often do you have a drink containing alcohol?: Never Total Score: 0 Score Reviewed/Action Taken: No STEPHAN-7 AMB Questionnaire STEPHAN-7 Date STEPHAN - 7 assessed: 07/02/24 Feeling nervous, anxious, or on edge: 0 = Not at all Not being able to stop or control worryin = Not at all Worrying too much about different things: 0 = Not at all Trouble relaxin = Not at all Being so restless that it is hard to sit still: 0 = Not at all Becoming easily annoyed or irritable: 0 = Not at all Feeling afraid as if something awful might happen: 0 = Not at all Total STEPHAN-7 score (0-4 normal; 5-9 mild; 10-14 moderate; 15-21 severe): 0 Source: Developed by Drs. Boyd Mcguire, Carrie Dow, Blu Powell and colleagues, with an educational aretha from [email or web address]. Review of Systems Const All systems reviewed & are unremarkable except as noted in HPI and below Physical exam (Primary Care) Vital Signs: Last Vital Signs Pulse 84 07/02/24 13:02 BP 132/84 07/02/24 13:02 Pulse Ox 98 07/02/24 13:02 Oxygen Delivery Method Room Air 07/02/24 13:02 BMI result Body Mass Index 29.3 Tobacco/Smoking Status: Tobacco use Status Tobacco use date assessed 07/02/24 07/02/24 13:12 Patient Tobacco Use Status Never used Tobacco 07/02/24 13:03 Tobacco use type 02/12/24 10:06 e-Cigarette/Vaping Use Never Used 07/02/24 13:03 PHQ-9: PHQ-9 Score PHQ-9: Total score 0 07/02/24 13:14 Depression Screening Interpretation: Negative Thrive Assessment: Date of Thrive Assessment Date Thrive assessed 07/02/24 07/02/24 13:03 Currently or been in a relationship where the following occur: No concerns reported Const General: cooperative and no acute distress Orientation/consciousness: patient oriented x3 Resp Effort & Inspection: normal respiratory effort and able to speak in complete sentences Cardio Rhythm: abnormal rhythm irregularly irregular Heart sounds: S1 normal heart sound present and S2 normal heart sound present Neuro General: patient oriented x3 Coding Level of Care Code TCM Mod MDM <= 14 Days Diagnoses Chronic a-fib I48.20 Additional Codes PHQ-9 - 30667 - PHQ-9 Billing: Yes ([id number]) Time Spent (min) 20 Assessment & Plan Assessment & Plan (1) Chronic a-fib: Code(s): I48.20 - Chronic atrial fibrillation, unspecified Category: Medical Plan: Managed by Cardiology.
[2024-07-02 13:02] VITALS: BP 132/84; PULSE 84; O2SAT 98; BMI 29.3
--- OUTSIDE RECORDS SUMMARY | 2024-07-02 13:23 | XMS_ITS | Clinical Summary ---
Author Organization [facility] ity Address [address] [place] [address] Care Team Providers Care Plate Hanger Name Role Phone Janeth Ferguson MD Primary Care Provider [phone] Social History Tobacco Use Types Packs/Day Years [...] 1960 DTaP,Tdap,and Td Vaccines (1 - Tdap) 09/14/1979 Cervical Cancer Screening: P ap Smear 1981 [...] age to complete this topic Care Teams Plate Hanger Relationship Specialty Start Date End Date Janeth Ferguson MD [address] [place] [address] [address] [facility] [place] [address] PCP - General Internal Medicine 03/31/17
== END 2024-07-02 16:53 | disposition home or self-care (01) ==
PROVIDERS: PCP Internal Medicine; Visit Provider Nurse Practitioner Family
DX: I48.20 Chronic atrial fibrillation, unspecified (principal)

== ENCOUNTER → 2024-07-02 12:54 | Outpatient (BNVA) | payer OTHER, SELFPAY | PROVIDERS: PCP Internal Medicine; Visit Provider Nurse Practitioner Family | DX: I48.20 Chronic atrial fibrillation, unspecified (principal) | CPT/HCPCS: 96127; 99212 ==

== ENCOUNTER → 2024-07-07 09:49 | Outpatient (REF) | payer OTHER, SELFPAY ==
--- NOTE | 2024-07-07 09:53 | CA_ITS ---
Acquisition Time: 2024-07-07 10:00:42 Total Exercise Time: 00:02:00 Test Indications: CHF, CP, SOB Medications: SEE H&P Protocol: LEXISCAN Max HR: 100 BPM 63% of Pred: 157 BPM Max BP: 116/64 mmHG Max Work Load: 1.0 METS Pharmacological stress test with Lexiscan while pt kicks her legs sitting in chair, with reports of SOB, without any arrythmias, with normotensive response to injection. Nondiagnostic EKG for ischemia. In recovery, pt treated with IVP Aminophylline 75 mg to reverse Lexiscan, after which pt feeling back to baseline. Nuclear images pending. Test reviewed with Dr. Downing. Referred By: Stephen Barragan Electronically Signed By: Roni Blanton
--- OUTSIDE RECORDS SUMMARY | 2024-07-07 11:34 | XMS_ITS | Clinical Summary ---
Author Organization [facility] ity Address [address] [place] [address] Care Team Providers Care Thread Spinner Name Role Phone Janeth Ferguson MD Primary Care Provider [phone] Social History Tobacco Use Types Packs/Day Years [...] age to complete this topic Care Teams Thread Spinner Relationship Specialty Start Date End Date Janeth Ferguson MD [address] [place] [address] [address] [facility] [place] [address] PCP - General Internal Medicine 03/31/17
== END ==
LOC: HO.CARD 09:49
PROVIDERS: PCP Internal Medicine; Visit Provider Internal Medicine Cardiovascular Disease
DX: I50.9 Heart failure, unspecified (principal); I48.20 Chronic atrial fibrillation, unspecified
CPT/HCPCS: 93017; J0280; J2785

== ENCOUNTER → 2024-07-07 09:53 | Outpatient (BNV) | payer OTHER, SELFPAY | PROVIDERS: PCP Internal Medicine | DX: R06.02 Shortness of breath (principal) | CPT/HCPCS: 78452; 93016; 93018 ==

== ENCOUNTER 2024-07-22 09:24 | Outpatient (AMB) | payer OTHER, SELFPAY ==
--- NOTE | 2024-07-22 09:28 | A.OFFVIS_ITS ---
Vital Signs 07/22/24 09:30 Height 4 ft 10 in Weight 142 lb 6.698 oz BMI 29.8 BP 146/76 H Blood Pressure Location Rt brachial Position Sitting Pulse 86 Pulse Source Pulse Oximeter Pulse Oximetry (%) 99 Oxygen Delivery Method Room Air Intake Visit Reasons: Colonoscopy Screening Intake Note: NEW PATIENT for Colonoscopy screening, 2nd lifetime colo, last [address] Guillen. Chief Complaint; Pt denies any GI concerns at this time. Phone call was made during appt to get information from family member at home for medications. Assistant Accounting Manager Required: No Accompanied by: Self / Same As Patient Allergies amoxicillin [AMOXICILLIN] Allergy (Intermediate, Verified 07/22/24 09:30) ? RASH chlorpheniramine [From Tussionex] Allergy (Intermediate, Verified 07/22/24 09:30) Rash clonazepam [From KLONOPIN] Allergy (Intermediate, Verified 07/22/24 09:30) ? RASH hydrocodone [From Tussionex] Allergy (Intermediate, Verified 07/22/24 09:30) Rash lorazepam [LORAZEPAM] Allergy (Intermediate, Verified 07/22/24 09:30) ? RASH mirtazapine [From REMERON] Allergy (Intermediate, Verified 07/22/24 09:30) RASH naproxen [From NAPROSYN] Allergy (Intermediate, Verified 07/22/24 09:30) ? RASH Sulfa (Sulfonamide Antibiotics) [SULFA(SULFONAMIDE ANTIBIOTICS)] Allergy (I ntermediate, Verified 07/22/24 09:30) ? RASH fluoxetine [Prozac] Allergy (Mild, Verified 07/22/24 09:30) rash HPI HPI Colonoscopy Screening: Details: 63 year old? female with past medical history of hyperparathyroidism, AFib, on Eliquis, hypercalcemia, myoma, depression, GERD, mild developmental delay, Co ngestive heart failure, diabetes, pernicious anemia is here today for pre colonoscopy screening.? Patient was sent to us by her PCP.? last colonoscopy in [address] Guillen. Patient is here with her SOCIAL WELFARE RESEARCH WORKER. Patient denies any gastrointestinal symptoms in the past or at present.? Denies any personal or family history of gastrointestinal disease, colon polyps, or CRC.? Denies history of difficulty with sedation or anesthesia in the past.? patient reports occasional shortness of breath at night time. Patient is wearing Holter monitor that is returning tomorrow to her star route mail driver's office. Patient does not remember for her star route mail driver is. SOCIAL WELFARE RESEARCH WORKER will call us with the name of provider who can we contacts to clear patient before procedure. Patient was admitted in June with heart failure. Had stress test that did not show any cardiac ischemia, gated LV EF was 32%Negative for history of sleep apnea.? Denies any history of renal, pulmonary, or hepatic disease.?? No history of infectious? diseases like hepatitis A, B, C, HIV or tuberculosis.? [facility] Medical History Chronic a-fib CHF (congestive heart failure) Endometrioid adenocarcinoma of uterus Ovarian mass Uterine fibroid Left flank pain Skin lesion Mild major depression, single episode Urge urinary incontinence STEPHAN (generalized anxiety disorder) Hypovitaminosis D Developmental delay, mild Depression with anxiety Essential hypertension Pernicious anemia Surgical History Status post total hysterectomy and bilateral salpingo-oophorectomy History of tooth extraction History of H/O tubal ligation Family History Father Heart attack Mother Dementia Other Mental and behavioral problem in adult Social History Household Members: Children Housing: House Do you presently have visiting nurse or other home services: No (intake nurse per pt) Unable to assess alcohol history related to: Unknown Alcohol intake: never Patient Tobacco Use Status: Never used Tobacco e-Cigarette/Vaping Use: Never Used Second Hand Smoke Exposure: No service: No Current occupational status: disabled Cognitive needs: Yes Hearing needs: No Vision needs: No Female Reproductive History Menstrual Age of Menarche: 14 Review of Systems Const Denies weight gain and Denies weight loss ENT Reports no additional complaints, Denies dysphagia and Denies odynophagia Card Reports no additional complaints Resp Reports no additional complaints GI Denies abdominal pain, Denies belching, Denies melena, Denies bloating, Denies change in bowel habits, Denies dysphagia, Denies excessive flatus, Denies dyspep flynn, Denies heartburn, Denies diarrhea, Denies loose stools, Denies nausea, Denies odynophagia and Denies vomiting Musc Reports no additional complaints Neuro Reports no additional complaints Psych Reports no additional complaints Endo Reports no additional complaints Physical Exam Const General: healthy appearing, no acute distress and well developed Nutritional Appearance: well nourished Orientation/consciousness: patient oriented x3 Resp Effort & Inspection: normal respiratory effort, able to speak in complete sentences, no tracheal deviation and symmetric chest movement Auscultation: clear to auscultation bilaterally Cardio Rate: regular rate GI Inspection: Yes normal to inspection and No distended Palpation (GI): Soft to palpation, not firm, nontender and No hepatosplenomegaly present Auscultation: normal bowel sounds General: Yes no CVA tenderness Back/Spine/Pelvis Back: no CVA tenderness Skin General skin exam: elasticity normal, turgor normal and dry skin Neuro General: patient oriented x3 Psych Appearance: grossly normal Mental Status: mental status grossly normal Assessment & Plan Assessment & Plan (1) Screen for colon cancer: Code(s): Z12.11 - Encounter for screening for malignant neoplasm of colon Plan Patient denies any GI symptoms. Patient admits to occasional shortness of breath and chest pain. As mentioned above in HPI patient was admitted with Congestive heart failure, stress test completed, no ischemia noted, gated LV EF was 32%. Patient has SOCIAL WELFARE RESEARCH WORKER will call us with the name of the star route mail driver. Please call Cardiology to cleared patient before going for procedure. Denies any issues with anesthesia in the past.? Denies any history of sleep apnea.? No history infectious diseases in the past or present.? Not on any anticoagulation therapy.? No family or personal history of colon cancer or polyps.? Patient denies melena, hematochezia, unintentional weight loss or ribbon like stools.? Discussed at length the pre-procedure,? prep, diet & medications as well as what to expect prior, during and after the procedure.?? Stressed the importance of good bowel prep.? Recommended the use of Vaseline or Calmoseptine OTC & baby wipes with bowel movements to promote comfort.? ?Patient verbalizes understanding and agrees to plan of care.? She was given the opportunity to ask questions and all questions answered.? We will see her after the procedure.? Medications: New polyethylene glycol 3350 (Miralax) As directed by gastroenterology department at [facility] 238 grams PO ONCE 238 grams 0RF Z12.11 - Encounter for screening for malignant neoplasm of colon bisacodyl (Dulcolax (bisacodyl)) take 4 tabs at noon the day before your colonoscopy 20 mg (4 x 5 mg) PO ONCE 1 day 4 tabs 0RF Z12.11 - Encounter for screening for malignant neoplasm of colon Coding Level of Care Code New Pt Level 3 (83242) Diagnoses Screen for colon cancer Z12.11 Time Spent (min) 40 Comment 30 minutes spent with patient and additional 10 minutes spent reviewing her records
[2024-07-22 09:30] VITALS: BP 146/76; PULSE 86; O2SAT 99; BMI 29.8
--- OUTSIDE RECORDS SUMMARY | 2024-07-22 10:59 | XMS_ITS | Clinical Summary ---
Author Organization [facility] ity Address [address] [place] [address] Care Team Providers Care Pens And Pencils Dipper Name Role Phone Janeth Ferguson MD Primary Care Provider [phone] Social History Tobacco Use Types Packs/Day Years [...] age to complete this topic Care Teams Pens And Pencils Dipper Relationship Specialty Start Date End Date Janeth Ferguson MD [address] [place] [address] Dr [address] [facility] [place] [address] PCP - General Internal Medicine 03/31/17
== END 2024-07-22 09:56 | disposition home or self-care (01) ==
LOC: HO.HGI 09:25
PROVIDERS: PCP Internal Medicine; Visit Provider Nurse Practitioner Family
DX: Z01.818 Encounter for other preprocedural examination (principal); Z12.11 Encounter for screening for malignant neoplasm of colon
CPT/HCPCS: 99024

== ENCOUNTER → 2024-07-22 09:24 | Outpatient (BNVA) | payer OTHER, SELFPAY | PROVIDERS: PCP Internal Medicine; Visit Provider Nurse Practitioner Family | DX: Z01.818 Encounter for other preprocedural examination (principal); K21.9 Gastro-esophageal reflux disease without esophagitis | CPT/HCPCS: 99212 ==

== ENCOUNTER 2024-09-02 09:37 | Outpatient (REF) | payer OTHER, SELFPAY ==
--- NOTE | ~2024-09-02 | XR_ITS ---
EXAMINATION: XR CHEST 2 VIEWS HISTORY: I50.20 - Unspecified systolic (congestive) heart failure COMPARISON: Comparison is made with the prior examination dated 06/21/2024. FINDINGS: PA and lateral views of the chest are submitted. The lungs are expanded and clear. There is no pleural effusion, pneumothorax, or pulmonary vascular congestion. The heart is normal in size. There is a large hiatal hernia. There is dextroscoliosis and degenerative disc disease of the spine. XR/XR chest 2V IMPRESSION: Large hiatal hernia. No acute cardiopulmonary abnormality. Electronically signed by: Boyd Barton MD 09/03/2024 02:58 PM EDT
--- OUTSIDE RECORDS SUMMARY | 2024-09-02 12:02 | XMS_ITS | Clinical Summary ---
Author Organization [facility] ity Address [address] [place] [address] Care Team Providers Care Atmospheric Technician Name Role Phone Janeth Fergsuon MD Primary Care Provider Social History Tobacco Use Types Packs/Day Years [...] age to complete this topic Care Teams Atmospheric Technician Relationship Specialty Start Date End Date Janeth Ferguson MD [address] [place] [address] [address] [facility] [place] [address] PCP - General Internal Medicine 03/31/17
[2024-09-02 12:24] LABS: B Type Natriuretic Peptide 410 pg/mL (<100)
[2024-09-02 12:30] LABS: Alanine Aminotransferase 15 U/L (0-31); Albumin Level 4.4 g/dL (3.5-5.0); Alkaline Phosphatase 81 U/L (39-117); Anion Gap 9 (12-20); Aspartate Amino Transferase 21 U/L (5-31); Bilirubin Direct 0.2 mg/dL (0.0-0.5); Bilirubin Total 0.5 mg/dL (0.0-1.0); Blood Urea Nitrogen 15 mg/dL (9-16); Calcium 9.7 mg/dL (8.4-10.2); Carbon Dioxide 27 mmol/L (22-29); Chloride 107 mmol/L (96-108); Estimated Glomerular Filt Rate > 60; Glucose Random 109 mg/dL (60-115); Potassium 4.2 mmol/L (3.3-5.1); Sodium 139 mmol/L (135-145); Total Protein 7.8 g/dL (6.5-8.0)
[2024-09-02 12:48] LABS: TSH reflex Free T4 0.59 uIU/mL (0.32-4.0)
== END 2024-09-02 09:38 | disposition home or self-care (01) ==
LOC: HO.XRAY 09:37
PROVIDERS: PCP Internal Medicine; Visit Provider Internal Medicine Cardiovascular Disease
DX: I50.20 Unspecified systolic (congestive) heart failure (principal); I50.9 Heart failure, unspecified; I48.91 Unspecified atrial fibrillation; Z79.01 Long term (current) use of anticoagulants
CPT/HCPCS: 36415; 71046; 80048; 80076; 83880; 84443; 93005; 99212

== ENCOUNTER 2024-09-02 09:37 | Outpatient (AMB) | payer OTHER, SELFPAY ==
--- NOTE | 2024-09-02 09:44 | A.OFFVIS_ITS ---
Vital Signs 09/02/24 09:45 Height 4 ft 10 in Weight 143 lb 4.807 oz BMI 29.9 BP 116/72 Blood Pressure Location Lt brachial Position Sitting Pulse 83 Intake Visit Reasons: C-dc Follow up Intake Note: Follow-up [facility] [place] feeling ok Supervisor Clam Bed Required: No Helicopter Dispatcher: Helicopter Dispatcher Present Accompanied by: WATER MAIN INSTALLER HELPER Allergies amoxicillin [AMOXICILLIN] Allergy (Intermediate, Verified 07/22/24 09:30) ? RASH chlorpheniramine [From Tussionex] Allergy (Intermediate, Verified 07/22/24 09:30) Rash clonazepam [From KLONOPIN] Allergy (Intermediate, Verified 07/22/24 09:30) ? RASH hydrocodone [From Tussionex] Allergy (Intermediate, Verified 07/22/24 09:30) Rash lorazepam [LORAZEPAM] Allergy (Intermediate, Verified 07/22/24 09:30) ? RASH mirtazapine [From REMERON] Allergy (Intermediate, Verified 07/22/24 09:30) RASH naproxen [From NAPROSYN] Allergy (Intermediate, Verified 07/22/24 09:30) ? RASH Sulfa (Sulfonamide Antibiotics) [SULFA(SULFONAMIDE ANTIBIOTICS)] Allergy (Intermediate, Verified 07/22/24 09:30) ? RASH fluoxetine [Prozac] Allergy (Mild, Verified 07/22/24 09:30) rash Medication List - Last Reviewed 09/02/24 by JAMIE Sharma apixaban (Eliquis) 5 mg PO BID aspirin 1 tab PO DAILY bisacodyl (Dulcolax (bisacodyl)) 20 mg (4 x 5 mg) PO ONCE 1 day blood pressure monitor As directed bupropion HCl SR 150 mg PO DAILY calcium carbonate-vitamin D3 600 mg-10 mcg (400 unit) 1 tab PO DAILY 90 days carvedilol 6.25 mg PO BID cholecalciferol (vitamin D3) 50 mcg PO DAILY 90 days citalopram 40 mg PO DAILY cyanocobalamin (vitamin B-12) 1,000 mcg PO DAILY folic acid 1 mg PO DAILY 90 days incontinence pad, liner, disp Use 1 pad once a day prn [life alert As directed] polyethylene glycol 3350 (Miralax) 238 grams PO ONCE polyethylene glycol 3350 (Gavilax) 17 grams PO DAILY PRN 30 days sacubitril-valsartan 49-51 mg (Entresto) 1 tab See Protocol PO BID Shower Chair As directed spironolactone (Aldactone) 25 mg PO DAILY triamcinolone acetonide 0.1% appl topical HPI Comments Details: Gloria comes for follow-up after delayed time as she was trying to reestablish with her 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 She underwent a myocardial perfusion imaging which showed no evidence of myocardial ischemia and suggestive of nonischemic cardiomyopathy reduced LV ejection fraction. She comes for follow-up. Unfortunately she comes with the licensed master social worker but she does not have any clue of her medical regimen at this point time. This is difficult to assess. Not sure if she is even on furosemide therapy which she subsequently confirmed with the pharmacy that she is taking. Not sure about other medications including carvedilol. She is taking Entresto and spironolactone as confirmed by the pharmacy although he was not able to get confirmation of other medications. Not sure even if she is taking Eliquis therapy at this point time. She comes for follow up and noted to be still in atrial fibrillation. Clinically she says she has been doing well she does get short of breath with exertion when she walks sudden distance NYHA class 2. Although she denies any leg edema, orthopnea, PND. No lightheadedness, syncope. No prolonged palpitation irregular heartbeat. [facility] Medical History Left bundle branch block Persistent atrial fibrillation Heart failure with reduced ejection fraction Chronic a-fib CHF (congestive heart failure) Endometrioid adenocarcinoma of uterus Ovarian mass Uterine fibroid Left flank pain Skin lesion Mild major depression, single episode Urge urinary incontinence STEPHAN (generalized anxiety disorder) Hypovitaminosis D Developmental delay, mild Depression with anxiety Essential hypertension Pernicious anemia Surgical History Status post total hysterectomy and bilateral salpingo-oophorectomy History of tooth extraction History of H/O tubal ligation Family History Father Heart attack Mother Dementia Other Mental and behavioral problem in adult Social History Household Members: Children Housing: House Do you presently have visiting nurse or other home services: No (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) Unable to assess alcohol history related to: Unknown Alcohol intake: never Patient Tobacco Use Status: Never used Tobacco e-Cigarette/Vaping Use: Never Used Second Hand Smoke Exposure: No service: No Current occupational status: disabled Cognitive needs: Yes Hearing needs: No Vision needs: No Female Reproductive History Menstrual Age of Menarche: 14 Review of Systems Const Denies chills, Denies fatigue, Denies fever(s), Denies frequent falls, Denies weakness, Denies weight gain and Denies weight loss ENT Denies dizziness Card Denies chest pain, Denies leg edema, Denies lightheadedness, Denies palpitations, Denies dyspnea, Denies dyspnea on exertion, Denies orthopnea and Denies other (loss of consciousness) Resp Denies cough, Denies dyspnea and Denies dyspnea on exertion GI Denies hematochezia and Denies change in stool character Musc Denies abnormal gait, Denies muscle weakness, Denies numbness, Denies radiating pain into limb and Denies tingling Neuro Denies abnormal gait, Denies dizziness, Denies frequent falls, Denies numbness, Denies tingling and Denies weakness Endo Denies fatigue and Denies palpitations Physical Exam Vital Signs: Last Vital Signs Pulse 83 09/02/24 09:45 BP 116/72 09/02/24 09:45 BMI result Body Mass Index 29.9 Const General: cooperative, comfortable, no acute distress, alert and awake Nutritional Appearance: overweight Orientation/consciousness: patient oriented x3 Limitations: no limitations Neck Neck: Yes trachea midline, Yes supple and Yes no JVD Resp Effort & Inspection: normal respiratory effort Auscultation: clear to auscultation bilaterally Cardio Jugular venous distension: no JVD Palpation: abnormal PMI displaced PMI Rhythm: abnormal rhythm irregularly irregular Heart sounds: S1 normal heart sound present, S2 normal heart sound present, no click, no gallops and no murmurs GI Auscultation: normal bowel sounds Skin General skin exam: no rashes or lesions noted Neuro General: patient oriented x3 and no focal motor deficits Extrem General: Yes no clubbing, cyanosis or edema Psych Appearance: grossly normal Office Procedures EKG Details: EKG shows atrial fibrillation with left bundle-branch block [id number], Complete Assessment & Plan Assessment & Plan (1) Heart failure with reduced ejection fraction: Code(s): I50.20 - Unspecified systolic (congestive) heart failure Category: Medical Plan: Heart failure with reduced ejection fraction with on admission severe cardiomyopathy process for severe LV systolic dysfunction with normal myocardial perfusion imaging suggestive of nonischemic cardiomyopathy. Clinically she appears to be euvolemic and well compensated. Unfortunately we are not sure of her medical regimen at this point in time. Not sure as to what medicines she was taking. We were not able to confirm this with the pharmacy either. We have asked the patient and patient's licensed master social worker to present with her bottles of medicines at home. Importance of knowing her medications compliance with medication was discussed. She should be on spironolactone, Entresto as well as carvedilol therapy. Continue current diuretic regimen. Importance of daily weight monitoring avoidance salt loading was discussed. Will pursue synchronized cardioversion see below to achieve rhythm control approach and she was symptoms improve and if her LV ejection fraction improves. Will follow-up limited echocardiogram in 4 weeks time. (2) Persistent atrial fibrillation: Code(s): I48.19 - Other persistent atrial fibrillation Category: Medical Plan: Persistent atrial fibrillation, rate controlled. Currently on carvedilol therapy. Given her symptoms as well as severe LV systolic dysfunction more recent onset persistent atrial fibrillation I think we can pursue rhythm control approach. She does have at least moderate left atrial enlargement. She will need antiarrhythmic drug support at this point time. Advised to start on amiodarone loading at 400 mg b.i.d. followed by 200 mg daily followed by synchronized cardioversion. We discussed in details about risks, benefits, alternatives to synchronized cardioversion. Benefits of pursuing rhythm control approach to improve her symptoms was discussed. This may also lead to improvement in overall heart failure hospitalizations as well as improvement in LV ejection fraction. This was discussed with her. Continue full oral anticoagulation with Eliquis, she is currently taking it religiously. I have advised her to discontinue aspirin therapy as there is currently no significant role for aspirin therapy. Follow-up after Holter monitor in 6 weeks time. (3) Left bundle branch block: Code(s): I44.7 - Left bundle-branch block, unspecified Category: Medical Plan: Left bundle-branch block Mibi reason for cardiomyopathy process. At this point time will continue monitor clinically no interventions required unless she has persistent severe LV systolic dysfunction then may benefit from cardiac resynchronization therapy. Will follow up in the clinic in 6 weeks time, sooner p.r.n.. Greater than 40 minutes was spent in managing her care Orders: Orders Liver Panel Today I50.20 - Unspecified systolic (congestive) heart failure TSH reflex Free T4 Today I50.20 - Unspecified systolic (congestive) heart failure XR chest 2V Today I50.20 - Unspecified systolic (congestive) heart failure Cardioversion 2 Weeks I48.19 - Other persistent atrial fibrillation B Type Natriuretic Peptide Today I50.20 - Unspecified systolic (congestive) heart failure Basic Metabolic Panel Today I50.20 - Unspecified systolic (congestive) heart failure Medications: New furosemide 40 mg PO DAILY 30 tabs 2RF Coding Level of Care Code Est Pt Level 5 (18029) Complex EM visit Add On G2211 Diagnoses Heart failure with reduced ejection fraction I50.20 Persistent atrial fibrillation I48.19 Left bundle branch block I44.7 CPT Codes EKG - CPT: 56107-[id number], Complete ([id number])
[2024-09-02 09:45] VITALS: BP 116/72; PULSE 83; BMI 29.9
--- OUTSIDE RECORDS SUMMARY | 2024-09-02 10:39 | XMS_ITS | Clinical Summary ---
Author Organization [facility] ity Address [address] [place] [address] Care Team Providers Care Advanced Practice Provider Name Role Phone Janeth Ferguson MD Primary Care Provider [phone] Social History Tobacco Use Types Packs/Day Years [...] - 2023-2 5 season) 2024 Influenza Vaccine (Season Ended) 2025 RSV Immunization Adult Patie nts (1 - 1-dose 75+ series) 09/14/2035 HIB [...] age to complete this topic Meningococcal B Vaccine Aged Out No l onger eligible based on patient's age to complete [...] age to complete this topic Care Teams Advanced Practice Provider Relationship Specialty Start Date End Date Janeth Ferguson MD [address] [place] [address] Dr [address] [facility] [place] [address] PCP - General Internal Medicine 03/31/17
== END 2024-09-02 10:17 | disposition home or self-care (01) ==
LOC: HO.HCS 09:38
PROVIDERS: PCP Internal Medicine; Visit Provider Internal Medicine Cardiovascular Disease
DX: I50.20 Unspecified systolic (congestive) heart failure (principal); I48.19 Other persistent atrial fibrillation; I44.7 Left bundle-branch block, unspecified
CPT/HCPCS: 93010; 99214; G2211

== ENCOUNTER → 2024-09-02 10:40 | Outpatient (BNV) | payer OTHER, SELFPAY | PROVIDERS: PCP Internal Medicine; Visit Provider Radiology Diagnostic Radiology | DX: K44.9 Diaphragmatic hernia without obstruction or gangrene (principal) | CPT/HCPCS: 71046 ==

== ENCOUNTER 2024-09-06 09:58 | Outpatient (AMB) | payer OTHER, SELFPAY ==
--- NOTE | 2024-09-06 10:01 | A.OFFPC_ITS ---
Vital Signs 09/06/24 10:03 Height 4 ft 10 in Weight 139 lb BMI 29.0 BP 118/76 Blood Pressure Location Lt brachial Position Sitting Intake Visit Reasons: bp Intake Note: Patient here for a follow up BP Microarray Operations Vice President Required: No Accompanied by: ACQUISITION COST ESTIMATOR Allergies amoxicillin [AMOXICILLIN] Allergy (Intermediate, Verified 09/06/24 10:25) ? RASH chlorpheniramine [From Tussionex] Allergy (Intermediate, Verified 09/06/24 10:25) Rash clonazepam [From KLONOPIN] Allergy (Intermediate, Verified 09/06/24 10:25) ? RASH hydrocodone [From Tussionex] Allergy (Intermediate, Verified 09/06/24 10:25) Rash lorazepam [LORAZEPAM] Allergy (Intermediate, Verified 09/06/24 10:25) ? RASH mirtazapine [From REMERON] Allergy (Intermediate, Verified 09/06/24 10:25) RASH naproxen [From NAPROSYN] Allergy (Intermediate, Verified 09/06/24 10:25) ? RASH Sulfa (Sulfonamide Antibiotics) [SULFA(SULFONAMIDE ANTIBIOTICS)] Allergy (Intermediate, Verified 09/06/24 10:25) ? RASH fluoxetine [Prozac] Allergy (Mild, Verified 09/06/24 10:25) rash Medication List - Last Reconciled 09/06/24 by Marium Rodriguez MD amiodarone 400 mg PO BID apixaban (Eliquis) 5 mg PO BID bisacodyl (Dulcolax (bisacodyl)) 20 mg (4 x 5 mg) PO ONCE 1 day blood pressure monitor As directed bupropion HCl SR 150 mg PO DAILY calcium carbonate-vitamin D3 600 mg-10 mcg (400 unit) 1 tab PO DAILY 90 days carvedilol 6.25 mg PO BID cholecalciferol (vitamin D3) 50 mcg PO DAILY 90 days citalopram 40 mg PO DAILY cyanocobalamin (vitamin B-12) 1,000 mcg PO DAILY folic acid 1 mg PO DAILY 90 days furosemide 40 mg PO DAILY incontinence pad, liner, disp Use 1 pad once a day prn [life alert As directed] polyethylene glycol 3350 (Miralax) 238 grams PO ONCE polyethylene glycol 3350 (Gavilax) 17 grams PO DAILY PRN 30 days sacubitril-valsartan 49-51 mg (Entresto) 1 tab See Protocol PO BID Shower Chair As directed spironolactone (Aldactone) 25 mg PO DAILY triamcinolone acetonide 0.1% appl topical Tobacco use date assessed: 07/02/24 Dental Screening Dental Screen Date: 07/02/24 HPI HPI Comments History of Present Illness Details The patient is a 63-year-old female presenting for follow-up of her chronic conditions, notably essential hypertension, atrial fibrillation, and congestive heart failure. She has a previous echocardiogram from June showing an ejection fraction of 25 to 30%, indicative of cardiac dysfunction, although her blood pressure is well controlled. Recent evaluations indicate that her congestive heart failure is compensated. She denies current symptoms of chest pain or shortness of breath. A stress test was negative for ischemia. She mentioned a weight decrease and ambulation hindered by shortness of breath. Her medication plan was recently adjusted, discontinuing aspirin based on recent consultations. The patient is under the care of her daughter for regular health monitoring. Anticipated future procedures will address her cardiac condition. Upcoming lab work has been scheduled to monitor her health status. She also has hyperparathyroidism most likely associated with low vitamin-D that will be monitor. Mild major depression stable with medications. [facility] Medical History (Updated 09/06/24 @ 11:26 by Marium Rodrigeuz MD) Essential hypertension Left bundle branch block Persistent atrial fibrillation Heart failure with reduced ejection fraction Chronic a-fib CHF (congestive heart failure) Endometrioid adenocarcinoma of uterus Ovarian mass Uterine fibroid Left flank pain Skin lesion Mild major depression, single episode Urge urinary incontinence STEPHAN (generalized anxiety disorder) Hypovitaminosis D Developmental delay, mild Depression with anxiety Pernicious anemia Surgical History Status post total hysterectomy and bilateral salpingo-oophorectomy History of tooth extraction History of H/O tubal ligation Family History Father Heart attack Mother Dementia Other Mental and behavioral problem in adult Social History Household Members: Children Housing: House Do you presently have visiting nurse or other home services: 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 1. Little interest or pleasure in doing things: not at all 2. Feeling down, depressed, or hopeless: not at all 3. Trouble falling or staying asleep, or sleeping too much: not at all 4. Feeling tired or having little energy: not at all 5. Poor appetite or overeating: not at all 6. Feeling bad about yourself - or that you are a failure or have let yourself or your family down: not at all 7. Trouble concentrating on things, such as reading the newspaper or watching television: not at all 8. Moving or speaking so slowly that other people could have noticed. Or the opposite - being so fidgety or restless that you have been moving around a lot more than usual: not at all 9. Thoughts that you would be better off or of hurting yourself in some w ay: not at all Total score: 0 Depression Screening Interpretation: Negative Depression Screening Done: Yes 41240 - PHQ-9 Billing: Yes Source: Developed by Drs. Boyd Mcguire, Carrie Dow, Blu Powell and colleagues, with an educational aretha from [employer]. Thrive Questionnaire Date Thrive assessed: 07/02/24 I am a: Patient What is your living situation today?: I have a steady place to live Within the past 12 months, did the food you bought not last and you didn't have the money to get more?: Never true Within the past 12 months, did you worry whether your food would run out before you got money to buy more?: Never true Do you have trouble paying for medicines?: No Do you have trouble getting transportation to medical appointments?: No Do you have trouble paying your heating and electricity bill?: No Do you have trouble taking care of your child, family member or friend?: No Do you have trouble with day-to-day activities such as bathing, preparing meals, shopping, managing finances, etc.?: No Are you currently unemployed and looking for a job?: No Are you interested in more education?: No Please select the resources that you would like help with: None Currently or been in a relationship where the following occur: No concerns reported THRIVE Score: 0 AUDIT C Alcohol Use Questionnaire (AUDIT-C) 1. How often do you have a drink containing alcohol?: Never Total Score: 0 Score Reviewed/Action Taken: No STEPHAN-7 AMB Questionnaire STEPHAN-7 Date STEPHAN - 7 assessed: 07/02/24 Feeling nervous, anxious, or on edge: 0 = Not at all Not being able to stop or control worryin = Not at all Worrying too much about different things: 0 = Not at all Trouble relaxin = Not at all Being so restless that it is hard to sit still: 0 = Not at all Becoming easily annoyed or irritable: 0 = Not at all Feeling afraid as if something awful might happen: 0 = Not at all Total STEPHAN-7 score (0-4 normal; 5-9 mild; 10-14 moderate; 15-21 severe): 0 Source: Developed by Drs. Boyd Mcguire, Carrie Dow, Blu Powell and colleagues, with an educational aretha from [employer]. STEPHAN-7 Assessment Billing STEPHAN-7 Assessment Tool: STEPHAN-7 Assessment 24986 Review of Systems Const All systems reviewed & are unremarkable except as noted in HPI and below Card Denies chest pain at rest, Denies chest pain with activity, Denies edema, Denies irregular heart rhythm, Denies claudication, Denies dyspnea, Denies dyspnea on exertion, Denies orthopnea, Denies paroxysmal nocturnal dyspnea and Denies slow heart rate Resp Denies cough, Denies dyspnea and Denies dyspnea on exertion GI Denies abdominal pain, Denies change in bowel habits, Denies excessive flatus, Denies nausea and Denies vomiting Physical exam (Primary Care) Vital Signs: Last Vital Signs BP 118/76 09/06/24 10:03 BMI result Body Mass Index 29.0 Tobacco/Smoking Status: Tobacco use Status Tobacco use date assessed 07/02/24 09/06/24 10:08 Patient Tobacco Use Status Never used Tobacco 09/06/24 10:08 Tobacco use type 02/12/24 10:06 e-Cigarette/Vaping Use Never Used 09/06/24 10:08 PHQ-9: PHQ-9 Score PHQ-9: Total score 0 09/06/24 10:26 Depression Screening Interpretation: Negative Thrive Assessment: Date of Thrive Assessment Date Thrive assessed 07/02/24 09/06/24 10:08 Currently or been in a relationship where the following occur: No concerns reported Resp Effort & Inspection: normal respiratory effort Auscultation: clear to auscultation bilaterally Cardio Jugular venous distension: no JVD Rate: regular rate Rhythm: regular rhythm Heart sounds: S1 normal heart sound present and S2 normal heart sound present Extrem General: Yes full ROM Coding Level of Care Code Est Pt Level 4 (18161) Complex EM visit Add On G2211 Diagnoses Persistent atrial fibrillation I48.19 Heart failure with reduced ejection fraction I50.20 Mild major depression, single episode F32.0 Hyperparathyroidism E21.3 Essential hypertension I10 Additional Codes STEPHAN-7 Assessment Billing - STEPHAN-7 Assessment Tool: STEPHAN-7 Assessment 57569 ([id number]) PHQ-9 - 16301 - PHQ-9 Billing: Yes ([id number]) Time Spent (min) 22 Assessment & Plan Assessment & Plan (1) Persistent atrial fibrillation: Code(s): I48.19 - Other persistent atrial fibrillation Category: Medical (2) Heart failure with reduced ejection fraction: Code(s): I50.20 - Unspecified systolic (congestive) heart failure Category: Medical (3) Mild major depression, single episode: Code(s): F32.0 - Major depressive disorder, single episode, mild Category: Medical (4) Hyperparathyroidism: Code(s): E21.3 - Hyperparathyroidism, unspecified Category: Medical (5) Essential hypertension: Code(s): I10 - Essential (primary) hypertension Category: Medical Plan The patient will continue her management for essential hypertension and atrial fibrillation using a regimen that includes amiodarone and Eliquis for anticoagulation. Her congestive heart failure remains compensated, as supported by her recent BNP results, and current medications, including carvedilol and furosemide, will remain as prescribed. The benefits of her current therapy and recent aspirin discontinuation, for reduced bleeding risk, were reviewed. A future cardiac procedure may be necessary for stabilization, and ongoing collaboration with cardiology is planned. The importance of weight monitoring and lifestyle compliance to prevent fluid overload was discussed, with regular blood work to monitor her ongoing health. Patient was informed and verbally consented to the use of an ambient scribe for clinic note documentation during this visit. I discussed with the patient the current status of her chronic conditions, primarily her compensated heart failure and the need for continued medication adherence. The risks and benefits of her medication regimen were reiterated, highlighting the need for ongoing anticoagulation therapy with Yoselin. Aspirin discontinuation was addressed given recent cardiologic advice, focusing on reducing her bleeding risk. Future cardiac procedures were contemplated, and the patient was advised to stay in regular contact with her account development specialist. Monitoring her weight and continuing a healthy lifestyle to prevent exacerbation of heart failure symptoms were stressed. Follow-up in four months was advised to reassess her condition, with interim blood work scheduled to monitor her health status. Orders: Orders IRON PROFILE 4 Months D64.9 - Anemia, unspecified Vitamin D 25-OH Total 4 Months E55.9 - Vitamin D deficiency, unspecified Comprehensive [place]. Panel Fast 4 Months I48.19 - Other persistent atrial fibrillation NT-proBNP 4 Months I50.20 - Unspecified systolic (congestive) heart failure Phosphorus 4 Months E21.3 - Hyperparathyroidism, unspecified Complete Blood Count Auto Diff 4 Months D64.9 - Anemia, unspecified Lipid Panel 4 Months E78.5 - Hyperlipidemia, unspecified Vitamin B12 and Folate 4 Months E53.8 - Deficiency of other specified B group vitamins Parathyroid Hormone Intact 4 Months E21.3 - Hyperparathyroidism, unspecified Patient Instructions: - Continue taking medications as prescribed. - Monitor weight regularly and report an increase of 5 pounds per week. - Continue regular walking exercises as tolerated but stop if too breathless. - Attend scheduled follow-up appointments. - Schedule and complete all recommended blood work. - Report new or worsening symptoms, such as chest pain or increased shortness of breath, immediately.
[2024-09-06 10:03] VITALS: BP 118/76; BMI 29.0
--- OUTSIDE RECORDS SUMMARY | 2024-09-06 11:28 | XMS_ITS | Clinical Summary ---
Author Organization [facility] ity Address [address] [place] [address] Care Team Providers Care Sugar Laboratory Assistant Name Role Phone Janeth Ferguson MD Primary Care Provider [phone] Social History Tobacco Use Types Packs/Day Years [...] age to complete this topic Care Teams Sugar Laboratory Assistant Relationship Specialty Start Date End Date Janeth Ferguson MD [address] [place] [address] Dr [address] [facility] [place] [address] PCP - General Internal Medicine 03/31/17
== END 2024-09-06 10:38 | disposition home or self-care (01) ==
LOC: HO.HMCH 09:59
PROVIDERS: PCP Internal Medicine; Visit Provider Internal Medicine
DX: I48.19 Other persistent atrial fibrillation (principal); I50.20 Unspecified systolic (congestive) heart failure; F32.0 Major depressive disorder, single episode, mild; E21.3 Hyperparathyroidism, unspecified; I10 Essential (primary) hypertension

== ENCOUNTER → 2024-09-06 09:58 | Outpatient (BNVA) | payer OTHER, SELFPAY | PROVIDERS: PCP Internal Medicine; Visit Provider Internal Medicine | DX: I48.19 Other persistent atrial fibrillation (principal); I11.0 Hypertensive heart disease with heart failure; I50.20 Unspecified systolic (congestive) heart failure; F32.0 Major depressive disorder, single episode, mild; E21.3 Hyperparathyroidism, unspecified; Z79.01 Long term (current) use of anticoagulants; Z79.899 Other long term (current) drug therapy | CPT/HCPCS: 96127; 99212 ==

== ENCOUNTER → 2024-10-06 09:54 | Outpatient (REF) | payer OTHER, SELFPAY ==
--- NOTE | 2024-10-06 09:58 | CA_ITS ---
Transthoracic Echocardiogram Patient (Last, First, Middle): Gloria Garrett M Gender: Female Date of : 1960 Age: 64 Procedure Date: 10/06/2024 Procedure Type: Transthoracic Echocardiogram Location: OP Height: 147.32 cm Weight: 64.86 kg BSA: 1.58 m2 Heart Rate: bpm BP: 127 / 85 mmHg Sales Promotion Director: TO/RC Referring MD: Stephen Barragan MD Weaving Machine Operator: Stephen Barragan MD Symptoms: I42.9 - Cardiomyopathy, unspecified Study Quality: Adequate w contrast ECG Rhythm: Atrial Fibrillation Conclusions: - Severely reduced LV ejection fraction 25-30% with restrictive filling pattern Findings Procedure Information Contrast agent, definity, is being given per protocol without apparent complications. Left Ventricle Normal left ventricular cavity size. There is normal left ventricular wall thickness. The left ventricular systolic function is severely decreased. The visually estimated ejection fraction is between 25-30%. There is severe global hypokinesis. Spectral Doppler is indicative of a restrictive filling pattern. Tricuspid Valve Significantly elevated right atrial pressure. Pericardium/Pleural There is no evidence of pericardial effusion. Prior Study Comparison No significant change compared to prior study dated: 06/21/2024. Measurements 2D Linear Measurements IVSd: 0.75 0.6-0.9/0.6-1.0 cm LVIDd: 5.31 3.9-5.3/4.2-5.9 cm LVIDd Index: 3.36 2.4-3.2/2.2-3.1 cm/m2 LVIDs: 4.79 2.0-3.6 cm LVPWd: 0.65 0.7-1.1 cm LA Diam: 4.80 2.7-3.8/3.0-4.0 cm LAIDs Index: 3.04 1.5-2.3 cm/m2 LV Mass: 158.49 67-162/88-224 g LV Mass Index: 100.31 43-95/49-115 g/m2 LVOT Diam: 2.00 3.0+(-)1.3 cm 2D Systolic Function EF 4C: 28.60 >55% EF 2C: 23.00 >55% EF BiP: 26.50 >55% Mitral Valve MV Pk E: 1.14 MV PK A: 0.33 MV Decel Time: 127.00 E/A: 3.40 E'Lateral: 10.90 E'Medial: 4.13 E/E' Med: 27.60 E/E' Lat: 10.50 PHT: 37.00 MVA PHT: 5.95 Decel [place]: 8.95 LVOT LVOT Pk Juan Manuel: 1.02 LVOT Mn Juan Manuel: 0.65 LVOT VTI: 0.17 LVOT Pk Grad: 4.00 LVOT Mn Grad: 2.00 LVOT Diam: 2.00 LVOT Area: 3.14 Diastolic Function MV Pk E: 1.14 MV Pk A: 0.33 E/A: 3.40 E'Medial: 4.13 E/E' Med: 27.60 E' Laterial: 10.90 E/E' Lat: 10.50 Tricuspid Valve RA Press: 15.00 Updated in Other Vendor System with Status of Final Stephen Barragan MD electronically signed on 10/07/2024 11:57:52 AM with status of Final
--- OUTSIDE RECORDS SUMMARY | 2024-10-06 10:42 | XMS_ITS | Clinical Summary ---
Author Organization [facility] ity Address [address] [place] [address] Care Team Providers Care Moss Picker Name Role Phone Janeth Ferguson MD Primary Care Provider [phone] Social History Tobacco Use Types Packs/Day Years [...] age to complete this topic Care Teams Moss Picker Relationship Specialty Start Date End Date Janeth Ferguson MD [address] [place] [address] [address] [facility] [place] [address] PCP - General Internal Medicine 03/31/17
== END ==
LOC: HO.CARD 09:54
PROVIDERS: PCP Internal Medicine; Visit Provider Internal Medicine Cardiovascular Disease
DX: I48.19 Other persistent atrial fibrillation (principal); I42.9 Cardiomyopathy, unspecified; I50.20 Unspecified systolic (congestive) heart failure
CPT/HCPCS: 93242; 93308; Q9957

== ENCOUNTER → 2024-10-06 09:58 | Outpatient (BNV) | payer OTHER, SELFPAY | PROVIDERS: PCP Internal Medicine; Visit Provider Internal Medicine Cardiovascular Disease | DX: I50.20 Unspecified systolic (congestive) heart failure (principal) | CPT/HCPCS: 93308; 93321 ==

== ENCOUNTER → 2024-10-20 08:50 | Day surgery (SDC) | payer OTHER, SELFPAY ==
--- OUTSIDE RECORDS SUMMARY | 2024-10-11 08:36 | XMS_ITS | Clinical Summary ---
Author Organization [facility] ity Address [address] [place] [address] Care Team Providers Care Industrial Automation Engineer Name Role Phone Janeth Ferguson MD Primary Care Provider [phone] Social History Tobacco Use Types Packs/Day Years [...] age to complete this topic Care Teams Industrial Automation Engineer Relationship Specialty Start Date End Date Janeth Ferguson MD [address] [place] [address] [address] [facility] [place] [address] PCP - General Internal Medicine 03/31/17
--- NOTE | 2024-10-18 12:24 | P.CONAN_ITS ---
HPI - Anesthesia Eval Consult details Narrative: 64yo F for Cardioversion Eliquis for afib PMFSH Active Problems Active Problems: All Active Problems Essential hypertension (Acute) Left bundle branch block (Acute) Persistent atrial fibrillation (Acute) Heart failure with reduced ejection fraction (Acute) Unsteady gait (Acute) Right leg pain (Acute) Hyperparathyroidism (Acute) Hypercalcemia (Acute) Physical exam (Acute) Pruritus (Acute) Well woman exam (Acute) Thickened endometrium (Acute) Labial lesion (Acute) Adnexal mass (Acute) Myoma (Acute) Ovarian mass (Acute) Uterine fibroid (Acute) Left flank pain (Acute) Skin lesion (Acute) Mild major depression, single episode (Acute) Urge urinary incontinence (Acute) STEPHAN (generalized anxiety disorder) (Acute) Hypovitaminosis D (Acute) Developmental delay, mild (Acute) Pernicious anemia (Acute) Past Medical History Medical History (Updated 09/06/24 @ 11:26 by Marium Rodriguez MD) Essential hypertension Left bundle branch block Persistent atrial fibrillation Heart failure with reduced ejection fraction Chronic a-fib CHF (congestive heart failure) Endometrioid adenocarcinoma of uterus Ovarian mass Uterine fibroid Left flank pain Skin lesion Mild major depression, single episode Urge urinary incontinence STEPHAN (generalized anxiety disorder) Hypovitaminosis D Developmental delay, mild Depression with anxiety Pernicious anemia Family History Family History Father Heart attack Mother Dementia Other Mental and behavioral problem in adult Surgical History Surgical History Status post total hysterectomy and bilateral salpingo-oophorectomy History of tooth extraction History of H/O tubal ligation Social History Social History Household Members: Children Housing: House Do you presently have visiting nurse or other home services: 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 RASH Verified 09/06/24 10:25 chlorpheniramine Allergy Intermediate Rash Verified 09/06/24 10:25 [From Tussionex] clonazepam [From KLONOPIN] Allergy Intermediate ? RASH Verified 09/06/24 10:25 hydrocodone [From Tussionex] Allergy Intermediate Rash Verified 09/06/24 10:25 lorazepam [LORAZEPAM] Allergy Intermediate ? RASH Verified 09/06/24 10:25 mirtazapine [From REMERON] Allergy Intermediate RASH Verified 09/06/24 10:25 naproxen [From NAPROSYN] Allergy Intermediate ? RASH Verified 09/06/24 10:25 Sulfa (Sulfonamide Allergy Intermediate ? RASH Verified 09/06/24 10:25 Antibiotics) [SULFA(SULFONAMIDE ANTIBIOTICS)] fluoxetine [Prozac] Allergy Mild rash Verified 09/06/24 10:25 Home Medications ?Medication ?Instructions ?Recorded ?Confirmed ?Last Taken ?Type citalopram 40 mg tablet 40 mg PO DAILY 02/16/20 09/06/24 06/21/24 History bupropion HCl 150 mg tablet,12 hr 150 mg PO DAILY 12/05/20 09/06/24 06/21/24 History sustained-release carvedilol 6.25 mg tablet 6.25 mg PO BID 06/21/24 09/06/24 06/21/24 History cyanocobalamin (vitamin B-12) 1,000 mcg PO DAILY 06/21/24 09/06/24 06/21/24 History 1,000 mcg tablet triamcinolone acetonide 0.1 % appl topical 07/22/24 09/06/24 Unknown History topical cream Exam Pertinent Lab Results Pertinent Lab Results: Laboratory Tests 06/21/24 09/02/24 09:00 10:37 WBC 7.1 Hgb 11.7 L Hct 36.7 L Plt Count 312 Sodium 139 Potassium 4.2 Chloride 107 Carbon Dioxide 27 BUN 15 Creatinine 0.81 Narrative Narrative: ECHO 09/2024 Conclusions: - Severely reduced LV ejection fraction 25-30% with restrictive filling pattern Findings Procedure Information Contrast agent, definity, is being given per protocol without apparent complications. Left Ventricle Normal left ventricular cavity size. There is normal left ventricular wall thickness. The left ventricular systolic function is severely decreased. The visually estimated ejection fraction is between 25-30%. There is severe global hypokinesis. Spectral Doppler is indicative of a restrictive filling pattern. Tricuspid Valve Significantly elevated right atrial pressure. Pericardium/Pleural There is no evidence of pericardial effusion. Prior Study Comparison No significant change compared to prior study dated: 06/21/2024. CO cardiolite stress test 08/2024 Impression: 1. Myocardial perfusion imaging study shows no clear evidence of myocardial ischemia 2. Gated LVEF is 32% 3. Transient ischemic dilatation not present but LV cavity is dilated Nondiagnostic changes on EKG. Assessment and Plan Assessment Anesthesia Assessment: Chart Reviewed
--- NOTE | 2024-10-20 09:01 | MHC.SHP ---
Pre-Procedural Eval Section A - 24 Hr Update-Section A only Date of Service: 10/20/24 The patient is an INPATIENT: No Changes since office visit: Yes Patient answered all questions; No Cold of Flu in the past 2 weeks, No New Medical Problems and No Changes in Medication The patient has been examined within 24 hours of the surgical procedure. The History & Physical has been completed within 30 days and I have reviewed it.: Yes Section B - Complete if H&P > 30 days Chief Complaint: Other persistent atrial fibrillation Allergies: Allergies Allergy/AdvReac Type Severity Reaction Status Date / Time amoxicillin [AMOXICILLIN] Allergy Intermediate ? RASH Verified 09/06/24 10:25 chlorpheniramine Allergy Intermediate Rash Verified 09/06/24 10:25 [From Tussionex] clonazepam [From KLONOPIN] Allergy Intermediate ? RASH Verified 09/06/24 10:25 hydrocodone [From Tussionex] Allergy Intermediate Rash Verified 09/06/24 10:25 lorazepam [LORAZEPAM] Allergy Intermediate ? RASH Verified 09/06/24 10:25 mirtazapine [From REMERON] Allergy Intermediate RASH Verified 09/06/24 10:25 naproxen [From NAPROSYN] Allergy Intermediate ? RASH Verified 09/06/24 10:25 Sulfa (Sulfonamide Allergy Intermediate ? RASH Verified 09/06/24 10:25 Antibiotics) [SULFA(SULFONAMIDE ANTIBIOTICS)] fluoxetine [Prozac] Allergy Mild rash Verified 09/06/24 10:25 Plan I have reviewed the history and physical and performed a pertinent physical examination on my patient. No changes have occurred unless specified. Time Spent With Patient Time: Total time managing care of this patient today ____ minutes.
[2024-10-20 09:34] VITALS: BP 162/86; PULSE 76; RESP 16; TEMP 36.8; O2SAT 96
== END ==
LOC: HO.SSS 08:52
PROVIDERS: PCP Internal Medicine; Visit Provider Internal Medicine Cardiovascular Disease
DX: I48.19 Other persistent atrial fibrillation (principal); Z53.8 Procedure and treatment not carried out for other reasons

== ENCOUNTER → 2024-10-26 16:23 | Outpatient (BNV) | payer OTHER, SELFPAY | PROVIDERS: PCP Internal Medicine; Visit Provider Radiology Diagnostic Radiology | DX: I51.7 Cardiomegaly (principal) | CPT/HCPCS: 71046 ==

== ENCOUNTER 2024-10-26 16:40 | Inpatient (IN) | payer OTHER, SELFPAY ==
--- NOTE | ~2024-10-26 | XR_ITS ---
EXAMINATION: XR CHEST CLINICAL INFORMATION: follow on chf COMPARISON: October 26, 2024 TECHNIQUE: Frontal view of the chest was obtained. FINDINGS: Indistinct margins in the perihilar regions and cardiomediastinal silhouette with haziness in the mid to lower hemithoraces. Cardiomediastinal silhouette is enlarged. No pneumothorax. Poor inspiration. Blunting of the contrast went angles, right greater than the left side. S-shaped curvature of the thoracolumbar spine. XR/XR chest 1V IMPRESSION: Probable decreased pleural effusions. Persistent pulmonary edema and bilateral pleural effusions with cardiomegaly versus pericardial effusion. Scoliosis, thoracolumbar spine. Electronically signed by: Antoni Cobb MD 10/29/2024 10:29 AM EDT
--- NOTE | ~2024-10-26 | XR_ITS ---
CLINICAL HISTORY: cp sob Two views of the chest. COMPARISON: XR chest dated 09/02/24 at 10:44 EDT FINDINGS: Cardiomegaly. Tmftdbeo-et-ophvz hiatal hernia. Blunting of the bilateral costophrenic angles. No pneumothorax. Hazy airspace opacities within the mid to lower lungs bilaterally. No acute fracture. IMPRESSION: 1. Small bilateral pleural effusions, hcgti-gzdnpik-efwt-left. 2. Hazy basilar predominant pulmonary opacities may represent pulmonary edema or multifocal pneumonia. 3. Xtfpdhwl-aq-inldd hiatal hernia. This document has been electronically signed by: Nikolai Arora MD on 10/26/2024 17:40:38
--- NOTE | 2024-10-26 16:41 | ECG_ITS ---
Test Reason : CHEST PAIN Blood Pressure : */* mmHG Vent. Rate : 90 BPM Atrial Rate : * BPM P-R Int : * ms QRS Dur : 142 ms QT Int : 412 ms P-R-T Axes : * 17 182 degrees QTcB Int : 504 ms Atrial fibrillation Left bundle branch block Abnormal ECG When compared with ECG of 21-Jun-2024 08:21, No significant change was found Referred By: Generic ED Physician Electronically Signed By: Ambrose Downing
[2024-10-26 17:03] VITALS: BP 158/99; PULSE 78; RESP 16; TEMP 36.7; O2SAT 95; BMI 28.3
[2024-10-26 17:38] LABS: MANUAL DIFF FLAG NO
[2024-10-26 17:54] LABS: Basophils Absolute Auto 0.1 X10*3/uL (0.0-0.2); Basophils Percent Auto 1.5 % (0-2); Eosinophils Absolute Auto 0.3 X10*3/uL (0.0-0.4); Eosinophils Percent Auto 3.8 % (0-4); Hematocrit 37.1 % (37.0-47.0); Hemoglobin 11.3 g/dl (12.0-16.0); Imm Gran Abs Auto 0.03 X10*3/uL (0.00-0.03); Imm Gran Pct Auto 0.4 % (0.0-0.4); Lymphocytes Absolute Auto 0.9 X10*3/uL (1.2-4.9); Lymphocytes Percent Auto 12.7 % (20-40); Mean Corpuscular HGB Conc 30.5 g/dl (31.0-35.0); Mean Corpuscular Volume 91.8 fL (80.0-98.0); Monocytes Absolute Auto 0.5 X10*3/uL (0.1-1.2); Monocytes Percent Auto 6.7 % (2-11); Neutrophils Absolute Auto 5.5 x10*3/uL (2.0-8.3); Neutrophils Percent Auto 74.9 % (45-73); Platelet Count 300 X10*3/uL (160-400); Red Blood Count 4.04 X10*6/uL (4.20-5.50); White Blood Count 7.3 X10*3/uL (4.8-10.8)
[2024-10-26 18:04] LABS: Alanine Aminotransferase 73 U/L (0-31); Albumin Level 4.3 g/dL (3.5-5.0); Alkaline Phosphatase 95 U/L (39-117); Anion Gap 11 (12-20); Aspartate Amino Transferase 57 U/L (5-31); B Type Natriuretic Peptide 2596 pg/mL (<100); Bilirubin Total 0.6 mg/dL (0.0-1.0); Blood Urea Nitrogen 12 mg/dL (9-16); Calcium 9.4 mg/dL (8.4-10.2); Carbon Dioxide 27 mmol/L (22-29); Chloride 110 mmol/L (96-108); Creatinine Clr Calc Pharmacy 66.3; Estimated Glomerular Filt Rate > 60; Glucose Random 169 mg/dL (60-115); Potassium 3.7 mmol/L (3.3-5.1); Sodium 144 mmol/L (135-145); Total Protein 7.3 g/dL (6.5-8.0)
[2024-10-26 18:11] LABS: Troponin-I High Sensitivity 10.3 ng/L (<3.5-17.0)
[2024-10-26 18:26] LABS: Influenza A PCR NEGATIVE (Negative); Influenza B PCR NEGATIVE (Negative); Resp Syncy Virus RNA Qual PCR NEGATIVE (Negative); SARS COV2 PCR INHOUSE NEGATIVE (Negative)
--- OUTSIDE RECORDS SUMMARY | 2024-10-26 18:45 | XMS_ITS | Clinical Summary ---
Author Organization [facility] ity Address [address] [place] [address] Care Team Providers Care Radiosonde Operator Name Role Phone Janeth Ferguson MD Primary Care Provider [phone] Social History Tobacco Use Types Packs/Day Years [...] age to complete this topic Care Teams Radiosonde Operator Relationship Specialty Start Date End Date Janeth Ferguson MD [address] [place] [address] Dr [address] [facility] [place] [address] PCP - General Internal Medicine 03/31/17
--- NOTE | 2024-10-26 20:03 | ED.CHESTPAIN ---
HPI - Chest Pain General Chief Complaint: Chest Pain Stated Complaint: Chest pain Time Seen by Provider: 10/26/24 19:55 Source: patient Limitations: no limitations History of Present Illness ED Provider: Fidelia Marie PA-C HPI narrative: 64-year-old female with a history of systolic heart failure with a ejection fraction of 25-30% ECHO October 06, 2024, hypertension, AFib on Eliquis, known LBBB, depression, anxiety and developmental delay who presents with chest pain of unclear duration. Patient states she has been having a productive cough with central chest discomfort for a ?few days?. Associated dyspnea with exertion. Denies unintentional weight gain or new pedal edema. Associated chills but no fever. No sick contacts with similar symptoms. Related Data Home Medications ?Medication ?Instructions ?Recorded ?Confirmed citalopram 40 mg tablet 40 mg PO DAILY 02/16/20 09/06/24 bupropion HCl 150 mg tablet,12 hr 150 mg PO DAILY 12/05/20 09/06/24 sustained-release carvedilol 6.25 mg tablet 6.25 mg PO BID 06/21/24 09/06/24 cyanocobalamin (vitamin B-12) 1,000 mcg PO DAILY 06/21/24 09/06/24 1,000 mcg tablet triamcinolone acetonide 0.1 % appl topical 07/22/24 09/06/24 topical cream Previous Rx's ?Medication ?Instructions ?Recorded Shower Chair #1 ea 03/14/21 incontinence pad, liner, disp #30 ea 08/07/23 blood pressure monitor #1 ea 10/20/23 spironolactone 25 mg tablet 25 mg PO DAILY #90 tabs 06/25/24 (Aldactone) life alert #1 ea 06/28/24 bisacodyl 5 mg tablet,delayed 20 mg (4 x 5 mg) PO ONCE 1 day #4 07/22/24 release (Dulcolax (bisacodyl)) tabs polyethylene glycol 3350 17 238 g PO ONCE #238 grams 07/22/24 gram/dose oral powder (Miralax) polyethylene glycol 3350 17 17 g PO DAILY PRN constipation 30 08/06/24 gram/dose oral powder (Gavilax) days #510 grams furosemide 40 mg tablet 40 mg PO DAILY #30 tabs 09/02/24 cholecalciferol (vitamin D3) 50 50 mcg PO DAILY 90 days #90 caps 09/03/24 mcg (2,000 unit) capsule folic acid 1 mg tablet 1 mg PO DAILY 90 days #90 tabs 09/03/24 amiodarone 200 mg tablet 200 mg PO DAILY #90 tabs 09/13/24 apixaban 5 mg tablet (Eliquis) 5 mg PO BID #180 tabs 10/06/24 calcium 600 mg (as 1 tab PO DAILY 90 days #90 tabs 10/06/24 carbonate)-vitamin D3 10 mcg (400 unit) tablet sacubitril 49 mg-valsartan 51 mg 1 tab PO BID #180 tabs 10/06/24 tablet (Entresto) Allergies Allergy/AdvReac Type Severity Reaction Status Date / Time amoxicillin [AMOXICILLIN] Allergy Intermediate ? RASH Verified 10/26/24 17:07 chlorpheniramine Allergy Intermediate Rash Verified 10/26/24 17:07 [From Tussionex] clonazepam [From KLONOPIN] Allergy Intermediate ? RASH Verified 10/26/24 17:07 hydrocodone [From Tussionex] Allergy Intermediate Rash Verified 10/26/24 17:07 lorazepam [LORAZEPAM] Allergy Intermediate ? RASH Verified 10/26/24 17:07 mirtazapine [From REMERON] Allergy Intermediate RASH Verified 10/26/24 17:07 naproxen [From NAPROSYN] Allergy Intermediate ? RASH Verified 10/26/24 17:07 Sulfa (Sulfonamide Allergy Intermediate ? RASH Verified 10/26/24 17:07 Antibiotics) [SULFA(SULFONAMIDE ANTIBIOTICS)] fluoxetine [Prozac] Allergy Mild rash Verified 10/26/24 17:07 Review of Systems Review of Systems: Yes all other systems are reviewed and are negative Constitutional: Constitutional: Reports chills, Denies fatigue and Denies fever(s) Cardiovascular: Cardiovascular: Reports chest pain, Reports dyspnea and Reports dyspnea on exertion Respiratory: Respiratory: Reports chest congestion, Reports cough, Reports dyspnea, Reports dyspnea on exertion and Denies wheezing Gastrointestinal: Gastrointestinal: Denies abdominal pain, Denies nausea and Denies vomiting Endocrine: Endocrine: Denies fatigue Allergic/Immunologic: Allergic/Immunologic: Denies wheezing PMFSH Past Medical History Attestation statement: The following information was validated with the patient. Medical History (Updated 10/27/24 @ 00:08 by PUJA Taylor) Essential hypertension Left bundle branch block Persistent atrial fibrillation Heart failure with reduced ejection fraction Chronic a-fib CHF (congestive heart failure) Endometrioid adenocarcinoma of uterus Ovarian mass Uterine fibroid Left flank pain Skin lesion Mild major depression, single episode Urge urinary incontinence STEPHAN (generalized anxiety disorder) Hypovitaminosis D Developmental delay, mild Depression with anxiety Pernicious anemia Surgical History Status post total hysterectomy and bilateral salpingo-oophorectomy History of tooth extraction History of H/O tubal ligation Family History Family History Father Heart attack Mother Dementia Other Mental and behavioral problem in adult Social History Social History Household Members: Children Housing: House Do you presently have visiting nurse or other home services: 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) Unable to assess alcohol history related to: Unknown Alcohol intake: never Patient Tobacco Use Status: Never used Tobacco Smoked in Last 30 Days: No e-Cigarette/Vaping Use: Never Used Second Hand Smoke Exposure: No Use of substances other than those prescribed or required for medical reasons: No Advance Directives: No Advance Directives Information Provided: No Do you have a plan to hurt others: No Plan Patient : No service: No Current occupational status: disabled Cognitive needs: Yes Hearing needs: No Vision needs: No Physical Exam Vital Signs: Vital Signs: Last Vital Signs Temp 97.7 F 10/26/24 23:31 Pulse 76 10/26/24 23:31 Resp 20 10/26/24 23:31 BP 154/88 H 10/26/24 23:31 Pulse Ox 97 10/26/24 23:31 O2 Del Method Room Air 10/26/24 23:31 BMI result Body Mass Index 28.3 Const: Other: Alert, appears older than stated age Orientation/consciousness: patient oriented x3 Resp: Other: Active wet cough, bibasilar crackles noted on exam posterior quiroz Cardio: Other: Normal peripheral perfusion no pitting edema Skin: Other: Warm dry no rash Neuro: General: patient oriented x3, gait normal, no focal motor deficits and CN's II-XI intact bilaterally Psych: Other: Calm cooperative, somewhat child-like Medications Administered Discontinued Medications Generic Name Dose Route Start Last Admin Trade Name Christy PRN Reason Stop Dose Admin Ceftriaxone Sodium 2 gm 10/26/24 19:59 10/26/24 20:56 Ceftriaxone Sodium 2 Gm Vial IVPUSH 10/26/24 20:00 2 gm ONCE ONE Administration Furosemide 40 mg 10/26/24 20:01 10/26/24 20:45 Furosemide 40 Mg/4 Ml Vial IVPUSH 10/26/24 20:02 40 mg ONCE ONE Administration Protocol Azithromycin 500 mg/ Sodium 250 mls @ 125 mls/hr 10/26/24 19:59 10/26/24 20:56 Chloride IV 10/26/24 21:58 125 mls/hr ONCE ONE Administration Sodium Chloride 500 mls @ 150 mls/hr 10/26/24 20:06 10/26/24 21:04 Ns IV 10/26/24 23:25 150 mls/hr .Q3H20M ONE Administration Medical Decision Making Medical Decision Making MDM Narrative: 64-year-old female with a history of systolic heart failure with a ejection fraction of 25-30% ECHO October 06, 2024, hypertension, AFib on Eliquis, known LBBB, depression, anxiety and developmental delay who presents with chest pain of unclear duration. Patient states she has been having a productive cough with central chest discomfort for a ?few days?. Associated dyspnea with exertion. Denies unintentional weight gain or new pedal edema. Associated chills but no fever. No sick contacts with similar symptoms. Problem: Heart failure, hypertension, AFib History: Per patient I have considered the following differential diagnoses: Her failure exacerbation, ACS, pneumonia, viral syndrome Plan: Screening labs including cardiac enzymes BNP EKG and chest x-ray were obtained from triage, the patient has known severe systolic dysfunction. Her BNP is markedly elevated, troponin is not we will obtain a delta. We will be diuresing with IV Lasix. Patient also has evidence of pneumonia, hence her chills and productive cough, adding on blood cultures, a lactic and starting antibiotics, not for sepsis, but but because she will require IV antibiotics. I have independently reviewed the following tests: Labs: No overall leukocytosis, left shift noted, not anemic, no electrolyte abnormality, lactic acid 1, slight elevation in AST and ALT, troponin 10.3, delta troponin 13.3, BNP 2596, viral panel negtaive EKG: AFib rate of 90, left bundle branch block again noted not new, no ischemic changes, QTC 504 Chest x-ray:FINDINGS: Cardiomegaly. Szmhnman-zg-xtiln hiatal hernia. Blunting of the bilateral costophrenic angles. No pneumothorax. Hazy airspace opacities within the mid to lower lungs bilaterally. No acute fracture. IMPRESSION: 1. Small bilateral pleural effusions, faker-vpcgkmr-ydbp-left. 2. Hazy basilar predominant pulmonary opacities may represent pulmonary edema or multifocal pneumonia. 3. Nmtlmjnb-df-ymlou hiatal hernia. Lab Data 10/26/24 17:36 10/26/24 17:36 Labs: Lab Results 10/26/24 10/26/24 Range/Units 17:36 20:26 WBC 7.3 (4.8-10.8) X10*3/uL RBC 4.04 L (4.20-5.50) X10*6/uL Hgb 11.3 L (12.0-16.0) g/dl Hct 37.1 (37.0-47.0) % MCV 91.8 (80.0-98.0) fL MCH 28.0 (27.0-33.0) pg MCHC 30.5 L (31.0-35.0) g/dl RDW 14.0 (11.0-16.0) % Plt Count 300 (160-400) X10*3/uL MPV 10.0 (9.4-12.3) fL Immature Gran % (Auto) 0.4 (0.0-0.4) % Neut % (Auto) 74.9 H (45-73) % Lymph % (Auto) 12.7 L (20-40) % Daniels % (Auto) 6.7 (2-11) % Eos % (Auto) 3.8 (0-4) % Baso % (Auto) 1.5 (0-2) % Lymph # (Auto) 0.9 L (1.2-4.9) X10*3/uL Daniels # (Auto) 0.5 (0.1-1.2) X10*3/uL Eos # (Auto) 0.3 (0.0-0.4) X10*3/uL Baso # (Auto) 0.1 (0.0-0.2) X10*3/uL Abs Immat Gran (auto) 0.03 (0.00-0.03) X10*3/uL Absolute Neuts (auto) 5.5 (2.0-8.3) x10*3/uL Absolute Nucleated RBC 0.000 (0.0-0.012) X10*3/uL Nucleated RBC % (auto) 0.0 (0.0-0.2) /100WBC Sodium 144 (135-145) mmol/L Potassium 3.7 (3.3-5.1) mmol/L Chloride 110 H (96-108) mmol/L Carbon Dioxide 27 (22-29) mmol/L Anion Gap 11 L (12-20) BUN 12 (9-16) mg/dL Creatinine 0.88 (0.5-1.4) mg/dL Estim Creat Clear Calc 66.3 Estimated GFR > 60 Random Glucose 169 H (60-115) mg/dL Lactic Acid 1.0 (0.5-2.0) mmol/L Calcium 9.4 (8.4-10.2) mg/dL Total Bilirubin 0.6 (0.0-1.0) mg/dL AST 57 H (5-31) U/L ALT 73 H (0-31) U/L Alkaline Phosphatase 95 (39-117) U/L Troponin I High Sens 10.3 13.3 (<3.5-17.0) ng/L B-Natriuretic Peptide 2596 H (<100) pg/mL Total Protein 7.3 (6.5-8.0) g/dL Albumin 4.3 (3.5-5.0) g/dL Influenza Type A (PCR) NEGATIVE (Negative) Influenza Type B (PCR) NEGATIVE (Negative) RSV RNA Qual (PCR) NEGATIVE (Negative) SARS-CoV-2 RNA (RT-PCR) NEGATIVE (Negative) Critical Care Time Critical Care Time Critical Care Time: Yes Total Critical Care Time: 30 Attestation: Timmy Marie PA-C have personally performed 30 minutes of critical care time not including lines and procedures; infectious process, heart failure exacerbation Discharge Plan Discharge Clinical Impression: Bilateral pleural effusion, Pneumonia, CHF exacerbation Patient Disposition: Admitted As Inpatient Print Language: Bulgarian Sepsis Bolus Exclusion Sepsis Bolus Exclusion CHF/Renal Failure This patient met severe sepsis criteria due to the following condition(s):: Documentation of septic shock (template entered in error) In my clinical judgement the administration of 30 ml/kg of crystalloid would be detrimental to this patient due to the patient's following conditions:: Concern for fluid overload Replace the 30 mls/kg with (Zero amount not acceptable and all fluids for severe sepsis must be given at GREATER than 125 mls/hr) Crystalloids amount given in mls: (rate must be at least 150cc/hr): 150 Colloids amount given in mls:: 0
[2024-10-26] MEDS: Furosemide 40 MG/4 ML VIAL IVPUSH (20:45)
[2024-10-26 20:55] VITALS: BP 155/70; PULSE 71; RESP 20; TEMP 36.6; O2SAT 94
[2024-10-26] MEDS: cefTRIAXone sodium 2 GM VIAL IVPUSH (20:56)
[2024-10-26] MEDS: Azithromycin 500 MG in 0.9 % Sodium Chloride 250 ML 125 MG IV (20:56)
[2024-10-26 20:59] LABS: Troponin-I High Sensitivity 13.3 ng/L (<3.5-17.0)
[2024-10-26] MEDS: 0.9 % Sodium Chloride 500 ML 150 ML IV (21:04)
[2024-10-26 23:31] VITALS: BP 154/88; PULSE 76; RESP 20; TEMP 36.5; O2SAT 97
--- NOTE | 2024-10-27 00:12 | PM.IMHP ---
History of Present Illness Date of Service: 10/27/24 Attending physician on admission: Walter Awan Chief Complaint: cough, chest pain Patient is a 64-year-old female with a past medical history significant for HFrEF (recent echo with EF of 25-30%), HTN, persistent AFib on Eliquis, developmental delay, known left bundle branch block, depression and anxiety, who presented to the ED due to productive cough and chest pain for the past 3 days. They also described dyspnea on exertion and chills but denied any fever, lower extremity edema or weight gain. We deny any recent sick contacts. No abdominal pain, nausea, vomiting, headache, sore throat, congestion or rhinorrhea. Review of Systems Constitutional: Constitutional: Reports chills, Denies fatigue, Denies fever(s) and Denies headache(s) Eyes: Eyes: Denies change in vision and Denies photophobia ENT: Denies headache(s), Denies nasal congestion, Denies nasal discharge and Denies sore throat Cardiovascular: Cardiovascular: Reports chest pain, Denies rapid heart rate, Denies leg edema, Denies lightheadedness and Reports dyspnea Respiratory: Respiratory: Reports cough, Reports dyspnea and Denies wheezing Gastrointestinal: Gastrointestinal: Denies abdominal pain, Denies diarrhea, Denies nausea and Denies vomiting Genitourinary: Genitourinary: Denies difficulty voiding, Denies dysuria and Denies urinary urgency Musculoskeletal: Musculoskeletal: Denies back pain and Denies myalgias Integumentary/Breasts: Skin/Breast: Denies rash Neurologic: Denies confusion and Denies headache(s) Psychiatric: Psychiatric: Denies confusion Endocrine: Endocrine: Denies fatigue Hematologic/Lymphatic: Hematologic/Lymphatic: Denies easy bleeding and Denies easy bruising Allergic/Immunologic: Allergic/Immunologic: Denies wheezing FORMERLY [facility], [facility]1983 Medical History Essential hypertension Left bundle branch block Persistent atrial fibrillation Heart failure with reduced ejection fraction Chronic a-fib CHF (congestive heart failure) Endometrioid adenocarcinoma of uterus Ovarian mass Uterine fibroid Left flank pain Skin lesion Mild major depression, single episode Urge urinary incontinence STEPHAN (generalized anxiety disorder) Hypovitaminosis D Developmental delay, mild Depression with anxiety Pernicious anemia Functional capacity: independent ambulation Family History Father Heart attack Mother Dementia Other Mental and behavioral problem in adult Surgical History Status post total hysterectomy and bilateral salpingo-oophorectomy History of tooth extraction History of H/O tubal ligation Social History Household Members: Children Housing: House Do you presently have visiting nurse or other home services: 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) Unable to assess alcohol history related to: Unknown Alcohol intake: never Patient Tobacco Use Status: Never used Tobacco Smoked in Last 30 Days: No e-Cigarette/Vaping Use: Never Used Second Hand Smoke Exposure: No Use of substances other than those prescribed or required for medical reasons: No Advance Directives: No Advance Directives Information Provided: No Do you have a plan to hurt others: No Plan Patient : No service: No Current occupational status: disabled Cognitive needs: Yes Hearing needs: No Vision needs: No Meds Allergies Allergy/AdvReac Type Severity Reaction Status Date / Time amoxicillin [AMOXICILLIN] Allergy Intermediate ? RASH Verified 10/26/24 17:07 chlorpheniramine Allergy Intermediate Rash Verified 10/26/24 17:07 [From Tussionex] clonazepam [From KLONOPIN] Allergy Intermediate ? RASH Verified 10/26/24 17:07 hydrocodone [From Tussionex] Allergy Intermediate Rash Verified 10/26/24 17:07 lorazepam [LORAZEPAM] Allergy Intermediate ? RASH Verified 10/26/24 17:07 mirtazapine [From REMERON] Allergy Intermediate RASH Verified 10/26/24 17:07 naproxen [From NAPROSYN] Allergy Intermediate ? RASH Verified 10/26/24 17:07 Sulfa (Sulfonamide Allergy Intermediate ? RASH Verified 10/26/24 17:07 Antibiotics) [SULFA(SULFONAMIDE ANTIBIOTICS)] fluoxetine [Prozac] Allergy Mild rash Verified 10/26/24 17:07 Active Medications: Current Medications Acetaminophen (Acetaminophen 325 Mg Tablet) 975 mg PO Q6H PRN PRN Reason: Pain, Mild 1-3,fever,headache Apixaban (Apixaban 5 Mg Tablet) 5 mg PO BID JULIEN Calcium Carbonate (Calcium Carbonate 750 Mg Tab.Chew) 750 mg PO Q4H PRN PRN Reason: Heartburn Ceftriaxone Sodium (Ceftriaxone Sodium 1 Gm Vial) 1 gm IVPUSH Q24H JULIEN Azithromycin 500 mg/ Sodium (Chloride) 250 mls @ 125 mls/hr IV Q24H JULIEN Magnesium Hydroxide (Milk Of Magnesia 30 Ml Oral.Susp) 30 ml PO DAILY PRN PRN Reason: Constipation Melatonin (Melatonin 3 Mg Tablet) 6 mg PO BEDTIME PRN PRN Reason: Insomnia Morphine Sulfate (Morphine Sulfate 4 Mg/Ml Cartridge) 2 mg IVPUSH Q4H PRN; Protocol PRN Reason: Pain, Severe (Pain Scale 7-10) Oxycodone HCl (Oxycodone Hcl Immed Release 5 Mg Tablet) 5 mg PO Q6H PRN PRN Reason: Pain, Moderate(Pain Scale 4-6) Sodium Chloride (0.9 % Sodium Chloride Flush 3 Ml Syringe) 3 ml IVFLUSH QSHIFT [facility] Home Medications ?Medication ?Instructions ?Recorded ?Confirmed ?Last Taken ?Type citalopram 40 mg tablet 40 mg PO DAILY 02/16/20 09/06/24 06/21/24 History bupropion HCl 150 mg tablet,12 hr 150 mg PO DAILY 12/05/20 09/06/24 06/21/24 History sustained-release carvedilol 6.25 mg tablet 6.25 mg PO BID 06/21/24 09/06/24 06/21/24 History cyanocobalamin (vitamin B-12) 1,000 mcg PO DAILY 06/21/24 09/06/24 06/21/24 History 1,000 mcg tablet triamcinolone acetonide 0.1 % appl topical 07/22/24 09/06/24 Unknown History topical cream Physical Exam Vital Signs and Narrative: Vital Signs: Last Vital Signs Temp 97.7 F 10/26/24 23:31 Pulse 76 10/26/24 23:31 Resp 20 10/26/24 23:31 BP 154/88 H 10/26/24 23:31 Pulse Ox 97 10/26/24 23:31 O2 Del Method Room Air 10/26/24 23:31 BMI result Body Mass Index 28.3 General: AOx3, no acute distress Resp: CTA bilaterally CVS: S1, S2, RRR GI: +BS, NT, no distention Skin: Warm, dry Neuro: Cranial nerves II-XII grossly intact bilaterally. Motor grossly intact bilaterally Extremities: No pitting edema Psych: Appropriate affect Const: General: No confusion Orientation/consciousness: No confusion Eyes: Direct Ophthalmoscopy: No photophobia Neuro: General: No confusion Results Labs 10/26/24 17:36 10/26/24 17:36 Labs: Laboratory Results - last 24 hr 10/26/24 10/26/24 17:36 20:26 MCV 91.8 MCH 28.0 MCHC 30.5 L RDW 14.0 Plt Count 300 MPV 10.0 Immature Gran % (Auto) 0.4 Neut % (Auto) 74.9 H Lymph % (Auto) 12.7 L [place] % (Auto) 6.7 Eos % (Auto) 3.8 Baso % (Auto) 1.5 Lymph # (Auto) 0.9 L [place] # (Auto) 0.5 Eos # (Auto) 0.3 Baso # (Auto) 0.1 Abs Immat Gran (auto) 0.03 Absolute Neuts (auto) 5.5 Absolute Nucleated RBC 0.000 Nucleated RBC % (auto) 0.0 Anion Gap 11 L Estim Creat Clear Calc 66.3 Estimated GFR > 60 Random Glucose 169 H Lactic Acid 1.0 Calcium 9.4 Total Bilirubin 0.6 AST 57 H ALT 73 H Alkaline Phosphatase 95 Troponin I High Sens 10.3 13.3 B-Natriuretic Peptide 2596 H Total Protein 7.3 Albumin 4.3 Influenza Type A (PCR) NEGATIVE Influenza Type B (PCR) NEGATIVE RSV RNA Qual (PCR) NEGATIVE SARS-CoV-2 RNA (RT-PCR) NEGATIVE Assessment and Plan (1) CHF exacerbation: Status: Acute (2) Bilateral pleural effusion: Status: Acute (3) Elevated LFTs: Status: Acute Plan Patient is a 64-year-old female with a past medical history significant for HFrEF (recent echo with EF of 25-30%), HTN, persistent AFib on Eliquis, developmental delay, known left bundle branch block, depression and anxiety, who presented to the ED due to productive cough and chest pain for the past 3 days. acute on chronic HFrEF exacerbation with bilateral pleural effusions - no leukocytosis, vital signs stable, lactic acid normal, blood cultures x2 pending, no sepsis - chest x-ray with small bilateral pleural effusions, right greater than left. Hazy bibasilar predominant pulmonary opacities may represent pulmonary edema or multifocal pneumonia. Moderate to large hiatal hernia. - BNP 2596 - COVID/flu/RSV negative - Lasix 40 mg IV x1, continue 40mg IV daily - hold spironolactone - started on ceftriaxone and azithromycin in ED - procalcitonin normal, no pneumonia, no abx needed - monitor CBC and BMP elevated LFTs -- likely secondary to CHF exacerbation - AST 57, ALT 73 - f/u outpatient HTN - continue home meds Persistent AFib - continue amiodarone and Eliquis Depression/anxiety - continue home meds Full code VTE prophylaxis: Eliquis Patient with acute on chronic HFrEF exacerbation with bilateral pleural effusions, requiring admission for at least 2 midnights stay for IV diuresis and monitoring. Quality Stroke Does the patient have a stroke diagnosis?: No VTE Prior VTE?: No VTE Risk Level:: Medical - moderate - high VTE Device Contraindication: Treatment Not Indicated VTE Drug Contraindication: N/A - Med Ordered
[2024-10-27 01:00] LABS: Procalcitonin 0.02 ng/mL
[2024-10-27 06:00] VITALS: BP 146/70; PULSE 78; RESP 20; O2SAT 94
[2024-10-27 06:08] LABS: MANUAL DIFF FLAG NO
[2024-10-27 06:22] LABS: Basophils Absolute Auto 0.1 X10*3/uL (0.0-0.2); Basophils Percent Auto 1.1 % (0-2); Eosinophils Absolute Auto 0.1 X10*3/uL (0.0-0.4); Eosinophils Percent Auto 1.4 % (0-4); Hematocrit 34.4 % (37.0-47.0); Hemoglobin 10.9 g/dl (12.0-16.0); Imm Gran Abs Auto 0.02 X10*3/uL (0.00-0.03); Imm Gran Pct Auto 0.3 % (0.0-0.4); Lymphocytes Percent Auto 14.3 % (20-40); Mean Corpuscular HGB Conc 31.7 g/dl (31.0-35.0); Mean Corpuscular Hemoglobin 28.2 pg (27.0-33.0); Mean Corpuscular Volume 89.1 fL (80.0-98.0); Mean Platelet Volume 10.3 fL (9.4-12.3); Monocytes Absolute Auto 0.7 X10*3/uL (0.1-1.2); Neutrophils Absolute Auto 5.3 x10*3/uL (2.0-8.3); Neutrophils Percent Auto 73.9 % (45-73); Platelet Count 297 X10*3/uL (160-400); Red Blood Count 3.86 X10*6/uL (4.20-5.50); Red Cell Distribution Width 14.1 % (11.0-16.0); White Blood Count 7.2 X10*3/uL (4.8-10.8)
[2024-10-27 07:09] LABS: Anion Gap 14 (12-20); Blood Urea Nitrogen 10 mg/dL (9-16); Calcium 8.9 mg/dL (8.4-10.2); Carbon Dioxide 25 mmol/L (22-29); Chloride 107 mmol/L (96-108); Estimated Glomerular Filt Rate > 60; Glucose Random 104 mg/dL (60-115); Potassium 2.8 mmol/L (3.3-5.1); Sodium 143 mmol/L (135-145)
[2024-10-27 07:55] LABS: Magnesium 1.6 mg/dL (1.6-2.6)
[2024-10-27] MEDS: Potassium Chloride ER 20 MEQ TAB.ER.PRT 40 MEQ PO ×3 (08:04→21:53)
[2024-10-27] MEDS: Apixaban 5 MG TABLET PO ×2 (08:04→21:53)
[2024-10-27] MEDS: 0.9 % Sodium Chloride Flush 3 ML SYRINGE IVFLUSH ×2 (08:05→21:56)
[2024-10-27 08:06] VITALS: BP 151/96
[2024-10-27] MEDS: Furosemide 40 MG/4 ML VIAL IVPUSH (08:06)
[2024-10-27 08:08] VITALS: BP 151/96; PULSE 88; RESP 20; O2SAT 95
--- NOTE | 2024-10-27 09:23 | PHA.MEDREC ---
Pharmacy Consult ? Medication Reconciliation Pharmacy attempted to complete the med rec. Spoke with pt and family at bedside and they were able to confirm most of the pt medications but was not able to confirm if the pt takes Amiodarone, Bupropiom or Citalopram and pt son confirmed he will be going to pt house and will bring in a list later on confirming all the pt medications. Pt family confirmed she takes a medication for fluid retention/swelling but couldn't remember if she was still taking Spironolactone or Furosemide; in claims they were both last filled 06/25 for 90 days.
--- NOTE | 2024-10-27 09:52 | PHA.MEDREC ---
Addendum entered by Prabhjot Keith, [facility] 10/27/24 16:45: med rec completed based on claim history, currently no follow up from pt's sone Addendum entered by Chely Li, [facility] 10/27/24 10:01: Per Donita patient no longer taking aspirin and takes B12 daily despite RX stating weekly. Pending completion Original Note: Pharmacy Consult ? Medication Reconciliation Pharmacy attempted to complete the med rec. Spoke with pt and family at bedside and they were able to confirm most of the pt medications but was not able to confirm if the pt takes Amiodarone, Bupropiom or Citalopram and pt son confirmed he will be going to pt house and will bring in a list later on confirming all the pt medications. Pt family confirmed she takes a medication for fluid retention/swelling but couldn't remember if she was still taking Spironolactone or Furosemide; in claims they were both last filled 06/25 for 90 days. We have [facility] med rec team follow up this evening to see if pt son has a list.
--- NOTE | 2024-10-27 10:12 | MHC.CM.PN ---
IMM 10/27/24, Pt. lives with her dtr, she does not have home health services. For DME, she uses a walker. HCP discussed, she declined to complete form. Family to transport home at DC, DCP: home, self care. CM to follow for DC needs.
[2024-10-27 12:43] VITALS: BMI 24.8
[2024-10-27 15:03] VITALS: BP 178/99; PULSE 91; RESP 18; TEMP 36.3; O2SAT 97
[2024-10-27 15:36] VITALS: BP 143/91; PULSE 81; O2SAT 96
[2024-10-27 16:05] LABS: Glucose, Whole Blood 114 mg/dL (60-115)
[2024-10-27 17:09] LABS: Anion Gap 10 (12-20); Carbon Dioxide 27 mmol/L (22-29); Chloride 110 mmol/L (96-108); Sodium 143 mmol/L (135-145)
[2024-10-27 20:00] VITALS: BP 142/67; PULSE 77; RESP 16; TEMP 36.2; O2SAT 97
[2024-10-27] MEDS: Sacubitril/Valsartan 49/51 1 TAB TABLET PO (21:53)
[2024-10-27] MEDS: carvediloL 6.25 MG TABLET PO (21:53)
[2024-10-28] VITALS (7 sets, daily range): BP systolic 104–154; BP diastolic 58–92; PULSE 57–77; RESP 16–18; TEMP 36–36.3; O2SAT 95–98
[2024-10-28] MEDS: Morphine Sulfate 4 MG/ML CARTRIDGE 2 MG IVPUSH (02:19)
[2024-10-28 07:36] LABS: MANUAL DIFF FLAG NO
[2024-10-28 07:46] LABS: Basophils Absolute Auto 0.1 X10*3/uL (0.0-0.2); Basophils Percent Auto 1.9 % (0-2); Eosinophils Absolute Auto 0.3 X10*3/uL (0.0-0.4); Eosinophils Percent Auto 4.3 % (0-4); Hemoglobin 11.8 g/dl (12.0-16.0); Imm Gran Abs Auto 0.02 X10*3/uL (0.00-0.03); Imm Gran Pct Auto 0.3 % (0.0-0.4); Lymphocytes Absolute Auto 1.2 X10*3/uL (1.2-4.9); Lymphocytes Percent Auto 18.2 % (20-40); Mean Corpuscular HGB Conc 31.1 g/dl (31.0-35.0); Mean Corpuscular Hemoglobin 28.4 pg (27.0-33.0); Mean Corpuscular Volume 91.6 fL (80.0-98.0); Mean Platelet Volume 10.2 fL (9.4-12.3); Monocytes Absolute Auto 0.6 X10*3/uL (0.1-1.2); Monocytes Percent Auto 9.7 % (2-11); Neutrophils Absolute Auto 4.3 x10*3/uL (2.0-8.3); Neutrophils Percent Auto 65.6 % (45-73); Platelet Count 308 X10*3/uL (160-400); Red Blood Count 4.15 X10*6/uL (4.20-5.50); White Blood Count 6.5 X10*3/uL (4.8-10.8)
[2024-10-28 08:02] LABS: Anion Gap 9 (12-20); Blood Urea Nitrogen 12 mg/dL (9-16); Carbon Dioxide 29 mmol/L (22-29); Chloride 110 mmol/L (96-108); Estimated Glomerular Filt Rate > 60; Glucose Random 96 mg/dL (60-115); Potassium 4.3 mmol/L (3.3-5.1); Sodium 144 mmol/L (135-145)
[2024-10-28 08:10] LABS: Calcium 9.8 mg/dL (8.4-10.2)
[2024-10-28] MEDS: Furosemide 40 MG/4 ML VIAL IVPUSH (09:41)
[2024-10-28] MEDS: Sacubitril/Valsartan 49/51 1 TAB TABLET PO ×2 (09:41→20:31)
[2024-10-28] MEDS: Calcium + Vitamin D 250 MG TABLET 500 MG PO (09:41)
[2024-10-28] MEDS: 0.9 % Sodium Chloride Flush 3 ML SYRINGE IVFLUSH ×2 (09:41→17:26)
[2024-10-28] MEDS: Cholecalciferol (Vitamin D3) 25 MCG TABLET 50 MCG PO (09:42)
[2024-10-28] MEDS: Cyanocobalamin (Vitamin B-12) 1,000 MCG TABLET 1000 MCG PO (09:42)
[2024-10-28] MEDS: Folic Acid 1 MG TABLET PO (09:42)
[2024-10-28] MEDS: carvediloL 6.25 MG TABLET PO ×2 (09:42→20:31)
[2024-10-28] MEDS: Apixaban 5 MG TABLET PO ×2 (09:42→20:31)
[2024-10-28] MEDS: lisinopriL 10 MG TABLET PO (09:42)
--- NOTE | 2024-10-28 18:04 | P.PNIM_ITS ---
Subjective Subjective Date of Service: 10/28/24 Interval History: Feels better, no sob, Physical Exam 2 Vital Signs: Vital Signs: Last Vital Signs Temp 97.4 F 10/28/24 15:22 Pulse 69 10/28/24 15:22 Resp 18 10/28/24 15:22 BP 104/77 10/28/24 15:22 Pulse Ox 96 10/28/24 15:22 O2 Del Method Room Air 10/28/24 15:22 BMI result Body Mass Index 24.8 Const: Other: General: AO X 3, no acute distress Resp: CTA bilateral CVS: S1,S2, iregular iregular GI: +BS, NT, no distention Skin: No rash Neuro: motor grossly intact Psych: appropriate affect Objective Data Active Medications Acetaminophen (Acetaminophen 325 Mg Tablet) 975 mg PO Q6H PRN PRN Reason: Pain, Mild 1-3,fever,headache Apixaban (Apixaban 5 Mg Tablet) 5 mg PO BID [facility] Last Admin: 10/28/24 09:42 Dose: 5 mg Documented By: QUIRINO Calcium Carbonate (Calcium Carbonate 750 Mg Tab.Chew) 750 mg PO Q4H PRN PRN Reason: Heartburn Calcium Carbonate/Cholecalciferol (Calcium + Vitamin D 250 Mg Tablet) 500 mg PO DAILY [facility] Last Admin: 10/28/24 09:41 Dose: 500 mg Documented By: QUIRINO Carvedilol (Carvedilol 6.25 Mg Tablet) 6.25 mg PO BID [facility]; Protocol Last Admin: 10/28/24 09:42 Dose: 6.25 mg Documented By: QUIRINO Cyanocobalamin (Cyanocobalamin (Vitamin B-12) 1,000 Mcg Tablet) 1,000 mcg PO DAILY [facility] Last Admin: 10/28/24 09:42 Dose: 1,000 mcg Documented By: QUIRINO Folic Acid (Folic Acid 1 Mg Tablet) 1 mg PO DAILY [facility] Last Admin: 10/28/24 09:42 Dose: 1 mg Documented By: QUIRINO Furosemide (Furosemide 40 Mg/4 Ml Vial) 40 mg IVPUSH DAILY [facility]; Protocol Last Admin: 10/28/24 09:41 Dose: 40 mg Documented By: QUIRINO Lisinopril (Lisinopril 10 Mg Tablet) 10 mg PO DAILY [facility]; Protocol Last Admin: 10/28/24 09:42 Dose: 10 mg Documented By: QUIRINO Magnesium Hydroxide (Milk Of Magnesia 30 Ml Oral.Susp) 30 ml PO DAILY PRN PRN Reason: Constipation Melatonin (Melatonin 3 Mg Tablet) 6 mg PO BEDTIME PRN PRN Reason: Insomnia Morphine Sulfate (Morphine Sulfate 4 Mg/Ml Cartridge) 2 mg IVPUSH Q4H PRN; Protocol PRN Reason: Pain, Severe (Pain Scale 7-10) Last Admin: 10/28/24 02:19 Dose: 2 mg Documented By: FLAQUITAZErCispin Oxycodone HCl (Oxycodone Hcl Immed Release 5 Mg Tablet) 5 mg PO Q6H PRN PRN Reason: Pain, Moderate(Pain Scale 4-6) Sacubitril/Valsartan (Sacubitril/Valsartan 49/51 1 Tab Tablet) 1 tab PO BID [facility]; Protocol Last Admin: 10/28/24 09:41 Dose: 1 tab Documented By: QUIRINO Sodium Chloride (0.9 % Sodium Chloride Flush 3 Ml Syringe) [facility] Last Admin: 10/28/24 17:26 Dose: 3 ml Documented By: QUIRINO Vitamin D (Cholecalciferol (Vitamin D3) 25 Mcg Tablet) 50 mcg PO DAILY [facility] Last Admin: 10/28/24 09:42 Dose: 50 mcg Documented By: QUIRINO Labs 10/28/24 07:00 10/28/24 07:00 Labs: Laboratory Results - last 24 hr 10/28/24 07:00 MCV 91.6 MCH 28.4 MCHC 31.1 RDW 14.0 Plt Count 308 MPV 10.2 Immature Gran % (Auto) 0.3 Neut % (Auto) 65.6 Lymph % (Auto) 18.2 L [place] % (Auto) 9.7 Eos % (Auto) 4.3 H Baso % (Auto) 1.9 Lymph # (Auto) 1.2 [place] # (Auto) 0.6 Eos # (Auto) 0.3 Baso # (Auto) 0.1 Abs Immat Gran (auto) 0.02 Absolute Neuts (auto) 4.3 Absolute Nucleated RBC 0.000 Nucleated RBC % (auto) 0.0 Anion Gap 9 L Estim Creat Clear Calc 71.0 Estimated GFR > 60 Random Glucose 96 Calcium 9.8 D Microbiology Microbiology Results: Microbiology 10/26/24 20:52 Blood Culture - Preliminary Blood - Venous No growth after 24 hours. 10/26/24 20:26 Blood Culture - Preliminary Blood - Venous No growth after 24 hours. Assessment and Plan (1) CHF exacerbation: Status: Acute Plan Patient is a 64-year-old female with a past medical history significant for HFrEF (recent echo with EF of 25-30%), HTN, persistent AFib on Eliquis, developmental delay, known left bundle branch block, depression and anxiety, who presented to the ED due to productive cough and chest pain for the past 3 days. acute on chronic HFrEF exacerbation with bilateral pleural effusions IV Lasix restart Aldactone daily bmp daily weight, I/O recheck BNP in AM continue entresto, coreg, stop lisinopril concurently with Entesto elevated LFTs -- likely secondary to CHF exacerbation AST 57, ALT 73 f/u outpatient, repeat in morning HTN entresto, coreg, norvasc Persistent AFib coreg and eliquis Depression/anxiety - continue home meds Full code VTE prophylaxis: Eliquis Quality Stroke Does the patient have a stroke diagnosis?: No VTE Prior VTE?: No VTE Risk Level:: Medical - moderate - high VTE Device Contraindication: Treatment Not Indicated VTE Drug Contraindication: N/A - Med Ordered
[2024-10-28] MEDS: Amiodarone HCL 200 MG TABLET PO (19:05)
[2024-10-29] VITALS (9 sets, daily range): BP systolic 126–145; BP diastolic 61–78; PULSE 56–72; RESP 16–17; TEMP 36.1–36.7; O2SAT 92–96
[2024-10-29 07:24] LABS: MANUAL DIFF FLAG NO
[2024-10-29 07:34] LABS: Basophils Absolute Auto 0.1 X10*3/uL (0.0-0.2); Basophils Percent Auto 1.8 % (0-2); Eosinophils Absolute Auto 0.3 X10*3/uL (0.0-0.4); Eosinophils Percent Auto 5.2 % (0-4); Hematocrit 38.2 % (37.0-47.0); Imm Gran Abs Auto 0.02 X10*3/uL (0.00-0.03); Imm Gran Pct Auto 0.3 % (0.0-0.4); Lymphocytes Absolute Auto 0.9 X10*3/uL (1.2-4.9); Lymphocytes Percent Auto 13.9 % (20-40); Mean Corpuscular HGB Conc 31.4 g/dl (31.0-35.0); Mean Corpuscular Hemoglobin 28.4 pg (27.0-33.0); Mean Corpuscular Volume 90.5 fL (80.0-98.0); Monocytes Absolute Auto 0.5 X10*3/uL (0.1-1.2); Monocytes Percent Auto 8.3 % (2-11); Neutrophils Absolute Auto 4.6 x10*3/uL (2.0-8.3); Neutrophils Percent Auto 70.5 % (45-73); Platelet Count 313 X10*3/uL (160-400); Red Blood Count 4.22 X10*6/uL (4.20-5.50); Red Cell Distribution Width 13.7 % (11.0-16.0); White Blood Count 6.5 X10*3/uL (4.8-10.8)
[2024-10-29 07:46] LABS: Anion Gap 11 (12-20); Blood Urea Nitrogen 15 mg/dL (9-16); Calcium 9.4 mg/dL (8.4-10.2); Carbon Dioxide 29 mmol/L (22-29); Chloride 106 mmol/L (96-108); Creatinine Clr Calc Pharmacy 56.8; Estimated Glomerular Filt Rate > 60; Glucose Random 101 mg/dL (60-115); Potassium 3.9 mmol/L (3.3-5.1); Sodium 142 mmol/L (135-145)
[2024-10-29 07:58] LABS: B Type Natriuretic Peptide 709 pg/mL (<100)
[2024-10-29] MEDS: Calcium + Vitamin D 250 MG TABLET 500 MG PO (09:13)
[2024-10-29] MEDS: Apixaban 5 MG TABLET PO ×2 (09:13→21:59)
[2024-10-29] MEDS: Cyanocobalamin (Vitamin B-12) 1,000 MCG TABLET 1000 MCG PO (09:13)
[2024-10-29] MEDS: carvediloL 6.25 MG TABLET PO ×2 (09:14→21:58)
[2024-10-29] MEDS: Folic Acid 1 MG TABLET PO (09:14)
[2024-10-29] MEDS: Sacubitril/Valsartan 49/51 1 TAB TABLET PO ×2 (09:14→21:59)
[2024-10-29] MEDS: Spironolactone 25 MG TABLET PO (09:14)
[2024-10-29] MEDS: Amiodarone HCL 200 MG TABLET PO (09:14)
[2024-10-29] MEDS: Cholecalciferol (Vitamin D3) 25 MCG TABLET 50 MCG PO (09:14)
[2024-10-29] MEDS: 0.9 % Sodium Chloride Flush 3 ML SYRINGE IVFLUSH ×3 (09:15→22:01)
--- NOTE | 2024-10-29 12:57 | MHC.CM.PN ---
Per MD, Patient is not yet medically cleared for dc (IV Lasix); home with new VNA is the goal and CM will continue to follow.
--- NOTE | 2024-10-29 16:51 | P.PNIM_ITS ---
Subjective Subjective Date of Service: 10/29/24 Interval History: Feels better, no sob, cxr show persistent pul edema Physical Exam 2 Vital Signs: Vital Signs: Last Vital Signs Temp 97.2 F 10/29/24 15:55 Pulse 61 10/29/24 15:55 Resp 16 10/29/24 15:55 BP 126/69 10/29/24 15:55 Pulse Ox 94 10/29/24 15:55 O2 Del Method Room Air 10/29/24 15:55 BMI result Body Mass Index 24.8 Const: Other: General: AO X 3, no acute distress Resp: CTA bilateral CVS: S1,S2, iregular iregular GI: +BS, NT, no distention Skin: No rash Neuro: motor grossly intact Psych: appropriate affect Objective Data Active Medications Acetaminophen (Acetaminophen 325 Mg Tablet) 975 mg PO Q6H PRN PRN Reason: Pain, Mild 1-3,fever,headache Amiodarone HCl (Amiodarone Hcl 200 Mg Tablet) 200 mg PO DAILY [facility] Last Admin: 10/29/24 09:14 Dose: 200 mg Documented By: KATHRYN Apixaban (Apixaban 5 Mg Tablet) 5 mg PO BID [facility] Last Admin: 10/29/24 09:13 Dose: 5 mg Documented By: KATHRYN Calcium Carbonate (Calcium Carbonate 750 Mg Tab.Chew) 750 mg PO Q4H PRN PRN Reason: Heartburn Calcium Carbonate/Cholecalciferol (Calcium + Vitamin D 250 Mg Tablet) 500 mg PO DAILY [facility] Last Admin: 10/29/24 09:13 Dose: 500 mg Documented By: KATHRYN Carvedilol (Carvedilol 6.25 Mg Tablet) 6.25 mg PO BID [facility]; Protocol Last Admin: 10/29/24 09:14 Dose: 6.25 mg Documented By: KATHRYN Cyanocobalamin (Cyanocobalamin (Vitamin B-12) 1,000 Mcg Tablet) 1,000 mcg PO DAILY [facility] Last Admin: 10/29/24 09:13 Dose: 1,000 mcg Documented By: KATHRYN Folic Acid (Folic Acid 1 Mg Tablet) 1 mg PO DAILY [facility] Last Admin: 10/29/24 09:14 Dose: 1 mg Documented By: KATHRYN Furosemide (Furosemide 40 Mg/4 Ml Vial) 40 mg IVPUSH DAILY [facility]; Protocol Last Admin: 10/29/24 11:06 Dose: Not Given Documented By: KATHRYN Non-Admin Reason: No Access Magnesium Hydroxide (Milk Of Magnesia 30 Ml Oral.Susp) 30 ml PO DAILY PRN PRN Reason: Constipation Melatonin (Melatonin 3 Mg Tablet) 6 mg PO BEDTIME PRN PRN Reason: Insomnia Morphine Sulfate (Morphine Sulfate 4 Mg/Ml Cartridge) 2 mg IVPUSH Q4H PRN; Protocol PRN Reason: Pain, Severe (Pain Scale 7-10) Last Admin: 10/28/24 02:19 Dose: 2 mg Documented By: ARISTIDES-JOZEB Oxycodone HCl (Oxycodone Hcl Immed Release 5 Mg Tablet) 5 mg PO Q6H PRN PRN Reason: Pain, Moderate(Pain Scale 4-6) Sacubitril/Valsartan (Sacubitril/Valsartan 49/51 1 Tab Tablet) 1 tab PO BID [facility]; Protocol Last Admin: 10/29/24 09:14 Dose: 1 tab Documented By: KATHRYN Sodium Chloride (0.9 % Sodium Chloride Flush 3 Ml Syringe) 3 ml IVFLUSH QSHIFT [facility] Last Admin: 10/29/24 09:15 Dose: 3 ml Documented By: KATHRYN Spironolactone (Spironolactone 25 Mg Tablet) 25 mg PO DAILY [facility]; Protocol Last Admin: 10/29/24 09:14 Dose: 25 mg Documented By: KATHRYN Vitamin D (Cholecalciferol (Vitamin D3) 25 Mcg Tablet) 50 mcg PO DAILY [facility] Last Admin: 10/29/24 09:14 Dose: 50 mcg Documented By: KATHRYN Labs 10/29/24 07:02 10/29/24 07:02 Labs: Laboratory Results - last 24 hr 10/29/24 07:02 MCV 90.5 MCH 28.4 MCHC 31.4 RDW 13.7 Plt Count 313 MPV 10.0 Immature Gran % (Auto) 0.3 Neut % (Auto) 70.5 Lymph % (Auto) 13.9 L [place] % (Auto) 8.3 Eos % (Auto) 5.2 H Baso % (Auto) 1.8 Lymph # (Auto) 0.9 L [place] # (Auto) 0.5 Eos # (Auto) 0.3 Baso # (Auto) 0.1 Abs Immat Gran (auto) 0.02 Absolute Neuts (auto) 4.6 Absolute Nucleated RBC 0.000 Nucleated RBC % (auto) 0.0 Anion Gap 11 L Estim Creat Clear Calc 56.8 Estimated GFR > 60 Random Glucose 101 Calcium 9.4 B-Natriuretic Peptide 709 H Microbiology Microbiology Results: Microbiology 10/26/24 20:52 Blood Culture - Preliminary Blood - Venous No growth after 48 hours. 10/26/24 20:26 Blood Culture - Preliminary Blood - Venous No growth after 48 hours. Assessment and Plan (1) CHF exacerbation: Status: Acute Plan Patient is a 64-year-old female with a past medical history significant for HFrEF (recent echo with EF of 25-30%), HTN, persistent AFib on Eliquis, developmental delay, known left bundle branch block, depression and anxiety, who presented to the ED due to productive cough and chest pain for the past 3 days. acute on chronic HFrEF exacerbation with bilateral pleural effusions IV Lasix for 1 more day as repeat cxr show persistent pul edema restart Aldactone daily bmp daily weight, I/O recheck BNP in AM continue entresto, coreg, stop lisinopril concurently with Entesto elevated LFTs -- likely secondary to CHF exacerbation AST 57, ALT 73 f/u outpatient, repeat in morning HTN entresto, coreg, norvasc Persistent AFib coreg and eliquis Depression/anxiety - continue home meds Full code VTE prophylaxis: Eliquis Quality Stroke Does the patient have a stroke diagnosis?: No VTE Prior VTE?: No VTE Risk Level:: Medical - moderate - high VTE Device Contraindication: Treatment Not Indicated VTE Drug Contraindication: N/A - Med Ordered
[2024-10-30] VITALS (7 sets, daily range): BP systolic 139–149; BP diastolic 67–82; PULSE 59–73; RESP 16–17; TEMP 36.1–36.7; O2SAT 95–98
[2024-10-30 07:25] LABS: Anion Gap 12 (12-20); Blood Urea Nitrogen 15 mg/dL (9-16); Calcium 9.5 mg/dL (8.4-10.2); Carbon Dioxide 28 mmol/L (22-29); Chloride 106 mmol/L (96-108); Creatinine Clr Calc Pharmacy 55.5; Estimated Glomerular Filt Rate > 60; Glucose Random 97 mg/dL (60-115); Potassium 3.4 mmol/L (3.3-5.1); Sodium 143 mmol/L (135-145)
[2024-10-30 08:18] LABS: B Type Natriuretic Peptide 620 pg/mL (<100)
[2024-10-30] MEDS: Sacubitril/Valsartan 49/51 1 TAB TABLET PO (09:09)
[2024-10-30] MEDS: carvediloL 6.25 MG TABLET PO (09:11)
[2024-10-30] MEDS: Cyanocobalamin (Vitamin B-12) 1,000 MCG TABLET 1000 MCG PO (09:11)
[2024-10-30] MEDS: Calcium + Vitamin D 250 MG TABLET 500 MG PO (09:11)
[2024-10-30] MEDS: Amiodarone HCL 200 MG TABLET PO (09:11)
[2024-10-30] MEDS: Spironolactone 25 MG TABLET PO (09:11)
[2024-10-30] MEDS: Apixaban 5 MG TABLET PO (09:11)
[2024-10-30] MEDS: Folic Acid 1 MG TABLET PO (09:12)
[2024-10-30] MEDS: Cholecalciferol (Vitamin D3) 25 MCG TABLET 50 MCG PO (09:13)
[2024-10-30] MEDS: Furosemide 40 MG/4 ML VIAL IVPUSH (11:08)
--- NOTE | 2024-10-30 11:32 | P.PNIM_ITS ---
Subjective Subjective Date of Service: 10/30/24 Interval History: No shortness of breath, she feels better BNP is trending down but still fluid positive, and last cxr from yesterday still points to pulm edema Physical Exam 2 Vital Signs: Vital Signs: Last Vital Signs Temp 97.9 F 10/30/24 11:01 Pulse 73 10/30/24 11:01 Resp 17 10/30/24 11:01 BP 144/82 H 10/30/24 11:08 Pulse Ox 95 10/30/24 11:01 O2 Del Method Room Air 10/30/24 11:01 BMI result Body Mass Index 24.8 Const: Other: General: AO X 3, no acute distress Resp: CTA bilateral CVS: S1,S2,RRR GI: +BS, NT, no distention Skin: No rash Neuro: motor grossly intact Psych: appropriate affect Objective Data Active Medications Acetaminophen (Acetaminophen 325 Mg Tablet) 975 mg PO Q6H PRN PRN Reason: Pain, Mild 1-3,fever,headache Amiodarone HCl (Amiodarone Hcl 200 Mg Tablet) 200 mg PO DAILY [facility] Last Admin: 10/30/24 09:11 Dose: 200 mg Documented By: KATHRYN Apixaban (Apixaban 5 Mg Tablet) 5 mg PO BID [facility] Last Admin: 10/30/24 09:11 Dose: 5 mg Documented By: KATHRYN Calcium Carbonate (Calcium Carbonate 750 Mg Tab.Chew) 750 mg PO Q4H PRN PRN Reason: Heartburn Calcium Carbonate/Cholecalciferol (Calcium + Vitamin D 250 Mg Tablet) 500 mg PO DAILY [facility] Last Admin: 10/30/24 09:11 Dose: 500 mg Documented By: KATHRYN Carvedilol (Carvedilol 6.25 Mg Tablet) 6.25 mg PO BID [facility]; Protocol Last Admin: 10/30/24 09:11 Dose: 6.25 mg Documented By: KATHRYN Cyanocobalamin (Cyanocobalamin (Vitamin B-12) 1,000 Mcg Tablet) 1,000 mcg PO DAILY [facility] Last Admin: 10/30/24 09:11 Dose: 1,000 mcg Documented By: KATHRYN Folic Acid (Folic Acid 1 Mg Tablet) 1 mg PO DAILY [facility] Last Admin: 10/30/24 09:12 Dose: 1 mg Documented By: KATHRYN Furosemide (Furosemide 40 Mg/4 Ml Vial) 40 mg IVPUSH DAILY [facility]; Protocol Last Admin: 10/30/24 11:08 Dose: 40 mg Documented By: KATHRYN Magnesium Hydroxide (Milk Of Magnesia 30 Ml Oral.Susp) 30 ml PO DAILY PRN PRN Reason: Constipation Melatonin (Melatonin 3 Mg Tablet) 6 mg PO BEDTIME PRN PRN Reason: Insomnia Morphine Sulfate (Morphine Sulfate 4 Mg/Ml Cartridge) 2 mg IVPUSH Q4H PRN; Protocol PRN Reason: Pain, Severe (Pain Scale 7-10) Last Admin: 10/28/24 02:19 Dose: 2 mg Documented By: ARISTIDES-JOZEB Oxycodone HCl (Oxycodone Hcl Immed Release 5 Mg Tablet) 5 mg PO Q6H PRN PRN Reason: Pain, Moderate(Pain Scale 4-6) Sacubitril/Valsartan (Sacubitril/Valsartan 49/51 1 Tab Tablet) 1 tab PO BID [facility]; Protocol Last Admin: 10/30/24 09:09 Dose: 1 tab Documented By: KATHRYN Sodium Chloride (0.9 % Sodium Chloride Flush 3 Ml Syringe) 3 ml IVFLUSH QSHIFT [facility] Last Admin: 10/30/24 09:09 Dose: Not Given Documented By: KATHRYN Non-Admin Reason: No Access Spironolactone (Spironolactone 25 Mg Tablet) 25 mg PO DAILY [facility]; Protocol Last Admin: 10/30/24 09:11 Dose: 25 mg Documented By: KATHRYN Vitamin D (Cholecalciferol (Vitamin D3) 25 Mcg Tablet) 50 mcg PO DAILY [facility] Last Admin: 10/30/24 09:13 Dose: 50 mcg Documented By: KATHRYN Labs 10/29/24 07:02 10/30/24 06:02 Labs: Laboratory Results - last 24 hr 10/30/24 06:02 Hold Purple Top SEE NOTE Anion Gap 12 Estim Creat Clear Calc 55.5 Estimated GFR > 60 Random Glucose 97 Calcium 9.5 B-Natriuretic Peptide 620 H Assessment and Plan (1) CHF exacerbation: Status: Acute Plan Patient is a 64-year-old female with a past medical history significant for HFrEF (recent echo with EF of 25-30%), HTN, persistent AFib on Eliquis, developmental delay, known left bundle branch block, depression and anxiety, who presented to the ED due to productive cough and chest pain for the past 3 days. acute on chronic HFrEF exacerbation with bilateral pleural effusions, CXR 10/29 showed persistent pulm edema, +1900 IV Lasix for now restart Aldactone daily bmp daily weight, I/O recheck BNP in AM continue entresto, coreg, stopped lisinopril concurently with Entesto cardiology input elevated LFTs -- likely secondary to CHF exacerbation AST 57, ALT 73 f/u outpatient, repeat in morning HTN entresto, coreg, norvasc Persistent AFib coreg and eliquis Depression/anxiety - continue home meds Full code VTE prophylaxis: Eliquis Quality Stroke Does the patient have a stroke diagnosis?: No VTE Prior VTE?: No VTE Risk Level:: Medical - moderate - high VTE Device Contraindication: Treatment Not Indicated VTE Drug Contraindication: N/A - Med Ordered
--- NOTE | 2024-10-30 11:45 | W.MHC.F2F ---
Service Date Service Date: 10/30/24 Encounter Date of encounter: 10/30/24 Reasons for Services Signs and symptoms assessed: shortness of breath due to heart failure Reason for nursing home: medication management and teach disease management Homebound: Leaving the home is medically contraindicated at this time without the asist of a device and/or another person due th the listed conditions above and below. Reason homebound: shortness of breath with minimal effort and weakness related to hospital stay Homebound supporting statement: homebound due to shortness of breath from heart failure, not driving and therefore needs the assistance of another person Certification: Based on the above findings, I certify that this patient is confined to the home and needs intermittent nursing home care, physical therapy and/or speech therapy, or continues to need occupational therapy. The patient is under my care, and I have initiated the establishment of the plan of care. The patient will be followed by a physician who will periodically review the plan of care. Time Spent With Patient Time: Total time managing care of this patient today ____ minutes.
--- NOTE | 2024-10-30 11:48 | P.DS_ITS ---
DS: Providers Provider Date of Service: 10/30/24 Date of admission: 10/27/24 00:05 Date of discharge: 10/30/24 Primary care physician: Marium Rodriguez MD DS: Diagnosis Discharge Diagnosis (1) CHF exacerbation: Status: Acute DS: Summary Hospital Course Hospital Course: admission hpi Chief Complaint: cough, chest pain Patient is a 64-year-old female with a past medical history significant for HFrEF (recent echo with EF of 25-30%), HTN, persistent AFib on Eliquis, developmental delay, known left bundle branch block, depression and anxiety, who presented to the ED due to productive cough and chest pain for the past 3 days. They also described dyspnea on exertion and chills but denied any fever, lower extremity edema or weight gain. We deny any recent sick contacts. No abdominal pain, nausea, vomiting, headache, sore throat, congestion or rhinorrhea hospital course Patient is a 64-year-old female with a past medical history significant for HFrEF (recent echo with EF of 25-30%), HTN, persistent AFib on Eliquis, developmental delay, known left bundle branch block, depression and anxiety, who presented to the ED due to productive cough and chest pain for the past 3 days and found to have acue on chronic heart failure with elevated BNP and finding of pulm edema of CXR. Patient was treated with IV Lasix and followed clinically, her BNP has trended down from 2596 to now 620, her symptoms have resolved. Although charting reveal positive fluid balance, her weight has gone down considerably from 77 kilo to now 67, she feels good, no shortness eve breath, no hypoxia and will thus change to oral Lasix 40mg in the morning as before and 20 in the evening now and to follow up with cardiology on outpaetient basis. To continue Entresto, Coreg and stop Lisinopril concurently with Entresto elevated LFTs -- likely secondary to CHF exacerbation AST 57, ALT 73 f/u outpatient, repeat in morning HTN entresto, coreg, norvasc Persistent AFib coreg and eliquis Depression/anxiety - continue home meds Full code VTE prophylaxis: Eliquis Time Attestation Discharge Coordination Time (in mins): 40 Quality: Safe Use of Opioids Does Pt have an Active Cancer Diagnosis on the Problem List?: No Quality: Stroke Does the patient have a stroke diagnosis?: No Physical Exam Vital Signs: Vital Signs: Last Vital Signs Temp 96.9 F 10/29/24 07:52 Pulse 72 10/29/24 09:14 Resp 17 10/29/24 07:52 BP 145/74 H 10/29/24 09:14 Pulse Ox 96 10/29/24 07:52 O2 Del Method Room Air 10/29/24 07:52 BMI result Body Mass Index 24.8 DS: Data Data Completed and Pending Labs on day of discharge: Laboratory Results - last 24 hr 10/29/24 07:02 WBC 6.5 RBC 4.22 Hgb 12.0 Hct 38.2 MCV 90.5 MCH 28.4 MCHC 31.4 RDW 13.7 Plt Count 313 MPV 10.0 Immature Gran % (Auto) 0.3 Neut % (Auto) 70.5 Lymph % (Auto) 13.9 L [place] % (Auto) 8.3 Eos % (Auto) 5.2 H Baso % (Auto) 1.8 Lymph # (Auto) 0.9 L [place] # (Auto) 0.5 Eos # (Auto) 0.3 Baso # (Auto) 0.1 Abs Immat Gran (auto) 0.02 Absolute Neuts (auto) 4.6 Absolute Nucleated RBC 0.000 Nucleated RBC % (auto) 0.0 Sodium 142 Potassium 3.9 Chloride 106 Carbon Dioxide 29 Anion Gap 11 L BUN 15 Creatinine 0.90 Estim Creat Clear Calc 56.8 Estimated GFR > 60 Random Glucose 101 Calcium 9.4 B-Natriuretic Peptide 709 H Preliminary micro results at discharge 10/26/24 20:52 Blood Culture - Preliminary Blood - Venous No growth after 48 hours. 10/26/24 20:26 Blood Culture - Preliminary Blood - Venous No growth after 48 hours. Discharge Plan Discharge Anticipated Discharge Date/Time: 10/30/24 11:42 Patient Disposition: Home Health Service Discharge Diagnosis: acute on chronic heart failure Referrals: Marium Conley MD [Primary Care Provider, Internal Medicine] - 1 Week Discharge Medications: Continued (DME) Shower Chair Misc See Rx Instructions .Route Qty: 1 0RF Rx Instructions: As directed (DME) incontinence pad, liner, disp Pad See Rx Instructions .ROUTE .MEDSUPPLY Qty: 30 11RF Rx Instructions: Use 1 pad once a day prn ([facility] [place]) blood pressure monitor Kit See Rx Instructions .Route Qty: 1 0RF Rx Instructions: As directed ([facility] [place]) life alert See Rx Instructions .Route .MEDSUPPLY Qty: 1 0RF Rx Instructions: As directed polyethylene glycol 3350 [Gavilax] 17 gram/dose powder 17 g PO DAILY PRN (Reason: constipation) 30 Days Qty: 510 1RF cholecalciferol (vitamin D3) 50 mcg (2,000 unit) capsule 50 mcg PO DAILY 90 Days Qty: 90 3RF folic acid 1 mg tablet 1 mg PO DAILY 90 Days Qty: 90 3RF amiodarone 200 mg tablet 200 mg PO DAILY Qty: 90 3RF Entresto 49-51 mg tablet 1 tab PO BID Qty: 180 0RF Protocol: Hold for SBP< HOLD for SBP < : 90 Eliquis 5 mg tablet 5 mg PO BID Qty: 180 0RF calcium carbonate-vitamin D3 600 mg-10 mcg (400 unit) tablet 1 tab PO DAILY 90 Days Qty: 90 3RF carvedilol 6.25 mg tablet 6.25 mg PO BID spironolactone [Aldactone] 25 mg tablet 25 mg PO DAILY Qty: 90 0RF tacrolimus 0.1 % ointment 1 appl topical BID PRN (Reason: Flares/Rashes) lisinopril 10 mg tablet 10 mg PO DAILY cyanocobalamin (vitamin B-12) 1,000 mcg tablet 1,000 mcg PO DAILY citalopram 40 mg tablet 40 mg PO DAILY bupropion HCl 150 mg tablet sustained-release 12 hr 150 mg PO DAILY triamcinolone acetonide 0.1 % cream 1 appl topical DAILY PRN (Reason: Flares/Rashes) furosemide 40 mg tablet 40 mg PO DAILY Qty: 30 2RF Discharge Orders: Discharge Order (Routine); Ordered 10/30/24 Ordered By: Panfilo Galo Diet: Advance to usual diet Activity on Discharge: As tolerated Stand Alone Forms: Patient Portal Discharge page Print Language: Bulgarian Care Plan Goals: recovery from heart failure Health Concerns: heart failure Plan of Treatment: continue taking all your medication asa before limit water intake to 1200 cc a day avoid excess salt follow up iwht your doctor in a week Assessment: see above
== END 2024-10-30 14:30 | disposition home health service (06) | DRG 291 ==
LOC: HO.ED 23:59 → HO.EDOVER 10-27 00:22 → HO.S3 10-27 13:43 → HO.IMC 10-27 17:04
PROVIDERS: Physician Assistant Medical; Admitting Provider Physician Assistant; Emergency Provider Emergency Medicine; PCP Internal Medicine; Visit Provider Internal Medicine
DX: I11.0 Hypertensive heart disease with heart failure (principal); I50.23 Acute on chronic systolic (congestive) heart failure; J18.9 Pneumonia, unspecified organism; I48.19 Other persistent atrial fibrillation; R62.50 Unspecified lack of expected normal physiological development in childhood; F41.9 Anxiety disorder, unspecified; F32.A Depression, unspecified; Z20.822 Contact with and (suspected) exposure to COVID-19; Z79.01 Long term (current) use of anticoagulants; Z79.899 Other long term (current) drug therapy
CPT/HCPCS: 0241U; 36415; 71045; 71046; 80048; 80051; 80053; 82947; 83605; 83735; 83880; 84145; 84484; 85025; 87040; 93005; 99285; J0456; J0696; J1938; J2270

== ENCOUNTER → 2024-10-26 16:41 | Outpatient (BNV) | payer OTHER, SELFPAY | PROVIDERS: Admitting Provider Physician Assistant; Emergency Provider Emergency Medicine; PCP Internal Medicine; Visit Provider Internal Medicine Cardiovascular Disease | DX: I48.91 Unspecified atrial fibrillation (principal); I44.7 Left bundle-branch block, unspecified | CPT/HCPCS: 93010 ==

== ENCOUNTER 2024-10-27 00:05 | Outpatient (BNV) | payer OTHER, SELFPAY | END 2024-10-29 09:02 | PROVIDERS: Admitting Provider Physician Assistant; Emergency Provider Emergency Medicine; PCP Internal Medicine; Visit Provider Radiology Diagnostic Radiology | DX: J90 Pleural effusion, not elsewhere classified (principal); J81.0 Acute pulmonary edema; M41.35 Thoracogenic scoliosis, thoracolumbar region | CPT/HCPCS: 71045 ==

== ENCOUNTER → 2024-10-27 00:05 | Outpatient (BNV) | payer OTHER, SELFPAY | PROVIDERS: Admitting Provider Physician Assistant; Emergency Provider Emergency Medicine; PCP Internal Medicine; Visit Provider Internal Medicine | DX: I50.9 Heart failure, unspecified (principal) | CPT/HCPCS: 99223; 99232; 99239; G0180 ==

== ENCOUNTER 2024-11-04 09:09 | Outpatient (AMB) | payer OTHER, SELFPAY ==
--- NOTE | 2024-11-04 09:15 | MHC.OFFVIS ---
Vital Signs 11/04/24 09:20 Height 5 ft 5 in Weight 135 lb 12.876 oz BMI 22.6 BP 138/72 Blood Pressure Location Rt brachial Position Sitting Pulse 72 Pulse Source Monitor Intake Visit Reasons: 6-8 wk follow up/ after testings Bombsight Specialist Required: No News Gathering Technician: News Gathering Technician Present Allergies amoxicillin (AMOXICILLIN) Allergy (Intermediate, Verified 11/04/24 09:21) ? RASH chlorpheniramine (From Tussionex) Allergy (Intermediate, Verified 11/04/24 09:21) Rash clonazepam (From KLONOPIN) Allergy (Intermediate, Verified 11/04/24 09:21) ? RASH hydrocodone (From Tussionex) Allergy (Intermediate, Verified 11/04/24 09:21) Rash lorazepam (LORAZEPAM) Allergy (Intermediate, Verified 11/04/24 09:21) ? RASH mirtazapine (From REMERON) Allergy (Intermediate, Verified 11/04/24 09:21) RASH naproxen (From NAPROSYN) Allergy (Intermediate, Verified 11/04/24 09:21) ? RASH Sulfa (Sulfonamide Antibiotics) (SULFA(SULFONAMIDE ANTIBIOTICS)) Allergy (Intermediate, Verified 11/04/24 09:21) ? RASH fluoxetine (Prozac) Allergy (Mild, Verified 11/04/24 09:21) rash Medication List - Last Reconciled 11/04/24 by Tash Escobar NP-C amiodarone 200 mg PO DAILY apixaban (Eliquis) 5 mg PO BID blood pressure monitor As directed bupropion HCl SR 150 mg PO DAILY calcium carbonate-vitamin D3 600 mg-10 mcg (400 unit) 1 tab PO DAILY 90 days carvedilol 6.25 mg PO BID cholecalciferol (vitamin D3) 50 mcg PO DAILY 90 days citalopram 40 mg PO DAILY cyanocobalamin (vitamin B-12) 1,000 mcg PO DAILY folic acid 1 mg PO DAILY 90 days furosemide (Lasix) 20 mg PO QPM incontinence pad, liner, disp Use 1 pad once a day prn [life alert As directed] polyethylene glycol 3350 (Gavilax) 17 grams PO DAILY PRN 30 days sacubitril-valsartan 49-51 mg (Entresto) 1 tab See Protocol PO BID Shower Chair As directed spironolactone (Aldactone) 25 mg PO DAILY tacrolimus 0.1% 1 appl topical BID PRN triamcinolone acetonide 0.1% 1 appl topical DAILY PRN HPI HPI 6-8 wk follow up/ after testings: Details: Gloria is a 64-year-old female with past medical history of nonischemic cardiomyopathy, heart failure with reduced EF, left bundle branch block, chronic atrial fibrillation who was recently started on amiodarone and was scheduled for a cardioversion on 10/21/2023 but she could not confirm last dose of Eliquis so her procedure was canceled. He was admitted to [facility] [id number] with shortness of breath and chest discomfort. She was treated for acute on chronic systolic heart failure. She was significantly diuresed and discharged on Lasix 20 mg daily as well as her Entresto, carvedilol, spironolactone. Today she presents for follow-up with her SHUTTLELESS LOOM WEAVER and pill bottles. Today she reports she has been feeling well since her hospital discharge. She denies any concerning symptoms. No chest discomfort, shortness of breath, heart palpitations. No bleeding issues reported. She has all her medications with her but seems to have run out of spironolactone. I will reorder this medication. She reports taking all meds as prescribed with the help of her daughter. They are using a pillbox. She confirms that Eliquis has been taken twice daily since 10/21/2024. She is starting with visiting nurse services but she is unclear of how frequent they will come. [facility] Medical History Essential hypertension Left bundle branch block Persistent atrial fibrillation Heart failure with reduced ejection fraction Chronic a-fib CHF (congestive heart failure) Endometrioid adenocarcinoma of uterus Ovarian mass Uterine fibroid Left flank pain Skin lesion Mild major depression, single episode Urge urinary incontinence STEPHAN (generalized anxiety disorder) Hypovitaminosis D Developmental delay, mild Depression with anxiety Pernicious anemia Surgical History Status post total hysterectomy and bilateral salpingo-oophorectomy History of tooth extraction History of H/O tubal ligation Family History Father Heart attack Mother Dementia Other Mental and behavioral problem in adult Social History Household Members: Other Household Members Other:: daughter Housing: Apartment Do you presently have visiting nurse or other home services: No Unable to assess alcohol history related to: Unknown Alcohol intake: never Patient Tobacco Use Status: Never used Tobacco e-Cigarette/Vaping Use: Never Used Second Hand Smoke Exposure: No service: No Current occupational status: disabled Cognitive needs: Yes Hearing needs: No Vision needs: No Female Reproductive History Menstrual Age of Menarche: 14 Review of Systems Const All systems reviewed & are unremarkable except as noted in HPI and below ENT Denies dizziness Card Denies chest pain, Denies chest pain at rest, Denies chest pain with activity, Denies rapid heart rate, Denies pedal edema, Denies edema, Denies leg edema, Denies lightheadedness, Denies palpitations, Denies dyspnea, Denies dyspnea on exertion and Denies orthopnea Resp Denies cough, Denies dyspnea and Denies dyspnea on exertion GI Denies hematochezia and Denies change in stool character Musc Denies abnormal gait, Denies limited range of motion, Denies muscle cramps, Denies muscle weakness, Denies numbness, Denies radiating pain into limb, Denies stiffness and Denies tingling Neuro Denies abnormal gait, Denies dizziness, Denies numbness and Denies tingling Endo Denies palpitations Physical Exam Vital Signs: Last Vital Signs Pulse 72 11/04/24 09:20 BP 138/72 11/04/24 09:20 BMI result Body Mass Index 22.6 Const General: cooperative, healthy appearing, comfortable and no acute distress Orientation/consciousness: patient oriented x3 Neck Neck: Yes normal visual inspection and Yes no JVD Resp Effort & Inspection: normal respiratory effort Auscultation: clear to auscultation bilaterally, no rales, no rhonchi and no wheezes Cardio Rate: regular rate Rhythm: regular rhythm Heart sounds: S1 normal heart sound present, S2 normal heart sound present, no gallops, no murmurs and no rubs Neuro General: patient oriented x3 Extrem General: Yes normal to inspection, No no pedal edema and No calf tenderness Psych Appearance: grossly normal Mental Status: mental status grossly normal Speech and movement: Normal speech and movement present Office Procedures EKG Details: Today, read by me, atrial fibrillation, left bundle branch block, rate 72 [id number], Complete Assessment & Plan Assessment & Plan (1) Nonischemic cardiomyopathy: Code(s): I42.8 - Other cardiomyopathies Category: Medical Plan: [facility] admission for Congestive heart failure 06/2024. Echocardiogram was done on 06/21/2024 showing EF 25-30%, moderately dilated left atrium, [id number] elevated RV systolic pressure and significantly elevated RA pressure. She was put on appropriate med management including Lasix, carvedilol, Entresto, spironolactone. She then underwent nuclear stress test on 07/07/2024 showing no clear evidence of myocardial ischemia, EF 32%. She did have repeat hospital admission for heart failure last week. She does not appear fluid overloaded on exam today. She ran out of spironolactone. Will have her restart spironolactone, continue Lasix, carvedilol and Entresto. Unclear if she has had good compliance with medications until recently. A repeat echocardiogram 10/06/2024 showed EF still at 25-30%. At this time will continue with med management and work on AFib rhythm control. Signs and symptoms of heart failure reviewed with her. She will have visiting nurse services who can help to watch for heart failure symptoms. (2) Heart failure with reduced ejection fraction: Code(s): I50.20 - Unspecified systolic (congestive) heart failure Category: Medical Plan: As above (3) Persistent atrial fibrillation: Code(s): I48.19 - Other persistent atrial fibrillation Category: Medical Plan: Persistent atrial fibrillation present. She came for cardioversion 10/20/2024 however was unable to confirm the last Eliquis dose. Her cardioversion was canceled. She now tells me she has been taking Eliquis b.i.d. since 10/21/2024 with the help of her daughter who does her pill boxes. She is on carvedilol for heart rate control. EKG done today shows atrial fibrillation, left bundle branch block, rate 72. A Holter monitor from 10/06/2024 showed AFib with average heart rate 71. Will arrange for cardioversion in 3-[address] Barragan. Stroke risk with holding anticoagulation reviewed with her. (4) Essential hypertension: Code(s): I10 - Essential (primary) hypertension Category: Medical Plan: Blood pressure goal less than 130/80. Near goal at present. I will be restarting spironolactone as she ran out. (5) Left bundle branch block: Code(s): I44.7 - Left bundle-branch block, unspecified Category: Medical Plan: Present on EKGs. Unknown longevity.- may be contributing to cardiomyopathy (6) Hospital discharge follow-up: Code(s): Z09 - Encounter for follow-up examination after completed treatment for conditions other than malignant neoplasm Category: Medical Plan: Discharge summary reviewed as above Plan I discussed with the patient the importance of continuing her current medications to manage her heart failure and atrial fibrillation. We talked about the planned cardioversion procedure and the necessity of consistent Eliquis use to prevent thromboembolic events. I advised her to monitor for signs of fluid overload and to maintain adequate hydration. We also discussed limiting caffeine intake to avoid exacerbating her condition. Follow-up will be arranged to reassess her condition post cardioversion. Orders: Orders TSH reflex Free T4 Today Z79.899 - Other alf (current) drug therapy Liver Panel Today Z79.899 - Other termite inspector (current) drug therapy Cardioversion 3 Weeks I48.19 - Other persistent atrial fibrillation, Z79.899 - Other alf (current) drug therapy Medications: Refilled spironolactone (Aldactone) 25 mg PO DAILY 90 tabs 3RF Patient Instructions: - Continue taking all prescribed medications as directed. - Ensure consistent use of Eliquis twice daily. - Monitor for symptoms of fluid overload, such as shortness of breath or leg swelling. - Maintain adequate hydration by drinking at least two bottles of water daily. - Limit caffeine intake to one coffee per day. - Contact healthcare providers if symptoms worsen or if there are any concerns. Patient was informed and verbally consented to the use of an ambient scribe for clinic note documentation during this visit. Visit time spent on chart review, interview, assessment, orders, documentation. Coding Level of Care Code Est Pt Level 4 (44074) Complex EM visit Add On G2211 Diagnoses Nonischemic cardiomyopathy I42.8 Heart failure with reduced ejection fraction I50.20 Persistent atrial fibrillation I48.19 Essential hypertension I10 Left bundle branch block I44.7 Hospital discharge follow-up Z09 CPT Codes EKG - CPT: 35511-Gjyldvoqwgljqvdih, Complete ([id number]) Time Spent (min) 28
[2024-11-04 09:20] VITALS: BP 138/72; PULSE 72; BMI 22.6
--- OUTSIDE RECORDS SUMMARY | 2024-11-04 09:59 | XMS_ITS | Clinical Summary ---
Author Organization [facility] ity Address [address] [place] [address] Care Team Providers Care Arabic Linguist Name Role Phone Janeth Ferguson MD Primary Care Provider [phone] Social History Tobacco Use Types Packs/Day Years [...] age to complete this topic Care Teams Arabic Linguist Relationship Specialty Start Date End Date Janeth Ferguson MD [address] [place] [address] Dr [address] [facility] [place] [address] PCP - General Internal Medicine 03/31/17
== END 2024-11-04 10:00 | disposition home or self-care (01) ==
LOC: HO.HCS 09:10
PROVIDERS: PCP Internal Medicine; Visit Provider Nurse Practitioner Family
DX: I42.8 Other cardiomyopathies (principal); I50.20 Unspecified systolic (congestive) heart failure; I48.19 Other persistent atrial fibrillation; I10 Essential (primary) hypertension; I44.7 Left bundle-branch block, unspecified; Z09 Encounter for follow-up examination after completed treatment for conditions other than malignant neoplasm
CPT/HCPCS: 93010; 99214; G2211

== ENCOUNTER → 2024-11-04 09:09 | Outpatient (BNVA) | payer OTHER, SELFPAY | PROVIDERS: PCP Internal Medicine; Visit Provider Nurse Practitioner Family | DX: Z09 Encounter for follow-up examination after completed treatment for conditions other than malignant neoplasm (principal); I42.8 Other cardiomyopathies; I50.20 Unspecified systolic (congestive) heart failure; I48.19 Other persistent atrial fibrillation; I10 Essential (primary) hypertension; I44.7 Left bundle-branch block, unspecified | CPT/HCPCS: 93005; 99212 ==

== ENCOUNTER 2024-11-08 10:55 | Outpatient (AMB) | payer OTHER, SELFPAY ==
--- NOTE | 2024-11-08 11:03 | MHC.PC.OV ---
Vital Signs 11/08/24 11:05 Height 5 ft 5 in Weight 138 lb 2 oz BMI 23.0 BP 130/88 Blood Pressure Location Lt brachial Position Sitting Pulse 52 Pulse Source Pulse Oximeter Temp 97.7 F Temp Source Temporal Artery Scan Pulse Oximetry (%) 98 Oxygen Delivery Method Room Air Intake Visit Reasons: TCM [facility] 10/30 MULLIGAN/Cough Intake Note: Patient is here for hospital discharge and TCM follow up. Patient was discharged from [facility] on 10/30/24. Pet Care Assistant Required: No Casting Plug Assembler: Present Accompanied by: Staff Allergies amoxicillin (AMOXICILLIN) Allergy (Intermediate, Verified 11/08/24 11:16) ? RASH chlorpheniramine (From Tussionex) Allergy (Intermediate, Verified 11/08/24 11:16) Rash clonazepam (From KLONOPIN) Allergy (Intermediate, Verified 11/08/24 11:16) ? RASH hydrocodone (From Tussionex) Allergy (Intermediate, Verified 11/08/24 11:16) Rash lorazepam (LORAZEPAM) Allergy (Intermediate, Verified 11/08/24 11:16) ? RASH mirtazapine (From REMERON) Allergy (Intermediate, Verified 11/08/24 11:16) RASH naproxen (From NAPROSYN) Allergy (Intermediate, Verified 11/08/24 11:16) ? RASH Sulfa (Sulfonamide Antibiotics) (SULFA(SULFONAMIDE ANTIBIOTICS)) Allergy (Intermediate, Verified 11/08/24 11:16) ? RASH fluoxetine (Prozac) Allergy (Mild, Verified 11/08/24 11:16) rash Medication List - Last Reconciled 11/08/24 by Silvina Goodson PA-C amiodarone 200 mg PO DAILY apixaban (Eliquis) 5 mg PO BID blood pressure monitor As directed bupropion HCl SR 150 mg PO DAILY calcium carbonate-vitamin D3 600 mg-10 mcg (400 unit) 1 tab PO DAILY 90 days carvedilol 6.25 mg PO BID cholecalciferol (vitamin D3) 50 mcg PO DAILY 90 days citalopram 40 mg PO DAILY cyanocobalamin (vitamin B-12) 1,000 mcg PO DAILY folic acid 1 mg PO DAILY 90 days furosemide (Lasix) 20 mg PO QPM incontinence pad, liner, disp Use 1 pad once a day prn [life alert As directed] polyethylene glycol 3350 (Gavilax) 17 grams PO DAILY PRN 30 days sacubitril-valsartan 49-51 mg (Entresto) 1 tab See Protocol PO BID Shower Chair As directed spironolactone (Aldactone) 25 mg PO DAILY tacrolimus 0.1% 1 appl topical BID PRN triamcinolone acetonide 0.1% 1 appl topical DAILY PRN Tobacco use date assessed: 11/08/24 Fall risk assessment: No Falls in past year Last assessed Fall Risk: 11/08/24 Dental Screening Dental Screen Date: 07/02/24 HPI TCM [facility] 10/30 MULLIGAN/Cough HPI Details 64-year-old female with past medical history of pernicious anemia, generalized anxiety disorder, urinary incontinence, mild depression, hyperparathyroidism, heart failure with reduced ejection fraction, persistent atrial fibrillation, hypertension, cardiomyopathy last seen 08/[address] Bustillos coming in for hospital discharge follow up. In review of the notes, patient was seen in [facility] ED 10/27/2024 for dyspnea on exertion and productive cough found to have acute on chronic heart failure treated with IV Lasix and admitted for further evaluation. BNP trending down and symptoms resolved patient was transitioned to oral Lasix and discharged home to follow up with Cardiology on 10/30/2024 she was seen by Cardiology 11/04/2024 restarted on spironolactone, continued on Lasix, carvedilol and Entresto. Plan to arrange for cardioversion in 3-[address] Barragan. Presenting for a follow-up visit after hospitalization due to shortness of breath and fluid retention. The patient was hospitalized a couple of weeks ago due to shortness of breath and cough, attributed to fluid accumulation. The patient has not been taking spironolactone, which was prescribed to manage fluid retention, and has not been monitoring her weight daily. She was advised to monitor her weight daily and report any sudden weight gain of more than 5 pounds. Blood pressure was noted to be stable during the visit, and previous lab results showed improvement. The patient reports 1 episode of chest pain that lasted one second, which resolved without intervention, and denies current shortness of breath or cough. She has a history of seeing a washer carcass and is scheduled for a cardioversion procedure in the coming weeks. [facility] TCM Information Date of Discharge 10/30/24 Discharged From [facility] Medical History Essential hypertension Left bundle branch block Persistent atrial fibrillation Heart failure with reduced ejection fraction Chronic a-fib CHF (congestive heart failure) Endometrioid adenocarcinoma of uterus Ovarian mass Uterine fibroid Left flank pain Skin lesion Mild major depression, single episode Urge urinary incontinence STEPHAN (generalized anxiety disorder) Hypovitaminosis D Developmental delay, mild Depression with anxiety Pernicious anemia Surgical History Status post total hysterectomy and bilateral salpingo-oophorectomy History of tooth extraction History of H/O tubal ligation Family History Father Heart attack Mother Dementia Other Mental and behavioral problem in adult Social History Household Members: Other Household Members Other:: daughter Housing: Apartment Do you presently have visiting nurse or other home services: No Unable to assess alcohol history related to: Unknown Alcohol intake: never Patient Tobacco Use Status: Never used Tobacco e-Cigarette/Vaping Use: Never Used Second Hand Smoke Exposure: No service: No Current occupational status: disabled Cognitive needs: Yes Hearing needs: No Vision needs: No Female Reproductive History Menstrual Age of Menarche: 14 Questionnaire Thrive Questionnaire Date Thrive assessed: 09/06/24 I am a: Patient What is your living situation today?: I have a steady place to live Within the past 12 months, did the food you bought not last and you didn't have the money to get more?: Never true Within the past 12 months, did you worry whether your food would run out before you got money to buy more?: Never true Do you have trouble paying for medicines?: No Do you have trouble getting transportation to medical appointments?: No Do you have trouble paying your heating and electricity bill?: No Do you have trouble taking care of your child, family member or friend?: No Do you have trouble with day-to-day activities such as bathing, preparing meals, shopping, managing finances, etc.?: No Are you currently unemployed and looking for a job?: No Are you interested in more education?: No Please select the resources that you would like help with: None Currently or been in a relationship where the following occur: No concerns reported THRIVE Score: 0 STEPHAN-7 AMB Questionnaire STEPHAN-7 Date STEPHAN - 7 assessed: 07/02/24 Source: Developed by Drs. Boyd Mcguire, Carrie Dow, Blu Powell and colleagues, with an educational aretha from [employer]. Review of Systems Const Denies body aches, Denies chills, Denies fever(s), Denies headache(s) and Denies poor appetite Eyes Reports no additional complaints ENT Denies dysphagia, Denies dizziness, Denies headache(s) and Denies odynophagia Card Denies chest pain, Denies syncope, Denies edema, Reports irregular heart rhythm, Denies lightheadedness and Denies dyspnea Resp Denies cough and Denies dyspnea GI Denies abdominal pain, Denies dysphagia, Denies nausea, Denies odynophagia and Denies vomiting Reports no additional complaints Musc Reports no additional complaints and Denies abnormal gait Skin/Breast Reports system reviewed and no additional complaints, except as documented Neuro Denies abnormal gait, Denies dizziness, Denies syncope and Denies headache(s) Psych Reports no additional complaints Physical exam (Primary Care) Vital Signs: Last Vital Signs Temp 97.7 F 11/08/24 11:05 Pulse 52 11/08/24 11:05 BP 130/88 11/08/24 11:05 Pulse Ox 98 11/08/24 11:05 Oxygen Delivery Method Room Air 11/08/24 11:05 BMI result Body Mass Index 23.0 Tobacco/Smoking Status: Tobacco use Status Tobacco use date assessed 11/08/24 11/08/24 11:10 Patient Tobacco Use Status Never used Tobacco 11/08/24 11:10 Tobacco use type 02/12/24 10:06 e-Cigarette/Vaping Use Never Used 11/08/24 11:10 Thrive Assessment: Date of Thrive Assessment Date Thrive assessed 09/06/24 11/08/24 11:10 Currently or been in a relationship where the following occur: No concerns reported Const General: cooperative, healthy appearing, comfortable and no acute distress Orientation/consciousness: patient oriented x3 HENMT Head: Yes normocephalic Ears: hearing grossly normal bilaterally General nose exam: Normal external nose present Eyes General: appearance normal, both eyes and all related structures Conjunctivae: conjunctivae normal Neck Neck: Yes full ROM and Yes no lymphadenopathy Resp Effort & Inspection: normal respiratory effort Auscultation: clear to auscultation bilaterally, no crackles, no rales, no rhonchi and no wheezes Cardio Rate: regular rate Rhythm: regular rhythm Skin General skin exam: no rashes or lesions noted Neuro General: patient oriented x3 Gait exam (Neuro): Normal gait present Extrem General: Yes normal to inspection, Yes full ROM and No edema Psych Affect: normal affect Attitude: cooperative Insight: Good insight present (Psych) Judgement: Good judgement present (Psych) Coding Level of Care Code TCM Mod MDM <= 14 Days Complex EM visit Add On G2211 Diagnoses Essential hypertension I10 Heart failure with reduced ejection fraction I50.20 Persistent atrial fibrillation I48.19 Assessment & Plan Assessment & Plan (1) Essential hypertension: Code(s): I10 - Essential (primary) hypertension Category: Medical Plan: Continue on current blood pressure medication. Avoid salt intake and encourage healthy diet and regular exercise. (2) Heart failure with reduced ejection fraction: Code(s): I50.20 - Unspecified systolic (congestive) heart failure Category: Medical Plan: Patient is clinically euvolemic at this time without signs of fluid overload. Advised patient to continue to monitor daily weights and monitor fluid intake. Patient to continue on Entresto, carvedilol, spironolactone and Lasix as advised by her washer carcass. Echocardiogram performed in the hospital showing reduced ejection fraction consistent with last echo. Continue to follow with Cardiology (3) Persistent atrial fibrillation: Code(s): I48.19 - Other persistent atrial fibrillation Category: Medical Plan: Patient having persistent atrial fibrillation scheduled for cardioversion with Dr. Barragan in 2-3 weeks. Continue on rate control with carvedilol and full oral anticoagulation with Eliquis. Plan The patient is advised to resume spironolactone to manage fluid retention and to monitor her weight daily, reporting any significant changes to the healthcare team. She is scheduled for a cardioversion procedure in the coming weeks, and follow-up with the washer carcass is planned to ensure optimal management of her heart condition. The patient is encouraged to maintain hydration while being cautious of fluid intake to prevent exacerbation of her condition. Regular monitoring of blood pressure and symptoms is advised, with assistance from her daughter and visiting nurse. This note was constructed using voice recognition software. While every effort has been made to ensure accuracy and in classroom tutor, still areas may have been included sometimes these areas may affect the content or meeting of the given symptoms. Total time spent caring for the patient today was 20 minutes. This includes time spent before the visit reviewing the chart, time spent during the visit, and time spent after the visit and documentation. Patient was informed and verbally consented to the use of an ambient scribe for clinic note documentation during this visit.
[2024-11-08 11:05] VITALS: BP 130/88; PULSE 52; TEMP 36.5; O2SAT 98; BMI 23.0
--- OUTSIDE RECORDS SUMMARY | 2024-11-08 11:46 | XMS_ITS | Clinical Summary ---
Author Organization [facility] ity Address [address] [place] [address] Care Team Providers Care Steam Table Attendant Name Role Phone Janeth Ferguson MD Primary Care Provider [phone] Social History Tobacco Use Types Packs/Day Years [...] age to complete this topic Care Teams Steam Table Attendant Relationship Specialty Start Date End Date Janeth Ferguson MD [address] [place] [address] Dr [address] [facility] [place] [address] PCP - General Internal Medicine 03/31/17
== END 2024-11-08 11:30 | disposition home or self-care (01) ==
LOC: HO.HMCH 10:56
PROVIDERS: PCP Internal Medicine
DX: I10 Essential (primary) hypertension (principal); I50.20 Unspecified systolic (congestive) heart failure; I48.19 Other persistent atrial fibrillation

== ENCOUNTER → 2024-11-08 10:55 | Outpatient (BNVA) | payer OTHER, SELFPAY | PROVIDERS: PCP Internal Medicine | DX: I11.0 Hypertensive heart disease with heart failure (principal); F41.1 Generalized anxiety disorder; I50.20 Unspecified systolic (congestive) heart failure; R32 Unspecified urinary incontinence; I48.19 Other persistent atrial fibrillation | CPT/HCPCS: 99495 ==

== ENCOUNTER → 2024-11-24 11:49 | Day surgery (SDC) | payer OTHER, SELFPAY ==
[2024-11-22 11:55] VITALS: BMI 22.5
--- NOTE | 2024-11-23 08:26 | HO.ANESPROP2 ---
HPI - Anesthesia Eval Consult details Narrative: 64yo F for Cardioversion nonischemic cardiomyopathy, heart failure with reduced EF, left bundle branch block, chronic atrial fibrillation C admit for acute CHF [facility] Active Problems Active Problems: All Active Problems On amiodarone therapy (Acute) Hospital discharge follow-up (Acute) Nonischemic cardiomyopathy (Acute) Elevated LFTs (Acute) Essential hypertension (Acute) Left bundle branch block (Acute) Persistent atrial fibrillation (Acute) Heart failure with reduced ejection fraction (Acute) Unsteady gait (Acute) Right leg pain (Acute) Hyperparathyroidism (Acute) Hypercalcemia (Acute) Physical exam (Acute) Pruritus (Acute) Well woman exam (Acute) Thickened endometrium (Acute) Labial lesion (Acute) Adnexal mass (Acute) Myoma (Acute) Ovarian mass (Acute) Uterine fibroid (Acute) Left flank pain (Acute) Skin lesion (Acute) Mild major depression, single episode (Acute) Urge urinary incontinence (Acute) STEPHAN (generalized anxiety disorder) (Acute) Hypovitaminosis D (Acute) Developmental delay, mild (Acute) Pernicious anemia (Acute) Past Medical History Medical History Essential hypertension Left bundle branch block Persistent atrial fibrillation Heart failure with reduced ejection fraction Chronic a-fib CHF (congestive heart failure) Endometrioid adenocarcinoma of uterus Ovarian mass Uterine fibroid Left flank pain Skin lesion Mild major depression, single episode Urge urinary incontinence STEPHAN (generalized anxiety disorder) Hypovitaminosis D Developmental delay, mild Depression with anxiety Pernicious anemia Family History Family History Father Heart attack Mother Dementia Other Mental and behavioral problem in adult Surgical History Surgical History Status post total hysterectomy and bilateral salpingo-oophorectomy History of tooth extraction History of H/O tubal ligation Social History Social History Household Members: Other Household Members Other:: daughter Housing: Apartment Do you presently have visiting nurse or other home services: No Unable to assess alcohol history related to: Unknown Alcohol intake: never Patient Tobacco Use Status: Never used Tobacco e-Cigarette/Vaping Use: Never Used Second Hand Smoke Exposure: No service: No Current occupational status: disabled Cognitive needs: Yes Hearing needs: No Vision needs: No Meds Allergies Allergy/AdvReac Type Severity Reaction Status Date / Time amoxicillin (AMOXICILLIN) Allergy Intermediate ? RASH Verified 11/08/24 11:16 chlorpheniramine (From Allergy Intermediate Rash Verified 11/08/24 11:16 Tussionex) clonazepam (From KLONOPIN) Allergy Intermediate ? RASH Verified 11/08/24 11:16 hydrocodone (From Tussionex) Allergy Intermediate Rash Verified 11/08/24 11:16 lorazepam (LORAZEPAM) Allergy Intermediate ? RASH Verified 11/08/24 11:16 mirtazapine (From REMERON) Allergy Intermediate RASH Verified 11/08/24 11:16 naproxen (From NAPROSYN) Allergy Intermediate ? RASH Verified 11/08/24 11:16 Sulfa (Sulfonamide Allergy Intermediate ? RASH Verified 11/08/24 11:16 Antibiotics) (SULFA(SULFONAMIDE ANTIBIOTICS)) fluoxetine (Prozac) Allergy Mild rash Verified 11/08/24 11:16 Home Medications ?Medication ?Instructions ?Recorded ?Confirmed ?Last Taken ?Type citalopram 40 mg tablet 40 mg PO DAILY 02/16/20 11/08/24 06/21/24 History bupropion HCl 150 mg tablet,12 hr 150 mg PO DAILY 12/05/20 11/08/24 06/21/24 History sustained-release carvedilol 6.25 mg tablet 6.25 mg PO BID 06/21/24 11/08/24 10/26/24 History triamcinolone acetonide 0.1 % 1 appl topical DAILY PRN 07/22/24 11/08/24 Unknown History topical cream Flares/Rashes cyanocobalamin (vitamin B-12) 1,000 mcg PO DAILY 10/27/24 11/08/24 Unknown History 1,000 mcg tablet tacrolimus 0.1 % topical ointment 1 appl topical BID PRN 10/27/24 11/08/24 Unknown History Flares/Rashes Exam Height,Weight and Vital Signs: Height 5 ft 5 in Weight 61.235 kg Pertinent Lab Results Pertinent Lab Results: Laboratory Tests 10/29/24 10/30/24 07:02 06:02 WBC 6.5 Hgb 12.0 Hct 38.2 Plt Count 313 Sodium 143 Potassium 3.4 Chloride 106 Carbon Dioxide 28 BUN 15 Creatinine 0.92 Narrative Narrative: ECHO 09/2024 Conclusions: - Severely reduced LV ejection fraction 25-30% with restrictive filling pattern Findings Procedure Information Contrast agent, definity, is being given per protocol without apparent complications. Left Ventricle Normal left ventricular cavity size. There is normal left ventricular wall thickness. The left ventricular systolic function is severely decreased. The visually estimated ejection fraction is between 25-30%. There is severe global hypokinesis. Spectral Doppler is indicative of a restrictive filling pattern. Assessment and Plan Assessment Anesthesia Assessment: Chart Reviewed
--- NOTE | 2024-11-24 12:38 | ECG_ITS ---
Test Reason : preop Blood Pressure : */* mmHG Vent. Rate : 45 BPM Atrial Rate : 45 BPM P-R Int : 196 ms QRS Dur : 138 ms QT Int : 554 ms P-R-T Axes : 78 -6 90 degrees QTcB Int : 479 ms Sinus bradycardia Left bundle branch block Abnormal ECG When compared with ECG of 26-Oct-2024 16:50, Sinus rhythm has replaced Atrial fibrillation Vent. rate has decreased by 45 bpm T wave inversion less evident in Lateral leads Referred By: Stephen Barragan Electronically Signed By: ELMER NAVAS
[2024-11-24 12:43] VITALS: BP 145/60; PULSE 46; RESP 16; TEMP 37; O2SAT 98; BMI 22.4
--- NOTE | 2024-11-24 12:54 | PC.NURSE ---
Pt arrived to [facility]. Per pt, her worker Estela dropped her off. Pt unfamiliar with . Per pt took am medications, but states her daughter manages her medications and was unclear as to which medications she took today. Pt states she did take her Eliquis today and all of my heart meds . EKG ordered by Dr. Barragan. EKG noted Sinus bradycardia and Left bundle branch block/abnormal EKG. MD notified. Procedure canceled per Dr. Barragan. Pt discharged to home.
== END ==
LOC: HO.SSS 11:50
PROVIDERS: PCP Internal Medicine; Visit Provider Internal Medicine Cardiovascular Disease
DX: I48.19 Other persistent atrial fibrillation (principal); Z79.01 Long term (current) use of anticoagulants; Z53.09 Procedure and treatment not carried out because of other contraindication; R94.31 Abnormal electrocardiogram [ECG] [EKG]; I44.7 Left bundle-branch block, unspecified; R00.1 Bradycardia, unspecified
CPT/HCPCS: 93005

== ENCOUNTER → 2024-11-24 12:38 | Outpatient (BNV) | payer OTHER, SELFPAY | PROVIDERS: PCP Internal Medicine; Visit Provider Internal Medicine | DX: I44.7 Left bundle-branch block, unspecified (principal); R00.1 Bradycardia, unspecified | CPT/HCPCS: 93010 ==

== ENCOUNTER 2025-01-19 10:59 | Outpatient (AMB) | payer OTHER, SELFPAY ==
[2025-01-19 11:08] VITALS: BP 122/90; PULSE 52; O2SAT 97; BMI 23.5
--- NOTE | 2025-01-19 11:08 | A.OFFPC_ITS ---
Vital Signs 01/19/25 11:08 01/19/25 12:22 Height 5 ft 5 in Weight 141 lb BMI 23.5 BP 122/90 H 122/80 Blood Pressure Location Lt brachial Lt brachial Position Sitting Sitting Pulse 52 Pulse Source Pulse Oximeter Pulse Oximetry (%) 97 Oxygen Delivery Method Room Air Intake Visit Reasons: bp,chf Health Advisor Required: No Accompanied by: Self / Same As Patient Allergies amoxicillin (AMOXICILLIN) Allergy (Intermediate, Verified 01/19/25 11:27) ? RASH chlorpheniramine (From Tussionex) Allergy (Intermediate, Verified 01/19/25 11:27) Rash clonazepam (From KLONOPIN) Allergy (Intermediate, Verified 01/19/25 11:27) ? RASH hydrocodone (From Tussionex) Allergy (Intermediate, Verified 01/19/25 11:27) Rash lorazepam (LORAZEPAM) Allergy (Intermediate, Verified 01/19/25 11:27) ? RASH mirtazapine (From REMERON) Allergy (Intermediate, Verified 01/19/25 11:27) RASH naproxen (From NAPROSYN) Allergy (Intermediate, Verified 01/19/25 11:27) ? RASH Sulfa (Sulfonamide Antibiotics) (SULFA(SULFONAMIDE ANTIBIOTICS)) Allergy (Intermediate, Verified 01/19/25 11:27) ? RASH fluoxetine (Prozac) Allergy (Mild, Verified 01/19/25 11:27) rash Medication List - Last Reconciled 01/19/25 by Marium Rodriguez MD amiodarone 200 mg PO DAILY apixaban (Eliquis) 5 mg PO BID blood pressure monitor As directed bupropion HCl SR 150 mg PO DAILY calcium carbonate-vitamin D3 600 mg-10 mcg (400 unit) 1 tab PO DAILY 90 days carvedilol 6.25 mg PO BID cholecalciferol (vitamin D3) 50 mcg PO DAILY 90 days citalopram 40 mg PO DAILY cyanocobalamin (vitamin B-12) 1,000 mcg PO DAILY folic acid 1 mg PO DAILY 90 days furosemide (Lasix) 20 mg PO QPM incontinence pad, liner, disp Use 1 pad once a day prn [life alert As directed] polyethylene glycol 3350 (Gavilax) 17 grams PO DAILY PRN 30 days sacubitril-valsartan 49-51 mg (Entresto) 1 tab See Protocol PO BID Shower Chair As directed spironolactone (Aldactone) 25 mg PO DAILY tacrolimus 0.1% 1 appl topical BID PRN triamcinolone acetonide 0.1% 1 appl topical DAILY PRN Tobacco use date assessed: 01/19/25 Fall risk assessment: No Falls in past year Last assessed Fall Risk: 01/19/25 Dental Screening Dental Screen Date: 01/19/25 Did you have a dental visit in the last 12 months?: Yes Did you have a dental problem in the last 6 months where you did not have access to dental care?: No Was dental information given to patient?: Patient has dentist HPI HPI Comments History of Present Illness Details The patient is a 64-year-old female presenting with follow-up on her chronic conditions, including hypertension, persistent atrial fibrillation, and congestive heart failure. Hypertension has been well controlled with a current blood pressure reading of 122/88 mmHg. The patient has persistent atrial fibrillation and is on chronic anticoagulation therapy with amiodarone, managed by cardiology. She denies experiencing any chest pain or dyspnea. The patient has congestive heart failure with a reduced ejection fraction, initially diagnosed during a hospitalization in June. An echocardiogram at that time showed an ejection fraction of 25-30%, which remained unchanged in a follow-up echocardiogram in September. Her beta-algeretic peptide levels have shown mild improvement, decreasing from 709 to 620 in October. The patient reports an increase in weight and has been advised to monitor her weight daily, contacting the clinic if there is a gain of more than 5 pounds in a week. The patient has a history of major depressive disorder and anxiety, for which she is taking citalopram and bupropion, reporting good control of symptoms. She also has hyperparathyroidism, which will be re-evaluated. Preventative care includes a planned colon cancer screening using a stool test (Cologuard). [facility] Medical History Essential hypertension Left bundle branch block Persistent atrial fibrillation Heart failure with reduced ejection fraction Chronic a-fib CHF (congestive heart failure) Endometrioid adenocarcinoma of uterus Ovarian mass Uterine fibroid Left flank pain Skin lesion Mild major depression, single episode Urge urinary incontinence STEPHAN (generalized anxiety disorder) Hypovitaminosis D Developmental delay, mild Depression with anxiety Pernicious anemia Surgical History Status post total hysterectomy and bilateral salpingo-oophorectomy History of tooth extraction History of H/O tubal ligation Family History Father Heart attack Mother Dementia Other Mental and behavioral problem in adult Social History Household Members: Other Household Members Other:: daughter Housing: Apartment Are you a primary day care worker to a significant other at home: No Do you presently have visiting nurse or other home services: No Unable to assess alcohol history related to: Unknown Alcohol intake: never Patient Tobacco Use Status: Never used Tobacco e-Cigarette/Vaping Use: Never Used Second Hand Smoke Exposure: No service: No Current occupational status: disabled Cognitive needs: Yes Hearing needs: No Vision needs: No Female Reproductive History Menstrual Age of Menarche: 14 Questionnaire PHQ-9 Over the last 2 weeks, how often have you been bothered by any of the following problems? 1. Little interest or pleasure in doing things: not at all 2. Feeling down, depressed, or hopeless: not at all 3. Trouble falling or staying asleep, or sleeping too much: not at all 4. Feeling tired or having little energy: not at all 5. Poor appetite or overeating: not at all 6. Feeling bad about yourself - or that you are a failure or have let yourself or your family down: not at all 7. Trouble concentrating on things, such as reading the newspaper or watching television: not at all 8. Moving or speaking so slowly that other people could have noticed. Or the opposite - being so fidgety or restless that you have been moving around a lot more than usual: not at all 9. Thoughts that you would be better off or of hurting yourself in some way: not at all Total score: 0 Depression Screening Interpretation: Negative Depression Screening Done: Yes 26510 - PHQ-9 Billing: Yes Source: Developed by Drs. Boyd Mcguire, Carrie Dow, Blu Powell and colleagues, with an educational aretha from [employer] Thrive Questionnaire Date Thrive assessed: 01/19/25 I am a: Patient What is your living situation today?: I have a steady place to live Within the past 12 months, did the food you bought not last and you didn't have the money to get more?: Never true Within the past 12 months, did you worry whether your food would run out before you got money to buy more?: Never true Do you have trouble paying for medicines?: No Do you have trouble getting transportation to medical appointments?: No Do you have trouble paying your heating and electricity bill?: No Do you have trouble taking care of your child, family member or friend?: No Do you have trouble with day-to-day activities such as bathing, preparing meals, shopping, managing finances, etc.?: No Are you currently unemployed and looking for a job?: No Are you interested in more education?: No Please select the resources that you would like help with: None Currently or been in a relationship where the following occur: No concerns reported THRIVE Score: 0 AUDIT C Alcohol Use Questionnaire (AUDIT-C) 1. How often do you have a drink containing alcohol?: Never 3. How often do you have six or more drinks on one occasion?: Never Total Score: 0 Score Reviewed/Action Taken: No STEPHAN-7 AMB Questionnaire STEPHAN-7 Date STEPHAN - 7 assessed: 01/19/25 Feeling nervous, anxious, or on edge: 0 = Not at all Not being able to stop or control worryin = Not at all Worrying too much about different things: 0 = Not at all Trouble relaxin = Not at all Being so restless that it is hard to sit still: 0 = Not at all Becoming easily annoyed or irritable: 0 = Not at all Feeling afraid as if something awful might happen: 0 = Not at all Total STEPHAN-7 score (0-4 normal; 5-9 mild; 10-14 moderate; 15-21 severe): 0 Source: Developed by Drs. Boyd Mcguire, Carrie Dow, Blu Powell and colleagues, with an educational aretha from [employer] STEPHAN-7 Assessment Billing STEPHAN-7 Assessment Tool: STEPHAN-7 Assessment 80702 Review of Systems Const All systems reviewed & are unremarkable except as noted in HPI and below Card Denies chest pain at rest, Denies chest pain with activity, Denies edema, Denies irregular heart rhythm, Denies claudication, Denies dyspnea, Denies dyspnea on exertion, Denies orthopnea, Denies paroxysmal nocturnal dyspnea and Denies slow heart rate Resp Denies cough, Denies dyspnea and Denies dyspnea on exertion GI Denies abdominal pain, Denies change in bowel habits, Denies excessive flatus, Denies nausea and Denies vomiting Denies urinary incontinence, Denies urinary hesitancy and Denies urinary urgency Musc Denies abnormal gait, Denies atrophy, Denies deformity and Denies limited range of motion Skin/Breast Denies bleeding lesions, Denies changing lesions and Denies rash Neuro Denies abnormal gait and Denies lack of coordination Physical exam (Primary Care) Vital Signs: Last Vital Signs Pulse 52 01/19/25 11:08 BP 122/90 H 01/19/25 11:08 Pulse Ox 97 01/19/25 11:08 Oxygen Delivery Method Room Air 01/19/25 11:08 BMI result Body Mass Index 23.5 Tobacco/Smoking Status: Tobacco use Status Tobacco use date assessed 01/19/25 01/19/25 11:10 Patient Tobacco Use Status Never used Tobacco 01/19/25 11:10 Tobacco use type 02/12/24 10:06 e-Cigarette/Vaping Use Never Used 01/19/25 11:10 PHQ-9: PHQ-9 Score PHQ-9: Total score 0 01/19/25 11:32 Depression Screening Interpretation: Negative Thrive Assessment: Date of Thrive Assessment Date Thrive assessed 01/19/25 01/19/25 11:10 Currently or been in a relationship where the following occur: No concerns reported Resp Effort & Inspection: normal respiratory effort Auscultation: clear to auscultation bilaterally Cardio Jugular venous distension: no JVD Rate: regular rate Rhythm: regular rhythm Heart sounds: S1 normal heart sound present and S2 normal heart sound present Coding Level of Care Code Est Pt Level 4 (79164) Complex EM visit Add On G2211 Diagnoses Mild major depression, single episode F32.0 Essential hypertension I10 Heart failure with reduced ejection fraction I50.20 Persistent atrial fibrillation I48.19 Hyperparathyroidism E21.3 Additional Codes STEPHAN-7 Assessment Billing - STEPHAN-7 Assessment Tool: STEPHAN-7 Assessment 94803 ([id number]) PHQ-9 - 19079 - PHQ-9 Billing: Yes ([id number]) Time Spent (min) 25 Assessment & Plan Assessment & Plan (1) Mild major depression, single episode: Code(s): F32.0 - Major depressive disorder, single episode, mild Category: Medical (2) Essential hypertension: Code(s): I10 - Essential (primary) hypertension Category: Medical (3) Heart failure with reduced ejection fraction: Code(s): I50.20 - Unspecified systolic (congestive) heart failure Category: Medical (4) Persistent atrial fibrillation: Code(s): I48.19 - Other persistent atrial fibrillation Category: Medical (5) Hyperparathyroidism: Code(s): E21.3 - Hyperparathyroidism, unspecified Category: Medical Plan Plan 1. Essential (primary) hypertension I10 The patient's hypertension is well controlled with current medication, as evidenced by a blood pressure reading of 122/88 mmHg. 2. Other persistent atrial fibrillation I48.19 HCC 96 The patient is on chronic anticoagulation therapy with amiodarone for persistent atrial fibrillation, under cardiology management. 3. Chronic systolic (congestive) heart failure I50.22 HCC 85 The patient has a reduced ejection fraction of 25-30%, with mild improvement in beta-algeretic peptide levels. She is advised to monitor her weight daily and report any gain of more than 5 pounds in a week. 4. Major depressive disorder, recurrent, mild F33.0 HCC 59 The patient is taking citalopram and bupropion for major depressive disorder, with good symptom relief. 5. Hyperparathyroidism, unspecified E21.3 HCC 23 The patient's hyperparathyroidism will be re-evaluated in future visits. Orders: Orders Comprehensive [place]. Panel Fast Today I42.8 - Other cardiomyopathies NT-proBNP Today I42.8 - Other cardiomyopathies Lipid Panel Today E78.5 - Hyperlipidemia, unspecified Complete Blood Count Auto Diff Today I48.19 - Other persistent atrial fibrillation Medications: Changed From sacubitril-valsartan 49-51 mg (Entresto) 1 tab See Protocol PO BID 180 tabs 0RF To sacubitril-valsartan 49-51 mg (Entresto) 1 tab See Protocol PO BID 180 tabs 1RF 90 days Refilled spironolactone (Aldactone) 25 mg PO DAILY 90 tabs 3RF apixaban (Eliquis) 5 mg PO BID 180 tabs 0RF
[2025-01-19 12:22] VITALS: BP 122/80
--- OUTSIDE RECORDS SUMMARY | 2025-01-19 14:01 | XMS_ITS | Clinical Summary ---
Author Organization [facility] ity Address [address] [place] [address] Care Team Providers Care Microsoft Architect Name Role Phone Janeth Ferguson MD Primary Care Provider [phone] Social History Tobacco Use Types Packs/Day Years [...] 2010 Zoster Vaccines (1 of 2) 2010 Depression Screening 05/12/2024 COVID-19 Vaccine (1 - 2023-2 5 season) 2025 Influenza Vaccine (#1) 2025 RSV Immunization Adult Patie nts (1 [...] age to complete this topic Care Teams Microsoft Architect Relationship Specialty Start Date End Date Janeth Ferguson MD [address] [place] [address] [address] [facility] [place] [address] PCP - General Internal Medicine 03/31/17
== END 2025-01-19 11:49 | disposition home or self-care (01) ==
LOC: HO.HMCH 11:00
PROVIDERS: PCP Internal Medicine; Visit Provider Internal Medicine
DX: F32.0 Major depressive disorder, single episode, mild (principal); I10 Essential (primary) hypertension; I50.20 Unspecified systolic (congestive) heart failure; I48.19 Other persistent atrial fibrillation; E21.3 Hyperparathyroidism, unspecified

== ENCOUNTER → 2025-01-19 10:59 | Outpatient (BNVA) | payer OTHER, SELFPAY | PROVIDERS: PCP Internal Medicine; Visit Provider Internal Medicine | DX: F32.0 Major depressive disorder, single episode, mild (principal); I11.0 Hypertensive heart disease with heart failure; I50.20 Unspecified systolic (congestive) heart failure; I48.19 Other persistent atrial fibrillation; E21.3 Hyperparathyroidism, unspecified; Z79.01 Long term (current) use of anticoagulants; Z79.899 Other long term (current) drug therapy; Z13.31 Encounter for screening for depression; Z13.39 Encounter for screening examination for other mental health and behavioral disorders | CPT/HCPCS: 96127; 99212 ==

== ENCOUNTER 2025-02-12 11:30 | Emergency (ER) | payer OTHER, SELFPAY ==
[2025-02-12 11:52] VITALS: BP 147/65; PULSE 57; RESP 18; TEMP 36.4; O2SAT 97; BMI 24.9
--- NOTE | 2025-02-12 11:54 | ED.GENADULT ---
HPI - General Adult General Chief complaint: Skin/Abscess/Foreign Body Stated complaint: rash on chest and neck Time Seen by Provider: 02/12/25 12:09 Source: patient and RN notes reviewed Limitations: no limitations History of Present Illness HPI narrative: 64-year-old female presents for evaluation of a rash that began yesterday shortly after using a new soap. Patient states it is located on her chest. Is red and itchy. No other areas noted. She has not tried any medication for this. History of similar in the past. She denies any fevers chills nausea or vomiting. No other new detergents or foods. She has no pain. No airway difficulty. She is otherwise feeling well. No recent travel. She is otherwise feeling well. Related Data Home Medications ?Medication ?Instructions ?Recorded ?Confirmed citalopram 40 mg tablet 40 mg PO DAILY 02/16/20 01/19/25 bupropion HCl 150 mg tablet,12 hr 150 mg PO DAILY 12/05/20 01/19/25 sustained-release carvedilol 6.25 mg tablet 6.25 mg PO BID 06/21/24 01/19/25 triamcinolone acetonide 0.1 % 1 appl topical DAILY PRN 07/22/24 01/19/25 topical cream Flares/Rashes cyanocobalamin (vitamin B-12) 1,000 mcg PO DAILY 10/27/24 01/19/25 1,000 mcg tablet tacrolimus 0.1 % topical ointment 1 appl topical BID PRN 10/27/24 01/19/25 Flares/Rashes Previous Rx's ?Medication ?Instructions ?Recorded Shower Chair #1 ea 03/14/21 incontinence pad, liner, disp #30 ea 08/07/23 blood pressure monitor #1 ea 10/20/23 life alert #1 ea 06/28/24 polyethylene glycol 3350 17 17 g PO DAILY PRN constipation 30 08/06/24 gram/dose oral powder (Gavilax) days #510 grams cholecalciferol (vitamin D3) 50 50 mcg PO DAILY 90 days #90 caps 09/03/24 mcg (2,000 unit) capsule folic acid 1 mg tablet 1 mg PO DAILY 90 days #90 tabs 09/03/24 amiodarone 200 mg tablet 200 mg PO DAILY #90 tabs 09/13/24 calcium 600 mg (as 1 tab PO DAILY 90 days #90 tabs 10/06/24 carbonate)-vitamin D3 10 mcg (400 unit) tablet furosemide 20 mg tablet (Lasix) 20 mg PO QPM #90 tabs 10/30/24 apixaban 5 mg tablet (Eliquis) 5 mg PO BID #180 tabs 01/19/25 sacubitril 49 mg-valsartan 51 mg 1 tab PO BID 90 days #180 tabs 01/19/25 tablet (Entresto) spironolactone 25 mg tablet 25 mg PO DAILY #90 tabs 01/19/25 (Aldactone) cetirizine 10 mg tablet 10 mg PO DAILY PRN itching #14 tabs 02/12/25 Allergies Allergy/AdvReac Type Severity Reaction Status Date / Time amoxicillin (AMOXICILLIN) Allergy Intermediate ? RASH Verified 02/12/25 11:57 chlorpheniramine (From Allergy Intermediate Rash Verified 02/12/25 11:57 Tussionex) clonazepam (From KLONOPIN) Allergy Intermediate ? RASH Verified 02/12/25 11:57 hydrocodone (From Tussionex) Allergy Intermediate Rash Verified 02/12/25 11:57 lorazepam (LORAZEPAM) Allergy Intermediate ? RASH Verified 02/12/25 11:57 mirtazapine (From REMERON) Allergy Intermediate RASH Verified 02/12/25 11:57 naproxen (From NAPROSYN) Allergy Intermediate ? RASH Verified 02/12/25 11:57 Sulfa (Sulfonamide Allergy Intermediate ? RASH Verified 02/12/25 11:57 Antibiotics) (SULFA(SULFONAMIDE ANTIBIOTICS)) fluoxetine (Prozac) Allergy Mild rash Verified 02/12/25 11:57 Review of Systems Review of Systems: Yes all other systems are reviewed and are negative Constitutional: Constitutional: Denies headache(s) Eyes: Eyes: Denies change in vision ENT: Denies dry mouth, Denies headache(s), Denies lip swelling and Denies mouth lesions Neurologic: Denies headache(s) Allergic/Immunologic: Allergic/Immunologic: Denies lip swelling PMFSH Past Medical History Medical History Essential hypertension Left bundle branch block Persistent atrial fibrillation Heart failure with reduced ejection fraction Chronic a-fib CHF (congestive heart failure) Endometrioid adenocarcinoma of uterus Ovarian mass Uterine fibroid Left flank pain Skin lesion Mild major depression, single episode Urge urinary incontinence STEPHAN (generalized anxiety disorder) Hypovitaminosis D Developmental delay, mild Depression with anxiety Pernicious anemia Surgical History Status post total hysterectomy and bilateral salpingo-oophorectomy History of tooth extraction History of H/O tubal ligation Family History Family History Father Heart attack Mother Dementia Other Mental and behavioral problem in adult Social History Social History Household Members: Other Household Members Other:: daughter Housing: Apartment Are you a primary home health care coordinator to a significant other at home: No Do you presently have visiting nurse or other home services: No Alcohol intake: never Patient Tobacco Use Status: Never used Tobacco e-Cigarette/Vaping Use: Never Used Second Hand Smoke Exposure: No Advance Directives: No Advance Directives Information Provided: Yes Do you have a plan to hurt others: No Plan service: No Current occupational status: disabled Cognitive needs: Yes Hearing needs: No Vision needs: No Physical Exam ED Vital Signs: Vital Signs - 24 hr 02/12/25 11:52 02/12/25 12:10 Temperature 97.6 F 97.6 F Pulse Rate 57 57 Respiratory Rate 18 18 Blood Pressure 147/65 H 147/65 H Pulse Oximetry 97 97 Oxygen Delivery Method Room Air Room Air BMI result Body Mass Index 24.9 Const General: cooperative, alert and awake HENMT Other: Speaks full clear sentences. No oral lesions. No difficulty swallowing. No drooling. Resp Other: Lung sounds clear throughout Cardio Other: Regular rate and rhythm Skin Other: Multiple scattered mildly erythematous papules on the anterior neck and anterior chest. No fluctuance, no discharge or streaking. No vesicles. Multiple areas of excoriation noted. No secondary signs of infection. No other similar lesions noted. Medical Decision Making Medical Decision Making MDM Narrative: 64-year-old female with rash on the anterior chest and neck. There was no airway compromise. Suspect dermatitis related to eczema as the patient has had this previously. May also be trigger from recent change in soap that was used. However I would expect this to be more widespread. No secondary signs of infection at this time to indicate antibiotics. Rash not consistent with zoster. Symptomatic treatment at this time. Consideration for steroids however small localized area and if spread may be needed in the future. Reviewed all discharge instructions, patient has no further questions at this time. Differential Diagnosis Differential Diagnoses: The differential diagnosis associated with the presentation includes Contact dermatitis Viral exanthem Folliculitis Eczema Discharge Plan Discharge Clinical Impression: Dermatitis Patient Disposition: Home, Self-Care Instructions: Dermatitis (ED) Additional Instructions: Stop using the new soap. You may use Benadryl cream to the affected area available over the counter. Cetirizine as directed. You may also use moisturizing cream to the affected area. Follow-up with your primary care provider. Call this week to schedule a follow-up appointment. Return to the emergency department if you have any worsening of symptoms, or any concerns. Get well soon! Prescriptions: New cetirizine 10 mg tablet 10 mg PO DAILY PRN (Reason: itching) Qty: 14 0RF No Action (DME) Shower Chair Misc See Rx Instructions .Route Qty: 1 0RF Rx Instructions: As directed (DME) incontinence pad, liner, disp Pad See Rx Instructions .ROUTE .MEDSUPPLY Qty: 30 11RF Rx Instructions: Use 1 pad once a day prn (DME) blood pressure monitor Kit See Rx Instructions .Route Qty: 1 0RF Rx Instructions: As directed (DME) life alert See Rx Instructions .Route .MEDSUPPLY Qty: 1 0RF Rx Instructions: As directed polyethylene glycol 3350 [Gavilax] 17 gram/dose powder 17 g PO DAILY PRN (Reason: constipation) 30 Days Qty: 510 1RF cholecalciferol (vitamin D3) 50 mcg (2,000 unit) capsule 50 mcg PO DAILY 90 Days Qty: 90 3RF folic acid 1 mg tablet 1 mg PO DAILY 90 Days Qty: 90 3RF amiodarone 200 mg tablet 200 mg PO DAILY Qty: 90 3RF calcium carbonate-vitamin D3 600 mg-10 mcg (400 unit) tablet 1 tab PO DAILY 90 Days Qty: 90 3RF carvedilol 6.25 mg tablet 6.25 mg PO BID tacrolimus 0.1 % ointment 1 appl topical BID PRN (Reason: Flares/Rashes) cyanocobalamin (vitamin B-12) 1,000 mcg tablet 1,000 mcg PO DAILY furosemide [Lasix] 20 mg tablet 20 mg PO QPM Qty: 90 0RF Rx Instructions: around 6 pm citalopram 40 mg tablet 40 mg PO DAILY bupropion HCl 150 mg tablet sustained-release 12 hr 150 mg PO DAILY triamcinolone acetonide 0.1 % cream 1 appl topical DAILY PRN (Reason: Flares/Rashes) Eliquis 5 mg tablet 5 mg PO BID Qty: 180 0RF Entresto 49-51 mg tablet 1 tab PO BID 90 Days Qty: 180 1RF Protocol: Hold for SBP< HOLD for SBP < : 90 spironolactone [Aldactone] 25 mg tablet 25 mg PO DAILY Qty: 90 3RF Interventions: ED Discharge Assessment Last Done: 02/12/25 12:10 Discharge Date/Time: 02/12/25 12:11 Print Language: Somali
--- OUTSIDE RECORDS SUMMARY | 2025-02-12 12:03 | XMS_ITS | Clinical Summary ---
Author Organization [facility] ity Address [address] [place] [address] Care Team Providers Care Neurology Technician Name Role Phone Janeth Ferguson MD Primary Care Provider [phone] Social History Tobacco Use Types Packs/Day Years [...] 2) 2010 Depression Screening 05/12/2024 COVID-19 Vaccine ( - 2023-2 5 season) 2025 Influenza Vaccine [...] age to complete this topic Care Teams Neurology Technician Relationship Specialty Start Date End Date Janeth Ferguson MD [address] [place] [address] [address] [facility] [place] [address] PCP - General Internal Medicine 03/31/17
[2025-02-12 12:10] VITALS: BP 147/65; PULSE 57; RESP 18; TEMP 36.4; O2SAT 97
== END 2025-02-12 12:11 | disposition home or self-care (01) ==
PROVIDERS: Emergency Provider Emergency Medicine; PCP Internal Medicine
DX: L30.9 Dermatitis, unspecified (principal); I11.0 Hypertensive heart disease with heart failure; I50.22 Chronic systolic (congestive) heart failure; I48.20 Chronic atrial fibrillation, unspecified; Z79.899 Other long term (current) drug therapy
CPT/HCPCS: 99282; 99283

== ENCOUNTER 2025-02-14 09:22 | Outpatient (AMB) | payer OTHER, SELFPAY ==
--- NOTE | 2025-02-14 09:38 | A.OFFVIS_ITS ---
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 RASH chlorpheniramine (From Tussionex) Allergy (Intermediate, Verified 02/14/25 09:43) Rash clonazepam (From KLONOPIN) Allergy (Intermediate, Verified 02/14/25 09:43) ? RASH hydrocodone (From Tussionex) Allergy (Intermediate, Verified 02/14/25 09:43) Rash lorazepam (LORAZEPAM) Allergy (Intermediate, Verified 02/14/25 09:43) ? RASH mirtazapine (From REMERON) Allergy (Intermediate, Verified 02/14/25 09:43) RASH naproxen (From NAPROSYN) Allergy (Intermediate, Verified 02/14/25 09:43) ? RASH Sulfa (Sulfonamide Antibiotics) (SULFA(SULFONAMIDE ANTIBIOTICS)) Allergy (Intermediate, Verified 02/14/25 09:43) ? RASH fluoxetine (Prozac) Allergy (Mild, Verified 02/14/25 09:43) rash Medication List - Last Reconciled 02/14/25 by Zulay Ball LPN amiodarone 200 mg PO DAILY apixaban (Eliquis) 5 mg PO BID blood pressure monitor As directed bupropion HCl SR 150 mg PO DAILY calcium carbonate-vitamin D3 600 mg-10 mcg (400 unit) 1 tab PO DAILY 90 days carvedilol 6.25 mg PO BID cetirizine 10 mg PO DAILY PRN cholecalciferol (vitamin D3) 50 mcg PO DAILY 90 days citalopram 40 mg PO DAILY cyanocobalamin (vitamin B-12) 1,000 mcg PO DAILY folic acid 1 mg PO DAILY 90 days furosemide (Lasix) 20 mg PO QPM incontinence pad, liner, disp Use 1 pad once a day prn [life alert As directed] polyethylene glycol 3350 (Gavilax) 17 grams PO DAILY PRN 30 days sacubitril-valsartan 49-51 mg (Entresto) 1 tab See Protocol PO BID 90 days Shower Chair As directed spironolactone (Aldactone) 25 mg PO DAILY tacrolimus 0.1% 1 appl topical BID PRN triamcinolone acetonide 0.1% 1 appl topical DAILY PRN Is last menstrual period known: No Post menopausal: No Patient : No Do you need a note to return to daycare/school/sports/work: No HPI Comments Details: Presenting for annual exam. No complaints. Last Pap/HPV was negative in 08/31, the patient is status post hysterectomy BSO in 2022 for endometrial adenocarcinoma Last Mammogram was BI-RADS 1 in 12/02 Last Colonoscopy was few months ago in an outside facility no records available [facility] Medical History Essential hypertension Left bundle branch block Persistent atrial fibrillation Heart failure with reduced ejection fraction Chronic a-fib CHF (congestive heart failure) Endometrioid adenocarcinoma of uterus Ovarian mass Uterine fibroid Left flank pain Skin lesion Mild major depression, single episode Urge urinary incontinence STEPHAN (generalized anxiety disorder) Hypovitaminosis D Developmental delay, mild Depression with anxiety Pernicious anemia Surgical History Status post total hysterectomy and bilateral salpingo-oophorectomy History of tooth extraction History of H/O tubal ligation Family History Father Heart attack Mother Dementia Other Mental and behavioral problem in adult Social History Household Members: Other Household Members Other:: daughter Housing: Apartment Are you a primary farm or ranch animal caretaker to a significant other at home: No Do you presently have visiting nurse or other home services: No Alcohol intake: never Patient Tobacco Use Status: Never used Tobacco e-Cigarette/Vaping Use: Never Used Second Hand Smoke Exposure: No service: No Current occupational status: disabled Cognitive needs: Yes Hearing needs: No Vision needs: No Female Reproductive History Menstrual Age of Menarche: 14 Total pregnancies: 1 Number of Living Children: 1 Date of last pap smear: 08/30/21 History of abnormal pap smear: No History of STI: No Date of Mammogram: 12/02/23 History of abnormal mammogram: No Date of last Bone Density Screenin04/01/24 Review of Systems Const All systems reviewed & are unremarkable except as noted in HPI and below Card Reports as per HPI and Reports no additional complaints Resp Reports as per HPI and Reports no additional complaints GI Reports as per HPI and Reports no additional complaints Reports as per HPI Physical Exam Vital Signs: BMI result Body Mass Index 25.2 Const General: cooperative, healthy appearing and comfortable General: Yes bladder normal to palpation External Female Exam: No lesion Speculum Exam - Vagina: normal appearance of the vagina, normal vaginal discharge and not erythematous Speculum Exam - Cervix: Cervix absent Bimanual exam- vagina & uterus: bladder normal to palpation and uterus absent Bimanual Exam- Adnexa, other: Other (No masses detected) Assessment & Plan Assessment & Plan (1) Well woman exam: Code(s): Z01.419 - Encounter for gynecological examination (general) (routine) without abnormal findings Category: Medical Plan: Co testing not indicated. Counseled the patient about the recommended dietary allowance of 1200 mg of Calcium & 600 IU of vitamin D. Mammogram ordered. The patient was instructed to perform monthly self-breast exams and schedule annual exam in a year. All questions answered and the patient verbalized understanding. Orders: Orders MM tomosynthesis screening BI Today Z12.31 - Encounter for screening mammogram for malignant neoplasm of breast Coding Level of Care Code Est Pt Prev Care 40-64y(40440) Diagnoses Well woman exam Z01.419
[2025-02-14 09:40] VITALS: BP 128/75; BMI 25.2
--- OUTSIDE RECORDS SUMMARY | 2025-02-14 10:36 | XMS_ITS | Clinical Summary ---
Author Organization [facility] ity Address [address] [place] [address] Care Team Providers Care Sand Miller Name Role Phone Janeth Ferguson MD Primary Care Provider [phone] Social History Tobacco Use Types Packs/Day Years [...] age to complete this topic Care Teams Sand Miller Relationship Specialty Start Date End Date Janeth Ferguson MD [address] [place] [address] [address] [facility] [place] [address] PCP - General Internal Medicine 03/31/17
== END 2025-02-14 10:07 | disposition home or self-care (01) ==
LOC: HO.HWS 09:23
PROVIDERS: PCP Internal Medicine; Visit Provider Obstetrics & Gynecology
DX: Z01.419 Encounter for gynecological examination (general) (routine) without abnormal findings (principal)
CPT/HCPCS: 99396; 99459

== ENCOUNTER → 2025-02-14 09:22 | Outpatient (BNVA) | payer OTHER, SELFPAY | PROVIDERS: PCP Internal Medicine; Visit Provider Obstetrics & Gynecology | DX: Z01.419 Encounter for gynecological examination (general) (routine) without abnormal findings (principal) | CPT/HCPCS: 99396 ==

== ENCOUNTER 2025-02-18 07:31 | Outpatient (AMB) | payer OTHER, SELFPAY ==
[2025-02-18 07:35] VITALS: BP 142/78; PULSE 54; O2SAT 99; BMI 25.5
--- NOTE | 2025-02-18 07:35 | A.OFFPC_ITS ---
Vital Signs 02/18/25 07:35 Height 5 ft 3 in Weight 144 lb BMI 25.5 BP 142/78 H Blood Pressure Location Lt brachial Position Sitting Pulse 54 Pulse Source Pulse Oximeter Pulse Oximetry (%) 99 Oxygen Delivery Method Room Air Intake Visit Reasons: [facility] 02/12 rash on neck and chest Allergies amoxicillin (AMOXICILLIN) Allergy (Intermediate, Verified 02/18/25 07:35) ? RASH chlorpheniramine (From Tussionex) Allergy (Intermediate, Verified 02/18/25 07:35) Rash clonazepam (From KLONOPIN) Allergy (Intermediate, Verified 02/18/25 07:35) ? RASH hydrocodone (From Tussionex) Allergy (Intermediate, Verified 02/18/25 07:35) Rash lorazepam (LORAZEPAM) Allergy (Intermediate, Verified 02/18/25 07:35) ? RASH mirtazapine (From REMERON) Allergy (Intermediate, Verified 02/18/25 07:35) RASH naproxen (From NAPROSYN) Allergy (Intermediate, Verified 02/18/25 07:35) ? RASH Sulfa (Sulfonamide Antibiotics) (SULFA(SULFONAMIDE ANTIBIOTICS)) Allergy (Intermediate, Verified 02/18/25 07:35) ? RASH fluoxetine (Prozac) Allergy (Mild, Verified 02/18/25 07:35) rash Tobacco use date assessed: 01/19/25 Fall risk assessment: No Falls in past year Last assessed Fall Risk: 02/18/25 Dental Screening Dental Screen Date: 01/19/25 HPI HPI Comments History of Present Illness Details 64 y/o Female patient who [facility] today for EDF. She was admitted at [facility] on 02/12/25 for an evaluation and treatment of Contact Dermatitis on chest and neck after she used new bathing Soap. Today reports that the rash has resolved and denies itching or Pain. She continues to use Cetitizine as prescribed with good results. [facility] Medical History (Updated 02/18/25 @ 07:45 by Courtney Almaraz NP) Contact dermatitis Essential hypertension Left bundle branch block Persistent atrial fibrillation Heart failure with reduced ejection fraction Chronic a-fib CHF (congestive heart failure) Endometrioid adenocarcinoma of uterus Ovarian mass Uterine fibroid Left flank pain Skin lesion Mild major depression, single episode Urge urinary incontinence STEPHAN (generalized anxiety disorder) Hypovitaminosis D Developmental delay, mild Depression with anxiety Pernicious anemia Surgical History Status post total hysterectomy and bilateral salpingo-oophorectomy History of tooth extraction History of H/O tubal ligation Family History Father Heart attack Mother Dementia Other Mental and behavioral problem in adult Social History Household Members: Other Household Members Other:: daughter Housing: Apartment Are you a primary infant caregiver to a significant other at home: No Do you presently have visiting nurse or other home services: No Alcohol intake: never Patient Tobacco Use Status: Never used Tobacco Tobacco use type: Cigarette e-Cigarette/Vaping Use: Never Used Second Hand Smoke Exposure: No service: No Current occupational status: disabled Cognitive needs: Yes Hearing needs: No Vision needs: No Female Reproductive History Menstrual Age of Menarche: 14 Questionnaire Thrive Questionnaire Date Thrive assessed: 09/06/24 I am a: Patient What is your living situation today?: I have a steady place to live Within the past 12 months, did the food you bought not last and you didn't have the money to get more?: Never true Within the past 12 months, did you worry whether your food would run out before you got money to buy more?: Never true Do you have trouble paying for medicines?: No Do you have trouble getting transportation to medical appointments?: No Do you have trouble paying your heating and electricity bill?: No Do you have trouble taking care of your child, family member or friend?: No Do you have trouble with day-to-day activities such as bathing, preparing meals, shopping, managing finances, etc.?: No Are you currently unemployed and looking for a job?: No Are you interested in more education?: No Please select the resources that you would like help with: None Currently or been in a relationship where the following occur: No concerns reported THRIVE Score: 0 STEPHAN-7 AMB Questionnaire STEPHAN-7 Date STEPHAN - 7 assessed: 01/19/25 Source: Developed by Drs. Boyd Mcguire, Carrie B.W. Blu Dow and colleagues, with an educational aretha from [employer]. Review of Systems Const All systems reviewed & are unremarkable except as noted in HPI and below Physical exam (Primary Care) Vital Signs: Last Vital Signs Pulse 54 02/18/25 07:35 BP 142/78 H 02/18/25 07:35 Pulse Ox 99 02/18/25 07:35 Oxygen Delivery Method Room Air 02/18/25 07:35 BMI result Body Mass Index 25.5 Tobacco/Smoking Status: Tobacco use Status Tobacco use date assessed 01/19/25 02/18/25 07:38 Patient Tobacco Use Status Never used Tobacco 02/18/25 07:38 Tobacco use type Cigarette 02/18/25 07:38 e-Cigarette/Vaping Use Never Used 02/18/25 07:38 Thrive Assessment: Date of Thrive Assessment Date Thrive assessed 09/06/24 02/18/25 07:38 Currently or been in a relationship where the following occur: No concerns reported Const General: no acute distress Nutritional Appearance: well nourished Orientation/consciousness: patient oriented x3 HENMT Head: Yes normocephalic General nose exam: Normal external nose present Face and sinus: Yes normal facial exam Skin General skin exam: other (Multiple scattered mildly erythematous papules on the anterior neck & chest) Neuro General: patient oriented x3, gait normal and moves all extremities Psych Speech and movement: Normal speech and movement present Coding Level of Care Code Est Pt Level 4 (74410) Diagnoses Irritant contact dermatitis due to cosmetics L24.3 Contact dermatitis type: irritant Contact dermatitis trigger: cosmetics Time Spent (min) 20 Assessment & Plan Assessment & Plan (1) Contact dermatitis: Code(s): L25.9 - Unspecified contact dermatitis, unspecified cause Category: Medical Qualifiers: Contact dermatitis type: irritant Contact dermatitis trigger: cosmetics Qualified Code(s): L24.3 - Irritant contact dermatitis due to cosmetics Plan: Resolved - just few papules left. No signs of infection. Continue on Cetirizine
== END 2025-02-18 08:55 | disposition home or self-care (01) ==
LOC: HO.HMCH 07:32
PROVIDERS: PCP Internal Medicine; Visit Provider Nurse Practitioner Family
DX: L24.3 Irritant contact dermatitis due to cosmetics (principal)

== ENCOUNTER → 2025-02-18 07:31 | Outpatient (BNVA) | payer OTHER, SELFPAY | PROVIDERS: PCP Internal Medicine; Visit Provider Nurse Practitioner Family | DX: L24.3 Irritant contact dermatitis due to cosmetics (principal) | CPT/HCPCS: 99212 ==

== ENCOUNTER 2025-03-14 09:40 | Outpatient (AMB) | payer OTHER, SELFPAY ==
[2025-03-14 09:45] VITALS: BP 142/80; PULSE 49; BMI 25.9
--- NOTE | 2025-03-14 09:45 | A.OFFVIS_ITS ---
Vital Signs 03/14/25 09:45 Height 5 ft 3 in Weight 145 lb 15.136 oz BMI 25.9 BP 142/80 H Blood Pressure Location Lt brachial Position Sitting Pulse 49 L Pulse Source Monitor Intake Visit Reasons: 3 month f/up Allergies amoxicillin (AMOXICILLIN) Allergy (Intermediate, Verified 03/14/25 09:47) ? RASH chlorpheniramine (From Tussionex) Allergy (Intermediate, Verified 03/14/25 09:47) Rash clonazepam (From KLONOPIN) Allergy (Intermediate, Verified 03/14/25 09:47) ? RASH hydrocodone (From Tussionex) Allergy (Intermediate, Verified 03/14/25 09:47) Rash lorazepam (LORAZEPAM) Allergy (Intermediate, Verified 03/14/25 09:47) ? RASH mirtazapine (From REMERON) Allergy (Intermediate, Verified 03/14/25 09:47) RASH naproxen (From NAPROSYN) Allergy (Intermediate, Verified 03/14/25 09:47) ? RASH Sulfa (Sulfonamide Antibiotics) (SULFA(SULFONAMIDE ANTIBIOTICS)) Allergy (Intermediate, Verified 03/14/25 09:47) ? RASH fluoxetine (Prozac) Allergy (Mild, Verified 03/14/25 09:47) rash Medication List - Last Reconciled 03/14/25 by Tash Escobar NP-C amiodarone 200 mg PO DAILY apixaban (Eliquis) 5 mg PO BID blood pressure monitor As directed bupropion HCl SR 150 mg PO DAILY calcium carbonate-vitamin D3 600 mg-10 mcg (400 unit) 1 tab PO DAILY 90 days carvedilol 6.25 mg PO BID cetirizine 10 mg PO DAILY PRN cholecalciferol (vitamin D3) 50 mcg PO DAILY 90 days citalopram 40 mg PO DAILY cyanocobalamin (vitamin B-12) 1,000 mcg PO DAILY folic acid 1 mg PO DAILY 90 days furosemide (Lasix) 20 mg PO QPM incontinence pad, liner, disp Use 1 pad once a day prn [life alert As directed] polyethylene glycol 3350 (Gavilax) 17 grams PO DAILY PRN 30 days sacubitril-valsartan 49-51 mg (Entresto) 1 tab See Protocol PO BID 90 days Shower Chair As directed spironolactone (Aldactone) 25 mg PO DAILY tacrolimus 0.1% 1 appl topical BID PRN triamcinolone acetonide 0.1% 1 appl topical DAILY PRN HPI HPI 3 month f/up: Details: Gloria is a 64-year-old female with past medical history of nonischemic cardiomyopathy, heart failure with reduced EF, left bundle branch block, chronic atrial fibrillation who was recently started on amiodarone and was scheduled for a cardioversion on 10/21/2023 which was canceled as she could not confirm last Eliquis dose. She was admitted in later October for shortness of breath and treated for acute on chronic systolic heart failure. She was significantly diuresed and discharged on Lasix 20 mg daily as well as her Entresto, carvedilol, spironolactone. On last visit cardioversion was again planned however not completed for unclear reason. She now presents for follow-up. Today she reports she has been feeling generally well since her last visit. She will get some shortness of breath when climbing stairs but tells me this is not new. No chest discomfort, heart palpitations, leg edema. No bleeding issues reported. She reports compliance with her medications, uses pillbox. Physically active throughout the day. [employer] is present. [facility] Medical History Contact dermatitis Essential hypertension Left bundle branch block Persistent atrial fibrillation Heart failure with reduced ejection fraction Chronic a-fib CHF (congestive heart failure) Endometrioid adenocarcinoma of uterus Ovarian mass Uterine fibroid Left flank pain Skin lesion Mild major depression, single episode Urge urinary incontinence STEPHAN (generalized anxiety disorder) Hypovitaminosis D Developmental delay, mild Depression with anxiety Pernicious anemia Surgical History Status post total hysterectomy and bilateral salpingo-oophorectomy History of tooth extraction History of H/O tubal ligation Family History Father Heart attack Mother Dementia Other Mental and behavioral problem in adult Social History Household Members: Other Household Members Other:: daughter Housing: Apartment Are you a primary healthcare recruiter to a significant other at home: No Do you presently have visiting nurse or other home services: No Alcohol intake: never Patient Tobacco Use Status: Never used Tobacco Tobacco use type: Cigarette e-Cigarette/Vaping Use: Never Used Second Hand Smoke Exposure: No service: No Current occupational status: disabled Cognitive needs: Yes Hearing needs: No Vision needs: No Female Reproductive History Menstrual Age of Menarche: 14 Review of Systems Const All systems reviewed & are unremarkable except as noted in HPI and below ENT Denies dizziness Card Denies chest pain, Denies chest pain at rest, Denies chest pain with activity, Denies rapid heart rate, Denies pedal edema, Denies edema, Denies leg edema, Denies lightheadedness, Denies palpitations, Denies dyspnea, Reports dyspnea on exertion (on stairs) and Denies orthopnea Resp Denies cough, Denies dyspnea and Reports dyspnea on exertion (on stairs) GI Denies hematochezia and Denies change in stool character Musc Denies abnormal gait, Denies limited range of motion, Denies muscle cramps, Denies muscle weakness, Denies numbness, Denies radiating pain into limb, Denies stiffness and Denies tingling Neuro Denies abnormal gait, Denies dizziness, Denies numbness and Denies tingling Endo Denies palpitations Physical Exam Vital Signs: Last Vital Signs Pulse 49 L 03/14/25 09:45 BP 142/80 H 03/14/25 09:45 BMI result Body Mass Index 25.9 Const General: cooperative, healthy appearing, comfortable and no acute distress Orientation/consciousness: patient oriented x3 Neck Neck: Yes normal visual inspection and Yes no JVD Resp Effort & Inspection: normal respiratory effort Auscultation: clear to auscultation bilaterally, no rales, no rhonchi and no wheezes Cardio Rate: bradycardic Rhythm: regular rhythm Heart sounds: S1 normal heart sound present, S2 normal heart sound present, no gallops, no murmurs and no rubs Neuro General: patient oriented x3 Extrem General: Yes normal to inspection, No no pedal edema and No calf tenderness Psych Appearance: grossly normal Mental Status: mental status grossly normal Speech and movement: Normal speech and movement present Office Procedures EKG Details: Today, read by me sinus bradycardia, left bundle branch block, rate 49, QTC 467 milliseconds [id number], Complete Assessment & Plan Assessment & Plan (1) Nonischemic cardiomyopathy: Code(s): I42.8 - Other cardiomyopathies Category: Medical Plan[place] [facility] [place]est[place] 10/2024. Echocardiogram was done on 06/21/2024 showing EF 25-30%, moderately dilated left atrium, [id number] elevated RV systolic pressure and significantly elevated RA pressure. Nuclear stress test on 07/07/2024 showing no clear evidence of myocardial ischemia, EF 32%. Reduced EF could be related to her left bundle branch block or atrial fibrillation. She was on guideline directed medical therapy and had repeat echocardiogram 10/06/2024 showed EF still at 25-30%. She has been in atrial fibrillation which we have been trying to schedule cardioversion in hopes that EF may improve in normal rhythm. - EKG done today showing sinus bradycardia, left bundle branch block, rate 49. No signs of fluid overload on exam. Will check limited echocardiogram to reassess EF. Will check Holter monitor to assess for PAF and heart rates. If EF remains down then TELEVISION MECHANIC/TELEVISION MECHANIC D can be considered. Signs and symptoms of heart failure reviewed with her. Continue carvedilol and Entresto for neurohormonal modulation. Continue Lasix for diuretic. Cardiology follow-up 3 months, sooner if needed. (2) Heart failure with reduced ejection fraction: Code(s): I50.20 - Unspecified systolic (congestive) heart failure Category: Medical Plan: As above (3) Persistent atrial fibrillation: Code(s): I48.19 - Other persistent atrial fibrillation Category: Medical Plan: Persistent atrial fibrillation present, since EKG 05/04/2024. Cardioversion has been planned however patient could not confirm last Eliquis dose. She was put on amiodarone 2 assist with rhythm control. Cardioversion rescheduled however not completed for unclear reason. She comes today and EKG is showing sinus bradycardia, left bundle branch block, rate 49, asymptomatic. She tells me she feels no different in normal rhythm compared to last visit when she had atrial fibrillation. At this time will have her continue amiodarone 200 mg daily. W ill reduce carvedilol from 6.25 mg b.i.d. down to 3.125 mg b.i.d.. Will increase Entresto to max dose due to elevated blood pressure. Holter and limited echo ordered as above. Will check labs for amiodarone monitoring including liver panel and TSH. (4) Essential hypertension: Code(s): I10 - Essential (primary) hypertension Category: Medical Plan: Blood pressure goal less than 130/80. Elevated today 142/8. We will be decreasing carvedilol and increasing Entresto. continue Lasix, Aldactone. (5) Left bundle branch block: Code(s): I44.7 - Left bundle-branch block, unspecified Category: Medical Plan: Present on EKGs. Unknown longevity.- may be contributing to cardiomyopathy. Plan I discussed with the patient the current normal heart rhythm and the low heart rate, which necessitates a reduction in carvedilol dosage. We will monitor her heart function with an ultrasound and a heart monitor to ensure rhythm stability and assess heart function improvement. I explained the potential need to increase Entesto for better BP control. Orders: Orders Comprehensive Met. Panel Today I48.19 - Other persistent atrial fibrillation, I50.20 - Unspecified systolic (congestive) heart failure ECG 3 day holter monitor Today I42.8 - Other cardiomyopathies, I44.7 - Left bundle-branch block, unspecified, I48.19 - Other persistent atrial fibrillation, I50.20 - Unspecified systolic (congestive) heart failure TSH reflex Free T4 Today I48.19 - Other persistent atrial fibrillation, I50.20 - Unspecified systolic (congestive) heart failure CA Echo Limited Today I42.8 - Other cardiomyopathies, I44.7 - Left bundle- branch block, unspecified, I48.19 - Other persistent atrial fibrillation, I50.20 - Unspecified systolic (congestive) heart failure Medications: New carvedilol must administer with a meal/food Dose reduced 3.125 mg PO BID 60 tabs 5RF sacubitril-valsartan 97-103 mg (Entresto) dose increased 1 tab PO BID 60 tabs 5RF Discontinued sacubitril-valsartan 49-51 mg (Entresto) Discontinued Reason: Doctor's Order 1 tab See Protocol PO BID 90 days 180 tabs 1RF Patient Instructions: - Take carvedilol as prescribed, with the new dosage of 3.125 mg twice daily. - Expect a call for scheduling the ultrasound and heart monitor tests. - Monitor for any changes in symptoms and report them promptly. - Obtain labs in 1-2 weeks after med changes. - Follow up in a few months or sooner if test results indicate urgency. Patient was informed and verbally consented to the use of an ambient scribe for clinic note documentation during this visit. Visit time spent on chart review, interview, assessment, orders, documentation. Coding Level of Care Code Est Pt Level 4 (77130) Complex EM visit Add On G2211 Diagnoses Nonischemic cardiomyopathy I42.8 Heart failure with reduced ejection fraction I50.20 Persistent atrial fibrillation I48.19 Essential hypertension I10 Left bundle branch block I44.7 CPT Codes EKG - CPT: 30972-[id number], Complete ([id number]) Time Spent (min) 32
--- OUTSIDE RECORDS SUMMARY | 2025-03-14 11:06 | XMS_ITS | Clinical Summary ---
Author Organization [facility] ity Address [address] [place] [address] Care Team Providers Care Vp Software Name Role Phone Janeth Ferguson MD Primary Care Provider [phone] Social History Tobacco Use Types Packs/Day Years [...] age to complete this topic Care Teams Vp Software Relationship Specialty Start Date End Date Janeth Ferguson MD [address] [place] [address] [address] [facility] [place] [address] PCP - General Internal Medicine 03/31/17
== END 2025-03-14 10:22 | disposition home or self-care (01) ==
LOC: HO.HCS 09:41
PROVIDERS: PCP Internal Medicine; Visit Provider Nurse Practitioner Family
DX: I42.8 Other cardiomyopathies (principal); I50.20 Unspecified systolic (congestive) heart failure; I48.19 Other persistent atrial fibrillation; I10 Essential (primary) hypertension; I44.7 Left bundle-branch block, unspecified
CPT/HCPCS: 93010; 99214; G2211

== ENCOUNTER → 2025-03-14 09:40 | Outpatient (BNVA) | payer OTHER, SELFPAY | PROVIDERS: PCP Internal Medicine; Visit Provider Nurse Practitioner Family | DX: I42.8 Other cardiomyopathies (principal); I11.0 Hypertensive heart disease with heart failure; I50.20 Unspecified systolic (congestive) heart failure; I44.7 Left bundle-branch block, unspecified; I48.19 Other persistent atrial fibrillation | CPT/HCPCS: 93005; 99212 ==

== ENCOUNTER 2025-04-29 19:00 | Emergency (ER) | payer OTHER, SELFPAY ==
--- NOTE | ~2025-04-29 | XR_ITS ---
CLINICAL HISTORY: fall 3 views left shoulder Comparison: None Findings: There is a mildly comminuted and impacted fracture involving the surgical neck of the proximal humerus, with fracture lines extending up along the base of the greater tuberosity of the humerus. No other fracture or dislocation.. No significant arthritic change. No radiopaque foreign body. Normal visualized left chest. Impression: 1. Proximal humeral fracture as described above. This document has been electronically signed by: Og Landers MD on 04/29/2025 19:55:08
--- NOTE | ~2025-04-29 | CT_ITS ---
CLINICAL HISTORY: fall +hs CT cervical spine without contrast Comparison: None Findings: Normal limited view of the intracranial contents. Soft tissues of the neck are normal. Lung apices are normal. Normal vertebral body alignment. No fractures or dislocations. Diffuse cervical degenerative disc changes are present C3-C7. 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 Impression: 1. No cervical vertebral fracture or traumatic malalignment. 2. Degenerative changes as described above. This document has been electronically signed by: Og Landers MD on 04/29/2025 20:25:35
--- NOTE | ~2025-04-29 | CT_ITS ---
CLINICAL HISTORY: fall +HS CT head without contrast Comparison: None Findings: No intracranial mass, midline shift, hydrocephalus, or acute hemorrhage. No CT evidence of acute ischemia. Visualized paranasal sinuses and mastoid air cells normal. Orbits unremarkable. No skull fracture Impression: 1. No acute intracranial abnormalities. This document has been electronically signed by: Og Landers MD on 04/29/2025 20:25:29
--- NOTE | ~2025-04-29 | XR_ITS ---
CLINICAL HISTORY: Fall on left side 2 views left humerus Comparison: Same day shoulder radiographs Findings: Comminuted fracture involving the surgical neck of the proximal humerus with fracture lines extending up along the base of the greater tuberosity of the humerus is re-identified. No other fracture or dislocation.. No significant arthritic change. No radiopaque foreign body. Impression: 1. Proximal humeral fracture as described above. This document has been electronically signed by: Og Landers MD on 04/29/2025 19:52:52
[2025-04-29 19:18] VITALS: BP 112/57; PULSE 42; RESP 16; TEMP 36.6; O2SAT 98; BMI 27.4
--- NOTE | 2025-04-29 19:19 | ED_ITS ---
HPI - General Adult General Chief complaint: Fall Stated complaint: fell after dog tripped her Time Seen by Provider: 04/29/25 22:30 Source: patient and family Mode of arrival: ambulatory Limitations: no limitations History of Present Illness ED Provider: Jhonatan LUO HPI narrative: The patient is a 64-year-old female who presents to the Emergency Department after a ground-level fall while walking her dog earlier this evening. The patient states the dog became hyperactive and ?pushed me down,? causing her to land primarily on her left side. She reports immediate left shoulder pain and soreness of the left upper arm; she also struck the left lateral orbit but denies loss of consciousness. The patient reports anticoagulation with Eliquis for atrial fibrillation. She states she did not take any pain medication today. Related Data Home Medications ?Medication ?Instructions ?Recorded ?Confirmed citalopram 40 mg tablet 40 mg PO DAILY 02/16/2008/03 bupropion HCl 150 mg tablet,12 hr 150 mg PO DAILY 11/1003/14/25 sustained-release triamcinolone acetonide 0.1 % 1 appl topical DAILY PRN 07/22/24 03/14/25 topical cream Flares/Rashes tacrolimus 0.1 % topical ointment 1 appl topical BID P RN 10/27/24 03/14/25 Flares/Rashes Previous Rx's ?Medication ?Instructions ?Recorded Shower Chair #1 ea 03/14/21 incontinence pad, liner, disp #30 ea 08/07/23 blood pressure monitor #1 ea 10/20/23 life alert #1 ea 06/28/24 polyethylene glycol 3350 17 17 g PO DAILY PRN constipa tion 30 08/06/24 gram/dose oral powder (Gavilax) days #510 grams cholecalciferol (vitamin D3) 50 50 mcg PO DAILY 90 day s #90 caps 09/03/24 mcg (2,000 unit) capsule folic acid 1 mg tablet 1 mg PO DAILY 90 days #90 ta bs 09/03/24 amiodarone 200 mg tablet 200 mg PO DAILY #90 tabs 10/03 calcium 600 mg (as 1 tab PO DAILY 90 days #90 t abs 10/06/24 carbonate)-vitamin D3 10 mcg (400 unit) tablet furosemide 20 mg tablet (Lasix) 20 mg PO QPM #90 tabs 10/30/24 apixaban 5 mg tablet (Eliquis) 5 mg PO BID #180 tabs 0 01/19/25 spironolactone 25 mg tablet 25 mg PO DAILY #90 tabs (Aldactone) cetirizine 10 mg tablet 10 mg PO DAILY PRN itching # 14 tabs 02/12/25 carvedilol 3.125 mg tablet 3.125 mg PO BID #60 tabs sacubitril 97 mg-valsartan 103 mg 1 tab PO BID #60 tab s 03/14/25 tablet (Entresto) cyanocobalamin (vitamin B-12) 1,000 mcg PO QWEEK 90 da ys #13 tabs 04/28/25 1,000 mcg tablet acetaminophen 500 mg capsule 1,000 mg (2 x 500 mg) PO .q8 PRN 04/29/25 fever or pain #30 caps Allergies Allergy/AdvReac Type Severity Reaction Status Date / Time amoxicillin (AMOXICILLIN) Allergy Intermediate ? RASH Verified 04/29/25 19:22 chlorpheniramine (From Allergy Intermediate Rash Verified 04/29/25 19:22 Tussionex) clonazepam (From KLONOPIN) Allergy Intermediate ? RASH Verified 04/29/25 19:22 hydrocodone (From Tussionex) Allergy Intermediate Rash Verified 04/29/25 19:22 lorazepam (LORAZEPAM) Allergy Intermediate ? RASH Verified 04/29/25 19:22 mirtazapine (From REMERON) Allergy Intermediate RASH Verified 04/29/25 19:22 naproxen (From NAPROSYN) Allergy Intermediate ? RASH Verified 04/29/25 19:22 Sulfa (Sulfonamide Allergy Intermediate ? RASH Verified 04/29/25 19:22 Antibiotics) (SULFA(SULFONAMIDE ANTIBIOTICS)) fluoxetine (Prozac) Allergy Mild rash Verified 04/29/25 19:22 Review of Systems Review of Systems: Yes all other systems are reviewed and are negative PMFSH Past Medical History Medical History Contact dermatitis Essential hypertension Left bundle branch block Persistent atrial fibrillation Heart failure with reduced ejection fraction Chronic a-fib CHF (congestive heart failure) Endometrioid adenocarcinoma of uterus Ovarian mass Uterine fibroid Left flank pain Skin lesion Mild major depression, single episode Urge urinary incontinence STEPHAN (generalized anxiety disorder) Hypovitaminosis D Developmental delay, mild Depression with anxiety Pernicious anemia Surgical History Status post total hysterectomy and bilateral salpingo-oophorectomy History of tooth extraction History of H/O tubal ligation Family History Family History Father Heart attack Mother Dementia Other Mental and behavioral problem in adult Social History Social History Household Members: Other Household Members Other:: daughter Housing: Apartment Are you a primary care transport nurse to a significant other at home: No Do you presently have visiting nurse or other home services: No Alcohol intake: never Patient Tobacco Use Status: Never used Tobacco Tobacco use type: Cigarette e-Cigarette/Vaping Use: Never Used Second Hand Smoke Exposure: No Advance Directives: No Advance Directives Information Provided: No Do you have a plan to hurt others: No Plan service: No Current occupational status: disabled Cognitive needs: Yes Hearing needs: No Vision needs: No Physical Exam ED Vital Signs: Vital Signs - 24 hr 04/29/25 19:18 04/29/25 20:16 Temperature 97.9 F 97.8 F Pulse Rate 42 L 44 L Respiratory Rate 16 20 Blood Pressure 112/57 L 113/77 Pulse Oximetry 98 97 Oxygen Delivery Method Room Air Room Air BMI result Body Mass Index 27.4 CONSTITUTIONAL: The patient appears non-toxic, well nourished and in no acute distress. Vital signs as documented. HEAD: Contusion of the left lateral orbit, no open injury, head is otherwise atraumatic, normocephalic. EYES: EOMs intact and nonpainful, pupils equal and appropriately reactive, conjunctiva clear, no exudate. ENT: Nares patent, no discharge. Airway patent, no audible stridor, visible mucosa is pink and moist without noted lesions. NECK: Trachea is midline, no obvious masses or gross abnormalities. CHEST: Symmetric movement, normal appearance. LUNGS: LS present and CTAB, no w/r/r. Non-labored work of breathing. CARDIAC: Regular Rhythm, S1/S2 appreciated, no murmurs, rubs or gallops. ABDOMEN: Abdomen soft and non-tender x4 quadrants, no palpable masses or organomegaly. : Deferred. EXTREMITIES: Limited range of motion of the left shoulder secondary to pain, positive crepitus upon palpation, distal CSM intact, 2+ radial pulse, no open injury. Normal tone, moves all other extremities spontaneously without reported pain. No other obvious acute injury or deformity noted. NEURO: Alert and oriented x3, CN II-XII appear grossly intact. Cerebellar Functioning grossly intact. No obvious sensory or motor deficits. Speech clear and appropriate. PSYCH: normal affect, appropriate eye contact, fluid speech, with appropriate response to questioning. No reported suicidality or homicidality. SKIN: Warm, dry, color appropriate, normal turgor. No rashes noted. Course Course Course Narrative: This is a Rapid Medical Exam performed in triage by Anna Sharp PA-C. Full HPI, ROS and PE to be performed by primary ED provider. 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 Denies LOC or anticoagulation use. Poor historian PE: Bradycardic. No midline cervical spinous tenderness. No focal deficits. Left shoulder/upper humerus with reproducible tenderness Plan: EKG, CT, x-ray Medical Decision Making Medical Decision Making MDM Narrative: 11:07 PM 04/29/2025 (Nicole LUO): The patient is a 64-year-old female who presents to the Emergency Department after a ground-level fall while walking her dog earlier this evening. The patient states the dog became hyperactive and ?pushed me down,? causing her to land primarily on her left side. She reports immediate left shoulder pain and soreness of the left upper arm; she also struck the left lateral orbit but denies loss of consciousness. The patient reports anticoagulation with Eliquis for atrial fibrillation. She states she did not take any pain medication today. On exam the patient has limited range of motion of the left shoulder secondary to pain, distal CSM is intact, corporate paralegal strength 5/5. There is a small contusion noted to the lateral left orbit, no open injury, EOMs intact and nonpainful. The patient's CT head and neck show no acute i ntracranial pathology, no calvarial or cervical fracture. The patient's left shoulder and humerus films demonstrate a comminuted and impacted proximal humeral head fracture, no other acute findings. The patient will be placed in a sling, treated with Tylenol, and discharged to follow up with Orthopedics. Discharge Plan Discharge Clinical Impression: Fracture of head of left humerus, Fall Patient Disposition: Home, Self-Care Instructions: Arm Fracture in Adults (ED), How to Use a Sling (ED), Fall Preve ntion (ED) Additional Instructions: Thank you for choosing [facility]'s Emergency Department for your care today. Thankfully your head and neck CT today showed no evidence of intracranial bleeding, skull fracture, or cervical spine fracture as a result of your fall. At this time there is no indication for admission to the hospital or continued ED observation, and it is safe to discharge you home. Unfortunately your x-ray today did show evidence of a fracture of your upper left humerus, in the area of your shoulder. We have placed you in a sling, please wear the sling at all times until follow up with the orthopedic clinic. You should take Tylenol 1000mg every 6 hours as needed for any additional pain. Please rest the injured area, and apply ice for 20 minutes every hour. Please follow up with the orthopedic clinic by calling the number provided to schedule an appointment for follow up. Please also follow up with your primary care physician for re-evaluation, additional management of your symptoms, and continued preventative care. If you do not have a primary care physician, please call the [facility] at [phone] to establish a new primary care physician. While waiting to establish your new primary care physician, you can call our Walk-in Care Clinic at [phone] for non-emergency needs. Please return to the emergency department if you develop a severe or sudden change in your symptoms, a fever over 100.4 that does not improve with Tylenol or Ibuprofen, recurrent vomiting, or any other new or worsening symptoms or con cerns. Prescriptions: New acetaminophen 500 mg capsule 1,000 mg PO .q8 PRN (Reason: fever or pain) Qty: 30 0RF No Action (DME) Shower Chair Misc See Rx Instructions .Route Qty: 1 0RF Rx Instructions: As directed (DME) incontinence pad, liner, disp Pad See Rx Instructions .ROUTE .MEDSUPPLY Qty: 30 11RF Rx Instructions: Use 1 pad once a day prn [place] [place] blood pressure monitor Kit See Rx Instructions .Route Qty: 1 0RF Rx Instructions: As directed [place] [place] life alert See Rx Instructions .Route .MEDSUPPLY Qty: 1 0RF Rx Instructions: As directed polyethylene glycol 3350 [Gavilax] 17 gram/dose powder 17 g PO DAILY PRN (Reason: constipation) 30 Days Qty: 510 1RF cholecalciferol (vitamin D3) 50 mcg (2,000 unit) capsule 50 mcg PO DAILY 90 Days Qty: 90 3RF folic acid 1 mg tablet 1 mg PO DAILY 90 Days Qty: 90 3RF amiodarone 200 mg tablet 200 mg PO DAILY Qty: 90 3RF calcium carbonate-vitamin D3 600 mg-10 mcg (400 unit) tablet 1 tab PO DAILY 90 Days Qty: 90 3RF cyanocobalamin (vitamin B-12) 1,000 mcg tablet 1,000 mcg PO QWEEK 90 Days Qty: 13 3RF tacrolimus 0.1 % ointment 1 appl topical BID PRN (Reason: Flares/Rashes) furosemide [Lasix] 20 mg tablet 20 mg PO QPM Qty: 90 0RF Rx Instructions: around 6 pm cetirizine 10 mg tablet 10 mg PO DAILY PRN (Reason: itching) Qty: 14 0RF citalopram 40 mg tablet 40 mg PO DAILY bupropion HCl 150 mg tablet sustained-release 12 hr 150 mg PO DAILY triamcinolone acetonide 0.1 % cream 1 appl topical DAILY PRN (Reason: Flares/Rashes) carvedilol 3.125 mg tablet 3.125 mg PO BID Qty: 60 5RF Rx Instructions: must administer with a meal/food Dose reduced sacubitril-valsartan [Entresto] 97-103 mg tablet 1 tab PO BID Qty: 60 5RF Rx Instructions: dose increased Eliquis 5 mg tablet 5 mg PO BID Qty: 180 0RF spironolactone [Aldactone] 25 mg tablet 25 mg PO DAILY Qty: 90 3RF Referrals: Marium Conley MD [Primary Care Provider, Internal Medicine] Clinical Impression: Fracture of head of left humerus; Fall [facility] [Provider Group] Clinical Impression: Fracture of head of left humerus; Fall Print Language: Indonesian
--- NOTE | 2025-04-29 19:21 | ECG_ITS ---
Test Reason : bradycardia Blood Pressure : */* mmHG Vent. Rate : 42 BPM Atrial Rate : 42 BPM P-R Int : 168 ms QRS Dur : 148 ms QT Int : 568 ms P-R-T Axes : 74 -36 80 degrees QTcB Int : 474 ms Marked sinus bradycardia Left axis deviation Left bundle branch block Abnormal ECG When compared with ECG of 24-Nov-2024 12:47, QRS axis Shifted left Referred By: Anna Sharp Electronically Signed By: Ambrose Downing
--- OUTSIDE RECORDS SUMMARY | 2025-04-29 19:46 | XMS_ITS | Clinical Summary ---
Author Organization [facility] ity Address [address] [place] [address] Care Team Providers Care Hard Candy Batch Mixer Name Role Phone Janeth Ferguson MD Primary Care Provider [phone] Social History Tobacco Use Types Packs/Day Years [...] Depression Screening 05/12/2024 COVID-19 Vaccine ( - 2024-2 6 season) 2025 Influenza Vaccine (#1) 2025 RSV [...] age to complete this topic Care Teams Hard Candy Batch Mixer Relationship Specialty Start Date End Date Janeth Ferguson MD [address] [place] [address] [address] [facility] [place] [address] PCP - General Internal Medicine 03/31/17
[2025-04-29 20:16] VITALS: BP 113/77; PULSE 44; RESP 20; TEMP 36.6; O2SAT 97
--- NOTE | 2025-04-29 23:12 | PC.NURSE ---
Sling applied to left shoulder by technical buyer, placement confirmed by RN
[2025-04-29 23:32] VITALS: BP 121/56; PULSE 67; RESP 16; O2SAT 95
[2025-04-29 23:33] VITALS: BP 121/56; PULSE 67; RESP 16; TEMP -17.7; TEMP 0; O2SAT 95
== END 2025-04-29 23:34 | disposition home or self-care (01) ==
PROVIDERS: Emergency Provider Emergency Medicine; PCP Internal Medicine
DX: S42.292A Other displaced fracture of upper end of left humerus, initial encounter for closed fracture (principal); W01.0XXA Fall on same level from slipping, tripping and stumbling without subsequent striking against object, initial encounter; Y93.89 Activity, other specified; Y92.89 Other specified places as the place of occurrence of the external cause; Y99.8 Other external cause status; I11.0 Hypertensive heart disease with heart failure; I50.22 Chronic systolic (congestive) heart failure; I48.19 Other persistent atrial fibrillation; Z79.01 Long term (current) use of anticoagulants; Z79.899 Other long term (current) drug therapy
CPT/HCPCS: 70450; 72125; 73030; 73060; 93005; 99284; 99285

== ENCOUNTER → 2025-04-29 19:21 | Outpatient (BNV) | payer OTHER, SELFPAY | PROVIDERS: PCP Internal Medicine; Visit Provider Radiology Diagnostic Radiology | DX: M50.30 Other cervical disc degeneration, unspecified cervical region (principal); S09.90XA Unspecified injury of head, initial encounter; S42.202A Unspecified fracture of upper end of left humerus, initial encounter for closed fracture; Z04.3 Encounter for examination and observation following other accident | CPT/HCPCS: 70450; 72125; 73030; 73060 ==

== ENCOUNTER → 2025-04-29 19:21 | Outpatient (BNV) | payer OTHER, SELFPAY | PROVIDERS: Emergency Provider Emergency Medicine; PCP Internal Medicine; Visit Provider Internal Medicine Cardiovascular Disease | DX: R00.1 Bradycardia, unspecified (principal); I44.7 Left bundle-branch block, unspecified | CPT/HCPCS: 93010 ==

== ENCOUNTER 2025-05-09 08:51 | Outpatient (REF) | payer OTHER, SELFPAY ==
--- NOTE | ~2025-05-09 | XR_ITS ---
EXAMINATION: XR SHOULDER 2 OR MORE VIEWS LEFT HISTORY: M25.512 - Pain in left shoulder COMPARISON: Comparison is made with the prior examination dated 04/29/2025. FINDINGS: Two views of the left shoulder are submitted. Osseous mineralization is normal. Again seen is a comminuted fracture of the humeral head and neck. There has been no significant change in appearance from the prior study. There is inferior subluxation of the humeral head suggestive of a joint effusion. There is mild narrowing of the AC joint. The soft tissues are unremarkable. XR/XR shoulder LT min 2V IMPRESSION: Comminuted fracture of the humeral head and neck without change. Electronically signed by: Boyd Barton MD 05/09/2025 02:51 PM EST
--- OUTSIDE RECORDS SUMMARY | 2025-05-10 15:34 | XMS_ITS | Clinical Summary ---
Author Organization [facility] ity Address [address] [place] [address] Care Team Providers Care [employer] Pump Operator Name Role Phone Janeth Ferguson MD Primary Care Provider [phone] Social History Tobacco Use Types Packs/Day Years [...] age to complete this topic Care Teams [employer] Pump Operator Relationship Specialty Start Date End Date Janeth Ferguson MD [address] [place] [address] [address] [facility] [place] [address] PCP - General Internal Medicine 03/31/17
== END 2025-05-09 08:52 | disposition home or self-care (01) ==
LOC: HO.HOSX 08:51
PROVIDERS: Visit Provider Physician Assistant
DX: S42.202A Unspecified fracture of upper end of left humerus, initial encounter for closed fracture (principal); W01.0XXA Fall on same level from slipping, tripping and stumbling without subsequent striking against object, initial encounter; Y92.009 Unspecified place in unspecified non-institutional (private) residence as the place of occurrence of the external cause; Y93.K9 Activity, other involving animal care; Y99.9 Unspecified external cause status
CPT/HCPCS: 73030

== ENCOUNTER 2025-05-09 14:10 | Outpatient (AMB) | payer OTHER, SELFPAY ==
--- NOTE | 2025-05-09 14:21 | A.OFFVIS_ITS ---
Vital Signs 05/09/25 14:22 Height 5 ft 1 in Weight 145 lb BMI 27.4 Intake Visit Reasons: FC-FC of head of left humerus, Fall-04/29/25 Intake Note: Gloria is a 64 year old left hand dominant female who presents today for an ER follow up of a left humerus fracture, DOI 04/29/25. Patient [place] [facility] [place] same day she had a trip and fall over her dog at her house. Her left arm was placed in a sling, she was instructed to wear at all times and to follow up with orthopedics. Today patient reports pain in her arm that increases with lifting her arm. Complaints of numbness and tingling. She d/c use of sling, stating it keeps falling down. Allergies amoxicillin (AMOXICILLIN) Allergy (Intermediate, Verified 05/09/25 14:30) ? RASH chlorpheniramine (From Tussionex) Allergy (Intermediate, Verified 05/09/25 14:30) Rash clonazepam (From KLONOPIN) Allergy (Intermediate, Verified 05/09/25 14:30) ? RASH hydrocodone (From Tussionex) Allergy (Intermediate, Verified 05/09/25 14:30) Rash lorazepam (LORAZEPAM) Allergy (Intermediate, Verified 05/09/25 14:30) ? RASH mirtazapine (From REMERON) Allergy (Intermediate, Verified 05/09/25 14:30) RASH naproxen (From NAPROSYN) Allergy (Intermediate, Verified 05/09/25 14:30) ? RASH Sulfa (Sulfonamide Antibiotics) (SULFA(SULFONAMIDE ANTIBIOTICS)) Allergy (Intermediate, Verified 05/09/25 14:30) ? RASH fluoxetine (Prozac) Allergy (Mild, Verified 05/09/25 14:30) rash Medication List - Last Reconciled 05/09/25 by Ancelmo Collier PA-C acetaminophen 1,000 mg (2 x 500 mg) PO .q8 PRN amiodarone 200 mg PO DAILY apixaban (Eliquis) 5 mg PO BID blood pressure monitor As directed bupropion HCl SR 150 mg PO DAILY calcium carbonate-vitamin D3 600 mg-10 mcg (400 unit) 1 tab PO DAILY 90 days carvedilol 3.125 mg PO BID cetirizine 10 mg PO DAILY PRN cholecalciferol (vitamin D3) 50 mcg PO DAILY 90 days citalopram 40 mg PO DAILY cyanocobalamin (vitamin B-12) 1,000 mcg PO QWEEK 90 days folic acid 1 mg PO DAILY 90 days furosemide (Lasix) 20 mg PO QPM incontinence pad, liner, disp Use 1 pad once a day prn [life alert As directed] polyethylene glycol 3350 (Gavilax) 17 grams PO DAILY PRN 30 days sacubitril-valsartan 97-103 mg (Entresto) 1 tab PO BID Shower Chair As directed spironolactone (Aldactone) 25 mg PO DAILY tacrolimus 0.1% 1 appl topical BID PRN triamcinolone acetonide 0.1% 1 appl topical DAILY PRN HPI Comments Details: History of Present Illness The patient is a 64 year old female presenting for evaluation of a left shoulder injury. She sustained a fall on 04/29 after her dog caused her to trip. Following the fall, she went to an emergency room where x-rays were performed, which revealed a fracture of the proximal humerus. The fracture is located through the neck of the humerus. The patient is left- hand dominant. Prior to the injury, she had full range of motion in her left shoulder without any problems. Social History - Dominant Hand: The patient is left-handed. - Living Situation: The patient lives with her daughter. - Support System: The patient receives assistance from a direct healthcare risk control consultant/LONG TERM ACUTE CARE REGISTERED NURSE. [facility] Medical History Contact dermatitis Essential hypertension Left bundle branch block Persistent atrial fibrillation Heart failure with reduced ejection fraction Chronic a-fib CHF (congestive heart failure) Endometrioid adenocarcinoma of uterus Ovarian mass Uterine fibroid Left flank pain Skin lesion Mild major depression, single episode Urge urinary incontinence STEPHAN (generalized anxiety disorder) Hypovitaminosis D Developmental delay, mild Depression with anxiety Pernicious anemia Surgical History Status post total hysterectomy and bilateral salpingo-oophorectomy History of tooth extraction History of H/O tubal ligation Family History Father Heart attack Mother Dementia Other Mental and behavioral problem in adult Social History Household Members: Other Household Members Other:: daughter Housing: Apartment Are you a primary ostomy care nurse to a significant other at home: No Do you presently have visiting nurse or other home services: No Alcohol intake: never Patient Tobacco Use Status: Never used Tobacco Tobacco use type: Cigarette e-Cigarette/Vaping Use: Never Used Second Hand Smoke Exposure: No service: No Current occupational status: disabled Cognitive needs: Yes Hearing needs: No Vision needs: No Female Reproductive History Menstrual Age of Menarche: 14 Review of Systems Narrative Review of Systems - Musculoskeletal: Reports left shoulder pain and swelling. - Neurological: Reports a sensation of muscles pulling in the affected arm. Physical Exam Exam Exam: Physical Exam - Left Upper Extremity: Inspection reveals significant swelling. Healing ecchymosis is present. Motor function is intact in the hand and wrist, including weight yardage checker, hand opening, and wrist flexion/extension. Sensation to light touch is present. Vital Signs: BMI result Body Mass Index 27.4 Office Procedures AMB Fracture Care Fracture Billing Code: Fracture Billing Code Assessment & Plan Assessment & Plan (1) Closed fracture of left proximal humerus: Code(s): S42.202A - Unspecified fracture of upper end of left humerus, initial encounter for closed fracture Category: Medical Plan Plan 1. Left Proximal Humerus Fracture The patient has a fracture through the neck of the proximal humerus, which can lead to altered anatomy and may result in limited shoulder motion after healing. Non-operative management is recommended as surgery does not change the functional outcome for this type of injury. The primary goal is to achieve functional motion for activities of daily living, such as feeding and personal hygiene. The patient is instructed to avoid overhead movements and lifting objects heavier than a remote control. She should keep her arm close to her body, but can perform small tasks at that level. A referral will be placed for home physical therapy (VNA services). The patient can wear a sling when in public for safety but should try to go without it in a controlled home environment to prevent stiffness. Follow-up is scheduled in 6 weeks for reassessment and repeat x-rays. Consent Patient was informed and verbally consented to the use of an ambient scribe for clinic note documentation during this visit. Orders: Orders XR shoulder LT min 2V Today M25.512 - Pain in left shoulder Referrals [facility]osp[facility] Referral S42A - Unspecified fracture of upper end of left humerus, initial encounter for closed fracture Coding Level of Care Code New Pt Level 3 (32884) Add On Problem Visit Only Diagnoses Closed fracture of left proximal humerus S4A CPT Codes Fracture Care - Fracture Billing Code: Fracture Billing Code ([id number])
[2025-05-09 14:22] VITALS: BMI 27.4
--- OUTSIDE RECORDS SUMMARY | 2025-05-09 16:30 | XMS_ITS | Clinical Summary ---
Author Organization [facility] ity Address [address] [place] [address] Care Team Providers Care Etcher Photoengraving Name Role Phone Janeth Ferguson MD Primary Care Provider [phone] Social History Tobacco Use Types Packs/Day Years [...] age to complete this topic Care Teams Etcher Photoengraving Relationship Specialty Start Date End Date Janeth Ferguson MD [address] [place] [address] [address] [facility] [place] [address] PCP - General Internal Medicine 03/31/17
== END 2025-05-09 15:14 | disposition home or self-care (01) ==
LOC: HO.HOS 14:11
PROVIDERS: PCP Internal Medicine; Visit Provider Physician Assistant
DX: S42.202A Unspecified fracture of upper end of left humerus, initial encounter for closed fracture (principal)
CPT/HCPCS: 99203; G2211

== ENCOUNTER → 2025-05-09 14:12 | Outpatient (BNV) | payer OTHER, SELFPAY | PROVIDERS: Visit Provider Radiology Diagnostic Radiology | DX: S42.352A Displaced comminuted fracture of shaft of humerus, left arm, initial encounter for closed fracture (principal) | CPT/HCPCS: 73030 ==